=== PATIENT | male | born 1955 | race Caucasian/White ===

== ENCOUNTER 2017-01-08 15:12 | Observation (INO) | payer OTHER ==
[2017-01-08] MEDS ORDERED: MIDAZOLAM 2 MG/2 ML VIAL ONE ×2 (15:27→16:47)
[2017-01-08] MEDS ORDERED: PROPOFOL 200 MG/20 ML VIAL ONE (15:27)
[2017-01-08] MEDS ORDERED: PROPOFOL/EMULSION 500 MG/50 ML BOTTLE IV ONE (15:27)
[2017-01-08] MEDS ORDERED: fentaNYL 100 MCG/2 ML INJ ONE (16:46)
[2017-01-08] MEDS ORDERED: SUGAMMADEX SODIUM 200 MG/2 ML VIAL IVP ONE ×2 (17:27→17:29)
[2017-01-08] MEDS ORDERED: NALOXONE HCL 0.4 MG/ML INJ IVP PRN (19:13)
[2017-01-08] MEDS ORDERED: ALBUTEROL 3 ML DEYVIAL IH PRN (19:13)
[2017-01-08] MEDS ORDERED: ACETAMINOPHEN 500 MG TAB PO PRN (19:13)
--- NOTE | 2017-01-08 19:14 | POSTANESTH ---
Post Anesthetic Evaluation Cardiovascular Status: Similar to Pre-Op Cond Respiratory Status: Similar to Pre-op Cond. Level of Consciousness/Mental Status: Alert and Oriented Pain Control: Adequate, Prn Tx Ordered Nausea/Vomiting Control: Adequate, Prn Tx Ordered Complications Possibly Related to Anesthesia: None Noted
[2017-01-08] MEDS ORDERED: SODIUM CL 0.9% 20 ML VIAL ONE (19:31)
[2017-01-08] MEDS ORDERED: DEXAMETHASONE 10 MG/ML VIAL ONE (19:31)
[2017-01-08] MEDS ORDERED: LIDOCAINE 2% JELLY 5 ML TUBE ONE (19:31)
[2017-01-08] MEDS ORDERED: LIDOCAINE 2% 2 ML INJ ONE (19:31)
[2017-01-08] MEDS ORDERED: NALOXONE HCL 0.4 MG/ML INJ ONE (19:31)
[2017-01-08] MEDS ORDERED: LORazepam 0.5 MG TAB PO PRN (20:32)
[2017-01-08] MEDS ORDERED: oxyCODONE IR 5 MG TAB PO PRN (20:32)
[2017-01-08] MEDS ORDERED: ZOLPIDEM TARTRATE 5 MG TAB PO PRN (20:32)
[2017-01-08] MEDS ORDERED: ACETAMINOPHEN 325 MG TAB PO PRN (20:32)
[2017-01-08] MEDS ORDERED: HYDROmorphone HCL/NS/PF 0.4 MG/2 ML SYR IVP PRN (20:32)
[2017-01-08] MEDS ORDERED: ONDANSETRON 4 MG/2 ML VIAL IVP PRN (20:32)
[2017-01-08] MEDS ORDERED: ONDANSETRON DISINTEGRATING 4 MG TAB PO PRN (20:32)
[2017-01-08] MEDS ORDERED: D50W 25 GM/50 ML SYR IVP PRN (20:36)
[2017-01-08 21:56] LABS: PLATELET COUNT 127 10^3/uL (150-400)
[2017-01-08] MEDS ORDERED: NAPROXEN SODIUM 220 MG TAB PO PRN (22:43)
[2017-01-08] MEDS ORDERED: ALLOPURINOL 300 MG TAB PO SCH (22:45)
--- NOTE | 2017-01-08 23:33 | CPEKG ---
Heart Rate: 74 RR Interval: 811 P-R Interval: 152 QRSD Interval: 104 QT Interval: 432 QTC Interval: 480 P [place]: 42 QRS [place]: 41 T Wave [place]: 158 EKG Severity - ABNORMAL ECG - EKG Impression: SINUS RHYTHM EKG Impression: PROBABLE ANTEROSEPTAL INFARCT, AGE INDETERM EKG Impression: BORDERLINE PROLONGED QT INTERVAL EKG Impression: Diffuse ST-T wave abnormalities--More pronounced since December 24, 2015 EKG Impression: Possible left atrial abnormality Electronically Signed By: Alin Motta 09-Jan-2017 07:58:13
--- NOTE | 2017-01-08 23:33 | CPEKG ---
Heart Rate: 74 RR Interval: 811 P-R Interval: 152 QRSD Interval: 104 QT Interval: 432 QTC Interval: 480 P [place]: 42 QRS [place]: 41 T Wave [place]: 158 EKG Severity - ABNORMAL ECG - EKG Impression: SINUS RHYTHM EKG Impression: PROBABLE ANTEROSEPTAL INFARCT, AGE INDETERM EKG Impression: BORDERLINE PROLONGED QT INTERVAL EKG Impression: Diffuse ST-T wave abnormalities--More pronounced since December 24, 2015 EKG Impression: Possible left atrial abnormality Electronically Signed By: Alin Motta 09-Jan-2017 07:58:13
--- NOTE | 2017-01-08 23:45 | GHP ---
[f rep st] HISTORY AND PHYSICAL DATE OF ADMISSION: 01/08/2017 CHIEF COMPLAINT: Shortness of breath. HISTORY: This is a 61-year-old man who was here in the hospital for a lower extremity MRI with anest hesia due to significant claustrophobia who was called to me by Anesthesia for concerns of pre and po st anesthetic hypoxia. It was noted that patient had O2 sats in the high 70s when he checked in for MRI and in the post procedure setting, was noted to be only saturating 91% on 4 L of oxygen. On disc ussion with the patient, he notes that he has been significantly more short of breath for the last se veral months. He does have significant dyspnea on exertion. He notes that he can only walk several feet without becoming so short of breath that he needs to sit down. He notes that this is new over t he last couple of months. He also states that he has been sleeping sitting completely upright in an office chair because if he lies back or lies down, he feels as if he cannot breathe. He has also not iced increased swelling in his bilateral lower extremities for the last several months. He notes he has chronic pain everywhere, so it is difficult for him to really say if he has had chest pain in par ticular. He denies any current chest pain that he is aware of. He denies any pain in one leg over t he other. In terms of his shortness of breath, he has been attributing this to his DARRYL, which was re cently diagnosed at the [facility] for which he is currently using CPAP. PAST MEDICAL HISTORY: Includes: 1. Coronary artery disease. 2. DARRYL on CPAP. 3. Diabetes with complications of neuropathy. 4. Hyperlipidemia. 5. MRSA cellulitis. 6. Severe claustrophobia. PAST SURGICAL HISTORY: Includes: 1. Rotator cuff surgery. 2. Knee surgery. FAMILY HISTORY: Multiple family members with diabetes. 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 He currently is much more sedentary. He lives alone. He is a nonsmoker, nondrinker, nondrug use r. REVIEW OF SYSTEMS: Ten-point review of systems obtained and negative except as per HPI. HOME MEDICATIONS: Include: 1. Tamsulosin. 2. Ambien. 3. Potassium. 4. Allopurinol. 5. Amlodipine. 6. Plavix. 7. Aspirin. 8. Levothyroxine. 9. Lasix. 10. Colchicine. 11. Metformin. 12. Naproxen. 13. Metoprolol. 14. Lisinopril. ALLERGIES: No known drug allergies. PHYSICAL EXAMINATION: VITAL SIGNS: BP 139/84, heart rate 79, respiratory rate 20, O2 sats 91% on 4 L, temperature is 36.5. GENERAL APPEARANCE: This is a well-developed well-nourished man. He is hieu ke and alert. He is mildly breathless with even mild exertion. EYES: Anicteric. HENT: Oropharynx clear. NECK: JVD is elevated. CARDIOVASCULAR: RRR, distant, no MRG. PULMONARY: Decreased breat h sounds throughout, normal work of breathing but significant dyspnea with even mild exertion. Speak ing in full sentences. ABDOMEN: Obese, soft, nontender. EXTREMITIES: Two plus tense pitting edema of the bilateral lower extremities with hyperpigmentation consistent with venostasis changes. SKIN: As above, warm, dry, and well perfused. NEURO/PSYCH: Oriented and appropriate. He is mildly anxi ous. CLINICAL DATA: Labs reviewed. Significant for white blood cell count 8.38, hematocrit of 45.3, plat elets of 127. Chemistry is notable for creatinine 1.3, which is near baseline. Glucose is 182. Tro ponin is 0.058. Chest x-ray, personally reviewed and interpreted, shows evidence of CHF with bilateral pulmonary veno us hypertension. ASSESSMENT AND PLAN: This is a 61-year-old man with a past medical history of coronary artery diseas e, diabetes, presenting after a scheduled MRI for hip pain with acute hypoxic respiratory failure in the setting of likely acute decompensated heart failure. 1. Acute hypoxic respiratory failure. Again, patient requiring 4 L to maintain O2 sats in the low 9 0s. He has a history of orthopnea, dyspnea on exertion, and increased lower extremity edema, all con cerning for decompensated heart failure. Will start IV Lasix 40 b.i.d. Continue supplemental O2 for now. Nothing to suggest pneumonia. Other consideration would be for pulmonary embolus, though this seems less likely in the absence of any chest pain, asymmetrical lower extremity edema, tachycardia, and with better explanation. 2. Acute decompensated heart failure. Again, this sounds to be progressive over the last several mo nths, now with patient sleeping sitting straight up and noting increased lower extremity edema and si gnificant dyspnea on exertion. Will monitor on telemetry overnight. Will obtain serial EKGs and tro ponins. Echocardiogram in the morning. Will ask Cardiology to get involved as well. He is followed usually by Dr. Raman. 3. Diabetes. He has a hemoglobin A1c of 6.2, on metformin at home. Certainly possible the patient may end up requiring angiogram while inhouse, so will hold his metformin and treat with sliding scale insulin for the time being. 4. Hip pain. Patient underwent MRI today with sedation for further evaluation of his hip pain. Thi s report is currently pending. 5. Coronary artery disease as per above, echocardiogram and serial troponins. 6. Hyperlipidemia. Last LDL was noted to be 108. Patient does not appear to be currently on a stat in, though this was noted on prior notes. Will need to get further information. 7. Hypertension. Blood pressure currently is within reasonable goal range. Will continue amlodipin e, metoprolol, and lisinopril. DISPOSITION: Observation status for now. Patient is very adamant he does not want to be in the hosp ital more than 24 hours, though seems likely he may require longer than this for full evaluation and management of above. Patient is new to my care. Old records reviewed, summarized as per HPI and past medical history. Ca re plan reviewed with PACU staff, and further history obtained from patient's friend [facility]. /[id number]/MODL
[2017-01-09 00:18] VITALS: BP 138/76; PULSE 76; RESP 18; TEMP 98.7; O2SAT 94
--- NOTE | 2017-01-09 02:58 | PDHOSCONS ---
Hospitalist Consult Hospitalist Consult: Ricky cover: Called by RN about patient wanting to leave [facility]. I talked to him at length about his concerns. He has taken Ambien for a long time and he states his dose used to be 25 mg qHS. However, he is in a study through [facility] to lower usage. He explains the study has three arms: Continue same dose, lower dose, and taper to discontinuation. He does not know which arm he is in because study is blinded. As a result of this, I told him I could not prescribe him 25 mg as this would be unsafe in the setting of unknown home dose, acute heart failure exacerbation, AHRF, and known sleep apnea. I offered him 10 mg instead but he refused to stay despite this. He was counseled on the high risk of cardiac complications and noting his ongoing heart failure exacerbation and hypoxia. He acknowledged these risks and signed the [facility] paperwork stating such.
--- NOTE | 2017-01-09 02:58 | PDHOSCONS ---
Hospitalist Consult Hospitalist Consult: Ricky cover: Called by RN about patient wanting to leave [facility]. I talked to him at length about his concerns. He has taken Ambien for a long time and he states his dose used to be 25 mg qHS. However, he is in a study through [facility] to lower usage. He explains the study has three arms: Continue same dose, lower dose, and taper to discontinuation. He does not know which arm he is in because study is blinded. As a result of this, I told him I could not prescribe him 25 mg as this would be unsafe in the setting of unknown home dose, acute heart failure exacerbation, AHRF, and known sleep apnea. I offered him 10 mg instead but he refused to stay despite this. He was counseled on the high risk of cardiac complications and noting his ongoing heart failure exacerbation and hypoxia. He acknowledged these risks and signed the [facility] paperwork stating such.
--- NOTE | 2017-01-09 02:58 | PDHOSCONS ---
Hospitalist Consult Hospitalist Consult: Ricky cover: Called by RN about patient wanting to leave [facility]. I talked to him at length about his concerns. He has taken Ambien for a long time and he states his dose used to be 25 mg qHS. However, he is in a study through [facility] to lower usage. He explains the study has three arms: Continue same dose, lower dose, and taper to discontinuation. He does not know which arm he is in because study is blinded. As a result of this, I told him I could not prescribe him 25 mg as this would be unsafe in the setting of unknown home dose, acute heart failure exacerbation, AHRF, and known sleep apnea. I offered him 10 mg instead but he refused to stay despite this. He was counseled on the high risk of cardiac complications and noting his ongoing heart failure exacerbation and hypoxia. He acknowledged these risks and signed the [facility] paperwork stating such.
[2017-01-09] MEDS ORDERED: LEVOTHYROXINE 150 MCG TAB PO SCH (06:00)
[2017-01-09] MEDS ORDERED: metFORMIN HCL 500 MG TAB PO SCH (08:00)
[2017-01-09] MEDS ORDERED: INSULIN LISPRO 100 UNIT/ML SC SCH (08:00)
[2017-01-09] MEDS ORDERED: POTASSIUM CL 20 MEQ TAB PO SCH (09:00)
[2017-01-09] MEDS ORDERED: ENOXAPARIN 40 MG/0.4 ML SYR SC SCH (09:00)
[2017-01-09] MEDS ORDERED: FUROSEMIDE 40 MG TAB PO SCH (09:00)
[2017-01-09] MEDS ORDERED: METOPROLOL TARTRATE 25 MG TAB PO SCH (09:00)
[2017-01-09] MEDS ORDERED: CLOPIDOGREL BISULFATE 75 MG TAB PO SCH (09:00)
[2017-01-09] MEDS ORDERED: LISINOPRIL 40 MG TAB PO SCH (09:00)
[2017-01-09] MEDS ORDERED: FUROSEMIDE 40 MG/4 ML VIAL IVP SCH (09:00)
[2017-01-09] MEDS ORDERED: TAMSULOSIN HCL 0.4 MG CAP PO SCH (21:00)
[2017-01-09] MEDS ORDERED: ASPIRIN 81 MG CHEWABLE TAB PO SCH (21:00)
[2017-01-09] MEDS ORDERED: COLCHICINE 0.6 MG CAP/TAB PO SCH (21:00)
[2017-01-09] MEDS ORDERED: ZOLPIDEM TARTRATE 25 MG PO SCH (21:00)
--- NOTE | 2017-01-10 14:12 | PDDCSUM ---
Discharge Summary Discharge Summary: Dates of service 01/08-01/09/17 Please note this was an AMA discharge that occurred when I was no longer in the hospital. He was not seen the day of discharge. Please see H&P from 01.08 for further details as well as cross cover note. Patient left AMA after not receiving 25mg ambien as he requested, he had no further w/u or testing except as noted in H&P.
--- NOTE | 2017-01-10 16:18 | ASDISCHSUM ---
Discharge Information Plan Status: Medically Cleared to Leave: Discharge Date:01/09/2017 01:00 AM CM D/C Disposition: ADT D/C Disposition:Against Medical Advice Projected Discharge Date:01/09/2017 01:00 AM Transportation at D/C: Discharge Delay Reason: Follow-Up Date:01/09/2017 01:00 AM Discharge Slot: Final Diagnosis: Placement Information Patient Contact Information Contact Name:ESVIN Relationship: Address: City:[place] Alternate Phone: State/Zip Code:[place] [address] Email: Financial Information Financial Class:[employer] Primary Plan Desc:[employer] OPEN [employer] LOCAL Primary Plan Number:[id number] Secondary Plan Desc: Secondary Plan Number: Assessment Information Intervention Information
--- NOTE | 2017-01-10 16:18 | ASDISCHSUM ---
Discharge Information Plan Status: Medically Cleared to Leave: Discharge Date:01/09/2017 01:00 AM CM D/C Disposition: ADT D/C Disposition:Against Medical Advice Projected Discharge Date:01/09/2017 01:00 AM Transportation at D/C: Discharge Delay Reason: Follow-Up Date:01/09/2017 01:00 AM Discharge Slot: Final Diagnosis: Placement Information Patient Contact Information Contact Name:ESVIN Relationship: Address: City:[place] Alternate Phone: State/Zip Code:[place] [address] Email: Financial Information Financial Class:[employer] Primary Plan Desc:[employer] OPEN [employer] LOCAL Primary Plan Number:[id number] Secondary Plan Desc: Secondary Plan Number: Assessment Information Intervention Information
--- NOTE | 2017-01-10 16:18 | ASDISCHSUM ---
Discharge Information Plan Status: Medically Cleared to Leave: Discharge Date:01/09/2017 01:00 AM CM D/C Disposition: ADT D/C Disposition:Against Medical Advice Projected Discharge Date:01/09/2017 01:00 AM Transportation at D/C: Discharge Delay Reason: Follow-Up Date:01/09/2017 01:00 AM Discharge Slot: Final Diagnosis: Placement Information Patient Contact Information Contact Name:ESVIN Relationship: Address: City:[place] Alternate Phone: State/Zip Code:[place] [address] Email: Financial Information Financial Class:[employer] Primary Plan Desc:[employer] OPEN [employer] LOCAL Primary Plan Number:[id number] Secondary Plan Desc: Secondary Plan Number: Assessment Information Intervention Information
== END 2017-01-09 01:00 | disposition left against medical advice (07) ==
LOC: FIMAGING 15:12 → F3N 19:13
PROVIDERS: ADMIT Internal Medicine; ATTEND Internal Medicine
DX: J96.01 Acute respiratory failure with hypoxia (principal); I50.9 Heart failure, unspecified; F40.240 Claustrophobia; M24.851 Other specific joint derangements of right hip, not elsewhere classified; M24.852 Other specific joint derangements of left hip, not elsewhere classified; E11.40 Type 2 diabetes mellitus with diabetic neuropathy, unspecified; E66.01 Morbid (severe) obesity due to excess calories; G47.33 Obstructive sleep apnea (adult) (pediatric); I25.10 Atherosclerotic heart disease of native coronary artery without angina pectoris; E78.5 Hyperlipidemia, unspecified; Z79.84 Long term (current) use of oral hypoglycemic drugs; Z95.5 Presence of coronary angioplasty implant and graft; Z68.41 Body mass index [BMI] 40.0-44.9, adult
CPT/HCPCS: 71020; 73721; 93005; G0378; J1100; J2250; J2310; J2704; J3010

== ENCOUNTER 2017-01-10 13:41 | Inpatient (IN) | payer OTHER ==
--- NOTE | 2017-01-10 14:42 | EDPHY ---
H & P Stated Complaint: Here for follow up for right hip MRI last Wednesday. HPI/ROS: HPI CHIEF COMPLAINT: Hip pain, shortness of breath HISTORY OF PRESENT ILLNESS: This patient is a 61-year-old male, significant past medical history for multiple chronic medical problems including coronary artery disease, obstructive sleep apnea, diabetes, obesity, hyperlipidemia, who struggles with chronic right hip pain acutely worse over the past few weeks. He recently had an MRI on January 08. Posterior MRI they could not get his oxygen saturation up. Was admitted to the hospital. He subsequently left against medical advice. He does have an oxygen requirement 4 L nasal cannula to keep his oxygen sat 90%. He was thought to possibly be in decompensated heart failure. Patient presents back to the emergency room today with ongoing right hip pain. Additionally upon arrival he is hypoxic noted to be hypoxic in the low 80s. Diaphoretic. He denies chest pain. He does endorse shortness of breath. Main complaint right hip pain. Past Medical History: Obstructive sleep apnea, coronary artery disease, diabetes, hyperlipidemia, morbid obesity, chronic right hip pain. Past Surgical History: No recent surgery. Social History: Denies daily use drugs alcohol tobacco products. Family History: Noncontributory. ROS REVIEW OF SYSTEMS: A comprehensive 10 point review of systems is otherwise negative aside from elements mentioned in the history of present illness. Exam Constitutional appears nontoxic however noted to be diaphoretic, obese, triage nursing summary reviewed, vital signs reviewed, awake/alert. Eyes normal conjunctivae and sclera, EOMI, PERRLA. HENT normal inspection, atraumatic, moist mucus membranes, no epistaxis, neck supple/ no meningismus, no raccoon eyes. Respiratory clear to auscultation bilaterally, normal breath sounds, no respiratory distress, no wheezing. Cardiovascular rate normal, regular rhythm, no murmur, no edema, distal pulses normal. Gastrointestinal soft, non-tender, no rebound, no guarding, normal bowel sounds, no distension, no pulsatile mass. Genitourinary no CVA tenderness. Musculoskeletal no midline vertebral tenderness, full range of motion, no calf swelling, no tenderness of extremities, no meningismus, good pulses, neurovascularly intact. Skin diaphoretic pink, warm, no rash, skin atraumatic. Neurologic awake, alert and oriented x 3, AAOx3, moves all 4 extremities equally, motor intact, sensory intact, CN II-XII intact, normal cerebellar, normal vision, normal speech. Psychiatric normal mood/affect. Heme/Lymph/Immune no lymphadenopathy. Differential Diagnosis: Includes but is not limited to in a particular order hypoxic respiratory failure, acute hypoxia from pulmonary edema, decompensated heart failure, ACS, acute on chronic right hip pain, electrolyte disturbance, infection, sepsis, pneumonia, Medical Decision Making: Plan for this patient chest x-ray, EKG, troponin, check BNP, I did go over his MRI results with him. He has significant osteoarthritis of the right hip. I will medicated with IV fentanyl 50 mcg. He is on 4 L nasal cannula to obtain a pulse ox of 90%. Patient be readmitted to the hospital for hypoxia. Pain control his hip. Further workup of most likely decompensated heart failure. Re-evaluation: 154: This patient has an oxygen requirement 4-5 L nasal cannula. O2 sat 90%. Chest x-ray reviewed shows pulmonary edema. I have ordered this gentleman 40 mg IV Lasix. As well as an echocardiogram stat. I have admitted him back to the hospitalist service for hypoxic decompensated heart failure. Intractable right hip pain. He is agreeable for this. EKG interpretation by me on record in [facility] system. Impression time of EKG 1635, this is sinus rhythm rate of 66. Nonspecific intraventricular conduction delay. Noted there are T-wave abnormalities V1 V2 similar to previous EKG dated 01/08/2017. Additionally I do appreciate delta waves V1 V2 V3. Source: Patient - Personal History Current Tetanus Diphtheria and Acellular Pertussis (TDAP): Yes - Medical/Surgical History Hx Asthma: No Hx Chronic Respiratory Disease: Yes Hx Diabetes: Yes Hx Cardiac Disease: No Hx Renal Disease: No Hx Cirrhosis: No Hx Alcoholism: No Hx HIV/AIDS: No Hx Splenectomy or Spleen Trauma: No Other PMH: DMII,HTN,Knee,MRSA,Gout, home o2 - Social History Smoking Status: Never smoked Constitutional: Initial Vital Signs Temperature (C) 36.6 C 01/10/17 14:10 Heart Rate 73 01/10/17 14:10 Respiratory Rate 18 01/10/17 14:10 Blood Pressure 111/74 01/10/17 14:10 O2 Sat (%) 84 L 01/10/17 14:10 O2 Delivery Mode Room Air O2 (L/minute) 4 Allergies/Adverse Reactions: No Known Allergies Allergy (Unverified 11/25/11 08:47) Home Medications: Medication Instructions Recorded Allopurinol [Allopurinol 300 MG 600 mg PO HS 12/23/15 (RX)] Aspirin [Aspirin 81mg (*)] 81 mg PO HS 12/23/15 Colchicine [Colchicine (*)] 1.2 mg PO HS 12/23/15 Furosemide [Lasix 40 MG (*)] 40 mg PO BID@,15 12/23/15 Levothyroxine [Synthroid 150 mcg 150 mcg PO DAILY06 12/23/15 (*)] Lisinopril [Zestril 40 mg (*)] 40 mg PO DAILY 12/23/15 Naproxen Sodium [Aleve 220 MG (*)] 660 mg PO BID PRN 12/23/15 amLODIPine BESYLATE [Norvasc 10 mg 10 mg PO DAILY 12/23/15 (*)] metFORMIN HCL [Glucophage 500 mg 1,000 mg PO BID 12/23/15 (*)] Clopidogrel Bisulfate [Plavix (*)] 75 mg PO DAILY #30 tab 12/24/15 Potassium Cl [Klor-Con 20 meq (*)] 20 meq PO DAILY #0 tab 12/24/15 Tamsulosin HCl [Flomax 0.4 MG (*)] 0.4 mg PO HS 01/08/17 Metoprolol Tartrate [Lopressor 25 50 mg PO DAILY 01/10/17 mg (*)] Sleep Study Medication 1 tab PO HS 01/10/17 Medical Decision Making - Data Points Laboratory Results: Laboratory Results 01/10/17 15:15 01/10/17 15:15 Medications Given: Allopurinol (Allopurinol) 600 mg PO HS PENDING SALE TO [facility] Stop: 07/09/17 20:59 Last Admin: 01/11/17 00:01 Dose: 600 mg Aspirin (Aspirin) 81 mg PO HS [facility] Stop: 07/09/17 20:59 Last Admin: 01/11/17 00:00 Dose: 81 mg Clopidogrel Bisulfate (Plavix) 75 mg PO DAILY [facility] Stop: 07/10/17 08:59 Last Admin: 01/11/17 08:43 Dose: 75 mg Colchicine (Colchicine) 1.2 mg PO HS [facility] Stop: 07/09/17 20:59 Last Admin: 01/10/17 23:59 Dose: 1.2 mg Enoxaparin Sodium (Lovenox) 40 mg SC BID [facility] Stop: 07/09/17 20:59 Last Admin: 01/11/17 08:44 Dose: 40 mg Furosemide (Lasix Injection) 40 mg IVP BID@0900,1500 [facility] TO [facility] Stop: 07/10/17 08:59 Last Admin: 01/11/17 15:57 Dose: 40 mg Levothyroxine Sodium (Synthroid) 150 mcg PO DAILY06 [facility] Stop: 07/10/17 05:59 Last Admin: 01/11/17 06:41 Dose: 150 mcg Magnesium Hydroxide (Milk Of Magnesia) 30 ml PO DAILY PRN; Protocol PRN Reason: Constipation Stop: 07/09/17 18:31 Last Admin: 01/10/17 23:59 Dose: 30 ml Metformin HCl (Glucophage) 1,000 mg PO BID [facility] Stop: 07/09/17 20:59 Last Admin: 01/11/17 08:44 Dose: 1,000 mg Miscellaneous Medication (Sleep Study Medication) 1 tab PO [facility] Stop: 07/09/17 20:59 Last Admin: 01/11/17 00:04 Dose: 1 tab Oxycodone HCl (Oxycodone Ir) 5 - 10 mg PO Q3HRS PRN PRN Reason: Pain, Severe Able to Take PO Stop: 01/20/17 16:19 Last Admin: 01/11/17 17:55 Dose: 10 mg Polyethylene Glycol (Miralax) 17 gm PO DAILY PRN; Protocol PRN Reason: Constipation, patient prefers Stop: 07/09/17 18:31 Last Admin: 01/11/17 08:45 Dose: 17 gm Potassium Chloride (Klor-Con) 20 meq PO DAILY [facility] Stop: 07/10/17 08:59 Last Admin: 01/11/17 08:43 Dose: 20 meq Senna/Docusate Sodium (Senokot-S) 1 - 2 tab PO BID [facility] PRN Reason: Protocol Stop: 07/09/17 20:59 Last Admin: 01/11/17 08:42 Dose: 2 tab Tamsulosin HCl (Flomax) 0.4 mg PO HS [facility] Stop: 07/09/17 20:59 Last Admin: 01/11/17 00:00 Dose: 0.4 mg Discontinued Medications Amlodipine Besylate (Norvasc) 10 mg PO DAILY [facility] Stop: 07/10/17 08:59 Last Admin: 01/11/17 08:43 Dose: 10 mg Fentanyl (Sublimaze) 50 mcg IVP EDNOW ONE Stop: 01/10/17 14:56 Last Admin: 01/10/17 15:53 Dose: Not Given Furosemide (Lasix Injection) 40 mg IVP EDNOW ONE Stop: 01/10/17 15:31 Last Admin: 01/10/17 15:38 Dose: 40 mg Lisinopril (Zestril) 40 mg PO DAILY [facility] Stop: 07/10/17 08:59 Last Admin: 01/11/17 08:43 Dose: 40 mg Metoprolol Tartrate (Lopressor) 50 mg PO DAILY [facility] Stop: 07/10/17 08:59 Last Admin: 01/11/17 08:43 Dose: 50 mg Perflutren Lipid Microsphere (Definity) 1.1 mg IV ONCE ONE Stop: 01/11/17 09:16 Last Admin: 01/11/17 10:32 Dose: 1.1 mg Departure - Departure Disposition: [facility] Acute Clinical Impression: Hypoxia Heart failure Qualifiers: Heart failure type: unspecified heart failure type Heart failure chronicity: acute Qualified Code(s): I50.9 - Heart failure, unspecified Condition: Fair
[2017-01-10] MEDS ORDERED: fentaNYL 100 MCG/2 ML INJ IVP ONE (14:55)
[2017-01-10 15:21] LABS: % IMMATURE GRANULYOCYTES 0.5 % (0.0-1.1); ABSOLUTE IMMATURE GRANULOCYTES 0.07 10^3/uL (0.00-0.10); ADD DIFF? NO; ADD MORPH? NO; ADD SCAN? NO; ATYPICAL LYMPHOCYTE FLAG 0 (0-99); FRAGMENT RBC FLAG 0 (0-99); HEMATOCRIT 46.1 % (40.0-51.0); HEMOGLOBIN 15.5 g/dL (13.7-17.5); LEFT SHIFT FLG 10 (0-99); LIPEMIA HEMOLYSIS FLAG 80 (0-99); MEAN CELL HEMOGLOBIN 29.9 pg (27.9-34.1); MEAN CELL HEMOGLOBIN CONCENTR. 33.6 g/dL (32.4-36.7); MEAN PLATELET VOLUME 11.1 fL (8.7-11.7); PLATELET CLUMPS FLAG 10 (0-99); PLATELET COUNT 182 10^3/uL (150-400); RED BLOOD CELL COUNT 5.18 10^6/uL (4.40-6.38); RED CELL DISTRIBUTION WIDTH 16.5 % (11.5-15.2)
[2017-01-10 15:30] LABS: INR 1.36 (0.83-1.16); PROTIME(PATIENT) 16.8 SEC (12.0-15.0)
[2017-01-10] MEDS ORDERED: FUROSEMIDE 40 MG/4 ML VIAL IVP ONE (15:30)
[2017-01-10 15:31] LABS: APTT 28.6 SEC (23.0-38.0)
[2017-01-10 15:58] LABS: ALANINE AMINOTRANSFERASE 73 IU/L (21-72); ALBUMIN 3.7 g/dL (3.5-5.0); ALKALINE PHOSPHATASE 96 IU/L (38-126); ANION GAP 17 mEq/L (8-16); ASPARTATE AMINOTRANSFERASE 46 IU/L (17-59); BILIRUBIN,TOTAL 2.9 mg/dL (0.1-1.4); BILIRUBIN-UNCONJUGATED 0.9 mg/dL (0.0-1.1); CALCIUM 9.1 mg/dL (8.5-10.4); CARBON DIOXIDE 25 mEq/l (22-31); CHLORIDE 98 mEq/L (97-110); CREATININE 1.4 mg/dL (0.7-1.3); GLOMERULAR FILTRATION RATE 51; GLUCOSE 130 mg/dL (70-100); MAGNESIUM 2.3 mg/dL (1.6-2.3); POTASSIUM 5.1 mEq/L (3.5-5.2); SODIUM 140 mEq/L (134-144); TOTAL PROTEIN 6.7 g/dL (6.3-8.2)
--- NOTE | 2017-01-10 16:05 | ASMTCMCOM ---
CM Note CM Note Notes: Patient admitted for hypoxia and SOB; pt currently requiring 4L O2 NC to maintain 90% SpO2. Pt to have ECHO. Patient has DM, CHF, OA of hip, chronic pain, obstructive sleep apnea (uses CPAP). Patient was admitted to the hospital on 01/08/17 for hypoxia during an outpatient MRI of his hip. Per MD DC Summary on 01/09, patient had asked for Ambien and was told he would not be receiving it and then left AMA and was picked up by his brother. Today, patient told ED RN he is in an Ambien reduction program at [facility]; see ED RN note 01/10. Exact DC needs unknown at this time, CM to follow. Date Signed: 01/10/2017 04:05 PM Electronically Signed By:Karen Pitt RN
[2017-01-10 16:10] LABS: TROPONIN I 0.044 ng/mL (0.000-0.034)
[2017-01-10] MEDS ORDERED: ALBUTEROL 3 ML DEYVIAL IH PRN (16:20)
[2017-01-10] MEDS ORDERED: PROMETHAZINE HCL 25 MG/ML INJ IVP PRN (16:20)
[2017-01-10] MEDS ORDERED: ONDANSETRON 4 MG/2 ML VIAL IVP PRN (16:20)
[2017-01-10] MEDS ORDERED: ONDANSETRON DISINTEGRATING 4 MG TAB PO PRN (16:20)
[2017-01-10 16:21] LABS: CK-MB INTERPRETATION NEGATIVE (NEGATIVE); CREATINE KINASE-MB FRACTION 4.91 ng/mL (0.00-3.19)
--- NOTE | 2017-01-10 16:41 | CPEKG ---
Heart Rate: 66 RR Interval: 909 P-R Interval: 152 QRSD Interval: 110 QT Interval: 448 QTC Interval: 470 P [place]: 51 QRS [place]: 43 T Wave [place]: 15 EKG Severity - ABNORMAL ECG - EKG Impression: SINUS RHYTHM EKG Impression: NONSPECIFIC INTRAVENTRICULAR CONDUCTION DELAY Electronically Signed By: Kojo Painter 10-Jan-2017 18:34:25
--- NOTE | 2017-01-10 17:18 | PDGENHP ---
History and Physical - Chief Complaint shortness of breath - History of Present Illness 61 yo M with PMH of DARRYL, CAD, obesity presenting with SOB and hip pain. Patient was recently evaluated in this hospital with an MRI with anesthesia and post MRI was noted to be significantly hypoxic, requiring 4-5L to maintain o2 sats in low 90s. He was admitted to the hospitalist service for evaluation of presumed decompensated CHF but left AMA when he was told he would not be given the 25 mg of ambien he was requesting. In terms of the ambien, patient has been part of a trial at [facility], where he is receiving either ambien--high versus low dose , or placebo, and he is not aware of which arm of the trial he is in. He also suffers from significant anxiety and this is exacerbated by being in the hospital and not always having his expectations met in terms of when things will happen. At the time of my evaluation, he remains significantly anxious, particularly about his sleep med, but also admits that his breathing has not improved and in fact gotten worse since he left the hospital. He is very somnolent during the day and during my evaluation is intermittently nearly nodding off. Swelling in his legs continues, no change. He denies chest pain, denies cough, denies fever or chills, denies pains in his leg. Patient believes that his sxs are the result of his sedentary lifestyle, he notes that he is so sedentary that he has been known to fall asleep at work and stay at his desk for up to 2 days. He is unable to lay down to sleep, and sleeps in an office chair even at home. He has been struggling significantly with sleep and never sleeps for more than 4 hours at a stretch, often less than that. History Information - Allergies/Home Medication List Allergies/Adverse Reactions: No Known Allergies Allergy (Unverified 11/25/11 08:47) Home Medications: Allopurinol [Allopurinol 300 MG (RX)] 600 mg PO HS 12/23/15 [Last Taken 01/09/17 ] Aspirin [Aspirin 81mg (*)] 81 mg PO HS 12/23/15 [Last Taken 01/09/17] Colchicine [Colchicine (*)] 1.2 mg PO HS 12/23/15 [Last Taken 01/09/17] Furosemide [Lasix 40 MG (*)] 40 mg PO BID@,15 12/23/15 [Last Taken 01/10/17 09 :00] Levothyroxine [Synthroid 150 mcg (*)] 150 mcg PO DAILY06 12/23/15 [Last Taken ] Lisinopril [Zestril 40 mg (*)] 40 mg PO DAILY 12/23/15 [Last Taken 01/10/17] Naproxen Sodium [Aleve 220 MG (*)] 660 mg PO BID PRN 12/23/15 [Last Taken ] amLODIPine BESYLATE [Norvasc 10 mg (*)] 10 mg PO DAILY 12/23/15 [Last Taken ] metFORMIN HCL [Glucophage 500 mg (*)] 1,000 mg PO BID 12/23/15 [Last Taken 01/10 09:00] Tamsulosin HCl [Flomax 0.4 MG (*)] 0.4 mg PO HS 01/08/17 [Last Taken 01/09/17] Metoprolol Tartrate [Lopressor 25 mg (*)] 50 mg PO DAILY 01/10/17 [Last Taken 09:00] Sleep Study Medication 1 tab PO HS 01/10/17 [Last Taken 01/09/17] I have personally reviewed and updated: family history, medical history, social history, surgical history - Past Medical History coronary artery disease (sp 2 stents to cx/pda in 2016), diabetes type 2, hypertension, psychiatric history (anxiety) Additional medical history: DARRYL--on cpap, previously not compliant but states more compliant recently. insomnia. claustrophobia. MRSA cellulitis. BPH - Surgical History Reports: coronary stent Additional surgical history: rotator cuff surgery. knee surgery - Family History Positive for: diabetes type II - Social History Smoking Status: Never smoked Alcohol Use: Occasionally Drug Use: None Additional social history: lives alone, single, very sedentary Review of Systems Review of Systems: ROS: 10pt was reviewed & negative except for what was stated in HPI & below Physical Exam Physical Exam: Temp Pulse Resp BP Pulse Ox 36.9 C 67 16 117/67 93 01/10/17 16:30 01/10/17 16:30 01/10/17 16:30 01/10/17 16:30 01/10/17 16:30 O2 (L/minute) 4 Constitutional: no apparent distress, obese Eyes: PERRL, anicteric sclera Ears, Nose, Mouth, Throat: moist mucous membranes, hearing normal Cardiovascular: regular rate and rhythym, no murmur, rub, or gallop, JVD, edema Respiratory: no respiratory distress, reduced air movement Gastrointestinal: normoactive bowel sounds, soft, non-tender abdomen Genitourinary: no bladder tenderness Skin: warm, No normal color Musculoskeletal: full muscle strength, no muscle tenderness Neurologic: AAOx3 Psychiatric: interacting appropriately, not encephalopathic, anxious Lab Data & Imaging Review 01/10/17 15:15 01/10/17 15:15 WBC 14.80 10^3/uL (3.80-9.50) H 01/10/17 15:15 RBC 5.18 10^6/uL (4.40-6.38) 01/10/17 15:15 Hgb 15.5 g/dL (13.7-17.5) 01/10/17 15:15 Hct 46.1 % (40.0-51.0) 01/10/17 15:15 MCV 89.0 fL (81.5-99.8) 01/10/17 15:15 MCH 29.9 pg (27.9-34.1) 01/10/17 15:15 MCHC 33.6 g/dL (32.4-36.7) 01/10/17 15:15 RDW 16.5 % (11.5-15.2) H 01/10/17 15:15 Plt Count 182 10^3/uL (150-400) D 01/10/17 15:15 MPV 11.1 fL (8.7-11.7) 01/10/17 15:15 Neut % (Auto) 83.3 % (39.3-74.2) H 01/10/17 15:15 Lymph % (Auto) 4.5 % (15.0-45.0) L 01/10/17 15:15 [place] % (Auto) 11.3 % (4.5-13.0) 01/10/17 15:15 Eos % (Auto) 0.1 % (0.6-7.6) L 01/10/17 15:15 Baso % (Auto) 0.3 % (0.3-1.7) 01/10/17 15:15 Nucleat RBC Rel Count 0.0 % (0.0-0.2) 01/10/17 15:15 Absolute Neuts (auto) 12.35 10^3/uL (1.70-6.50) H 01/10/17 15:15 Absolute Lymphs (auto) 0.66 10^3/uL (1.00-3.00) L 01/10/17 15:15 Absolute Monos (auto) 1.67 10^3/uL (0.30-0.80) H 01/10/17 15:15 Absolute Eos (auto) 0.01 10^3/uL (0.03-0.40) L 01/10/17 15:15 Absolute Basos (auto) 0.04 10^3/uL (0.02-0.10) 01/10/17 15:15 Absolute Nucleated RBC 0.00 10^3/uL (0-0.01) 01/10/17 15:15 Immature Gran % 0.5 % (0.0-1.1) 01/10/17 15:15 Immature Gran # 0.07 10^3/uL (0.00-0.10) 01/10/17 15:15 PT 16.8 SEC (12.0-15.0) H 01/10/17 15:15 INR 1.36 (0.83-1.16) H 01/10/17 15:15 APTT 28.6 SEC (23.0-38.0) 01/10/17 15:15 Sodium 140 mEq/L (134-144) 01/10/17 15:15 Potassium 5.1 mEq/L (3.5-5.2) 01/10/17 15:15 Chloride 98 mEq/L (97-110) 01/10/17 15:15 Carbon Dioxide 25 mEq/l (22-31) 01/10/17 15:15 Anion Gap 17 mEq/L (8-16) H 01/10/17 15:15 BUN 38 mg/dL (7-23) H 01/10/17 15:15 Creatinine 1.4 mg/dL (0.7-1.3) H 01/10/17 15:15 Estimated GFR 51 01/10/17 15:15 Glucose 130 mg/dL (70-100) H 01/10/17 15:15 Calcium 9.1 mg/dL (8.5-10.4) 01/10/17 15:15 Magnesium 2.3 mg/dL (1.6-2.3) 01/10/17 15:15 Total Bilirubin 2.9 mg/dL (0.1-1.4) H D 01/10/17 15:15 Conjugated Bilirubin 2.0 mg/dL (0.0-0.5) H 01/10/17 15:15 Unconjugated Bilirubin 0.9 mg/dL (0.0-1.1) 01/10/17 15:15 AST 46 IU/L (17-59) 01/10/17 15:15 ALT 73 IU/L (21-72) H 01/10/17 15:15 Alkaline Phosphatase 96 IU/L (38-126) 01/10/17 15:15 Creatine Kinase 175 IU/L (0-224) 01/10/17 15:15 CK-MB (CK-2) Fraction 4.91 ng/mL (0.00-3.19) H 01/10/17 15:15 CK-MB (CK-2) % 2.8 % (0.0-4.0) 01/10/17 15:15 Creatine Kinase Interp NEGATIVE (NEGATIVE) 01/10/17 15:15 Troponin I 0.044 ng/mL (0.000-0.034) H 01/10/17 15:15 NT-Pro-B Natriuret Pep 5050 pg/mL (0-125) H 01/10/17 15:15 Total Protein 6.7 g/dL (6.3-8.2) 01/10/17 15:15 Albumin 3.7 g/dL (3.5-5.0) 01/10/17 15:15 Visualized and Interpreted Chest x-ray results: Yes Chest X-Ray results: other (pulmonary edema) Visualized and Interpreted EKG results: Yes EKG Interpretation: Positive for: normal sinsus rhythm Assessment & Plan Assessment: Hypoxia (Acute) Heart failure (Acute) 61 yo M with PMH of darryl, DM and CAD presenting with acute decompensated heart failure and acute hypoxic respiratory failure in the setting of recent admission for same # acute decompensated heart failure: with previously normal EF but now with both pulmonary edema and lower extremity edema. Suspect component of right heart failure related to darryl/ohs but also suspect left sided failure either new or worsening. Last admission patient left without further testing, will attempt to get echo done today. BNP continues to increase. Monitoring on tele, serial trops, echo, cardiology consult. Will start lasix 40 IV bid for now. # acute hypoxic respiratory failure: at baseline only uses o2 at night with cpap , currently requiring 4-5L to maintain o2 sats in low 90s, has been as low as the 70s on RA. Suspect this is more subacute given only mild sxs despite significant hypoxia. With somnolence, query some co2 retention as well and will get abg for further evaluation. As above with significant pulmonary edema noted on current xray, similar to several days ago. # darryl: as above, intermittently compliant with cpap it sounds like, patient hypoxic and quite somnolent on exam, abg pending, cpap qhs # DM: will continue home regimen # insomnia: will have patient continue his study drug (ambien versus placebo) while in house, he is very anxious about this and particularly about either losing his medications or doing anything that will invalidate the study # CAD: with 2 stents placed in 2016, continue home meds including DAPT, echo pending, trop indeterminate and similar to prior, continue to trend # hip pain: recent MRI performed showing some areas of bone on bone in hip, will need OP ortho evaluation, oxycodone prn and pt/ot while in house # anxiety: limiting his ability to remain in the hospital in the past, he remains very anxious and easily upset by delays in care etc. Seems to respond well to redirection and explanation and will attempt to expedite his work up as best we can in order to decrease the risk of him leaving AMA again # obesity: liking contributing to his presentation, likely some component of ohs , recommending lifestyle modification # observation status Dvt ppx: lmwh patient new to my care. Old records reviewed and summarized as above. Care plan reviewed with ER and pharmacy including plans for sleep medication. Further hx obtained from patients friend present at bedside.
[2017-01-10] MEDS: oxyCODONE IR 5 MG TAB PO PRN (17:37)
[2017-01-10] MEDS ORDERED: MAGNESIUM HYDROXIDE 30 ML UDCUP PO PRN (18:32)
[2017-01-10] MEDS ORDERED: BISACODYL 10 MG SUPP PR PRN (18:32)
[2017-01-10] MEDS ORDERED: LACTULOSE 20 GM/30 ML UDCUP PO PRN (18:32)
[2017-01-10] MEDS ORDERED: [UNRECOGNIZED DRUG - OTHER] PO SCH (21:00)
[2017-01-10 21:46] LABS: BASE EXCESS -1.7 mEq/L (-2.5-2.5); BICARBONATE 22 mEq/L (22-26); MEASURED OXYGEN SATURATION 96 % (92-95); PCO2 37 mmHg (34-38); PO2 87 mmHg (65-75); TCO2 23 mEq/L (23-27)
[2017-01-10] MEDS: COLCHICINE 0.6 MG CAP/TAB PO SCH (23:59)
[2017-01-11] MEDS: ENOXAPARIN 40 MG/0.4 ML SYR SC SCH ×3 (00:01→23:43)
[2017-01-11] MEDS: ALLOPURINOL 300 MG TAB PO SCH ×2 (00:01→23:35)
[2017-01-11] MEDS: [UNRECOGNIZED DRUG - REMARK] PO SCH ×2 (00:04→23:56)
[2017-01-11] MEDS: SENNOSIDES/DOCUSATE SODIUM TAB PO SCH ×3 (00:08→23:34)
[2017-01-11 04:25] LABS: % IMMATURE GRANULYOCYTES 0.6 % (0.0-1.1); ABSOLUTE IMMATURE GRANULOCYTES 0.08 10^3/uL (0.00-0.10); ADD DIFF? NO; ADD MORPH? NO; ADD SCAN? NO; ATYPICAL LYMPHOCYTE FLAG 0 (0-99); FRAGMENT RBC FLAG 0 (0-99); HEMATOCRIT 43.3 % (40.0-51.0); HEMOGLOBIN 14.7 g/dL (13.7-17.5); LEFT SHIFT FLG 10 (0-99); LIPEMIA HEMOLYSIS FLAG 90 (0-99); MEAN CELL HEMOGLOBIN 30.1 pg (27.9-34.1); MEAN CELL HEMOGLOBIN CONCENTR. 33.9 g/dL (32.4-36.7); MEAN CELL VOLUME 88.5 fL (81.5-99.8); MEAN PLATELET VOLUME 11.5 fL (8.7-11.7); PLATELET CLUMPS FLAG 10 (0-99); PLATELET COUNT 188 10^3/uL (150-400); RED BLOOD CELL COUNT 4.89 10^6/uL (4.40-6.38); RED CELL DISTRIBUTION WIDTH 16.5 % (11.5-15.2)
[2017-01-11 04:40] LABS: ALANINE AMINOTRANSFERASE 67 IU/L (21-72); ALKALINE PHOSPHATASE 97 IU/L (38-126); ANION GAP 17 mEq/L (8-16); ASPARTATE AMINOTRANSFERASE 49 IU/L (17-59); BILIRUBIN,TOTAL 2.3 mg/dL (0.1-1.4); CALCIUM 8.8 mg/dL (8.5-10.4); CARBON DIOXIDE 24 mEq/l (22-31); CHLORIDE 98 mEq/L (97-110); CREATININE 1.5 mg/dL (0.7-1.3); GLOMERULAR FILTRATION RATE 47; GLUCOSE 121 mg/dL (70-100); POTASSIUM 4.8 mEq/L (3.5-5.2); SODIUM 139 mEq/L (134-144); TOTAL PROTEIN 6.3 g/dL (6.3-8.2)
[2017-01-11 04:49] LABS: TROPONIN I 0.036 ng/mL (0.000-0.034)
[2017-01-11 05:23] LABS: BILIRUBIN-CONJUGATED 1.5 mg/dL (0.0-0.5); BILIRUBIN-UNCONJUGATED 0.8 mg/dL (0.0-1.1)
[2017-01-11] MEDS: LEVOTHYROXINE 150 MCG TAB PO SCH (06:41)
[2017-01-11] MEDS: oxyCODONE IR 5 MG TAB PO PRN ×3 (06:51→17:55)
[2017-01-11] MEDS: CLOPIDOGREL BISULFATE 75 MG TAB PO SCH (08:43)
[2017-01-11] MEDS: FUROSEMIDE 40 MG/4 ML VIAL IVP SCH ×2 (08:44→15:57)
[2017-01-11] MEDS: metFORMIN HCL 500 MG TAB PO SCH ×3 (08:44→23:34)
[2017-01-11] MEDS: POLYETHYLENE GLYCOL 3350 17 GM PKT PO PRN (08:45)
[2017-01-11] MEDS ORDERED: METOPROLOL TARTRATE 25 MG TAB PO SCH (09:00)
[2017-01-11] MEDS ORDERED: LISINOPRIL 40 MG TAB PO SCH (09:00)
[2017-01-11] MEDS ORDERED: POTASSIUM CL 20 MEQ TAB PO SCH (09:00)
[2017-01-11] MEDS ORDERED: PERFLUTREN LIPID MICROSPHERES 1.1 MG/ML VIAL IV ONE (09:15)
--- NOTE | 2017-01-11 10:49 | HOSPPROG ---
Hospitalist Progress Note Assessment/Plan: DIAGNOSES: -acute as the congestive heart failure, left and right-sided, uncertain cause to his episode at this time * notably today the patient tells me that he had stopped taking his diuretic at home a few days ago because he had dry mouth and dark urine and was feeling dehydrated, despite that he has ongoing severe bilateral ankle edema and orthopnea -ongoing severe right hip pain is fairly debilitating and caused by severe osteoarthritis -acute renal failure, hemodynamic etiology -history of type 2 diabetes -history of obstructive sleep apnea -anxiety disorder and severe insomnia Overall he feels somewhat better today but still with shortness of breath and still with hip pain making walking with a walker very difficult. Echocardiogram was attempted yesterday with very poor visualization and will be repeated today with contrast The patient is wanting very much to do something about his hip it would appear that this point the only thing likely to be very helpful as a surgery and most likely hip replacement. At this point as he is uncompensated right and left heart failure we would be unable to recommend proceeding with surgery until that is well compensated. I reviewed these issues with the patient In terms of treatment I suspect we are probably at the limits of what diuretics can do as he has had symptoms of intravascular volume depletion at home and has rising creatinine with attempted diuresis here. This likely has to do with his pulmonary hypertension and right heart issues, but would be quite helpful to know his valve functions and left heart function as well. PLANS: -await echocardiogram repeat study -diuretic held for the moment until we have his echocardiogram as his creatinine is rising -I reviewed the case in detail today with John Lopez of [facility]; further plans after I review the echo cardiogram and review with good Mr. lopez after he has seen the patient -eventual refer to Orthopedics once a his cardiac status is stabilized SUBJECTIVE: Still with some shortness of breath, weak and tired. 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 There is severe loss of hip cartilage on the right with extensive subchondral cyst formation both in the acetabulum and the femoral head and neck. I also reviewed his chest x-ray from yesterday. This does show a very large heart with only mild pulmonary edema on my reading of the images Objective: Vital Signs Temp Pulse Resp BP Pulse Ox 36.6 C 74 18 116/57 L 90 L 01/11/17 07:24 01/11/17 07:24 01/11/17 07:24 01/11/17 07:24 01/11/17 07:24 Laboratory Results 01/11/17 03:28 01/11/17 03:28 01/10/17 01/11/17 01/12/17 06:59 06:59 06:59 Intake Total 1000 Balance 1000 PT 16.8 SEC (12.0-15.0) H 01/10/17 15:15 INR 1.36 (0.83-1.16) H 01/10/17 15:15 - Time Spent With Patient Time Spent with Patient: greater than 35 minutes Time Spent with Patient: Greater than 35 minutes spent on this patients care, greater than 50% of time spent counseling, educating, and coordinating care regarding the above mentioned plan. ICD10 Worksheet Patient Problems: Problems Problem Status Onset Heart failure Acute Hypoxia Acute Diabetes Acute Methicillin resistant Staphylococcus aureus infection Acute 08/19/15
--- NOTE | 2017-01-11 12:09 | ECHO ---
[email or web address] [place] [id number] Main: [phone] Fax: Transthoracic Echocardiogram Name: TONYA LEAVITT MR#: [id number] Study Date: 01/11/2017 Study Time: 10:25 AM Date of : 1955 Age: 61 year(s) Height: ( ) Weight: ( ) BSA: Gender: Male Examination: Limited Echo Indication: Eval LV function Image Quality: Contrast: Requested by: Sylvie Oropeza BP: / Heart Rate: Rhythm: Indication: Eval LV function Procedure Staff Milling Machine Operator: Reading Physician: Ramiro Rios Requesting Provider: Conclusions: Normal size left ventricle. Normal global systolic LV function. The ejection fraction is estimated to be 50-55 %. Mildly dilated right ventricle. Mildly reduced RV function. RVSP is 47mmHG.. Measurements: Chambers Valvular Assessment AV/MV Valvular Assessment TV/PV Normal Normal Normal Name Value Range Name Value Range Name Value Range EF Range: 50-55 % TR Vmax: 3.42 mm/s ( - ) TR PGmax: 47 mmHg ( - ) Continued Measurements: Findings: Left Ventricle: Normal size left ventricle. Normal global systolic LV function. The ejection fraction is estimated to be 50-55 %. Right Ventricle: Mildly dilated right ventricle. Mildly reduced RV function. Right Atrium: The right atrium is mildly dilated. Tricuspid Valve: Moderate tricuspid regurgitation is present. RVSP is 47mmHG.. Exam Comments: Limited echo performed using Definity contrast to enhance wall motion. 0.495 mg of Definity was Patient: TONYA LEAVITT Study Date: 01/11/2017 Page 1 of 2 10:25 AM used. Technically difficult study even with enhancement due to pt's body habitus.. (No Signature Object) Patient: TONYA LEAVITT Study Date: 01/11/2017 Page 2 of 2 10:25 AM [id number]
--- NOTE | 2017-01-11 12:15 | ECHO ---
[email or web address] [address] [address] Main: [phone] Fax: Transthoracic Echocardiogram Name: TONYA LEAVITT MR#: [id number] Study Date: 01/10/2017 Study Time: 05:35 PM Date of : 1955 Age: 61 year(s) Height: 190.5 cm (75 in.) Weight: 147.42 kg (325 lb.) BSA: 2.7 m2 Gender: Male Examination: Limited Echo Indication: Shortness of breath Image Quality: Contrast: Requested by: Kojo Handy BP: / Heart Rate: Rhythm: Indication: Shortness of breath Procedure Staff Grave Digger: Prudence Collins Reading Physician: Ramiro Rios Requesting Provider: Conclusions: Normal size left ventricle. Normal global systolic LV function. Mild aortic sclerosis and mitral annular calcification without significant stenosis or insufficiency. Mild tricuspid regurgitation. Severely technically limited study with poor acoustic windows. Measurements: Chambers Valvular Assessment AV/MV Valvular Assessment TV/PV Normal Normal Normal Name Value Range Name Value Range Name Value Range LVDd (2D): 6.2 cm (4.2 cm-5.9 AV Vmax: 1.60 m/s (1 m/s-1.7 TR Vmax: 2.76 mm/s ( - ) cm) m/s) TR PGmax: 30 mmHg ( - ) AV maxP mmHg ( - ) syst. PAP: 40 mmHg ( - ) Continued Measurements: Valvular Assessment TV/PV Name Value CVP (est.): 10 mmHg Findings: Left Ventricle: Normal size left ventricle. Normal global systolic LV function. Left Atrium: The left atrium is mildly dilated. Right Atrium: The right atrium is mildly dilated. Mitral Valve: The mitral valve is normal in appearance and function. Mild mitral valve leaflet calcification is Patient: TONYA LEAVITT Study Date: 01/10/2017 Page 1 of 2 05:35 PM present. There is no significant mitral valve regurgitation. Aortic Valve: Aortic valve is not well visualized. Aortic sclerosis is present. Tricuspid Valve: Tricuspid valve not visualized. Mild tricuspid regurgitation is present. The pulmonary artery pressure is normal. Exam Comments: Technically difficult study - pt upright in chair. Recommend using definity contrast to further eval LV/RV function.. (No Signature Object) Patient: TONYA LEAVITT Study Date: 01/10/2017 Page 2 of 2 05:35 PM [id number]
--- NOTE | 2017-01-11 17:56 | GCON ---
[f rep st] CONSULTATION CARDIOLOGY CONSULTATION INDICATION FOR CARDIOLOGY CONSULTATION: Hypoxia, increased shortness of breath , peripheral edema, elevated BNP indicating of heart failure. HISTORY OF PRESENT ILLNESS: The patient is a 61-year-old male who is known to our practice. He has significant past history that includes coronary artery disease, status post PCI of the circumflex artery and right PDA with APRIL implantation December 23, 2015, hyperlipidemia, hypertension, obesity, DARRYL (CPAP) , and diabetes. Patient reports a multi-month history of right hip pain, reporting worsening over the last few weeks, at the beginning of last week its had become significant worst. He came in for a lower extremity MRI, but due to significant history claustrophobia, this was done under general anesthesia, was noted that an initial oxygen of SpO2 resting was in the 70s. At that point, he underwent the procedure and was admitted to the hospital services. Unfortunately, during that time he has a long-term history of being on Ambien, he has been on a study with [employer], to help him get off it and he was unable to get the Ambien medication that he was supposed to be taking, due to it being a blind study, and decided to leave AMA. No real significant workup was done at that time. Yesterday afternoon, reported he had hip pain worsening again, returned back to the hospital, again appeared to be hypoxic. Chest x- ray was done showing some mild CHF. He was noted to have an elevated BNP of 5000, and was admitted to the hospital for further evaluation. He was noted to have a mild elevated troponin of 0.044. Patient reports to me that he has had no episodes of chest pain or pressure. He does report that with this hip pain, he has been extremely immobile and sedentary. He has continuous peripheral edema, but reports that it has worsened over the last 2 weeks. He has informed me that around 10 days ago he had noted that his urine had been very dark and not having a significant amount of urine output while on his Lasix therapy. He held his Lasix and has not been on it for at least 7-10 days. He reports no palpitations, orthopnea (as long as he is using his CPAP), or PND. Does admit that he has had probably, in the last 6 months, a 20-pound weight gain. Denies any chest pressure, lightheadedness, near syncope, or syncopal events. Despite his hypoxia, does not notice any significant shortness of breath. Reports no recent fevers, chills, or night sweats. Besides being off his Lasix, he does admit that he has been taking at least 2 doses of Aleve 3 times a day for the last 6 months because of pain. PAST MEDICAL HISTORY: CAD with previous PCI of the circumflex and PDA, diabetes , hyperlipidemia, hypertension, obesity, DARRYL, past history of MRSA skin infection, hypothyroidism, and gout. PAST SURGICAL HISTORY: Rotator cuff surgery, knee surgery, stents in percutaneous coronary intervention December 23, 2015, in which he underwent PCI with 2 APRIL implantations (2.5 x 32, and 2.5 x 16 Synergy stents) into the circumflex artery and APRIL implantation in the PDA (2.5 x 16 Synergy APRIL stent). FAMILY HISTORY: The patient reports family history positive for diabetes. SOCIAL HISTORY: He is single. He is very sedentary. He lives alone. Denies of any smoking use. Does report occasional alcohol use. Denies of any illicit drug use, but does report long-term history of Ambien use for greater than 20 years. ALLERGIES: Patient has no known drug allergies. MEDICATIONS: Medications at home include: 1. Metformin 1000 mg p.o. b.i.d. 2. Norvasc 10 mg p.o. daily. 3. Flomax 0.4 mg p.o. h.s. 4. Potassium chloride 20 meq p.o. daily. 5. Ambien via sleep study 1 tablet p.o. h.s. 6. Naproxen 220 mg, reporting taking 660 mg 2-3 times a day routinely for the last 6 months. 7. Metoprolol tartrate 50 mg p.o. daily. 8. Lisinopril 40 mg daily. 9. Synthroid 150 mcg p.o. daily. 10. Lasix 40 mg p.o. b.i.d. 11. Colchicine 1.2 mg p.o. h.s. 12. Clopidogrel 75 mg p.o. daily. 13. Aspirin 81 mg p.o. h.s. 14. Allopurinol 600 mg p.o. h.s. REVIEW OF SYSTEMS: 10-point review of systems done on this patient all negative except as mentioned above. PHYSICAL EXAMINATION: GENERAL APPEARANCE: Medium-built, morbidly obese male. He is alert, oriented to person, place, time and situation, is somewhat somnolent with falling asleep when talking to him during my interview today. Appears to be under no acute distress. CURRENT VITAL SIGNS: Blood pressure 116/57, heart rate of 74, sinus rhythm on the monitor, saturations are 90% on 3.5 L nasal cannula, temperature of 36.6 degrees Celsius, respirations are 18 breaths per minute. HEENT: Head is normocephalic, lips and tongue are pink and moist with no signs of cyanosis, conjunctivae pink. NECK: Trachea is midline, +2 carotid pulses bilateral, no auscultated bruits, 3-4 cm of jugular vein elevation at a 90-degree angle above the sternal notch. RESPIRATORY: Lungs are diminished in bases bilateral. No rhonchi, rales, or wheezing noted. No accessory muscle use. No intercostal muscle retraction noted. CARDIAC: Regular rate, regular rhythm. S1, S2. No S3, S4, gallops, rubs, or murmur noted. ABDOMEN: Firm, round, bowel sounds x4 quadrants, no organomegaly palpable. SKIN: [place], warm, dry, no cyanosis noted at this time, +2 to 3 peripheral edema bilateral lower extremities to knees and thighs. VASCULAR: + 2 carotids bilateral, +2 radials bilateral, +1 post tibial pulses bilateral. LABORATORY STUDIES: Drawn today show WBC of 14.34, hemoglobin of 14.7, hematocrit of 43.3, platelet count of 188. Sodium of 139, potassium 4.8, chloride 98, CO2 24, BUN 43, creatinine 1.5, glucose 122, calcium 8.8, total bilirubin 2.3, AST 49, ALT 67, alkaline phosphatase 97. Total protein 6.3 and albumin 3.0. Troponin on initial admission was 0.044, repeated later on the was 0.032, and this morning was 0.036. ProBNP on admission was 5050. INR on admission was 1.36. STUDIES: Chest x-ray showing mild cardiomegaly with borderline congestive heart failure. Electrocardiogram showing sinus rhythm, normal axis, nonspecific intraventricular conduction delay, poor R-wave progression anterior leads. Patient underwent limited echocardiogram on January 10 on admission, which was a poor study due to the patient's obesity, but did show a normal globus LV systolic function, mild aortic sclerosis, and mitral annular calcification without any significant stenosis or insufficiency, mild TR. Patient did have a repeated echocardiogram limited study with Definity contrast , again estimating the ejection fraction at 50% to 55% of the LV with no wall motion abnormalities, was noted that RV was mildly dilated with mildly reduced RV function, RVSP was estimated at 47 mmHg. Patient's most recent prior echocardiogram found on study was done on August 22, 2015, showing EF of 75% with concentric LVH, diastolic dysfunction, normal RV size and function, RVSP at that time was estimated at 15-20 mmHg with mitral annular calcification, no other significant valvular abnormalities. ASSESSMENT AND PLAN: 1. Acute on chronic Diastolic heart failure: Patient noted with +3 peripheral edema, hypoxia, elevated BNP and mild congestive heart failure noted on chest x- ray. Patient does admit he has not been taking his diuretics for at least 7 days. Echocardiogram did note this appears to be more right-sided heart failure based off his echocardiogram, with right ventricular function mildly reduced and enlarged, right ventricular systolic pressure is also more elevated than previous echo. Patient has been given intravenous diuresis, but has noted a mild bump in creatinine at this time. Besides not taking his Lasix, potentially his weight, DARRYL, and renal function probably contributes to his heart failure, but with the raise right-sided heart pressure about possible pulmonary embolism. With his raised creatinine, I would like him to undergo V/ Q scan done today, and with significant peripheral edema of the bilateral lower extremities, will have him undergo bilateral ultrasound studies to evaluate for possible deep venous thromboses, especially in the setting of extremely sedentary due to ongoing hip pain. Also, would recommend, due to potential side effects of Norvasc, we try to attempt to decrease his amlodipine due to peripheral edema. Will have him discontinue his metoprolol and place him on Bystolic, which has better blood pressure control. As for diuresis, currently he has bumped his creatinine up to 1.5, normal creatinine is 1.0. Patient does admit that he has been using a significant amount of Aleve over the last 6 months, which could be contributing to this. I have requested Nephrology to come and see this patient before we continue on diuresing. If we do not see much progress with diuresis, then consideration of having the patient undergo right heart catheterization for further evaluation to see if this is a chronic pulmonary hypertension or if this is reversible. Patient is using his continuous positive airway pressure at night. Will continue monitoring daily weights, and strict I&Os. 2. Coronary artery disease: Patient with noted history of coronary artery disease with previous stenting around 1 year ago of the circumflex and posterior descending artery. Denies of any chest pain, noted normal left ventricular wall motion on echocardiogram. Patient was noted with mild elevated troponin on admission that normalized and mild bump this morning. Will repeat troponin in the morning again. Electrocardiogram shows no acute ST or T-wave abnormalities. I do think, depending on if his troponins level, and if he does require a right heart catheterization, then we may potentially do a left heart catheterization also. If we do not perform a right heart catheterization, then I would consider having him do a myocardial perfusion imaging study before discharge. Patient currently is not on statin therapy at home, he is uncertain, I will have him repeat a fasting lipid panel in the morning. If elevated, with his recent disease, it would be recommended that his LDL be less than 70 and consideration of starting on statin therapy. I will do more research into office notes to see if he had been on statin in the past and had any adverse reactions. Patient has been continued on current antiplatelet therapy of aspirin and clopidogrel. Beta blockage therapy as mentioned above. 3. Hypoxia: Noted desaturation to high 70s low 80s initial admission. Has been maintaining SpO2 greater than 90% oxygen therapy at least 3 liters/minute. Continue diuretic therapy as mentioned above. 4. Hypertension: Patient with noted history of extreme hypertension. As of right now he is normotensive. His lisinopril was held this morning due to his elevated creatinine, making adjustments to amlodipine as mentioned above and changing beta thelma over to Bystolic. Will continue to monitor and adjust as needed. Diuresis as above. 4. Obstructive sleep apnea: Patient is using his continuous positive airway pressure at night. 5. Renal insufficiency: Patient noted, reviewing his records, normal creatinines between 0.9 and 1.0, noted on admission was 1.4, and elevated at 1.5 today. Questioning if patient does admit that he has been off his diuretic therapy for at least a week prior to the hospitalization, possible increased creatinine due to diastolic heart failure, also patient with noted significant amount of naproxen intake. Will hold off. Have called Nephrology for an evaluation to ensure it would be safe to continue with diuresis. 6. Hypothyroidism. Patient has been continued on his medication therapy. 7. Insomnia. Patient has been continued on his sleep study medicine. Thank you for this consultation. We will be glad to follow along with you. /[id number]/MODL MTDD
--- NOTE | 2017-01-11 18:04 | WOCRNPDOC ---
WOCRN Advanced Assessment Note - Skin Integrity Problem, Advanced Assess Bilateral Lower Leg Dressing Type: Open to Air Exudate Amount: None [place] Wound Tissue: Erythema, Hemosiderin Staining, Venous Dermatitis, Taught, Xerotic, Hair Loss Wound Bed Constitution: Smooth Tissue, Scab Site Measurement - Head-to-Toe Length X Width X Depth (cm): 0.5x0.6x0.1 Skin Integrity Problem Comment: Patient with LEVD being [facility] Currently patient has two small scabs on anterior lower legs without sign of infection. There are also newer wounds, small scattered openings on left lateral lower distal leg, from a large amount of edema as well as venous stasis. Patient refuses all but minimal compression at this point. Tubigrip G sent down to floor and Atractain will be initiated. Patient measures 51.5 cm on right calf and 50 cm on left calf. Wound care will round again in about a week. Orly APONTE in room for care.
--- NOTE | 2017-01-11 19:48 | SOAPPROG ---
SOAP Progress Note Assessment/Plan: Assessment:Plan: ARF-in face of diuresis for diastolic heart failure -he had been using NSAIDS for his DJD -he has preserved LVEF and does not have LVH per the most recent echo -stop RHONA-i -this could be interfering with renal blood flow and effectiveness of diuretic therapy -continue diuretics -check renal US -check urine electrolytes -urinalysis -quantify urine protein -check SPEP and serum free light chains -continue current metformin and allopurinol CHF-diurese -stop RHONA -continue diuretic -continue sodium restriction -encourage use of CPAP -continue CCB and BB HTN-suspect BP will not be an issue once we have volume status normalized Edema-patient has > 20# of extra fluid with edema into his thighs -Hgb is lower than baseline -llow albumin likely reflection of his volume overload and not a protein losing state -he cannot lay back due to SOB -diurese -compression stockings/tubing -daily weights R Hip pain-will try a lidoderm patch to see if we can get him some additional relief DM and gout-if we make his renal function unstable we will not be able to use allopurinol or metformin safely 01/11/17 19:48 Subjective: Hip pain SOB Edema Objective: Vital Signs Temp Pulse Resp BP Pulse Ox 36.5 C 70 12 128/77 H 95 01/11/17 11:24 01/11/17 16:00 01/11/17 16:00 01/11/17 16:00 01/11/17 16:00 Laboratory Results 01/11/17 03:28 01/11/17 03:28 01/10/17 01/11/17 01/12/17 05:59 05:59 05:59 Intake Total 1000 1220 Output Total 1325 Balance 1000 -105 PT 16.8 SEC (12.0-15.0) H 01/10/17 15:15 INR 1.36 (0.83-1.16) H 01/10/17 15:15 Physical Exam - Physical Exam General Appearance: WD/WN, alert, mild distress, obese EENT: normal ENT inspection, other (Class IV airway) Neck: non-tender, full range of motion, normal inspection Respiratory: decreased breath sounds (worse on R than L), other (coarse breath sounds) Cardiac/Chest: normal peripheral pulses, regular rate, rhythm, No diastolic murmur, No systolic murmur, No friction rub Abdomen: normal bowel sounds, non-tender, soft, distended Back: Normal inspection Skin: normal color, warm/dry, other (chronic venous stasis changes LE's) Extremities: swelling (into thighs bilaterally) Neuro/Psych: no motor/sensory deficits, alert, normal mood/affect, oriented x 3 ICD10 Worksheet Patient Problems: Problems Problem Status Onset Heart failure Acute Hypoxia Acute Diabetes Acute Methicillin resistant Staphylococcus aureus infection Acute 08/19/15
[2017-01-11 20:53] LABS: COLOR YELLOW; LEUKOCYTE ESTERASE,URINE NEGATIVE (NEGATIVE); NITRITE,URINE NEGATIVE (NEGATIVE)
--- NOTE | 2017-01-11 20:57 | GCON ---
[f rep st] CONSULTATION NEPHROLOGY CONSULTATION DATE OF CONSULTATION: 01/11/2017 REASON FOR CONSULTATION: Increased creatinine. REASON FOR ADMISSION: Shortness of breath with diastolic dysfunction. ASSESSMENT: 1. Acute renal failure, likely pre renal. 2. Volume overload with edema into his thighs. 3. History of coronary artery disease, status post stenting to his posterior descending artery and h is obtuse marginal, December 2015. 4. Obesity. 5. Obstructive sleep apnea. Intermittently compliant with therapy. 6. Diabetes. 7. Gout on high-dose allopurinol. 8. History of nonsteroidals. 9. Degenerative joint disease with hip pain. 10. Hypertension, well controlled. RECOMMENDATION: 1. Stop lisinopril. 2. Continue current diuretics. 3. Continue current metformin and allopurinol. 4. Check renal ultrasound. 5. Check urine electrolytes. 6. Check urinalysis. 7. Quantify urine protein if present. 8. Rule out a paraproteinemia with an SPEP and a serum free light chains. 9. Continue sodium restriction. 10. Encourage use of CPAP. 11. Continue current calcium channel thelma and beta thelma. 12. Daily weights. 13. Use compression tubing to his lower extremities. 14. Try Lidoderm patch to see if this can help with his hip pain. 15. Be watchful of his kidney functions as if this becomes more unstable it may prevent us from usin g his allopurinol and metformin safely. 16. Goal is to achieve at least a 20 pound diuresis given his current volume status. HISTORY: The patient is a very pleasant, 61-year-old gentleman I have been asked to consult on by [facility] for his increased creatinine and volume overload. He has a complicated situation, as his creatinine has gone up in the face of diuresis. He has a baseline creatinine that is around 1-1. 3. He was admitted on the initially due to claustrophobia and shortness of breath while he was trying to lie in the MRI machine. He left AMA and then was readmitted on the with ongoing short ness of breath. His creatinine has gone up to 1.5. The patient is still grossly volume overloaded w ith edema into his thighs. Chest x-ray has shown CHF with cardiomegaly. Echocardiogram has shown a preserved left ventricular e jection fraction of 50%-55% with no LVH. He has a mildly elevated right ventricular systolic pressur e of 47. He had only been using nonsteroidals for his degenerative joint disease twice daily. It is not clear whether that led to his decompensation or not. At the present time, he has been taken off his nonst eroidal and he has been getting Lasix in an attempt to achieve improvement in his volume status. Wit h this, he has not yet been able to have an effective diuresis. The patient has underlying obesity w ith obstructive sleep apnea on CPAP therapy. He was not able to get much relief with the mask. Cons idering the nature of his airway, this is not surprising. He now is on nasal pillows. He uses it 4- 5 times a week for about 4 hours before he ends up taking it off. He has coronary artery disease, as described with a heart catheterization back a year ago. At that t [place], he had 100% circumflex occlusion after the 1st obtuse marginal. He had 95% lesion of his proxim al diagonal and of the obtuse marginal. Both those lesions were treated successfully by Dr. Velasquez w [facility] placement of drug-eluting stents. The patient is on Plavix. He has no prior history of kidney disease. He has no prior history of hematuria or proteinuria. He has albumin and hemoglobin that are currently lower than his baseline studies. I suspect this reflec ts his volume overload. PAST MEDICAL HISTORY: As described above. Obstructive sleep apnea on oxygen, coronary artery diseas e, diabetes, hyperlipidemia, gout, obesity, DJD, edema and cellulitis. PAST SURGICAL HISTORY: He has had multiple knee surgeries on both right and left knees. He had rota tor cuff surgery on his right arm. He is unable to lift his arm. He states this is related to side effect from the anesthetic block used on that side. Other surgical history is for his coronary intervention. OUTPATIENT MEDICATIONS: Have been lisinopril, Lasix, metformin and allopurinol. He has been using a mlodipine 10 mg daily, aspirin 81 mg daily, allopurinol 600 mg at bedtime, lisinopril 40 mg daily, le vothyroxine 150 mcg daily, metformin 1000 mg twice, daily, Lasix 40 mg p.o. twice daily, colchicine 1 .2 mg at bedtime, naproxen 660 mg twice daily, Plavix 75 mg daily, potassium 20 mEq daily, tamsulosin 0.4 mg at bedtime, sleep medication study in the form of Ambien which he is tapering off through an NIH study and metoprolol tartrate 50 mg daily. ALLERGIES: Are none. SOCIAL HISTORY: He was born in [place]. He went to high school in [place]. He went to an all boys school and played football. 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 He currently lives here in [place]. Remainder of family and social history are noncontributory. REVIEW OF SYSTEMS: Negative except for that included in history of present illness. The patient sta taj he cannot lie back at all in bed and sits upright hunched over in a chair. PHYSICAL EXAMINATION: VITAL SIGNS: He is afebrile with a temp of 36.5, pulse of 70, respirations 12 , blood pressure 128/77. GENERAL APPEARANCE: Mild anxiety. HEENT: Atraumatic, normocephalic. He has a class 4 airway with his tongue and soft palate. The only thing that is visible on the back of his mouth. NECK: Unremarkable without lymphadenopathy, thyromegaly or masses. Carotid upstrokes ar e normal. No bruits. HEART: Regular with no extra heart sounds. LUNGS: Coarse but otherwise aby r in the upper tay. He has decreased breath sounds in his lower lungs worse on the right than the left. ABDOMEN: Obese but benign. Positive bowel sounds. Soft, nontender. Distended. EXTREMITIE S: He cannot raise his right arm due to his rotator cuff injury. He has edema into his thighs bilat erally with chronic venous stasis changes around his lower legs. PERTINENT LABS: Show a creatinine 1.5 and albumin level of 3. Hematocrit of 43. Both his albumin a nd hematocrit are lower than baseline. ASSESSMENT: Is acute renal failure in the face of diuresis. I do not think the patient is toleratin g the affects on his RHONA inhibitor on his renal blood flow. Given the appearance of his echocardiogr am, I do not think it is an absolute necessity for him to be on RHONA inhibitor right now. I would aff ect an adequate diuresis 1st and then consider whether we need to reintroduce the RHONA inhibitor once his volume status is normalized. At the present time, you need therapy for diastolic dysfunction. Farnaz finn is getting that with his beta-thelma and his calcium channel thelma. I would continue the same. We should follow daily weights and continue sodium and fluid restriction. He should get some compre ssion tubing to help manage his lower extremity edema especially since he cannot lie back in bed and/ or get his legs above the level of his heart. I think once we get his volume status improved he will be able to lie back and help mobilize some of the lower extremity edema. Once we get his volume sta tus improved, I suspect his CPAP therapy will be much more effective and his shortness of breath and anxiety will not be such of an issue. He has at least 20 pounds of extra fluid, if not more. Daily weights should help guide therapy and help us maintain a normal volume status once he is out of the h ospital. He needs to be more compliant with his CPAP therapy. It is difficult therapy especially in someone with his musculoskeletal pains and difficulty sleeping. He has had a sleep disorder for ove r 30 years and has been on high dose Ambien. He is currently on a study that is tapering off the Amb ien. He has been using super pharmacologic doses of that drug. Care should be taken to prevent side affects with regard to getting him off that drug too quickly. He is on a study in order to obtain t his goal. I would use a Lidoderm patch on his hip to see if that can give him some additional relief so he can rest comfortably in bed. /[id number]/MODL
[2017-01-11 21:27] LABS: MUCUS TRACE /lpf (NONE-1+)
[2017-01-11] MEDS: LIDOCAINE 5% 1 EA PATCH TD SCH (21:36)
[2017-01-11 21:41] LABS: RANDOM URINE PROTEIN 97 mg/dL (0-11)
[2017-01-11] MEDS: NEBIVOLOL HCL 5 MG TAB PO SCH (23:33)
[2017-01-11] MEDS: TAMSULOSIN HCL 0.4 MG CAP PO SCH ×2 (23:34)
[2017-01-11] MEDS: ASPIRIN 81 MG CHEWABLE TAB PO SCH ×2 (23:35)
[2017-01-11] MEDS: COLCHICINE 0.6 MG CAP/TAB PO SCH (23:35)
[2017-01-11] MEDS: PATCH REMOVAL 1 EA PATCH TD SCH (23:36)
[2017-01-12] MEDS: LEVOTHYROXINE 150 MCG TAB PO SCH (04:36)
[2017-01-12] MEDS: oxyCODONE IR 5 MG TAB PO PRN ×4 (04:36→23:16)
[2017-01-12 04:40] LABS: % IMMATURE GRANULYOCYTES 1.9 % (0.0-1.1); ABSOLUTE IMMATURE GRANULOCYTES 0.16 10^3/uL (0.00-0.10); ADD DIFF? NO; ADD MORPH? NO; ADD SCAN? NO; ATYPICAL LYMPHOCYTE FLAG 0 (0-99); FRAGMENT RBC FLAG 0 (0-99); HEMATOCRIT 42.7 % (40.0-51.0); HEMOGLOBIN 14.4 g/dL (13.7-17.5); LEFT SHIFT FLG 10 (0-99); LIPEMIA HEMOLYSIS FLAG 80 (0-99); MEAN CELL HEMOGLOBIN 30.1 pg (27.9-34.1); MEAN CELL HEMOGLOBIN CONCENTR. 33.7 g/dL (32.4-36.7); MEAN CELL VOLUME 89.3 fL (81.5-99.8); MEAN PLATELET VOLUME 11.5 fL (8.7-11.7); PLATELET CLUMPS FLAG 0 (0-99); PLATELET COUNT 196 10^3/uL (150-400); RED BLOOD CELL COUNT 4.78 10^6/uL (4.40-6.38); RED CELL DISTRIBUTION WIDTH 16.2 % (11.5-15.2)
[2017-01-12 05:02] LABS: ALANINE AMINOTRANSFERASE 79 IU/L (21-72); ALBUMIN 2.8 g/dL (3.5-5.0); ALKALINE PHOSPHATASE 141 IU/L (38-126); ANION GAP 13 mEq/L (8-16); ASPARTATE AMINOTRANSFERASE 55 IU/L (17-59); BILIRUBIN,TOTAL 2.2 mg/dL (0.1-1.4); CALCIUM 8.7 mg/dL (8.5-10.4); CARBON DIOXIDE 27 mEq/l (22-31); CHLORIDE 97 mEq/L (97-110); CHOLESTEROL 85 mg/dL (140-220); CHOLESTEROL/HDL RATIO 6.54 RATIO (1.00-4.97); CREATININE 1.6 mg/dL (0.7-1.3); GLOMERULAR FILTRATION RATE 44; GLUCOSE 120 mg/dL (70-100); HIGH DENSITY LIPOPROTEIN 13 mg/dL (40-65); LDL/HDL RATIO 3.62 RATIO (1.00-3.64); LOW DENSITY LIPOPROTEIN 47 mg/dL (80-100); NON-HIGH DENSITY LIPOPROTEIN 72 mg/dL (90-129); POTASSIUM 4.9 mEq/L (3.5-5.2); SODIUM 137 mEq/L (134-144); TOTAL PROTEIN 6.1 g/dL (6.3-8.2); TRIGLYCERIDE 125 mg/dL (40-150); VERY LOW DENSITY LIPOPROTEINS 25 mg/dL (8-25)
[2017-01-12 05:10] LABS: TROPONIN I 0.036 ng/mL (0.000-0.034)
[2017-01-12 05:29] LABS: BILIRUBIN-CONJUGATED 1.6 mg/dL (0.0-0.5); BILIRUBIN-UNCONJUGATED 0.6 mg/dL (0.0-1.1)
--- NOTE | 2017-01-12 08:16 | PDMN ---
Medical Necessity Medical necessity: M190 heart failure: ongoing eval of cardiology and monitoring of renal function,( increasing BUN and Cr) and pain in hip- with fever, high wbc, hypoxia ( 94% on 4L) , sob, peripheral edema, in pt with hx of CAD, DARRYL, DM, Gout, HTN, obesity-
[2017-01-12] MEDS: LIDOCAINE 5% 1 EA PATCH TD SCH (08:51)
[2017-01-12] MEDS: SENNOSIDES/DOCUSATE SODIUM TAB PO SCH ×2 (08:54→20:24)
[2017-01-12] MEDS: CLOPIDOGREL BISULFATE 75 MG TAB PO SCH (08:54)
[2017-01-12] MEDS: NEBIVOLOL HCL 5 MG TAB PO SCH (08:54)
[2017-01-12] MEDS: amLODIPine BESYLATE 5 MG TAB PO SCH (08:55)
--- NOTE | 2017-01-12 08:56 | SOAPPROG ---
TONG Progress Note Assessment/Plan: Assessment: ROBERT, creat up a bit today 1.6 CKD 3 baseline creat 1-1.3 high RVSP at 47 CAD, stent about a year ago elevated d-dimer EF 50-55 % Edema proteinuria, ? diabetes, HTN or NSAIDS Plan: high fall risk, if thinking possible PE, would consider conventional angio, would not empirically start warfarin discussed with med and cardiology, considering right heart cath and conventional pulmonary angio so we can potentially use less contrast would prophylax with mucomyst 1200 mg prior to and 2 doses after the angio follow lytes vol and renal function 01/12/17 08:46 Subjective: up to chair slept better last night denies nausea, vomiting or anorexia still with R hip pain nice discussion about his situation today, all questions answered to his satisfaction Objective: Vital Signs Temp Pulse Resp BP Pulse Ox 36.8 C 59 L 10 L 100/60 99 01/12/17 07:44 01/12/17 07:44 01/12/17 07:44 01/12/17 07:44 01/12/17 07:44 Laboratory Results 01/12/17 03:58 01/12/17 03:58 01/11/17 01/12/17 01/13/17 05:59 05:59 05:59 Intake Total 250 Output Total 350 Balance -100 PT 16.8 SEC (12.0-15.0) H 01/10/17 15:15 INR 1.36 (0.83-1.16) H 01/10/17 15:15 Physical Exam - Physical Exam General Appearance: alert, obese Respiratory: No rhonchi, No stridor, No wheezing Cardiac/Chest: regular rate, rhythm, edema, No friction rub Abdomen: normal bowel sounds, non-tender Skin: other (changes of arterial and venous disease in lower extremities) Extremities: swelling (into thighs) Neuro/Psych: alert, normal mood/affect, oriented x 3 ICD10 Worksheet Patient Problems: Problems Problem Status Onset Heart failure Acute Hypoxia Acute Diabetes Acute Methicillin resistant Staphylococcus aureus infection Acute 08/19/15
[2017-01-12] MEDS ORDERED: metFORMIN HCL 500 MG TAB PO SCH (09:00)
[2017-01-12 09:01] LABS: SEDIMENTATION RATE 39 MM/HR (0-20)
[2017-01-12] MEDS ORDERED: diphenhydrAMINE 25 MG CAP PO ONE (09:29)
[2017-01-12] MEDS ORDERED: DIAZEPAM 5 MG TAB PO ONE (09:29)
[2017-01-12] MEDS ORDERED: FAMOTIDINE 20 MG TAB PO ONE (09:29)
[2017-01-12] MEDS ORDERED: NS 1,000 ML IV SCH ×2 (09:30→12:45)
[2017-01-12] MEDS: ACETYLCYSTEINE 20% IH/PO 4 ML VIAL PO SCH (09:57)
[2017-01-12] MEDS: LORazepam 0.5 MG TAB PO PRN ×3 (12:18→23:50)
--- NOTE | 2017-01-12 12:24 | PDCARPN ---
Cardiology Progress Note Chief Complaint: Patient reports no significant chest pain or shortness of breath. Does report anxiety issues appears when discussed CT scan or V/Q scan. Assessment/Plan: Assessment: 61-year-old male with history CAD with PCI circumflex and PDA 2015, hyperlipidemia, hypertension, obesity, DARRYL (CPAP), and diabetes. Admitted for right hip pain and hypoxia with SpO2 on room high 70s to low 80s. on 01/10. Initial chest x-ray showing mild CHF, with greater than 5000. Echocardiogram done on 01/10 showing normal global LV systolic function, mild aortic sclerosis and mitral annular calcification without significant stenosis or insufficiency comma mild TR comma severely limited study due to poor acoustic window. Limited echo done on 01/11 with definity contrast estimated EF of 50-55% with normal LV systolic function, mildly dilated RV, mildly reduced RV function with RVSP of 47 mm Hg. Patient had reported that he had stopped diuretic therapy at home over week ago. Does admit that he has been very sedentary due to right hip pain. Also on admission noted elevated creatinine level of 1.4 with elevation to 1.5 yesterday. Patient reporting significant use of nonsteroidal anti-inflammatories prior to admission for pain. Patient noted to have mildly elevated troponin on admission of 0.044. Reports no history of chest pain or pressure. Concerning about potential PE as cause for his hypoxia and mildly dilated RV with reduced function, ultrasound lower extremities done on 01/11 showed no signs of DVT. Unfortunately, V/Q scan was ordered, in which patient refused to do because of anxiety issues. Today, patient has had no significant weight loss, continue elevation of BUN creatinine (50 and 1.6 today). Patient reports no chest pressure or pain. Troponin remains and indeterminately elevated at 0.036. D-dimer was positive at 3.98. Patient reports no significant shortness of breath or chest pressure. Plan: 1. Acute on chronic DHF: No significant weight loss, mild improvement in peripheral edema. O>I.. Elevated renal in renal function today, will Lasix therapy are this time. May consider right heart catheterization (see below). 2. Hypoxic: Continue to need oxygen therapy despite diuresis. Concerning for possible PE, elevated D-dimer. Patient refused V/Q scan due to anxiety. Have discussed with Dr Rios, Dr Berkowitz, Dr Johnson, and Dr Henley. Dr Henley has spoken with the patient, and he is in agreement to her undergo a CT angio a for evaluation. If he feels that he cannot do this, then patient would be open to undergoing pulmonary angiogram, if that is negative, then we will perform right heart catheterization and possible LHC at that time. 3. CAD: Patient reports no chest pain or pressure. Troponins her indeterminate. Potentially elevated due to diastolic heart failure or questionable possible PE. Patient he continues on anti-platelet therapy of aspirin and clopidogrel. Beta blockage therapy as above 4. Renal insufficiency: Continue raise in BUN and creatinine with diuresis. Have held the diuretic therapy at this time. Lisinopril and Aleve have been discontinued. Nephrology is following, appreciate therapy consultation. Metformin has been decreased. Patient has been started on Mucomyst in preparation for contrast 5. Hypertension: Appears to be appropriately controlled with a at the last transition of metoprolol tartrate to Bystolic, and decrease of Norvasc. Lisinopril has been discontinued as above. 6. DARRYL: Continue using CPAP at night. 7. Insomnia: Patient dated followed by hospital medicine 01/12/17 12:21 Subjective: Denies of any chest pressure or pain. Reports no palpitations, lightheadedness , near-syncope, or syncope lb. Reviewed/Discussed With: hospitalist (Dr Berkowitz), other (Dr Rios, Dr Johnson, Dr Henley) Objective: Vital Signs (8 Hrs) Temp Pulse Resp BP Pulse Ox 01/12/17 11:52 36.7 C 61 13 104/65 93 01/12/17 07:44 36.8 C 59 L 10 L 100/60 99 Intake/Output (24 Hrs) 01/11/17 01/12/17 01/13/17 05:59 05:59 05:59 Intake Total 250 520 Output Total 350 100 Balance -100 420 Intake: Oral (ml) 250 520 Output: Urine (ml) 350 100 Bedside Commode 100 Urinal 350 Other: Weight 150.9 kg 154.3 kg Number of Voids Bedside Commode 1 Number of Stools Bedside Commode 1 Result Diagrams: 01/12/17 03:58 01/12/17 03:58 Cardiac Labs: Cardiac Lab Results (72 Hrs) 01/12/17 03:58 Troponin I 0.036 H - Physical Exam Constitutional: no apparent distress, obese Ears, Nose, Mouth, Throat: moist mucous membranes Cardiovascular: regular rate and rhythm, systolic murmur, jugular vein distention (3-4 cm above sternal notch at a 45 degree angle), pulses symmetric bilat Peripheral Pulses: 1+: dorsalis-pedis (R), dorsalis-pedis (L), 2+: carotid (R), carotid (L) Respiratory: other (Lungs are clear but diminished in bases bilateral, no rhonchi, rales, or wheezing noted.) Gastrointestinal: normoactive bowel sounds Skin: warm, No no edema (+2 to 3 peripheral edema bilateral lower extremities to thighs.) Neurologic: AAOx3 Psychiatric: cooperative, interactive, following commands ICD10 Worksheet Patient Problems: Problems Problem Status Onset Diabetes Acute Methicillin resistant Staphylococcus aureus infection Acute 08/19/15 Hypoxia Acute Heart failure Acute
[2017-01-12] MEDS ORDERED: NS 500 ML IV ONE (12:30)
[2017-01-12] MEDS ORDERED: IOPAMIDOL (ISOVUE 370) 100 ML BTL IV ONE (13:27)
--- NOTE | 2017-01-12 16:11 | ASMTCMCOM ---
CM Note CM Note Notes: 01/12/2017 Case Management Note Met w/pt to discuss SNF rehab options. Pt was distressed indicating there are pending financial difficulties with missing more time from work. 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 Pt was drowsy but arousable during conversation, able to answer questions appropriately. Pt agreed to [facility] to [facility], [facility] rehab and [facility]. Faxed referrals to facilities, awaiting placement. Agreed to [facility] home care if SNF rehab is unneccessary at d/c. Notified [facility]. Case Management preferred d/c poc: to SNF rehab as recommended by PT. 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 Case management to follow. Date Signed: 01/12/2017 04:10 PM Electronically Signed By:Elodia Callaway RN
--- NOTE | 2017-01-12 16:38 | HOSPPROG ---
Hospitalist Progress Note Assessment/Plan: DIAGNOSES: -acute as the congestive heart failure, left and right-sided, uncertain cause to his episode at this time * notably today the patient tells me that he had stopped taking his diuretic at home a few days ago because he had dry mouth and dark urine and was feeling dehydrated, despite that he has ongoing severe bilateral ankle edema and orthopnea -ongoing severe right hip pain is fairly debilitating and caused by severe osteoarthritis -acute renal failure, hemodynamic etiology -history of type 2 diabetes -history of obstructive sleep apnea -anxiety disorder and severe insomnia Overall he feels somewhat better today but still with shortness of breath and still with hip pain making walking with a walker very difficult. Echocardiogram was attempted yesterday with very poor visualization and will be repeated today with contrast The patient is wanting very much to do something about his hip it would appear that this point the only thing likely to be very helpful as a surgery and most likely hip replacement. At this point as he is uncompensated right and left heart failure we would be unable to recommend proceeding with surgery until that is well compensated. I reviewed these issues with the patient In terms of treatment I suspect we are probably at the limits of what diuretics can do as he has had symptoms of intravascular volume depletion at home and has rising creatinine with attempted diuresis here. This likely has to do with his pulmonary hypertension and right heart issues, but would be quite helpful to know his valve functions and left heart function as well. I reviewed the case today with Dr. Josue Johnson in Nephrology and [facility] PLANS: -right heart catheterization today -attempt V/Q scan to rule out PE but will need to do that with at least conscious sedation and possibly general anesthesia tomorrow -continue gentle diuresis -the patient remains quite debilitated by right and left-sided heart failure and again his right heart failure and renal issues may limit what we can do with diuresis as well as Arthur inhibition -in terms of his hip eventually hip replacement will be the ideal way to approach that however his heart is not nearly compensated to make that a reasonable choice at this time SUBJECTIVE: Still with some shortness of breath, weak and tired but overall the symptoms are somewhat improved from yesterday Still with the same ongoing right hip pain No fevers, chest pain, cough OBJECTIVE Vitals reviewed: 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, 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: Sinus Exam: alert oriented skin warm dry color ok Unable to accurately assess jugular venous distention due to neck obesity lungs with some bibasilar rales heart regular abd soft nondistended nontender, bowel sounds present limbs warm, with 3+ bilateral edema iv site ok Laboratory data: Creatinine up to 1.6 Objective: Vital Signs Temp Pulse Resp BP Pulse Ox 36.7 C 64 14 119/79 93 01/12/17 16:00 01/12/17 16:00 01/12/17 16:00 01/12/17 16:00 01/12/17 16:00 Laboratory Results 01/12/17 03:58 01/12/17 03:58 01/11/17 01/12/17 01/13/17 06:59 06:59 06:59 Intake Total 250 520 Output Total 350 300 Balance -100 220 PT 16.8 SEC (12.0-15.0) H 01/10/17 15:15 INR 1.36 (0.83-1.16) H 01/10/17 15:15 ICD10 Worksheet Patient Problems: Problems Problem Status Onset Heart failure Acute Hypoxia Acute Diabetes Acute Methicillin resistant Staphylococcus aureus infection Acute 08/19/15
[2017-01-12] MEDS: COLCHICINE 0.6 MG CAP/TAB PO SCH (20:22)
[2017-01-12] MEDS: ALLOPURINOL 300 MG TAB PO SCH (20:22)
[2017-01-12] MEDS: ASPIRIN 81 MG CHEWABLE TAB PO SCH (20:22)
[2017-01-12] MEDS: PATCH REMOVAL 1 EA PATCH TD SCH (20:24)
[2017-01-12] MEDS: TAMSULOSIN HCL 0.4 MG CAP PO SCH (20:24)
[2017-01-12] MEDS: ACETAMINOPHEN 325 MG TAB PO PRN (23:16)
[2017-01-13] MEDS: [UNRECOGNIZED DRUG - REMARK] PO SCH ×2 (00:13→22:00)
[2017-01-13] MEDS: oxyCODONE IR 5 MG TAB PO PRN ×2 (03:58→19:39)
[2017-01-13] MEDS: LEVOTHYROXINE 150 MCG TAB PO SCH (04:14)
[2017-01-13 04:27] LABS: % IMMATURE GRANULYOCYTES 1.4 % (0.0-1.1); ABSOLUTE IMMATURE GRANULOCYTES 0.11 10^3/uL (0.00-0.10); ADD DIFF? NO; ADD MORPH? NO; ADD SCAN? NO; ATYPICAL LYMPHOCYTE FLAG 30 (0-99); FRAGMENT RBC FLAG 0 (0-99); HEMATOCRIT 40.7 % (40.0-51.0); HEMOGLOBIN 13.5 g/dL (13.7-17.5); LEFT SHIFT FLG 10 (0-99); LIPEMIA HEMOLYSIS FLAG 80 (0-99); MEAN CELL HEMOGLOBIN 29.5 pg (27.9-34.1); MEAN CELL HEMOGLOBIN CONCENTR. 33.2 g/dL (32.4-36.7); MEAN CELL VOLUME 89.1 fL (81.5-99.8); MEAN PLATELET VOLUME 11.4 fL (8.7-11.7); PLATELET CLUMPS FLAG 0 (0-99); PLATELET COUNT 233 10^3/uL (150-400); RED BLOOD CELL COUNT 4.57 10^6/uL (4.40-6.38); RED CELL DISTRIBUTION WIDTH 16.2 % (11.5-15.2)
[2017-01-13 04:37] LABS: ALANINE AMINOTRANSFERASE 98 IU/L (21-72); ALBUMIN 2.9 g/dL (3.5-5.0); ALKALINE PHOSPHATASE 172 IU/L (38-126); ANION GAP 13 mEq/L (8-16); ASPARTATE AMINOTRANSFERASE 77 IU/L (17-59); CARBON DIOXIDE 26 mEq/l (22-31); CHLORIDE 97 mEq/L (97-110); GLOMERULAR FILTRATION RATE 34; GLUCOSE 131 mg/dL (70-100); MAGNESIUM 2.9 mg/dL (1.6-2.3); POTASSIUM 5.2 mEq/L (3.5-5.2); SODIUM 136 mEq/L (134-144); TOTAL PROTEIN 6.2 g/dL (6.3-8.2)
[2017-01-13] MEDS: ACETYLCYSTEINE 20% IH/PO 4 ML VIAL PO SCH ×3 (07:39→21:48)
[2017-01-13] MEDS: LORazepam 0.5 MG TAB PO PRN (08:21)
[2017-01-13] MEDS: LIDOCAINE 5% 1 EA PATCH TD SCH (08:21)
--- NOTE | 2017-01-13 09:47 | HOSPPROG ---
Hospitalist Progress Note Assessment/Plan: DIAGNOSES: -acute congestive heart failure, right-sided and left sided with preserved LV syst function, severe pulmonary hypertension * notably today the patient tells me that he had stopped taking his diuretic at home a few days before admission because he had dry mouth and dark urine and was feeling dehydrated, despite that he had ongoing severe bilateral ankle edema and orthopnea -ongoing severe right hip pain is fairly debilitating and caused by severe osteoarthritis (MRI w severe arthritis and subchondral cysts) -acute on chronic renal failure, hemodynamic etiology -mildly elevated hepatic transaminases today with bilirubin of 2 -history of type 2 diabetes -history of obstructive sleep apnea -anxiety disorder and severe insomnia Overall he feels somewhat better today but still with shortness of breath and still with hip pain making walking with a walker very difficult. He has a rise in serum creatinine today along with rise in BUN. I suspect this is due largely to contrast he got for his CT angiogram yesterday, though he also did receive some IV fluids overnight and it is possible that this has worsened right heart dilation and cardiac output. It is possible that he will need further diuresis at this time for his renal function. In talking with [facility] and Dr. Rios there has been discussion of possible right heart catheterization to trying to examine for any potential responsiveness to medications for his pulmonary hypertension. I will review that with cardiology team again today to see if that is still part of the plan. Otherwise this patient is really is in a tight spot given his degree of pulmonary hypertension and right heart failure along with renal failure. PLANS: -possible right heart catheterization today -will check radiology reading of Lung Perfusion scan as available -continue gentle diuresis -the patient remains quite debilitated by right and left-sided heart failure and again his right heart failure and renal issues may limit what we can do with diuresis as well as Arthur inhibition -in terms of his hip eventually hip replacement will be the ideal way to approach that however his heart is not nearly compensated to make that a reasonable choice at this time SUBJECTIVE: States he is a little bit less short of breath today but still fairly dyspneic to debilitated agree with exertion Right hip pain, chronic, unchanged OBJECTIVE Vitals reviewed: T-max 37.6degrees, 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, 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: Sinus Exam: alert oriented skin warm dry color ok Unable to accurately assess jugular venous distention due to neck obesity lungs with some bibasilar rales heart regular abd soft nondistended nontender, bowel sounds present limbs warm, with 3+ bilateral edema iv site ok Laboratory data: Creatinine up to 2.0 I have reviewed images of lung perfusion scan but radiol report not available yet: my reading no evidence of perfusion abnormality Objective: Vital Signs Temp Pulse Resp BP Pulse Ox 36.3 C 61 17 115/68 100 01/13/17 04:03 01/13/17 04:03 01/13/17 04:03 01/13/17 04:03 01/13/17 04:03 Laboratory Results 01/13/17 03:56 01/13/17 03:56 01/12/17 01/13/17 01/14/17 06:59 06:59 06:59 Intake Total 250 3465 Output Total 350 1225 Balance -100 2240 PT 16.8 SEC (12.0-15.0) H 01/10/17 15:15 INR 1.36 (0.83-1.16) H 01/10/17 15:15 - Time Spent With Patient Time Spent with Patient: greater than 35 minutes Time Spent with Patient: Greater than 35 minutes spent on this patients care, greater than 50% of time spent counseling, educating, and coordinating care regarding the above mentioned plan. ICD10 Worksheet Patient Problems: Problems Problem Status Onset Heart failure Acute Hypoxia Acute Diabetes Acute Methicillin resistant Staphylococcus aureus infection Acute 08/19/15
[2017-01-13] MEDS: NEBIVOLOL HCL 5 MG TAB PO SCH (10:27)
[2017-01-13] MEDS: CLOPIDOGREL BISULFATE 75 MG TAB PO SCH (10:27)
[2017-01-13] MEDS: amLODIPine BESYLATE 5 MG TAB PO SCH (10:27)
[2017-01-13] MEDS: SENNOSIDES/DOCUSATE SODIUM TAB PO SCH ×2 (10:27→21:49)
[2017-01-13] MEDS ORDERED: NS 1,000 ML IV ONE (10:35)
--- NOTE | 2017-01-13 11:20 | SOAPPROG ---
SOAP Progress Note Assessment/Plan: Assessment: ROBERT, creat up a bit today 2 CKD 3 baseline creat 1-1.3 high RVSP at 47 CAD, stent about a year ago elevated d-dimer EF 50-55 % Edema proteinuria, ? diabetes, HTN or NSAIDS Pulm angio not diagnostic VQ today low probability of PE Plan: discussed with med and cardiology, right heart cath today with possible FREEDOM would prophylax with mucomyst 1200 mg prior to and 2 doses after the angio follow lytes vol and renal function no urgent HD needs encouraged up and around as able, needs assist restart loop diuretic discussed with cardiology 01/12/17 08:46 01/13/17 11:17 Subjective: up to chair tired today, therapy helping him get up sob about the same no cp nausea vomiting or anorexia Objective: Vital Signs Temp Pulse Resp BP Pulse Ox 36.3 C 61 17 115/68 100 01/13/17 04:03 01/13/17 04:03 01/13/17 04:03 01/13/17 04:03 01/13/17 04:03 Laboratory Results 01/13/17 03:56 01/13/17 03:56 01/12/17 01/13/17 01/14/17 05:59 05:59 05:59 Intake Total 250 3465 Output Total 350 1225 Balance -100 2240 PT 16.8 SEC (12.0-15.0) H 01/10/17 15:15 INR 1.36 (0.83-1.16) H 01/10/17 15:15 Physical Exam - Physical Exam General Appearance: alert, obese Respiratory: No rhonchi, No wheezing Cardiac/Chest: regular rate, rhythm, edema, No friction rub Abdomen: normal bowel sounds, non-tender, other (obese), No distended Extremities: swelling (edema into his thighs) Neuro/Psych: alert, normal mood/affect, oriented x 3 ICD10 Worksheet Patient Problems: Problems Problem Status Onset Heart failure Acute Hypoxia Acute Diabetes Acute Methicillin resistant Staphylococcus aureus infection Acute 08/19/15
--- NOTE | 2017-01-13 13:28 | PDCARPN ---
Cardiology Progress Note Chief Complaint: Patient reports ongoing shortness of breath. Add Assessment/Plan: Assessment: 61-year-old male with history CAD with PCI circumflex and PDA 2015, hyperlipidemia, hypertension, obesity, DARRYL (CPAP), and diabetes. Admitted for right hip pain and hypoxia with SpO2 on room high 70s to low 80s. on 01/10. Initial chest x-ray showing mild CHF, with greater than 5000. Echocardiogram done on 01/10 showing normal global LV systolic function, mild aortic sclerosis and mitral annular calcification without significant stenosis or insufficiency comma mild TR comma severely limited study due to poor acoustic window. Limited echo done on 01/11 with definity contrast estimated EF of 50-55% with normal LV systolic function, mildly dilated RV, mildly reduced RV function with RVSP of 47 mm Hg. Patient had reported that he had stopped diuretic therapy at home over week ago. Does admit that he has been very sedentary due to right hip pain. Also on admission noted elevated creatinine level of 1.4 with elevation to 1.5 yesterday. Patient reporting significant use of nonsteroidal anti-inflammatories prior to admission for pain. Patient noted to have mildly elevated troponin on admission of 0.044. Reports no history of chest pain or pressure. Concerning about potential PE as cause for his hypoxia and mildly dilated RV with reduced function, ultrasound lower extremities done on 01/11 showed no signs of DVT. 01/12 CT angio suboptimal examination, only able to evaluate large pulmonary arteries without pulmonary embolism. Did show RV enlarged with flatten intraventricular septum, congestion with enlargement of pulmonary arteries. Today, Laboratory studies showing increased creatinine at 2.0. Patient denies of any chest pain or pressure. Continues to experience shortness of breath with exertion. Increased AST and ALT, questioning further congestion from heart failure. Continues cardiac monitoring showing sinus rhythm, occasional PVC, no malignant arrhythmias or pauses noted. Plan: 1. Acute on chronic DHF: No significant weight loss, CT angio showing pulmonary artery enlargement, congestion. RV dilation, flattened septum wall. Patient has had increased AST and ALT, probable due to worsening congestion. We will plan for patient to undergo FREEDOM and right heart catheterization this afternoon by Dr Rios. Have spoken with Nephrology, and Dr Botello agreement continue loop diuretics postprocedure. Recommend bolus dosage. 2. Hypoxic: Continue to need oxygen, CT angion and VQ scan negative for PE. Probable due to increased worsening diastolic heart failure, pulmonary artery hypertension. Pulmonary has been asked for consultation. As mentioned above, T and right heart catheterization this afternoon. 3. CAD: Patient reports no chest pain or pressure. Troponins are indeterminate. Echo showing normal LV wall motion, with EF of 50-55%. Initial EKG showing no acute ST or T-wave abnormalities. Probable elevation due to flow mismatch due to diastolic heart failure. 4. Renal insufficiency: Continue raise in BUN and creatinine with diuresis. Nephrology is following, appreciate their consultation. Patient was given 75 mL of IV contrast yesterday with CT scan, has been on pre and post dosing of Mucomyst. 5. Hypertension: Appears to be appropriately controlled with a at the last transition of metoprolol tartrate to Bystolic, and decrease of Norvasc. Lisinopril has been discontinued as above. 6. DARRYL: Continue using CPAP at night. 7. Insomnia: Patient dated followed by [facility] 01/13/17 13:11 Subjective: Patient denies of any chest pressure or pain. Continues report significant fatigue. Reports no palpitations. Lightheadedness. Reviewed/Discussed With: hospitalist (Dr Berkowitz), other (Dr Rios and Dr Johnson) Objective: Vital Signs (8 Hrs) Temp Pulse Resp BP Pulse Ox 01/13/17 11:54 36.6 C 63 15 131/79 H 98 Intake/Output (24 Hrs) 01/12/17 01/13/17 01/14/17 05:59 05:59 05:59 Intake Total 250 3465 Output Total 350 1225 Balance -100 2240 Intake: Oral (ml) 250 1960 IV Infused (ml) 1505 Ns 1,000 ml @ 50 mls/hr 1005 IV CONT MALDONADO Rx#: [id number] Ns 500 ml @ Wide Open IV 500 ONCE ONE Rx#:[id number] Output: Urine (ml) 350 1225 Bedside Commode 300 Toilet 125 Urinal 350 800 Other: Weight 150.9 kg 155.9 kg Number of Voids Bedside Commode 1 Urinal 1 Number of Stools Bedside Commode 1 Result Diagrams: 01/13/17 03:56 01/13/17 03:56 Cardiac Labs: Cardiac Lab Results (72 Hrs) 01/12/17 03:58 Troponin I 0.036 H - Physical Exam Constitutional: no apparent distress, obese Ears, Nose, Mouth, Throat: moist mucous membranes Cardiovascular: regular rate and rhythm, jugular vein distention (4-5 cm above sternal notch at a 90 degree angle.), pulses symmetric bilat, No carotid bruit Peripheral Pulses: 1+: dorsalis-pedis (R), dorsalis-pedis (L), 2+: carotid (R), carotid (L) Respiratory: other (Lungs are clear but diminished in bases bilateral, no rhonchi, rales, or wheezing noted.) Gastrointestinal: normoactive bowel sounds, other (Abdomen is firm, distended.) Skin: warm, No no edema (+3 peripheral edema bilateral lower extremities to thighs.) Neurologic: AAOx3 Psychiatric: cooperative ICD10 Worksheet Patient Problems: Problems Problem Status Onset Diabetes Acute Methicillin resistant Staphylococcus aureus infection Acute 08/19/15 Hypoxia Acute Heart failure Acute
--- NOTE | 2017-01-13 13:52 | PDANEPAE ---
ANE History of Present Illness incomplete note; patient not assessed - please disregard ANE Past Medical History - Cardiovascular History Hx Hypertension: Yes Hx Arrhythmias: No Hx Chest Pain: No Hx Coronary Artery / Peripheral Vascular Disease: No Hx CHF / Valvular Disease: No Hx Palpitations: No - Pulmonary History Hx COPD: No Hx Asthma/Reactive Airway Disease: No Hx Recent Upper Respiratory Infection: No Hx Oxygen in Use at Home: Yes O2 in Use at Home (L/minute): 2 Hx Sleep Apnea: Yes - Neurologic History Hx Cerebrovascular Accident: No Hx Seizures: No Hx Dementia: No - Endocrine History Hx Diabetes: Yes - Renal History Hx Renal Disorders: No - Liver History Hx Hepatic Disorders: No - Neurological & Psychiatric Hx Hx Neurological and Psychiatric Disorders: No - Cancer History Hx Cancer: No - Congenital Disorder History Hx Congenital Disorders: No - GI History Hx Gastrointestinal Disorders: No - Other Health History Other Health History: Couple teeth loss - Chronic Pain History Chronic Pain: Yes - Surgical History Prior Surgeries: Right shoulder. Bilat knee surgery. Tonsilectomy ANE Review of Systems Review of Systems: ANE Patient History - Allergies Allergies/Adverse Reactions: No Known Allergies Allergy (Unverified 11/25/11 08:47) - Home Medications Home Medications: Allopurinol [Allopurinol 300 MG (RX)] 600 mg PO HS 12/23/15 [Last Taken 01/09/17 ] Aspirin [Aspirin 81mg (*)] 81 mg PO HS 12/23/15 [Last Taken 01/09/17] Colchicine [Colchicine (*)] 1.2 mg PO HS 12/23/15 [Last Taken 01/09/17] Furosemide [Lasix 40 MG (*)] 40 mg PO BID@12/23/15 [Last Taken 01/10/17 09 :00] Levothyroxine [Synthroid 150 mcg (*)] 150 mcg PO DAILY06 12/23/15 [Last Taken ] Lisinopril [Zestril 40 mg (*)] 40 mg PO DAILY 12/23/15 [Last Taken 01/10/17] Naproxen Sodium [Aleve 220 MG (*)] 660 mg PO BID PRN 12/23/15 [Last Taken ] amLODIPine BESYLATE [Norvasc 10 mg (*)] 10 mg PO DAILY 12/23/15 [Last Taken ] metFORMIN HCL [Glucophage 500 mg (*)] 1,000 mg PO BID 12/23/15 [Last Taken 01/10 09:00] Tamsulosin HCl [Flomax 0.4 MG (*)] 0.4 mg PO HS 01/08/17 [Last Taken 01/09/17] Metoprolol Tartrate [Lopressor 25 mg (*)] 50 mg PO DAILY 01/10/17 [Last Taken 09:00] Sleep Study Medication 1 tab PO HS 01/10/17 [Last Taken 01/09/17] - Smoking Hx Smoking Status: Never smoked - Alcohol Use Alcohol Use: Occasionally - Family Anes Hx Family Hx Anesthesia Complications: None ANE Labs/Vital Signs - Labs Result Diagrams: 01/13/17 03:56 01/13/17 03:56 - Vital Signs Blood Pressure: 131/79 Heart Rate: 63 Respiratory Rate: 15 O2 Sat (%): 98 Height: 190.5 cm Weight: 155.9 kg
[2017-01-13] MEDS ORDERED: LIDOCAINE 1% 300 MG/30 ML SDV ONE (14:58)
--- NOTE | 2017-01-13 15:04 | WOCRNPDOC ---
WOCRN Advanced Assessment Note - Skin Integrity Problem, Advanced Assess Bilateral Groin Dressing Type: Open to Air Exudate Amount: None [place] Wound Tissue: Erythema Site Odor: Moderate, Musky, Sweet Skin Integrity Problem Comment: Bilateral Moisture associated dermatitis with fungal involvement. Treat with interdry Ag+ sheets for now. Please have MD visualize area. If Nystatin ordered please D/C interdry. Interdry must be placed without powder or cream. Wound care will sign off on this area. Please reconsult prn if treatment has not been helpful after 7-10 days. Left First Toe Abrasion Dressing Type: Open to Air Exudate Amount: None Wound Bed Constitution: Dried Exudate Site Measurement - Head-to-Toe Length X Width X Depth (cm): 0.3x0.3x0.1 Skin Integrity Problem Comment: Clean, apply silvasorb and band aid. Wound care will sign off. Mikaela APONTE in room. Left Third Toe Blister Dressing Type: Open to Air Exudate Amount: None Wound Bed Constitution: Dried Exudate, De-roofed Serous Blister Site Measurement - Head-to-Toe Length X Width X Depth (cm): 0.3x0.4x0.1 Skin Integrity Problem Comment: Clean, apply silvasorb and band aid. Wound care will sign off. Mikaela APONTE in room.
[2017-01-13] MEDS ORDERED: KETAMINE 100 MG/10 ML SYR ONE (15:10)
[2017-01-13] MEDS ORDERED: FUROSEMIDE 40 MG/4 ML VIAL IVP ONE (16:34)
[2017-01-13 16:42] LABS: BASE EXCESS -3.5 mEq/L (-2.5-2.5); BICARBONATE 23 mEq/L (22-26); MEASURED OXYGEN SATURATION 97 % (92-95); PCO2 48 mmHg (34-38); PO2 106 mmHg (65-75); TCO2 24 mEq/L (23-27)
--- NOTE | 2017-01-13 16:42 | PDDXCAT ---
Diagnostic Cath Note - . Date: 01/13/17 Shroudman: Gabriel Indication: other ([place] heart Association functional class 4 right greater than left-sided congestive heart failure, progressive pre renal azotemia in the setting of diuretic therapy.) - Procedure Procedure: right heart catheterization - Materials Right Heart Cath size: 5F - Findings-Right Heart Catheterization RA: 33/30/25mmHg. RV: 78/13/32 mmHg. PA: 83/35/51 mmHg. PAOP: 29 mmHg. AO: 89% saturation. CO: 3.51 liters/minute. CI: Cardiac index 1.27 liters/minute per meter squared. Complications: None. Estimated blood loss: <50ml Closure method: manual pressure Assessment: 1. Cardiogenic shock with a mixed venous saturation of 39.8%, cardiac index of 1.27 liters/minute per meter squared and cardiac output of 3.51 liters/minute. 2. Refractory right greater than left-sided congestive heart failure. This is associated with severe pulmonary arterial hypertension with a pulmonary artery pressure of 83/35/51 mmHg. This is noted in the setting of a pulmonary capillary wedge pressure of 29 mmHg. 3. History of morbid obesity associated with obstructive sleep apnea. Plan: The patient will be placed on a dobutamine infusion and administered intravenous Lasix. The case will be discussed with our congestive heart failure team. Intervention: None. Patient Problems: Problems Problem Status Onset Heart failure Acute Hypoxia Acute Diabetes Acute Methicillin resistant Staphylococcus aureus infection Acute 08/19/15
[2017-01-13] MEDS ORDERED: DOBUTamine 500 MG in D5W 250 ML IV SCH (16:45)
[2017-01-13] MEDS ORDERED: FUROSEMIDE 40 MG/4 ML VIAL ONE (16:59)
[2017-01-13] MEDS ORDERED: NALOXONE HCL 0.4 MG/ML INJ IVP PRN (17:00)
[2017-01-13] MEDS ORDERED: ALBUTEROL 3 ML DEYVIAL IH PRN (17:00)
[2017-01-13] MEDS ORDERED: ONDANSETRON 4 MG/2 ML VIAL IVP PRN (17:00)
--- NOTE | 2017-01-13 17:00 | PDANEPAE ---
ANE History of Present Illness Patient presents for RHC and FREEDOM ANE Past Medical History - Cardiovascular History Hx Hypertension: Yes Hx Arrhythmias: No Hx Chest Pain: No Hx Coronary Artery / Peripheral Vascular Disease: Yes Hx CHF / Valvular Disease: Yes Hx Palpitations: No - Pulmonary History Hx COPD: No Hx Asthma/Reactive Airway Disease: No Hx Recent Upper Respiratory Infection: No Hx Oxygen in Use at Home: Yes O2 in Use at Home (L/minute): 2 Hx Sleep Apnea: Yes Sleep Apnea Screening Result - Last Documented: Positive - Neurologic History Hx Cerebrovascular Accident: No Hx Seizures: No Hx Dementia: No - Endocrine History Hx Diabetes: Yes - Renal History Hx Renal Disorders: No - Liver History Hx Hepatic Disorders: No - Neurological & Psychiatric Hx Hx Neurological and Psychiatric Disorders: No - Cancer History Hx Cancer: No - Congenital Disorder History Hx Congenital Disorders: No - GI History Hx Gastrointestinal Disorders: No - Other Health History Other Health History: Couple teeth loss - Chronic Pain History Chronic Pain: Yes - Surgical History Prior Surgeries: Right shoulder. Bilat knee surgery. Tonsilectomy ANE Review of Systems Review of Systems: - Exercise capacity Exercise capacity: limited by disability ANE Patient History - Allergies Allergies/Adverse Reactions: No Known Allergies Allergy (Unverified 11/25/11 08:47) - Home Medications Home medications: home medication list seen and reviewed Home Medications: Allopurinol [Allopurinol 300 MG (RX)] 600 mg PO HS 12/23/15 [Last Taken 01/09/17 ] Aspirin [Aspirin 81mg (*)] 81 mg PO HS 12/23/15 [Last Taken 01/09/17] Colchicine [Colchicine (*)] 1.2 mg PO HS 12/23/15 [Last Taken 01/09/17] Furosemide [Lasix 40 MG (*)] 40 mg PO BID@12/23/15 [Last Taken 01/10/17 09 :00] Levothyroxine [Synthroid 150 mcg (*)] 150 mcg PO DAILY06 12/23/15 [Last Taken ] Lisinopril [Zestril 40 mg (*)] 40 mg PO DAILY 12/23/15 [Last Taken 01/10/17] Naproxen Sodium [Aleve 220 MG (*)] 660 mg PO BID PRN 12/23/15 [Last Taken ] amLODIPine BESYLATE [Norvasc 10 mg (*)] 10 mg PO DAILY 12/23/15 [Last Taken ] metFORMIN HCL [Glucophage 500 mg (*)] 1,000 mg PO BID 12/23/15 [Last Taken 01/10 09:00] Tamsulosin HCl [Flomax 0.4 MG (*)] 0.4 mg PO HS 01/08/17 [Last Taken 01/09/17] Metoprolol Tartrate [Lopressor 25 mg (*)] 50 mg PO DAILY 01/10/17 [Last Taken 09:00] Sleep Study Medication 1 tab PO HS 01/10/17 [Last Taken 01/09/17] - NPO status NPO Status: no food or drink >8 hours NPO Since - Liquids (Date): 01/13/17 NPO Since - Liquids (Time): 00:00 NPO Since - Solids (Date): 01/13/17 NPO Since - Solids (Time): 00:00 - Anes Hx Anes Hx: no prior problems - Smoking Hx Smoking Status: Never smoked - Alcohol Use Alcohol Use: Occasionally - Family Anes Hx Family Hx Anesthesia Complications: None ANE Labs/Vital Signs - Labs Result Diagrams: 01/13/17 03:56 01/13/17 03:56 - Vital Signs Blood Pressure: 131/79 Heart Rate: 63 Respiratory Rate: 16 O2 Sat (%): 98 Height: 190.5 cm Weight: 155.9 kg ANE Physical Exam - Airway Neck exam: FROM Mallampati Score: Unable to assesss - Pulmonary Pulmonary: expiratory wheeze - Cardiovascular Cardiovascular: regular rate and rhythym - ASA Status ASA Status: IV ANE Anesthesia Plan Anesthesia Plan: GA with mask (RBA discussed)
--- NOTE | 2017-01-13 17:01 | POSTANESTH ---
Post Anesthetic Evaluation Cardiovascular Status: Normal, Stable Respiratory Status: Similar to Pre-op Cond. Level of Consciousness/Mental Status: Alert and Oriented Pain Control: Adequate, Prn Tx Ordered Nausea/Vomiting Control: Adequate, Prn Tx Ordered Complications Possibly Related to Anesthesia: None Noted
[2017-01-13] MEDS: DOBUTamine/DEXTROSE 250 ML IV SCH (17:16)
[2017-01-13 17:50] LABS: IG KAPPA FREE LIGHT CHAIN 3.47 mg/dL; IG LAMBDA FREE LIGHT CHAIN 3.16 mg/dL; KAPPA/LAMBDA RATIO 1.1
[2017-01-13] MEDS: ACETAMINOPHEN 325 MG TAB PO PRN (19:39)
[2017-01-13] MEDS: ALLOPURINOL 300 MG TAB PO SCH (21:49)
[2017-01-13] MEDS: COLCHICINE 0.6 MG CAP/TAB PO SCH (21:49)
[2017-01-13] MEDS: ASPIRIN 81 MG CHEWABLE TAB PO SCH (21:49)
[2017-01-13] MEDS: TAMSULOSIN HCL 0.4 MG CAP PO SCH (21:49)
[2017-01-13] MEDS: PATCH REMOVAL 1 EA PATCH TD SCH (21:52)
[2017-01-14] MEDS: oxyCODONE IR 5 MG TAB PO PRN ×4 (00:45→22:27)
[2017-01-14] MEDS: ACETAMINOPHEN 325 MG TAB PO PRN (00:45)
[2017-01-14] MEDS: DOBUTamine/DEXTROSE 250 ML IV SCH ×2 (02:32→14:00)
--- NOTE | 2017-01-14 05:17 | GCON ---
[f rep st] CONSULTATION PULMONARY CONSULT HISTORY OF PRESENT ILLNESS: The patient is a 61-year-old male with a long-standing history of obstru ctive sleep apnea and poor compliance. He also has quite a bit of difficulty with anxiety, and what appears to be dependence on sleep aids such as Ambien. He was admitted on 01/10/2017 with shortness of breath after he was found to have hypoxemia. He has had chronic pain and went for an MRI with, I believe, general anesthesia and was found to be hypoxic as a result of that. He left the hospital ag ainst medical advice, but returned with complaints of shortness of breath. Of significance during or s admission H and P, he was noted to be falling asleep multiple times during the interview. Subseque ntly, he has undergone an evaluation for hypoxemia which did respond to oxygen, and he had a CT angio gram, which was a suboptimal study and did not rule out pulmonary embolism, and had an echocardiogram which was also a very suboptimal study, but did suggest a PA pressure of 62 with mild right ventricu lar enlargement, mild right atrial enlargement, and decreased RV function, but an ejection fraction o f 50% to 55%. His sleep apnea has been longstanding, and he was unable to report what his apnea-hypopnea index was at its baseline. He has been followed at [facility], and I did find a few progress notes from [facility] in [facility], but they were dated May 2016. He apparently had been trying auto titrati ng CPAP at 4-8 cm of water, but a data download card at that time revealed he was averaging only 1.5 hours a night of compliance, and his pressure was increased to 6-8. He was encouraged to discontinue Ambien at that time, was given a trial of trazodone in hopes of improving compliance with that. He also saw a psychiatrist shortly after that, who reported that he said he was not using his CPAP at [facility]. The data download report included only 2 weeks prior to that visit. I have no other [facility] record since that time, but he is reported to be in a clinical trial, which involves Ambien versu s placebo, but I have not seen a formal confirmation of that study. REVIEW OF SYSTEMS: He has had chronic venous stasis problems and cellulitis of his lower extremities in the past, and is known to have pulmonary hypertension, but the severity of which is uncertain fro m the past, although there is current data now which I will review below. PAST MEDICAL HISTORY: Includes: 1. Obstructive sleep apnea as described above. 2. Coronary artery disease status post stenting as recent as December of 2015. 3. Morbid obesity. 4. Gout. 5. Diabetes. 6. Hypertension. 7. Anxiety. 8. Venous stasis changes. 9. MRSA cellulitis in the past. 10. Hypothyroidism. 11. Peripheral neuropathy. 12. Pulmonary hypertension. 13. Chronic lower extremity edema. 14. Benign prostatic hypertrophy. PAST SURGICAL HISTORY: Includes rotator cuff repair, knee surgery, cardiac stents in the past. FAMILY HISTORY: Includes diabetes. SOCIAL HISTORY: He is a lifelong nonsmoker and reportedly no alcohol or IV drug use. MEDICATIONS: At least at this time include Proventil, allopurinol, Norvasc, aspirin, Dulcolax, Plavi x, colchicine, Lovenox, Synthroid, Ativan, lidocaine patch, oxycodone, Bystolic, Zofran, MiraLAX, Phe nergan, Senokot, and Flomax. PHYSICAL EXAMINATION: VITAL SIGNS: He has been afebrile during this admission. His blood pressure is 131/79, heart rate of 63, respirations 15, oxygen saturation 98% on 4 L nasal cannula. GENERAL: He was morbidly obese in bed, falling asleep frequently during my interview with him, though he was a lert and oriented x3. HEENT: Pupils were equally round and reactive to light. Nonicteric and nonin jected. Mucous membranes were moist without erythema or exudate. NECK: Supple, but I was unable to appreciate jugular venous distention due to his size. LUNGS: Breath sounds were markedly diminishe d, but appeared to be clear to auscultation bilaterally without wheezes, rubs, or rales. HEART: Reg ular rate and rhythm with a 2/6 systolic ejection murmur. ABDOMEN: Soft, nontender, nondistended wi thout hepatosplenomegaly. EXTREMITIES: Show 1 to 2+ edema bilaterally. There were venous stasis ch anges in his lower extremities, and he had ulcers under dressings that were not evaluated. NEUROLOGI NIK: Exam was notable for his substantial somnolence, but otherwise nonfocal. SKIN: No rashes othe r than the venous stasis changes. OBJECTIVE DATA: Includes a CT scan that did not show evidence of interstitial lung disease, which is a poor quality study due to motion artifact, but showed no evidence of pulmonary embolism. A V/Q sc an performed later today was normal. His white count was 7.9. Hematocrit was 46 on admission, and has been as high as 58 in the past. Th e platelets were normal at 233. A blood gas from showed a pH 7.4, pCO2 37, PO2 87, bicarb 23, sat of 96; however, a blood gas taken earlier today showed a pH 7.30, pCO2 48, PO2 106, bicarb 23, s at 97% that was probably done on oxygen at 1630 this afternoon. His basic metabolic panel showed sod ium 136, potassium 5.2, chloride 97, bicarb 26, BUN 26, creatinine 2.0 and climbing, glucose 131, nik cium was 9.0, total bilirubin 2.0, AST 77 and rising, ALT 98 and rising, alkaline phosphatase 172 and rising. Troponin has been negative twice. C-reactive protein markedly elevated at 255. Total prot ein was 6.2. Albumin of 2.9 has been relatively stable. Urinalysis was relatively bland, though did show 2+ protein and a urine sodium of 12. He underwent a right heart catheterization today showing a right atrial pressure of 25, PA pressure o f 83/35 with a mean of 51, a wedge pressure of 29, cardiac output of 3.5 with a cardiac index 1.27, w hich gives me a calculated PVR of 6.2 Wood units, and is consistent with severe pulmonary hypertensio n. ASSESSMENT AND PLAN: 1. Hypoxemia. This is probably multifactorial, but I think the major driving force here is what I b elieve to be untreated or far suboptimally treated sleep apnea. This is certainly a major contributo r to his pulmonary hypertension which also could be a factor as well. In any case, he does not appea r to have chronic hypoventilation based on his normal bicarb and blood gases as described above. We will continue to supplement him with oxygen to maintain an oxygen saturation of 90%. 2. Severe pulmonary hypertension. Not discussed above is a pulmonary hypertension system review, bu t he has no personal or family history of pulmonary hypertension outside of his known mild pulmonary hypertension. There is no history of collagen vascular disease, has no congenital heart disease, tho ugh he should be undergoing a transesophageal echo to evaluate for valvular heart disease, which has not been seen on his poor quality surface echo. There is no evidence for known portopulmonary hypert ension. He denies human immunodeficiency virus risk factors, but this has not yet been tested. Kayleigh finn has been no history of intravenous drug use that I am aware of or diet drugs. He has no hereditary hemorrhagic telangiectasia, Gaucher disease, no sickle cell, and there is no splenectomy, myeloproli ferative disease or pulmonary veno-occlusive disease, and no exposure to schistosomiasis. He does beck ve mild left heart disease; we know his cardiac output is low, but that may be on the basis of his ri ght heart function. Left heart function is also diminished in people with sleep apnea. He does have clear sleep apnea but no chronic alveolar hypoventilation, no chronic obstructive pulmonary disease or interstitial lung disease, though no pulmonary function tests are available at this time. He is n ot known to live at high altitude. Chronic thromboembolic disease has been ruled out. There is no e vidence of sarcoidosis, histiocytosis X, lymphangiomyomatosis, fibrosing mediastinitis, or end-stage renal disease, all of which can cause pulmonary hypertension. This leaves an etiology of untreated s leep apnea, chronic hypoxemia. He is clearly volume overloaded by his catheterization data. An [place] ent of diastolic dysfunction and left-sided heart failure as well are all contributors here. I do no t believe he has pulmonary arterial hypertension, though it is relatively uncommon for sleep apnea al one to cause this degree of pulmonary hypertension. He is starting dobutamine and Lasix drips this a fternoon, which I think are appropriate at this time, particularly given his worsening hepatic functi on and renal function. His pulmonary hypertension by catheterization criteria would likely get hilary r since his wedge pressure is excessively high at 29. I think that treating him with continuous posi tive airway pressure is clearly critical at this time, though the data for hemodynamic improvement is soft. I think that we should also check an VIOLA panel, rheumatoid factor, and human immunodeficiency virus to be certain these are not factors in this as well. I think a BNP is useful at this time mos tly for prognostic factor. 3. Excessive insomnia. I believe this is due to untreated sleep apnea. I would like to contact [facility] about his Ambien study and consider discontinuing that drug at this time. The oxycodone that he is getting may also be contributing since he did develop hypercapnic respiratory failure thi s afternoon with that. I will continue to follow closely. /[id number]/MODL
[2017-01-14 05:55] LABS: % IMMATURE GRANULYOCYTES 1.3 % (0.0-1.1); ABSOLUTE IMMATURE GRANULOCYTES 0.11 10^3/uL (0.00-0.10); ADD DIFF? NO; ADD MORPH? NO; ADD SCAN? NO; ATYPICAL LYMPHOCYTE FLAG 0 (0-99); FRAGMENT RBC FLAG 0 (0-99); HEMATOCRIT 40.7 % (40.0-51.0); HEMOGLOBIN 13.2 g/dL (13.7-17.5); LEFT SHIFT FLG 20 (0-99); LIPEMIA HEMOLYSIS FLAG 80 (0-99); MEAN CELL HEMOGLOBIN 29.7 pg (27.9-34.1); MEAN CELL HEMOGLOBIN CONCENTR. 32.4 g/dL (32.4-36.7); MEAN CELL VOLUME 91.5 fL (81.5-99.8); PLATELET CLUMPS FLAG 0 (0-99); PLATELET COUNT 215 10^3/uL (150-400); RED BLOOD CELL COUNT 4.45 10^6/uL (4.40-6.38)
[2017-01-14 05:57] LABS: ANION GAP 10 mEq/L (8-16); CALCIUM 8.5 mg/dL (8.5-10.4); CARBON DIOXIDE 27 mEq/l (22-31); CHLORIDE 98 mEq/L (97-110); CREATININE 1.6 mg/dL (0.7-1.3); GLOMERULAR FILTRATION RATE 44; GLUCOSE 120 mg/dL (70-100); SODIUM 135 mEq/L (134-144)
[2017-01-14] MEDS: LEVOTHYROXINE 150 MCG TAB PO SCH (05:57)
--- NOTE | 2017-01-14 09:20 | SOAPPROG ---
SOAP Progress Note Assessment/Plan: Assessment: 61-year-old male with severe right greater than left-sided congestive heart failure. He has severe lower extremity edema and a tense abdomen. His evaluation thus far indicates severe right ventricular dysfunction in the setting of severe pulmonary hypertension. This is noted in conjunction with a moderately elevated pulmonary capillary wedge pressure. His cardiac output is markedly low likely the cause of his previously noted renal insufficiency. After being started on dobutamine and being given intravenous Lasix we of now finally been able to achieve diuresis. This is noted in the setting of an improvement in his creatinine. His right heart failure is likely on the basis of his obesity and severe obstructive sleep apnea. This is being followed by pulmonology. He currently has CPAP in the room and apparently has been using it regularly. He has known CAD which, at this point, appears stable. Plan: 1. We will continue with intravenous dobutamine. 2. He has been written for intravenous Lasix 60 mg IV twice daily. 3. Will carefully follow his electrolytes and renal function. 4. I had a short conversation with him regarding his weight and the effective his weight on his overall health. We specifically talked about future plans for aggressive weight loss. 5. His overall prognosis in the absence of a significant change in his lifestyle is extremely poor. 6. Will follow along with you. 01/14/17 09:33 Subjective: He remains stable. Fortunately, we were able to achieve a vigorous diuresis overnight. His creatinine has improved. On telemetry he has not had any significant arrhythmias. Objective: Vital Signs Temp Pulse Resp BP Pulse Ox 36.6 C 68 19 133/75 H 90 L 01/14/17 07:16 01/14/17 07:16 01/14/17 07:16 01/14/17 07:16 01/14/17 07:16 Laboratory Results 01/14/17 05:00 01/14/17 05:00 01/13/17 01/14/17 01/15/17 05:59 05:59 05:59 Intake Total 3465 731 Output Total 1225 2300 200 Balance 2240 -1569 -200 PT 16.8 SEC (12.0-15.0) H 01/10/17 15:15 INR 1.36 (0.83-1.16) H 01/10/17 15:15 Physical Exam - Physical Exam General Appearance: obese Neck: non-tender, full range of motion Respiratory: lungs clear Cardiac/Chest: regular rate, rhythm, edema ([place], bilateral pitting edema extending proximally to the knee.), JVD (Difficult to appreciate neck veins due to the patient's body habitus), No gallop Peripheral Pulses: 1+: carotid (R), carotid (L) Abdomen: non-tender Male Genitalia: deferred Rectal: deferred Neuro/Psych: oriented x 3, other (Somnolent) ICD10 Worksheet Patient Problems: Problems Problem Status Onset Heart failure Acute Hypoxia Acute Diabetes Acute Methicillin resistant Staphylococcus aureus infection Acute 08/19/15
[2017-01-14] MEDS: FUROSEMIDE 40 MG/4 ML VIAL IVP SCH ×2 (09:49→15:19)
[2017-01-14] MEDS: LIDOCAINE 5% 1 EA PATCH TD SCH (10:03)
[2017-01-14] MEDS: NEBIVOLOL HCL 5 MG TAB PO SCH (10:10)
[2017-01-14] MEDS: amLODIPine BESYLATE 5 MG TAB PO SCH (10:10)
[2017-01-14] MEDS: SENNOSIDES/DOCUSATE SODIUM TAB PO SCH ×2 (10:10→20:43)
[2017-01-14] MEDS: CLOPIDOGREL BISULFATE 75 MG TAB PO SCH (10:11)
[2017-01-14] MEDS: ACETYLCYSTEINE 20% IH/PO 4 ML VIAL PO SCH (11:33)
--- NOTE | 2017-01-14 12:05 | SOAPPROG ---
SOAP Progress Note Assessment/Plan: Assessment:Plan: ARF-in face of diuresis for diastolic heart failure -creatinine stable at 1.6 CHF-Dr. Rios's note reviewed -diurese with lasix and dobutamine -keep off RHONA -continue sodium restriction -encourage use of CPAP -continue CCB and BB HTN-diurese -compression stockings/tubing -daily weights R Hip pain-continue lidoderm patch DM and gout-if we make his renal function unstable we will not be able to use allopurinol or metformin safely 01/14/17 12:04 Subjective: sleepy after busy day yesterday Objective: Vital Signs Temp Pulse Resp BP Pulse Ox 36.6 C 61 18 129/72 H 91 L 01/14/17 11:06 01/14/17 11:06 01/14/17 11:06 01/14/17 11:06 01/14/17 11:06 Laboratory Results 01/14/17 05:00 01/14/17 05:00 01/13/17 01/14/17 01/15/17 05:59 05:59 05:59 Intake Total 3465 731 Output Total 1225 2300 800 Balance 2240 -1569 -800 PT 16.8 SEC (12.0-15.0) H 01/10/17 15:15 INR 1.36 (0.83-1.16) H 01/10/17 15:15 Physical Exam - Physical Exam General Appearance: WD/WN, obese EENT: normal ENT inspection Neck: normal inspection Respiratory: decreased breath sounds Cardiac/Chest: regular rate, rhythm, No systolic murmur Abdomen: normal bowel sounds, distended Skin: normal color, warm/dry, other (venous stasis changes) Extremities: swelling ICD10 Worksheet Patient Problems: Problems Problem Status Onset Heart failure Acute Hypoxia Acute Diabetes Acute Methicillin resistant Staphylococcus aureus infection Acute 08/19/15
--- NOTE | 2017-01-14 13:21 | HOSPPROG ---
Hospitalist Progress Note Assessment/Plan: #. Acute Right Sided HF secondary to Pulmonary HTN - severe, suspected from DARRYL +/- OHS. He states he has been on and off of CPAP therapy for about one year. Tough situation as he declines use of hospital CPAP and has not requested for any help in obtaining his home CPAP machine. I appreciate cardiology's assistance and continue with dobutamin and lasix. Daily weights. #. A/CKD3 - Improved creatinine overnight. I appreciate Dr. Oliveira's input. Possibly mild elevation from contrast but it is better now. Continue to follow daily considering diuresis. #. Transaminitis - likely from passive congestion. Repeat LFT's with AM labs. #. Right Hip Pain - secondary to severe OA. #. DARRYL - as above. #. DM2 - No current insulin therapy. Metformin held in light of creatinine. Check A1c in AM. #. HTN - continue current regimen. #. Hypothyroidism - levothyroxine. #. BPH - Flomax #. Bowel/Bladder - bowel regimen if constipation develops. #. DVT Prophylaxis - #. Dispo - I would lean towards placement in SNF as quick return to hospital and one on one needs. Subjective: In talking with patients' nurse, he is apparently needing a lot of one on one assistance and has a sitter at the bedside. He is not tolerating the CPAP machine in the hospital and has not requested for anyone to bring his home CPAP machine to the hospital. He feels like he has used up all the favors he can ask. I encouraged him to try and call someone as this will help his situation. Objective: Vital Signs Temp Pulse Resp BP Pulse Ox 36.6 C 61 18 129/72 H 91 L 01/14/17 11:06 01/14/17 11:06 01/14/17 11:06 01/14/17 11:06 01/14/17 11:06 Laboratory Results 01/14/17 05:00 01/14/17 05:00 01/13/17 01/14/17 01/15/17 05:59 05:59 05:59 Intake Total 3465 731 Output Total 1225 2300 1300 Balance 2240 -1569 -1300 PT 16.8 SEC (12.0-15.0) H 01/10/17 15:15 INR 1.36 (0.83-1.16) H 01/10/17 15:15 - Physical Exam Constitutional: no apparent distress (Falling asleep while talking to me.), appears nourished, not in pain Cardiovascular: regular rate and rhythym (Soft heart sounds.), no murmur, rub, or gallop, edema (bilateral 2+ pitting up to thighs) Respiratory: no respiratory distress, no rales or rhonchi, clear to auscultation Gastrointestinal: normoactive bowel sounds, soft, non-tender abdomen, no palpable masses, distension Genitourinary: No dunn in urethra Psychiatric: interacting appropriately ICD10 Worksheet Patient Problems: Problems Problem Status Onset Heart failure Acute Hypoxia Acute Diabetes Acute Methicillin resistant Staphylococcus aureus infection Acute 08/19/15
[2017-01-14 15:39] LABS: MAGNESIUM 2.6 mg/dL (1.6-2.3); POTASSIUM 5.3 mEq/L (3.5-5.2)
--- NOTE | 2017-01-14 17:06 | ASMTCMCOM ---
CM Note CM Note Notes: 01/14/2017 Case Management Note met w/pt and sister in law with brother on the phone. Informed pt of placement at SNF rehab at d/c. Pt in agreement. Case management to follow. Date Signed: 01/14/2017 05:06 PM Electronically Signed By:Elodia Callaway RN
--- NOTE | 2017-01-14 17:07 | PDINTPN ---
Sample Taker Operator Progress Note Assessment/Plan: Assessment/plan: 61 M with known DARRYL and poor compliance found to be severely hypoxic while undergoing MRI for hip pain. He was admitted but left AMA, then returned with SOB and ROBERT. His workup for hypoxemia included a poor quality echo suggesting significant PH, which was followed by a right heart cath revealing severe PH with a mean PA pressure of 51. In addition, his PCW was 29 and CO only 3, and was subsequently started on Dobutamine and lasix with improved UOP. * PH- I suspect the majority of his PH is related to non-compliance with CPAP, possibly exacerbated by Ambien abuse. The severity of PH may be partially augmented by his volume overload, but a reduced CO is a poor prognostic sign in this setting. The majority of patients with DARRYL do not have such severe PH, but it is possible. An extensive ROS centered around PH did not reveal another cause , nor did his FREEDOM, or currently available serologies. CTEPH has been ruled out by VQ, and ILD ruled out by CTA. At this point I agree with DBT and lasix and monitor creatinine (improved today) with re-assessment after a few days. He may need an additional RHC to assess. If his PH is not substantialy improved (eg remains severe) he may be a candidate for concomitant therapy using PAH drugs such as combination Ambrisentan/Tadalafil; at least until he can get control of his DARRYL. At the moment he has a very guarded prognosis with high risk for deterioration. * DARRYL- he continues to display EDS, though reports a variety of alternate explanations. His family brought his nasal pillows to use, and I stressed that he practice 100% compliance moving forward. He will get me the contact info for his docs at [facility] whom I will contact to get information about his sleep aid study (not sure he is a good candidate for this anyway) as well as the severity of his DARRYL, which I suspect is also severe. * ROBERT- likely as a result of PH/CHF. His UOP improved with DBT and diuretics which I would continue as outlined above. Subjective: still sleepy, but stable today Objective: Vital Signs Temp Pulse Resp BP Pulse Ox 36.8 C 65 19 143/75 H 92 01/14/17 15:40 01/14/17 15:40 01/14/17 15:40 01/14/17 15:40 01/14/17 15:40 Laboratory Results 01/14/17 05:00 01/14/17 15:08 01/13/17 01/14/17 01/15/17 05:59 05:59 05:59 Intake Total 3465 731 620 Output Total 1225 2300 1800 Balance 2240 -1569 -1180 PT 16.8 SEC (12.0-15.0) H 01/10/17 15:15 INR 1.36 (0.83-1.16) H 01/10/17 15:15 Physical Exam - Physical Exam General Appearance: no apparent distress, obese, other (very somnolent and barely keeps his eyes open; though maintained a coherent conversation) EENT: PERRL/EOMI Neck: supple Respiratory: lungs clear, normal breath sounds, No respiratory distress Cardiac/Chest: regular rate, rhythm, edema Abdomen: normal bowel sounds, non-tender, soft, No distended Skin: normal color, warm/dry Extremities: pedal edema Neuro/Psych: normal mood/affect, oriented x 3, No abnormal ship scraper II-XII, No cognition abnormalities ICD10 Worksheet Patient Problems: Problems Problem Status Onset Heart failure Acute Hypoxia Acute Diabetes Acute Methicillin resistant Staphylococcus aureus infection Acute 08/19/15
[2017-01-14] MEDS: COLCHICINE 0.6 MG CAP/TAB PO SCH (20:43)
[2017-01-14] MEDS: ASPIRIN 81 MG CHEWABLE TAB PO SCH (20:43)
[2017-01-14] MEDS: ALLOPURINOL 300 MG TAB PO SCH (20:43)
[2017-01-14] MEDS: TAMSULOSIN HCL 0.4 MG CAP PO SCH (20:43)
[2017-01-14] MEDS: ENOXAPARIN 40 MG/0.4 ML SYR SC SCH (20:43)
[2017-01-14] MEDS: LORazepam 0.5 MG TAB PO PRN (22:27)
[2017-01-14] MEDS: [UNRECOGNIZED DRUG - REMARK] PO SCH (23:22)
[2017-01-15] MEDS: PATCH REMOVAL 1 EA PATCH TD SCH ×2 (00:18→22:32)
[2017-01-15 04:22] LABS: % IMMATURE GRANULYOCYTES 0.9 % (0.0-1.1); ABSOLUTE IMMATURE GRANULOCYTES 0.09 10^3/uL (0.00-0.10); ADD DIFF? NO; ADD MORPH? NO; ADD SCAN? NO; ATYPICAL LYMPHOCYTE FLAG 0 (0-99); FRAGMENT RBC FLAG 0 (0-99); HEMATOCRIT 41.2 % (40.0-51.0); HEMOGLOBIN 13.4 g/dL (13.7-17.5); LEFT SHIFT FLG 10 (0-99); LIPEMIA HEMOLYSIS FLAG 80 (0-99); MEAN CELL HEMOGLOBIN 29.6 pg (27.9-34.1); MEAN CELL HEMOGLOBIN CONCENTR. 32.5 g/dL (32.4-36.7); MEAN CELL VOLUME 91.2 fL (81.5-99.8); MEAN PLATELET VOLUME 10.7 fL (8.7-11.7); PLATELET CLUMPS FLAG 30 (0-99); PLATELET COUNT 235 10^3/uL (150-400); RED BLOOD CELL COUNT 4.52 10^6/uL (4.40-6.38); RED CELL DISTRIBUTION WIDTH 15.9 % (11.5-15.2)
[2017-01-15 04:42] LABS: ALANINE AMINOTRANSFERASE 103 IU/L (21-72); ALBUMIN 2.6 g/dL (3.5-5.0); ALKALINE PHOSPHATASE 164 IU/L (38-126); ANION GAP 9 mEq/L (8-16); ASPARTATE AMINOTRANSFERASE 63 IU/L (17-59); BILIRUBIN,TOTAL 1.4 mg/dL (0.1-1.4); BILIRUBIN-UNCONJUGATED 0.4 mg/dL (0.0-1.1); CARBON DIOXIDE 31 mEq/l (22-31); CHLORIDE 98 mEq/L (97-110); CREATININE 1.2 mg/dL (0.7-1.3); GLOMERULAR FILTRATION RATE > 60; GLUCOSE 123 mg/dL (70-100); POTASSIUM 5.3 mEq/L (3.5-5.2); SODIUM 138 mEq/L (134-144); TOTAL PROTEIN 6.1 g/dL (6.3-8.2)
[2017-01-15] MEDS: oxyCODONE IR 5 MG TAB PO PRN ×2 (05:58→22:40)
[2017-01-15] MEDS: LEVOTHYROXINE 150 MCG TAB PO SCH (06:08)
[2017-01-15] MEDS ORDERED: METOLAZONE 5 MG TAB PO ONE (08:12)
--- NOTE | 2017-01-15 08:43 | SOAPPROG ---
SOAP Progress Note Assessment/Plan: Assessment:Plan: ARF-in face of diuresis for diastolic heart failure, volume overload -creatinine down to 1.2 -diuresing well on current therapies -I/O = 2481/4050 -weight down from 159 to 154 CHF-he is declining use of CPAP -diurese with lasix and dobutamine -keep off RHONA -continue sodium restriction -encourage use of CPAP -continue CCB and BB HTN-diurese -compression stockings/tubing -daily weights R Hip pain-better lidoderm patch -continue 01/15/17 08:40 Subjective: up in chair overnite declines use of CPAP RN reports that he is non-compliant with this at home Objective: Vital Signs Temp Pulse Resp BP Pulse Ox 37.0 C 70 21 H 149/80 H 90 L 01/15/17 08:00 01/15/17 08:00 01/15/17 08:00 01/15/17 08:00 01/15/17 08:00 Laboratory Results 01/15/17 04:00 01/15/17 04:00 01/14/17 01/15/17 01/16/17 05:59 05:59 05:59 Intake Total 731 2481 Output Total 2300 4050 50 Balance -1569 -1569 -50 PT 16.8 SEC (12.0-15.0) H 01/10/17 15:15 INR 1.36 (0.83-1.16) H 01/10/17 15:15 Physical Exam - Physical Exam General Appearance: no apparent distress, obese EENT: normal ENT inspection Neck: normal inspection Respiratory: decreased breath sounds Cardiac/Chest: regular rate, rhythm, No diastolic murmur, No systolic murmur, No extra beats, No friction rub Abdomen: normal bowel sounds, distended Back: Normal inspection Skin: normal color, warm/dry, other (venous stasis changes) Extremities: swelling (into thighs) ICD10 Worksheet Patient Problems: Problems Problem Status Onset Heart failure Acute Hypoxia Acute Diabetes Acute Methicillin resistant Staphylococcus aureus infection Acute 08/19/15
[2017-01-15] MEDS: FUROSEMIDE 40 MG/4 ML VIAL IVP SCH ×2 (09:01→15:26)
[2017-01-15] MEDS: ENOXAPARIN 40 MG/0.4 ML SYR SC SCH ×2 (09:11→22:32)
[2017-01-15] MEDS: LIDOCAINE 5% 1 EA PATCH TD SCH (09:13)
[2017-01-15 09:21] LABS: HEMOGLOBIN A1C 6.6 % (4.0-6.0)
[2017-01-15] MEDS: SENNOSIDES/DOCUSATE SODIUM TAB PO SCH ×2 (09:36→22:32)
[2017-01-15] MEDS: CLOPIDOGREL BISULFATE 75 MG TAB PO SCH (09:37)
[2017-01-15] MEDS: amLODIPine BESYLATE 5 MG TAB PO SCH (09:37)
[2017-01-15] MEDS: NEBIVOLOL HCL 5 MG TAB PO SCH (09:37)
--- NOTE | 2017-01-15 10:17 | ASMTCMCOM ---
CM Note CM Note Notes: Chart reviewed. Met with pt to review plan of care. This am he has a sitter in his room. He is confused and does not remember coversations regarding discharge plans. CM to follow. Date Signed: 01/15/2017 10:16 AM Electronically Signed By:Haylie Oakley RN
[2017-01-15] MEDS: DOBUTamine 500 MG in D5W 250 ML IV SCH ×2 (12:30→22:29)
--- NOTE | 2017-01-15 15:37 | HOSPPROG ---
Hospitalist Progress Note Assessment/Plan: #. Acute Right Sided HF secondary to Pulmonary HTN - severe, suspected from DARRYL +/- OHS. This may be compounded by zolpidem use as he is apparently is a study by [facility]. This was discussed with Dr. Abrams with pulmonary medicine today and he is making contact with the business operations director for further clarification. He states he has been on and off of CPAP therapy for about one year. Tough situation as he declines use of hospital CPAP and we have yet to obtain home CPAP machine. I appreciate pulmonary and cardiology's assistance and continue with dobutamin and lasix. Weight is down today from 159 to 154. #. A/CKD3 - Improved creatinine overnight. I appreciate Dr. Oliveira's input. Possibly mild elevation from contrast but it is better now. Continue to follow daily considering diuresis. #. Transaminitis - likely from passive congestion. Repeat LFT's with AM labs. #. Right Hip Pain - secondary to severe OA. #. DARRYL - as above. #. DM2 - Controlled with A1c of 6.6%. Metformin held in light of creatinine but may be able to be restarted. #. HTN - Variable readings today with SBP's from 120-150's. With current lasix use will continue current regimen and continue to follow. #. Hypothyroidism - levothyroxine. #. BPH - Flomax #. Bowel/Bladder - bowel regimen if constipation develops. #. DVT Prophylaxis - lovenox BID. #. Dispo - I would lean towards placement in SNF as quick return to hospital and one on one needs. Subjective: Patient noted increased swelling and discomfort or RUE today. His case was reviewed with Dr. Harris. Dr. Harris is looking into the current study he is in at [facility] as it apparently has something to do with high dose zolpidem. Objective: Vital Signs Temp Pulse Resp BP Pulse Ox 37.0 C 70 19 125/80 H 92 01/15/17 08:00 01/15/17 11:37 01/15/17 11:37 01/15/17 11:37 01/15/17 11:37 Laboratory Results 01/15/17 04:00 01/15/17 04:00 01/14/17 01/15/17 01/16/17 05:59 05:59 05:59 Intake Total 731 2481 1337 Output Total 2300 4050 2975 Balance -1569 -1569 -1638 PT 16.8 SEC (12.0-15.0) H 01/10/17 15:15 INR 1.36 (0.83-1.16) H 01/10/17 15:15 - Physical Exam Constitutional: other (seems a little more alert today as compared to yesterday. ) Cardiovascular: regular rate and rhythym, no murmur, rub, or gallop, other ( soft heart sounds) Respiratory: no respiratory distress, no rales or rhonchi, clear to auscultation Gastrointestinal: normoactive bowel sounds, soft, non-tender abdomen, no palpable masses, distension, other Genitourinary: No dunn in urethra Neurologic: other ICD10 Worksheet Patient Problems: Problems Problem Status Onset Heart failure Acute Hypoxia Acute Diabetes Acute Methicillin resistant Staphylococcus aureus infection Acute 08/19/15
--- NOTE | 2017-01-15 16:33 | PDCARPN ---
Cardiology Progress Note Chief Complaint: Patient reports hip pain is improved, feels that breathing is easier. Assessment/Plan: Assessment: 61-year-old male with history CAD with PCI circumflex and PDA 12/2015, hyperlipidemia, hypertension, obesity, DARRYL (CPAP), and diabetes. Admitted for right hip pain and hypoxia with SpO2 on room high 70s to low 80s. Patient had reported on admission that had not been taking diuretic therapy for greater than a week prior to admission, feeling dehydrated. Initial chest x-ray showing mild CHF, with BNP greater than 5000. Echocardiogram done on 01/10 showing normal global LV systolic function, mild aortic sclerosis and mitral annular calcification without significant stenosis or insufficiency, mild TR, severely limited study due to poor acoustic window. Limited echo done on 01/11 with definity contrast estimated EF of 50-55% with normal LV systolic function, mildly dilated RV, mildly reduced RV function with RVSP of 47 mm Hg. Patient had reported that he had stopped diuretic therapy at home over week ago. Ultrasound lower extremities done on 01/11 showed no signs of DVT. 01/12 CT angio suboptimal examination, only able to evaluate large pulmonary arteries without pulmonary embolism. 01/13 VQ scan negative for PE. 01/13 RHC done on showing PA pressure of 83/35 with mean 51, PCWP 29 mm Hg. CO 3.5, CI 1.27. Post cath started of IV dobutamine and IV lasix. patient reports that he has been compliant CPAP usage, but refuses to use CPAP in hospital, and has been reported not to be using home CPAP for less than an hour. Today, weight is down 3 kilos to 154.3. O>I. Creatinine improved to 1.2, LFTs elevated likely due to right-sided congestion. mild improvement in lower extremity edema. remaining in sinus rhythm, without arrhythmia or pauses. Patient remained sedated, falling asleep when questioning. Plan: 1. Severe right greater than left side CHF : improve diuresis with dobutamine and IV diuresis. Have added a dose of metolazone to regime today. Will plan on continuing dobutamine and IV Lasix for 1-2 more days. 2. Hypoxic/ severe pulmonary hypertension: Continue to need oxygen, CT angion and VQ scan negative for PE. significant elevated pulmonary pressures by right heart catheterization. Potential causes obesity and severe obstructive sleep apnea. Patient has been encouraged to use CPAP any time sleeping. As patient becomes more euvolemic, consideration of repeat right heart catheterization for re-evaluation. appreciate pulmonology consultation and recommendations. 3. CAD: Patient reports no chest pain or pressure. Troponins are indeterminate. Echo showing normal LV wall motion, with EF of 50-55%. Initial EKG showing no acute ST or T-wave abnormalities. Probable elevation due to flow mismatch due to diastolic heart failure. Patient remain on beta-thelma of Bystolic, continue on aspirin and clopidogrel. 4. Renal insufficiency: Creatinine improvement today to 1.2, more likely due to better cardiac output with diuresis and dobutamine drip. Patient is being followed by Nephrology, continue to monitor. Watch electrolyte and renal function daily. 5. Hypertension: Appears to be appropriately controlled with a at the last transition of metoprolol tartrate to Bystolic, and decrease of Norvasc. Home lisinopril dosage has been discontinued due to renal insufficiency. 6. DARRYL: Discussion with patient today the importance CPAP use, especially with his current health status. explained to him that if no significant lifestyle changes, overall prognosis is poor. 01/15/17 16:27 Subjective: Patient denies of any chest pressure or pain. Denies of any palpitations, lightheadedness, near-syncope or syncopal Reviewed/Discussed With: hospitalist (Dr Hager), other (Dr Rios) Objective: Vital Signs (8 Hrs) Temp Pulse Resp BP Pulse Ox 01/15/17 16:00 37.0 C 68 27 H 146/80 H 90 L 01/15/17 11:37 70 19 125/80 H 92 Intake/Output (24 Hrs) 01/14/17 01/15/17 01/16/17 05:59 05:59 05:59 Intake Total 731 2481 1337 Output Total 2300 4050 4425 Balance -1357 -7780 -7281 Intake: Oral (ml) 450 1920 1337 IV Infused (ml) 281 561 DOBUTamine/DEXTROSE 250 281 561 ml @ Titrate IV CONT MALDONADO Rx#:[id number] Output: Urine (ml) 2300 4050 4425 Bedside Commode 700 900 Urinal 1600 4050 3525 Other: Weight 159.684 kg 154.3 kg Intake Quantity Yes Sufficient Number of Voids Bedside Commode 4 Urinal 2 3 2 Result Diagrams: 01/15/17 04:00 01/15/17 04:00 - Physical Exam Constitutional: no apparent distress, obese Ears, Nose, Mouth, Throat: moist mucous membranes Cardiovascular: regular rate and rhythm, systolic murmur ( 1 to 2/6 left sternal border), jugular vein distention ( 4-5 cm above sternal notch), pulses symmetric bilat, No carotid bruit Peripheral Pulses: 1+: carotid (R), carotid (L) Respiratory: other ( diminished in bases bilateral, no rhonchi, rales, wheezing noted. No accessary muscle use, no intercostal muscle retraction noted) Gastrointestinal: normoactive bowel sounds Skin: no rashes, warm, No no edema ( +3 peripheral edema bilateral lower extremities to thighs.) Neurologic: AAOx3, other ( Lethargic, falling asleep when asked questions.) Psychiatric: cooperative, following commands, not anxious ICD10 Worksheet Patient Problems: Problems Problem Status Onset Heart failure Acute Hypoxia Acute Diabetes Acute Methicillin resistant Staphylococcus aureus infection Acute 08/19/15
[2017-01-15 17:58] LABS: POTASSIUM 4.4 mEq/L (3.5-5.2)
--- NOTE | 2017-01-15 19:23 | PDINTPN ---
Home Weatherizing Worker Progress Note Assessment/Plan: Assessment/plan: 61 M with known DARRYL and poor compliance found to be severely hypoxic while undergoing MRI for hip pain. He was admitted but left AMA, then returned with SOB and DRE. His workup for hypoxemia included a poor quality echo suggesting significant PH, which was followed by a right heart cath revealing severe PH with a mean PA pressure of 51. In addition, his PCW was 29 and CO only 3, and was subsequently started on Dobutamine and lasix with improved UOP. * PH- He has achieved a net diuresis for the last two days, and I agree with continuing this for now. I suspect the majority of his PH is related to non- compliance with CPAP, possibly exacerbated by Ambien abuse. The severity of PH may be partially augmented by his volume overload, but a reduced CO is a poor prognostic sign in this setting. The majority of patients with DARRYL do not have such severe PH, but it is possible. An extensive ROS centered around PH did not reveal another cause, nor did his FREEDOM, or currently available serologies. CTEPH has been ruled out by VQ, and ILD ruled out by CTA. At this point I agree with DBT and lasix and monitor creatinine (improved today) with re-assessment after a few days. He may need an additional RHC to assess. If his PH is not substantialy improved (eg remains severe) he may be a candidate for concomitant therapy using PAH drugs such as combination Ambrisentan/Tadalafil; at least until he can get control of his DARRYL. At the moment he has a very guarded prognosis with high risk for deterioration. * DARRYL- he continues to display EDS, though reports a variety of alternate explanations. His family brought his nasal pillows to use, and I stressed that he practice 100% compliance moving forward. He will get me the contact info for his docs at [facility] whom I will contact to get information about his sleep aid study (not sure he is a good candidate for this anyway) as well as the severity of his DARRYL, which I suspect is also severe. I left a message with Dr. Dre Martin at [facility] today at [phone], but will try again to reach him tomorrow * DRE- likely as a result of PH/CHF. His UOP improved with DBT and diuretics which I would continue as outlined above. 01/15/17 19:21 Subjective: Did not use CPAP last pm Objective: Vital Signs Temp Pulse Resp BP Pulse Ox 37.0 C 68 27 H 146/80 H 90 L 01/15/17 16:00 01/15/17 16:00 01/15/17 16:00 01/15/17 16:00 01/15/17 16:00 Laboratory Results 01/15/17 04:00 01/15/17 17:15 01/14/17 01/15/17 01/16/17 05:59 05:59 05:59 Intake Total 731 2481 2119 Output Total 2300 4050 5615 Balance -0846 -7453 -9611 PT 16.8 SEC (12.0-15.0) H 01/10/17 15:15 INR 1.36 (0.83-1.16) H 01/10/17 15:15 Physical Exam - Physical Exam General Appearance: WD/WN, alert, no apparent distress, obese EENT: PERRL/EOMI Neck: supple Respiratory: lungs clear, normal breath sounds, No respiratory distress Cardiac/Chest: regular rate, rhythm, edema Abdomen: normal bowel sounds, non-tender, soft, No distended Skin: normal color, warm/dry Lymphatic: no adenopathy Extremities: pedal edema Neuro/Psych: alert, normal mood/affect, oriented x 3 ICD10 Worksheet Patient Problems: Problems Problem Status Onset Heart failure Acute Hypoxia Acute Diabetes Acute Methicillin resistant Staphylococcus aureus infection Acute 08/19/15
[2017-01-15] MEDS: COLCHICINE 0.6 MG CAP/TAB PO SCH (22:31)
[2017-01-15] MEDS: ASPIRIN 81 MG CHEWABLE TAB PO SCH (22:31)
[2017-01-15] MEDS: ALLOPURINOL 300 MG TAB PO SCH (22:31)
[2017-01-15] MEDS: [UNRECOGNIZED DRUG - REMARK] PO SCH (22:32)
[2017-01-15] MEDS: TAMSULOSIN HCL 0.4 MG CAP PO SCH (22:33)
[2017-01-16] MEDS: LEVOTHYROXINE 150 MCG TAB PO SCH (05:04)
[2017-01-16] MEDS: HYDROCODONE/APAP 5/325 TAB PO PRN ×3 (05:12→23:22)
[2017-01-16 05:35] LABS: ALANINE AMINOTRANSFERASE 106 IU/L (21-72); ALBUMIN 3.1 g/dL (3.5-5.0); ALKALINE PHOSPHATASE 189 IU/L (38-126); ANION GAP 12 mEq/L (8-16); ASPARTATE AMINOTRANSFERASE 60 IU/L (17-59); BILIRUBIN,TOTAL 1.8 mg/dL (0.1-1.4); CALCIUM 9.7 mg/dL (8.5-10.4); CARBON DIOXIDE 34 mEq/l (22-31); CHLORIDE 91 mEq/L (97-110); CREATININE 1.1 mg/dL (0.7-1.3); GLOMERULAR FILTRATION RATE > 60; GLUCOSE 135 mg/dL (70-100); MAGNESIUM 1.8 mg/dL (1.6-2.3); POTASSIUM 4.1 mEq/L (3.5-5.2); SODIUM 137 mEq/L (134-144); TOTAL PROTEIN 6.4 g/dL (6.3-8.2)
--- NOTE | 2017-01-16 08:23 | SOAPPROG ---
SOAP Progress Note Assessment/Plan: Assessment: ARF-in face of diuresis for diastolic heart failure, volume overload -creatinine down to 1.1 -diuresing >7L yester -recommend decreasing dobutamine to 2.5mcg today -monitor UO, goal net negative 1-2kg daily CHF-he is declining use of CPAP -diurese with lasix and dobutamine, decrease as above, may need to increase lasix pending clinical course -keep off RHONA -continue sodium restriction -encourage use of CPAP -continue BB, will increase CCB to 10mg HTN-diurese -compression stockings/tubing -daily weights -hydralazine prn R Hip pain-better lidoderm patch -continue 01/16/17 08:20 Subjective: Patient up to chair. Feeling the same for breathing. Still refusing CPAP on 5L NC. Objective: Vital Signs Temp Pulse Resp BP Pulse Ox 36.9 C 72 15 162/90 H 90 L 01/16/17 07:07 01/16/17 07:07 01/16/17 07:07 01/16/17 07:07 01/16/17 07:07 Laboratory Results 01/15/17 04:00 01/16/17 05:15 01/15/17 01/16/17 01/17/17 05:59 05:59 04:59 Intake Total 2481 3007 200 Output Total 4050 7775 Balance -1569 -4799 200 PT 16.8 SEC (12.0-15.0) H 01/10/17 15:15 INR 1.36 (0.83-1.16) H 01/10/17 15:15 Physical Exam - Physical Exam General Appearance: alert, mild distress EENT: PERRL/EOMI, TMs normal Neck: non-tender, full range of motion Respiratory: decreased breath sounds, crackles Cardiac/Chest: regular rate, rhythm, edema, JVD Abdomen: normal bowel sounds, non-tender, soft Back: Normal inspection Skin: normal color, warm/dry Extremities: pedal edema, other (Erythema b/l with seeping edema, LLE wrapped) Neuro/Psych: no motor/sensory deficits, alert, normal mood/affect, oriented x 3 ICD10 Worksheet Patient Problems: Problems Problem Status Onset Heart failure Acute Hypoxia Acute Diabetes Acute Methicillin resistant Staphylococcus aureus infection Acute 08/19/15
[2017-01-16] MEDS ORDERED: hydrALAZINE 25 MG TAB PO PRN (08:25)
--- NOTE | 2017-01-16 08:46 | PDCARPN ---
Cardiology Progress Note Chief Complaint: Shortness of breath and ongoing right hip pains (the latter being the chief complaint of the patient) Assessment/Plan: Assessment: Patient is a 61 y/o male with history of CAD s/p PCI to the LCX and PDA (Dec 2015), HTN, HLP, DM, DARRYL, and obesity, [facility]. Over the past several days, manipulation of pressors (dobutamine) and diuretics (IV lasix and metolazone) with generous diuresis noted overnight (4.7 liters). Nephrology continues to follow this patient, and made adjustments to Dobutamine (reduction in dose by 50%). Patient without complaints of chest pains or pressure. PND and orthopnea continue to be noted (patient sleeps in a chair). Right hip pains are a complaint. EF by echocardiogram is low normal (50-55%), and work up to ensure no PE has been negative with several testing modalities. Review of labs with normal renal function currently noted. PT has been working with the patient, and should continue to do so. A large impediment being the right hip need for what sounds like surgical intervention. Further diuresis is needed based on the physical examination findings noted today. Plan: (1) Would continue IV lasix as at present (2) Dobutamine should continue (3) Would redose Metolazone today (2.5 mg) (4) Consider respiratory input for increased compliance with CPAP use (5) Patient likely in need of a few more days of diuresis given the physical exam findings noted today (6) Norvasc, Lopressor, and Zestril should all continue for assistance with management of HTN (7) Aggressive DM control should also continue (8) Subjective: Patient doing well. Shortness of breath continues to be noted. Right hip pains continue to be noted Reviewed/Discussed With: multidisciplinary team Objective: Vital Signs (8 Hrs) Temp Pulse Resp BP Pulse Ox 01/16/17 07:07 36.9 C 72 15 162/90 H 90 L 01/16/17 04:00 36.7 C 88 22 H 170/94 H 94 Intake/Output (24 Hrs) 01/15/17 01/16/17 01/17/17 05:59 05:59 04:59 Intake Total 2481 3007 200 Output Total [address] [place], [place] [id number] 200 Intake: Oral (ml) 1920 2417 200 IV Infused (ml) 561 590 DOBUTamine/DEXTROSE 250 561 590 ml @ Titrate IV CONT MALDONADO Rx#:[id number] Output: Urine (ml) 4050 5620 Bedside Commode 1950 Toilet 275 Urinal 4050 5550 Other: Weight 148 kg Intake Quantity Yes Yes Sufficient Number of Voids Bedside Commode 1 Urinal 3 2 Result Diagrams: 01/15/17 04:00 01/16/17 05:15 Telemetry: sinus rhythm with rates of 65-70 bpm Echocardiogram: low normal LVEF (50-55%) - Physical Exam Constitutional: WDWN, no apparent distress, obese, other (somnilent) Eyes: PERRL, EOMI Ears, Nose, Mouth, Throat: moist mucous membranes Cardiovascular: regular rate and rhythm, no murmurs, no rubs, no gallops, jugular vein distention, pulses symmetric bilat, No carotid bruit Peripheral Pulses: 1+: dorsalis-pedis (R), dorsalis-pedis (L) Respiratory: reduced air movement, dullness to percussion, No expiratory wheeze , No inspiratory crackles Gastrointestinal: normoactive bowel sounds, no tenderness, other (edema noted) Skin: warm, erythema, induration, rash Musculoskeletal: no muscular tenderness Neurologic: AAOx3, CN II-XII grossly intact Psychiatric: cooperative, interactive, following commands ICD10 Worksheet Patient Problems: Problems Problem Status Onset Heart failure Acute Hypoxia Acute Diabetes Acute Methicillin resistant Staphylococcus aureus infection Acute 08/19/15
[2017-01-16] MEDS: SENNOSIDES/DOCUSATE SODIUM TAB PO SCH ×2 (10:13→22:27)
[2017-01-16] MEDS: FUROSEMIDE 40 MG/4 ML VIAL IVP SCH ×2 (10:14→14:41)
[2017-01-16] MEDS: NEBIVOLOL HCL 5 MG TAB PO SCH (10:14)
[2017-01-16] MEDS: CLOPIDOGREL BISULFATE 75 MG TAB PO SCH (10:14)
[2017-01-16] MEDS: LIDOCAINE 5% 1 EA PATCH TD SCH (10:14)
[2017-01-16] MEDS: ENOXAPARIN 40 MG/0.4 ML SYR SC SCH ×2 (10:15→22:28)
--- NOTE | 2017-01-16 11:01 | HOSPPROG ---
Hospitalist Progress Note Assessment/Plan: 61-year-old with a history of severe sleep apnea and noncompliance is admitted with hypoxia noted during an MRI scan of his hip. He initially left against medical advice but returned with worsening shortness of breath. He was found to be in acute right-sided heart failure secondary to severe pulmonary hypertension. Currently he is treated with dobutamine and Lasix for diuresis. #. Acute Right Sided HF secondary to Pulmonary HTN - severe, suspected from DARRYL +/- OHS. This may be compounded by zolpidem use as he is apparently is a study by [facility]. He states he has been on and off of CPAP therapy for about one year. Patient discussed with Cardiology today. He has continued good diuresis with dobutamine and Lasix. * Continue diuresis as patient continues to be fluid overloaded * Add metolazone 2.5 mg today * Follow weight * Appreciate Cardiology and Pulmonary input #. Acute on chronic kidney Disease- Improved creatinine overnight. . Continue to follow daily considering diuresis. * Monitor renal function while on diuresis #. Transaminitis - likely from passive congestion. #. Right Hip Pain - secondary to severe OA. * Currently patient high surgical risk. * Will follow up with Dr. Anne and Orthopedic surgery after stabilized #. DARRYL - as above. #. DM2 - Controlled with A1c of 6.6%. Metformin held in light of creatinine * Will restart on discharge once he is off IV dobutamine and Lasix #. HTN - Variable readings today with SBP's from 120-150's. With current lasix use will continue current regimen and continue to follow. #. Hypothyroidism - levothyroxine. #. BPH - Flomax #. Bowel/Bladder - bowel regimen if constipation develops. #. DVT Prophylaxis - lovenox BID. #. Dispo - I would lean towards placement in SNF as quick return to hospital and one on one needs. Subjective: pt new to me and chart reviewed. Feels weak no significant chest pain. Having some abdominal pain. Objective: Vital Signs Temp Pulse Resp BP Pulse Ox 36.9 C 72 15 162/90 H 90 L 01/16/17 07:07 01/16/17 07:07 01/16/17 07:07 01/16/17 07:07 01/16/17 07:07 Laboratory Results 01/15/17 04:00 01/16/17 05:15 01/15/17 01/16/17 01/17/17 05:59 05:59 04:59 Intake Total 2488 3003 200 Output Total 0314 4035 Balance -9767 -8299 200 PT 16.8 SEC (12.0-15.0) H 01/10/17 15:15 INR 1.36 (0.83-1.16) H 01/10/17 15:15 - Physical Exam Constitutional: obese, uncomfortable Eyes: PERRL, EOMI Ears, Nose, Mouth, Throat: moist mucous membranes, hearing normal Cardiovascular: regular rate and rhythym, JVD, edema Respiratory: reduced air movement, respiratory distress Gastrointestinal: normoactive bowel sounds, soft, non-tender abdomen, no palpable masses, distension Genitourinary: no renal bruits Skin: warm Musculoskeletal: generalized weakness Neurologic: AAOx3 Psychiatric: interacting appropriately, not encephalopathic ICD10 Worksheet Patient Problems: Problems Problem Status Onset Heart failure Acute Hypoxia Acute Diabetes Acute Methicillin resistant Staphylococcus aureus infection Acute 08/19/15
[2017-01-16] MEDS: DOBUTamine 500 MG in D5W 250 ML IV SCH (12:52)
--- NOTE | 2017-01-16 17:14 | PDINTPN ---
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 He was admitted but left AMA, then returned with SOB and ROBERT. His workup for hypoxemia included a poor quality echo suggesting significant PH, which was followed by a right heart cath revealing severe PH with a mean PA pressure of 51. In addition, his PCW was 29 and CO only 3, and was subsequently started on Dobutamine and lasix with improved UOP. * PH- He continues to diurese, and I agree with continuing this for now. I suspect the majority of his PH is related to non-compliance with CPAP, possibly exacerbated by Ambien abuse. The severity of PH may be partially augmented by his volume overload, but a reduced CO is a poor prognostic sign in this setting. The majority of patients with DARRYL do not have such severe PH, but it is possible. An extensive ROS centered around PH did not reveal another cause, nor did his FREEDOM, or currently available serologies. CTEPH has been ruled out by VQ, and ILD ruled out by CTA. At this point I agree with DBT and lasix and monitor creatinine (improved today) with re-assessment after a few days. He may need an additional RHC to assess. If his PH is not substantially improved (eg remains severe) he may be a candidate for concomitant therapy using PAH drugs such as combination Ambrisentan/Tadalafil; at least until he can get control of his DARRYL. At the moment he has a very guarded prognosis with high risk for deterioration. * DARRYL- Continues with non-compliance and refuses CPAP. We should be certain his CPAP follows any sleep aid that he uses to maximize our chances of compliance. I spoke to his [place] physician today, Dr. Harris, who has not seen him for a long time. He was unaware of any sleep aid study that this patient was enrolled in , but would investigate in the sleep dept at [facility] on Wednesday. One possible and radical solution would be a permanent trach, as long as his sleep apnea is not central. We are unlikely to solve this chronic issue on this admission, but hopefully can clarify some details moving forward. * ROBERT- likely as a result of PH/CHF. His UOP improved with DBT and diuretics which I would continue as outlined above. Subjective: Continues to decline CPAP Objective: Vital Signs Temp Pulse Resp BP Pulse Ox 36.5 C 66 16 138/70 H 91 L 01/16/17 15:57 01/16/17 15:57 01/16/17 15:57 01/16/17 15:57 01/16/17 15:57 Laboratory Results 01/15/17 04:00 01/16/17 05:15 01/15/17 01/16/17 01/17/17 05:59 05:59 04:59 Intake Total 2481 3007 200 Output Total 4056 2336 Balance -1568 -4619 200 PT 16.8 SEC (12.0-15.0) H 01/10/17 15:15 INR 1.36 (0.83-1.16) H 01/10/17 15:15 Physical Exam - Physical Exam General Appearance: obese, other (falling asleep during discussion, but answering questions appropriately) EENT: PERRL/EOMI Neck: supple Respiratory: lungs clear, normal breath sounds, No respiratory distress Cardiac/Chest: regular rate, rhythm, edema Abdomen: non-tender, soft, No distended Skin: normal color, warm/dry Lymphatic: no adenopathy Extremities: No pedal edema Neuro/Psych: normal mood/affect, oriented x 3 ICD10 Worksheet Patient Problems: Problems Problem Status Onset Heart failure Acute Hypoxia Acute Diabetes Acute Methicillin resistant Staphylococcus aureus infection Acute 08/19/15
[2017-01-16] MEDS: COLCHICINE 0.6 MG CAP/TAB PO SCH (22:27)
[2017-01-16] MEDS: TAMSULOSIN HCL 0.4 MG CAP PO SCH (22:28)
[2017-01-16] MEDS: ASPIRIN 81 MG CHEWABLE TAB PO SCH (22:28)
[2017-01-16] MEDS: ALLOPURINOL 300 MG TAB PO SCH (22:28)
[2017-01-16] MEDS: PATCH REMOVAL 1 EA PATCH TD SCH (22:29)
[2017-01-17] MEDS: [UNRECOGNIZED DRUG - REMARK] PO SCH ×2 (00:24→23:09)
[2017-01-17] MEDS: HYDROCODONE/APAP 5/325 TAB PO PRN ×3 (03:54→21:37)
[2017-01-17] MEDS: LEVOTHYROXINE 150 MCG TAB PO SCH (03:55)
[2017-01-17 07:15] LABS: ALANINE AMINOTRANSFERASE 84 IU/L (21-72); ALBUMIN 2.6 g/dL (3.5-5.0); ALKALINE PHOSPHATASE 148 IU/L (38-126); ANION GAP 11 mEq/L (8-16); ASPARTATE AMINOTRANSFERASE 37 IU/L (17-59); BILIRUBIN,TOTAL 1.1 mg/dL (0.1-1.4); CALCIUM 9.4 mg/dL (8.5-10.4); CARBON DIOXIDE 39 mEq/l (22-31); CHLORIDE 87 mEq/L (97-110); CREATININE 0.9 mg/dL (0.7-1.3); GLOMERULAR FILTRATION RATE > 60; GLUCOSE 125 mg/dL (70-100); POTASSIUM 3.8 mEq/L (3.5-5.2); SODIUM 137 mEq/L (134-144); TOTAL PROTEIN 6.2 g/dL (6.3-8.2)
--- NOTE | 2017-01-17 07:15 | SOAPPROG ---
SOAP Progress Note Assessment/Plan: Assessment: ROBERT-2/2 to CRS with diastolic HF -creatinine down to 0.9mg/dL -diuresing >4L yest -on dobutamine 2.5mcg -monitor UO, goal net negative 1-2kg daily CHF-he is declining use of CPAP -would recommend considering changing to po dose of lasix today such as 80mg- 120mg BID based on IV dose -may check a [place] 3h post for goal 60-80meq -keep off RHONA -continue sodium restriction -encourage use of CPAP -continue BB and amlodipine 10mg, BP's better DARRYL with RF -pulm consulted -CPAP non-compliance -monitor opiate use Please contact if ?s, will continue to follow and arrange patient follow-up. 01/17/17 07:12 01/17/17 08:15 Subjective: Patient still struggling with CPAP. Lost another 4kg. Feeling ok this AM. Objective: Vital Signs Temp Pulse Resp BP Pulse Ox 36.6 C 64 16 141/81 H 89 L 01/17/17 04:00 01/17/17 04:00 01/17/17 04:00 01/17/17 04:00 01/17/17 04:00 Microbiology 01/11/17 19:25 Blood Culture - Final Blood 01/11/17 19:05 Blood Culture - Final Blood Laboratory Results 01/15/17 04:00 01/16/17 01/17/17 01/18/17 06:59 05:59 05:59 Intake Total Output Total Balance PT 16.8 SEC (12.0-15.0) H 01/10/17 15:15 INR 1.36 (0.83-1.16) H 01/10/17 15:15 Physical Exam - Physical Exam General Appearance: alert, mild distress EENT: PERRL/EOMI, pharynx normal Neck: non-tender, supple Respiratory: respiratory distress, decreased breath sounds, crackles Cardiac/Chest: regular rate, rhythm, edema, JVD Abdomen: normal bowel sounds, non-tender, soft Skin: normal color, warm/dry Extremities: normal range of motion, pedal edema, other (B/l seeping edema with LLE wrapped) Neuro/Psych: alert, normal mood/affect, oriented x 3 ICD10 Worksheet Patient Problems: Problems Problem Status Onset Heart failure Acute Hypoxia Acute Diabetes Acute Methicillin resistant Staphylococcus aureus infection Acute 08/19/15
--- NOTE | 2017-01-17 09:24 | PDCARPN ---
Cardiology Progress Note Chief Complaint: No cardiovascular complaints. Assessment/Plan: Assessment: 01-17-17 No events overnight. Down titration of diuretics with reduction in the output noted, but still negative (2.5 liters out). Weights are also down another 3 kg. No cardiovascular complaints - no chest pains or pressure. PND and orthopnea continue to be noted. Patient did not use CPAP last night. Discussion about longer term plans, after diuresis of noted lower extremity edema (and abdominal). Patient is not to the point that PO therapy would be likely to be successful, shelter. Ejection fraction is not severely depressed , and one would question if as the diuresis is continued, and medications are optimized, if there is further normalization of the noted systolic function. Patient very much needs to be using the CPAP on a regular basis, and follow up with [facility] for fitting and discussion. 01-16-17 Patient is a 61 y/o male with history of CAD s/p PCI to the LCX and PDA (Dec 2015), HTN, HLP, DM, DARRYL, and obesity, with admission to [facility] in acute CHF. Over the past several days, manipulation of pressors (dobutamine) and diuretics (IV lasix and metolazone) with generous diuresis noted overnight (4.7 liters). Nephrology continues to follow this patient, and made adjustments to Dobutamine (reduction in dose by 50%). Patient without complaints of chest pains or pressure. PND and orthopnea continue to be noted (patient sleeps in a chair). Right hip pains are a complaint. EF by echocardiogram is low normal (50-55%), and work up to ensure no PE has been negative with several testing modalities. Review of labs with normal renal function currently noted. PT has been working with the patient, and should continue to do so. A large impediment being the right hip need for what sounds like surgical intervention. Further diuresis is needed based on the physical examination findings noted today. Plan: (1) IV lasix to continue (2) Would continue therapy on lopressor, zestril, and norvasc for HTN (3) Aggressive DM control should continue (4) Would have patient seen by outpatient cardiology one week post discharge Subjective: No cardiovascular complaints Objective: Vital Signs (8 Hrs) Temp Pulse Resp BP Pulse Ox 01/17/17 08:00 36.6 C 62 15 143/87 H 90 L 01/17/17 04:00 36.6 C 64 16 141/81 H 89 L Intake/Output (24 Hrs) 01/16/17 01/17/17 01/18/17 06:59 05:59 05:59 Intake Total Output Total 350 Balance -350 Intake: Oral (ml) IV Infused (ml) DOBUTamine/DEXTROSE 250 ml @ Titrate IV CONT MALDONADO Rx#:[id number] Output: Urine (ml) 350 Bedside Commode 350 Toilet Urinal Other: Weight Intake Quantity Sufficient Output Comment Bedside Commode Number of Voids Bedside Commode 1 Urinal Number of Stools Bedside Commode Result Diagrams: 01/15/17 04:00 01/17/17 06:30 Telemetry: sinus rhythm - Physical Exam Constitutional: no apparent distress, obese Eyes: PERRL, EOMI Ears, Nose, Mouth, Throat: moist mucous membranes Cardiovascular: regular rate and rhythm, no murmurs, no rubs, jugular vein distention Peripheral Pulses: 2+: dorsalis-pedis (R), dorsalis-pedis (L) Respiratory: reduced air movement Gastrointestinal: normoactive bowel sounds Skin: induration, rash Musculoskeletal: no muscular tenderness Neurologic: AAOx3, CN II-XII grossly intact Psychiatric: cooperative, interactive, following commands ICD10 Worksheet Patient Problems: Problems Problem Status Onset Heart failure Acute Hypoxia Acute Diabetes Acute Methicillin resistant Staphylococcus aureus infection Acute 08/19/15
--- NOTE | 2017-01-17 10:39 | HOSPPROG ---
Hospitalist Progress Note Assessment/Plan: 61-year-old with a history of severe sleep apnea and noncompliance is admitted with hypoxia noted during an MRI scan of his hip. He initially left against medical advice but returned with worsening shortness of breath. He was found to be in acute right-sided heart failure secondary to severe pulmonary hypertension. Currently he is treated with dobutamine and Lasix for diuresis. #. Acute Right Sided HF secondary to Pulmonary HTN - severe, suspected from DARRYL +/- OHS. This may be compounded by zolpidem use as he is apparently is a study by [facility]. He states he has been on and off of CPAP therapy for about one year. Patient discussed with Cardiology today. He has continued good diuresis with dobutamine and Lasix. * Continue diuresis as patient continues to be fluid overloaded, consider transitioning to PO lasix soon and monitor Uoutput. * Appreciate Cardiology, Nephrology and Pulmonary input #. Acute on chronic kidney Disease- Improved creatinine overnight. . Continue to follow daily considering diuresis. * Monitor renal function while on diuresis #. Transaminitis - likely from passive congestion. #. Right Hip Pain - secondary to severe OA. * Currently patient high surgical risk. * Consider contact Dr. Anne on Wednesday to assess if anything to help with pain now other than NSAIDS, ? cortisone injection #. DARRYL - as above. #. DM2 - Controlled with A1c of 6.6%. Metformin held in light of creatinine * Will restart on discharge once he is off IV dobutamine and Lasix #. HTN - Variable readings today with SBP's from 120-150's. With current lasix use will continue current regimen and continue to follow. * Amlodipine, Bisoprolol * prn Hydralazine. * Hold ACEI for now. #. Hypothyroidism - levothyroxine. #. BPH - Flomax #. Bowel/Bladder - bowel regimen if constipation develops. #. DVT Prophylaxis - lovenox BID. #. Dispo - I would lean towards placement in SNF as quick return to hospital and one on one needs. Subjective: complains of hip pain, has difficulty ambulating. No new complaints Objective: Vital Signs Temp Pulse Resp BP Pulse Ox 36.6 C 62 15 143/87 H 90 L 01/17/17 08:00 01/17/17 08:00 01/17/17 08:00 01/17/17 08:00 01/17/17 08:00 Microbiology 01/11/17 19:25 Blood Culture - Final Blood 01/11/17 19:05 Blood Culture - Final Blood Laboratory Results 01/15/17 04:00 01/17/17 06:30 01/16/17 01/17/17 01/18/17 06:59 05:59 05:59 Intake Total Output Total 350 Balance -350 PT 16.8 SEC (12.0-15.0) H 01/10/17 15:15 INR 1.36 (0.83-1.16) H 01/10/17 15:15 - Physical Exam Constitutional: no apparent distress, appears nourished, obese Eyes: PERRL, EOMI Ears, Nose, Mouth, Throat: moist mucous membranes Cardiovascular: regular rate and rhythym, systolic murmur, JVD, edema Respiratory: no respiratory distress, reduced air movement, inspiratory crackles , No expiratory wheeze Gastrointestinal: normoactive bowel sounds, soft, non-tender abdomen Genitourinary: no bladder fullness Skin: warm Musculoskeletal: full muscle strength Neurologic: AAOx3 Psychiatric: interacting appropriately, not anxious, not encephalopathic ICD10 Worksheet Patient Problems: Problems Problem Status Onset Heart failure Acute Hypoxia Acute Diabetes Acute Methicillin resistant Staphylococcus aureus infection Acute 08/19/15
[2017-01-17] MEDS: FUROSEMIDE 40 MG TAB PO SCH ×2 (10:47→16:46)
[2017-01-17] MEDS: ENOXAPARIN 40 MG/0.4 ML SYR SC SCH ×2 (10:47→21:40)
[2017-01-17] MEDS: SENNOSIDES/DOCUSATE SODIUM TAB PO SCH ×2 (10:48→21:39)
[2017-01-17] MEDS: CLOPIDOGREL BISULFATE 75 MG TAB PO SCH (10:48)
[2017-01-17] MEDS: NEBIVOLOL HCL 5 MG TAB PO SCH (10:48)
[2017-01-17] MEDS: LIDOCAINE 5% 1 EA PATCH TD SCH (10:49)
[2017-01-17] MEDS: DOBUTamine 500 MG in D5W 250 ML IV SCH (11:01)
--- NOTE | 2017-01-17 13:28 | PDINTPN ---
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 He was admitted but left AMA, then returned with SOB and ROBERT. His workup for hypoxemia included a poor quality echo suggesting significant PH, which was followed by a right heart cath revealing severe PH with a mean PA pressure of 51. In addition, his PCW was 29 and CO only 3, and was subsequently started on Dobutamine and lasix with improved UOP. * PH- He continues to diurese. I suspect the majority of his PH is related to non-compliance with CPAP, possibly exacerbated by Ambien abuse. The severity of PH may be partially augmented by his volume overload, but a reduced CO is a poor prognostic sign in this setting. The majority of patients with DARRYL do not have such severe PH, but it is possible. An extensive ROS centered around PH did not reveal another cause, nor did his FREEDOM, or currently available serologies. CTEPH has been ruled out by VQ, and ILD ruled out by CTA. At this point I agree with DBT and lasix and monitor creatinine (improved today) with re -assessment after a few days. He may need an additional RHC to assess. If his PH is not substantially improved (eg remains severe) he may be a candidate for concomitant therapy using PAH drugs such as combination Ambrisentan/Tadalafil; at least until he can get control of his DARRYL. At the moment he has a very guarded prognosis with high risk for deterioration. * DARRYL- Continues with non-compliance and refuses CPAP. We should be certain his CPAP follows any sleep aid that he uses to maximize our chances of compliance. I spoke to his [facility] physician on 01/16, Dr. Harris, who has not seen him for a long time. He was unaware of any sleep aid study that this patient was enrolled in , but would investigate in the sleep dept at [facility] on Wednesday. One possible and radical solution would be a permanent trach, as long as his sleep apnea is not central. We are unlikely to solve this chronic issue on this admission, but hopefully can clarify some details moving forward. * ROBERT- likely as a result of PH/CHF. His UOP improved with DBT and diuretics which I would continue as outlined above. * * followup will be with [facility] 01/17/17 13:27 Subjective: Still failing to use CPAP Objective: Vital Signs Temp Pulse Resp BP Pulse Ox 36.9 C 71 12 165/84 H 91 L 01/17/17 12:00 01/17/17 12:00 01/17/17 12:00 01/17/17 12:00 01/17/17 12:00 Microbiology 01/11/17 19:25 Blood Culture - Final Blood 01/11/17 19:05 Blood Culture - Final Blood Laboratory Results 01/15/17 04:00 01/17/17 06:30 01/16/17 01/17/17 01/18/17 06:59 05:59 05:59 Intake Total Output Total 350 Balance -350 PT 16.8 SEC (12.0-15.0) H 01/10/17 15:15 INR 1.36 (0.83-1.16) H 01/10/17 15:15 Physical Exam - Physical Exam General Appearance: WD/WN, alert, no apparent distress, obese EENT: PERRL/EOMI Neck: supple Respiratory: lungs clear, normal breath sounds, No respiratory distress Cardiac/Chest: regular rate, rhythm, edema Abdomen: non-tender, soft, No distended Skin: normal color, warm/dry Lymphatic: no adenopathy Extremities: pedal edema Neuro/Psych: alert, normal mood/affect, oriented x 3 ICD10 Worksheet Patient Problems: Problems Problem Status Onset Heart failure Acute Hypoxia Acute Diabetes Acute Methicillin resistant Staphylococcus aureus infection Acute 08/19/15
--- NOTE | 2017-01-17 14:06 | ASMTCMCOM ---
CM Note CM Note Notes: Spoke to patient, who is cognitively clear, regarding SNF Rehabs. He would like to be close to his brother in [place] and asked for a referral to be sent to [facility]. Referral was sent. Date Signed: 01/17/2017 02:06 PM Electronically Signed By:Tasneem Newberry LCSW
[2017-01-17] MEDS: TAMSULOSIN HCL 0.4 MG CAP PO SCH (21:38)
[2017-01-17] MEDS: ALLOPURINOL 300 MG TAB PO SCH (21:39)
[2017-01-17] MEDS: COLCHICINE 0.6 MG CAP/TAB PO SCH (21:39)
[2017-01-17] MEDS: ASPIRIN 81 MG CHEWABLE TAB PO SCH (21:39)
[2017-01-17] MEDS: PATCH REMOVAL 1 EA PATCH TD SCH (21:40)
[2017-01-18] MEDS: HYDROCODONE/APAP 5/325 TAB PO PRN ×4 (03:07→22:36)
[2017-01-18] MEDS: LEVOTHYROXINE 150 MCG TAB PO SCH (04:51)
[2017-01-18 06:05] LABS: ANION GAP 11 mEq/L (8-16); CALCIUM 9.3 mg/dL (8.5-10.4); CARBON DIOXIDE 39 mEq/l (22-31); CHLORIDE 85 mEq/L (97-110); CREATININE 0.9 mg/dL (0.7-1.3); GLOMERULAR FILTRATION RATE > 60; GLUCOSE 138 mg/dL (70-100); MAGNESIUM 1.7 mg/dL (1.6-2.3); POTASSIUM 3.9 mEq/L (3.5-5.2); SODIUM 135 mEq/L (134-144)
[2017-01-18] MEDS: ENOXAPARIN 40 MG/0.4 ML SYR SC SCH (08:03)
[2017-01-18] MEDS: FUROSEMIDE 40 MG TAB PO SCH ×2 (08:03→16:49)
[2017-01-18] MEDS: NEBIVOLOL HCL 5 MG TAB PO SCH (08:04)
[2017-01-18] MEDS: SENNOSIDES/DOCUSATE SODIUM TAB PO SCH ×2 (08:04→22:35)
[2017-01-18] MEDS: CLOPIDOGREL BISULFATE 75 MG TAB PO SCH (08:04)
[2017-01-18] MEDS: LIDOCAINE 5% 1 EA PATCH TD SCH (08:04)
[2017-01-18] MEDS: DOBUTamine 500 MG in D5W 250 ML IV SCH ×2 (08:05→22:39)
--- NOTE | 2017-01-18 13:23 | HOSPPROG ---
Hospitalist Progress Note Assessment/Plan: 61-year-old with a history of severe sleep apnea and noncompliance is admitted with hypoxia noted during an MRI scan of his hip. He initially left against medical advice but returned with worsening shortness of breath. He was found to be in acute right-sided heart failure secondary to severe pulmonary hypertension. Currently he is treated with dobutamine and Lasix for diuresis. #. Acute Right Sided HF secondary to Pulmonary HTN - severe, suspected from DARRYL +/- OHS. This may be compounded by zolpidem use as he is apparently is a study by [facility]. He states he has been on and off of CPAP therapy for about one year. Patient discussed with Cardiology today. After changing to PO Lasix, diuresis has decreased. * Continue diuresis, consider changing back to IV, nephrology hopes to have him diuresis another 20 Kg * Appreciate Cardiology, Nephrology and Pulmonary input #. Acute on chronic kidney Disease- Improved creatinine overnight. . Continue to follow daily considering diuresis. * Monitor renal function while on diuresis #. Transaminitis - likely from passive congestion. #. Right Hip Pain - secondary to severe OA. * Currently patient high surgical risk. * Discuss options with Dr. Anne. She is concerned re sudden increase in pain and possible MRSA infection (hx of MRSA)\ * Will have IR send fluid for GS and culture and consider steroid injection if no infection. #. DARRYL - as above. Has only tolerated up to 4 hours of #. DM2 - Controlled with A1c of 6.6%. Metformin held in light of creatinine * Will restart on discharge once he is off IV dobutamine and Lasix #. HTN - Variable readings today with SBP's from 120-150's. With current lasix use will continue current regimen and continue to follow. * Amlodipine, Bisoprolol * prn Hydralazine. * Hold ACEI for now. #. Hypothyroidism - levothyroxine. #. BPH - Flomax #. Bowel/Bladder - bowel regimen if constipation develops. #. DVT Prophylaxis - lovenox BID. #. Dispo - I would lean towards placement in SNF as quick return to hospital and one on one needs. Subjective: Still having a lot of hip pain. Objective: Vital Signs Temp Pulse Resp BP Pulse Ox 36.8 C 60 14 126/72 H 91 L 01/18/17 12:00 01/18/17 12:00 01/18/17 12:00 01/18/17 12:00 01/18/17 12:00 Laboratory Results 01/15/17 04:00 01/18/17 05:00 01/17/17 01/18/17 01/19/17 05:59 05:59 05:59 Intake Total 2100 Output Total 4345 Balance -2245 PT 16.8 SEC (12.0-15.0) H 01/10/17 15:15 INR 1.36 (0.83-1.16) H 01/10/17 15:15 - Physical Exam Constitutional: no apparent distress, obese Eyes: PERRL Ears, Nose, Mouth, Throat: moist mucous membranes Cardiovascular: regular rate and rhythym, systolic murmur Respiratory: no respiratory distress, reduced air movement Gastrointestinal: normoactive bowel sounds, soft, non-tender abdomen Genitourinary: no bladder fullness Skin: warm Musculoskeletal: joint tenderness (right hip), No full muscle strength Neurologic: AAOx3 Psychiatric: interacting appropriately, anxious ICD10 Worksheet Patient Problems: Problems Problem Status Onset Diabetes Acute Methicillin resistant Staphylococcus aureus infection Acute 08/19/15 Hypoxia Acute Heart failure Acute
[2017-01-18] MEDS ORDERED: IOPAMIDOL (ISOVUE 370) 100 ML BTL IV ONE (13:44)
[2017-01-18] MEDS ORDERED: LIDOCAINE 1% 300 MG/30 ML SDV ONE (13:44)
--- NOTE | 2017-01-18 14:55 | SOAPPROG ---
SOAP Progress Note Assessment/Plan: Assessment/Plan: ROBERT: Cr down to 0.9, getting diuresed, will continue to monitor. Hypervolemia: pt having large UOP, >4L daily. - Will cut down Lasix to 60mg po BID. - Will add acetazolamide. Metabolic alkalosis: likely due to diuresis, will cut down Lasix and start acetazolamide, continue to monitor. Subjective: No acute events overnight. Pt states that he is feeling fine, still has swelling but has abundant UOP. No dyspnea or chest pain. Objective: Vital Signs Temp Pulse Resp BP Pulse Ox 36.8 C 60 14 126/72 H 91 L 01/18/17 12:00 01/18/17 12:00 01/18/17 12:00 01/18/17 12:00 01/18/17 12:00 Laboratory Results 01/15/17 04:00 01/18/17 05:00 01/17/17 01/18/17 01/19/17 05:59 05:59 05:59 Intake Total 2100 Output Total 4345 Balance -2245 PT 16.8 SEC (12.0-15.0) H 01/10/17 15:15 INR 1.36 (0.83-1.16) H 01/10/17 15:15 General: alert and oriented, no acute distress Eyes: EOMI, PERRL OP: Clear CV: RRR Resp; nonlabored respirations on NC AbD: Soft, NT Ext: +2 edema BLE Neuro: CN II-XII grossly intact, no asterixis psych: cooperative, appropriate mood and affect ICD10 Worksheet Patient Problems: Problems Problem Status Onset Heart failure Acute Hypoxia Acute Diabetes Acute Methicillin resistant Staphylococcus aureus infection Acute 08/19/15
[2017-01-18 15:35] LABS: WBC, SYNOVIAL FLUID 1757 /mm3 (0-150)
--- NOTE | 2017-01-18 17:26 | SOAPPROG ---
SOAP Progress Note Assessment/Plan: Assessment: CHF : acute on chronic R heart failure Sleep apnea CAD Lipids Stress Obesity spent over 25 min discussing his case w him and all the life stress that his illness has created Discussed w MR rec continue diuressis w renal to choose how they want to proceed. I will be very happy to follow him closly . All his many ?'s answered. Plan: 01/18/17 17:22 Subjective: Discussed his recent hx carefullyn no new complaints. no cp Objective: Vital Signs Temp Pulse Resp BP Pulse Ox 36.6 C 70 12 146/71 H 97 01/18/17 16:00 01/18/17 16:00 01/18/17 16:00 01/18/17 16:00 01/18/17 16:00 Laboratory Results 01/15/17 04:00 01/18/17 05:00 01/17/17 01/18/17 01/19/17 05:59 05:59 05:59 Intake Total 2100 Output Total 4345 Balance -2245 PT 16.8 SEC (12.0-15.0) H 01/10/17 15:15 INR 1.36 (0.83-1.16) H 01/10/17 15:15 Physical Exam - Physical Exam General Appearance: alert Respiratory: rhonchi Cardiac/Chest: regular rate, rhythm, systolic murmur Abdomen: non-tender, soft Skin: warm/dry ICD10 Worksheet Patient Problems: Problems Problem Status Onset Heart failure Acute Hypoxia Acute Diabetes Acute Methicillin resistant Staphylococcus aureus infection Acute 08/19/15
[2017-01-18] MEDS: ASPIRIN 81 MG CHEWABLE TAB PO SCH (22:35)
[2017-01-18] MEDS: acetaZOLAMIDE 250 MG TAB PO SCH (22:35)
[2017-01-18] MEDS: TAMSULOSIN HCL 0.4 MG CAP PO SCH (22:35)
[2017-01-18] MEDS: ALLOPURINOL 300 MG TAB PO SCH (22:35)
[2017-01-18] MEDS: COLCHICINE 0.6 MG CAP/TAB PO SCH (22:36)
[2017-01-18] MEDS: PATCH REMOVAL 1 EA PATCH TD SCH (22:38)
[2017-01-18] MEDS: [UNRECOGNIZED DRUG - REMARK] PO SCH (23:46)
[2017-01-19] MEDS: HYDROCODONE/APAP 5/325 TAB PO PRN ×3 (02:49→23:33)
[2017-01-19] MEDS: LEVOTHYROXINE 150 MCG TAB PO SCH (06:17)
[2017-01-19] MEDS: NEBIVOLOL HCL 5 MG TAB PO SCH (08:36)
[2017-01-19] MEDS: FUROSEMIDE 40 MG TAB PO SCH ×2 (08:36→16:05)
[2017-01-19] MEDS: CLOPIDOGREL BISULFATE 75 MG TAB PO SCH (08:36)
[2017-01-19] MEDS: acetaZOLAMIDE 250 MG TAB PO SCH (08:36)
[2017-01-19] MEDS: SENNOSIDES/DOCUSATE SODIUM TAB PO SCH ×2 (08:37→21:31)
[2017-01-19 09:00] LABS: ABSOLUTE IMMATURE GRANULOCYTES 0.14 10^3/uL (0.00-0.10); ADD DIFF? NO; ADD MORPH? NO; ADD SCAN? NO; ATYPICAL LYMPHOCYTE FLAG 10 (0-99); FRAGMENT RBC FLAG 0 (0-99); LEFT SHIFT FLG 10 (0-99); LIPEMIA HEMOLYSIS FLAG 80 (0-99); MEAN CELL HEMOGLOBIN 29.5 pg (27.9-34.1); MEAN CELL HEMOGLOBIN CONCENTR. 33.3 g/dL (32.4-36.7); MEAN CELL VOLUME 88.6 fL (81.5-99.8); MEAN PLATELET VOLUME 10.6 fL (8.7-11.7); PLATELET CLUMPS FLAG 0 (0-99); PLATELET COUNT 315 10^3/uL (150-400); RED BLOOD CELL COUNT 5.08 10^6/uL (4.40-6.38); RED CELL DISTRIBUTION WIDTH 15.3 % (11.5-15.2)
[2017-01-19 09:19] LABS: ANION GAP 12 mEq/L (8-16); CALCIUM 9.4 mg/dL (8.5-10.4); CARBON DIOXIDE 35 mEq/l (22-31); CHLORIDE 88 mEq/L (97-110); GLOMERULAR FILTRATION RATE > 60; GLUCOSE 192 mg/dL (70-100); POTASSIUM 3.8 mEq/L (3.5-5.2); SODIUM 135 mEq/L (134-144)
--- NOTE | 2017-01-19 09:23 | SOAPPROG ---
SOAP Progress Note Assessment/Plan: Assessment/Plan: This is a 61 yr old male with right sided failure secondary to DARRYL now on CPAP who is getting diuresed. CHF: Currently appears to be tending to euvolemia. BUN decreased but bicarb is the same. Continue at current lower dose of Lasix and Acetazolamide. Continues to have output more than intake of fluids. JVD is 8-10 cm this AM. BP: Stable on current dose. No changes 01/19/17 09:20 Subjective: Pt is doing well but is worried about going to rehab/home too soon. Is concerned about his Hip and possible surgery for the same. Objective: Vital Signs Temp Pulse Resp BP Pulse Ox 36.5 C 59 L 8 L 135/73 H 94 01/19/17 07:27 01/19/17 07:27 01/19/17 07:27 01/19/17 07:27 01/19/17 07:27 Microbiology 01/18/17 14:15 Gram Stain - Final Hip - Aspirate Laboratory Results 01/19/17 08:40 01/18/17 01/19/17 01/20/17 05:59 05:59 05:59 Intake Total 2100 1716 Output Total 4345 3825 350 Balance -2245 -2109 -350 PT 16.8 SEC (12.0-15.0) H 01/10/17 15:15 INR 1.36 (0.83-1.16) H 01/10/17 15:15 Physical Exam - Physical Exam General Appearance: alert, no apparent distress EENT: PERRL/EOMI, No scleral icterus (R), No scleral icterus (L) Neck: supple, normal inspection, No carotid bruit Respiratory: chest non-tender, lungs clear, No respiratory distress, No crackles , No rales Cardiac/Chest: regular rate, rhythm, JVD (10 cm), No gallop Abdomen: non-tender, soft, No organomegaly ICD10 Worksheet Patient Problems: Problems Problem Status Onset Heart failure Acute Hypoxia Acute Diabetes Acute Methicillin resistant Staphylococcus aureus infection Acute 08/19/15
--- NOTE | 2017-01-19 11:05 | WOCRNPDOC ---
WOCRN Advanced Assessment Note - Skin Integrity Problem, Advanced Assess Bilateral Groin Dressing Type: Interdry Dressing Description: Intact Exudate Amount: Scant Exudate Color: Reddish/Yellow Exudate Characteristic(s): Serosanguinous Integumentary Issue Intervention: Visualized Under Dressing Smitha Wound Tissue: Blanching, Erythema, Denuded Site Odor: Strong Skin Integrity Problem Comment: Patient continues to have raw, denuded skin in both groin folds w/ strong, malodorous smell. Will initiate BID application of [place]ome[place] (calcium acetate/aluminum sulfate) x 15 minutes to help soothe skin and dry out site, followed by Interdry sheets to absorb moisture and protect from friction. Report given to staffing branch manager Shana.
--- NOTE | 2017-01-19 13:21 | SOAPPROG ---
SOAP Progress Note Assessment/Plan: Assessment: 1. ROBERT Cr back to baseline. 2. Biventricular Heart Failure Continue dobutamine and diuretics. I will stop scheduled acetazolamide, and use prn. Has significant volume yet to diurese. Continue to replace K and monitor for alkalosis. 3. Dietary education I reviewed importance of sodium restriction 4. Sleep Apnea He is tolerating better. I confirmed need to continue this. Plan: 01/19/17 13:15 01/19/17 13:16 Subjective: Doing fair. Still with high O2 Req's. Objective: Vital Signs Temp Pulse Resp BP Pulse Ox 36.7 C 61 15 143/80 H 94 01/19/17 11:52 01/19/17 11:52 01/19/17 11:52 01/19/17 11:52 01/19/17 11:52 Microbiology 01/18/17 14:15 Gram Stain - Final Hip - Aspirate Laboratory Results 01/19/17 08:40 01/19/17 08:40 01/18/17 01/19/17 01/20/17 05:59 05:59 05:59 Intake Total 2100 1716 200 Output Total 4345 3825 925 Balance -2245 -2109 -725 PT 16.8 SEC (12.0-15.0) H 01/10/17 15:15 INR 1.36 (0.83-1.16) H 01/10/17 15:15 Physical Exam - Physical Exam General Appearance: no apparent distress Respiratory: decreased breath sounds Cardiac/Chest: regular rate, rhythm Extremities: pedal edema Neuro/Psych: oriented x 3 ICD10 Worksheet Patient Problems: Problems Problem Status Onset Heart failure Acute Hypoxia Acute Diabetes Acute Methicillin resistant Staphylococcus aureus infection Acute 08/19/15
[2017-01-19] MEDS ORDERED: POTASSIUM CL 10 MEQ TAB PO ONE ×2 (13:22→16:00)
--- NOTE | 2017-01-19 14:25 | HOSPPROG ---
Hospitalist Progress Note Assessment/Plan: 61-year-old with a history of severe sleep apnea and noncompliance is admitted with hypoxia noted during an MRI scan of his hip. He initially left against medical advice but returned with worsening shortness of breath. He was found to be in acute right-sided heart failure secondary to severe pulmonary hypertension. Currently he is treated with dobutamine and Lasix for diuresis. #. Acute Right Sided HF secondary to Pulmonary HTN - severe, suspected from DARRYL +/- OHS. This may be compounded by zolpidem use as he is apparently is a study by [facility]. He states he has been on and off of CPAP therapy for about one year. Patient discussed with nephrology today. After changing to PO Lasix, diuresis has decreased. * Continue diuresis, consider changing back to IV, nephrology hopes to have him diuresis another 20 Kg * Appreciate Cardiology, Nephrology and Pulmonary input. #. Acute on chronic kidney Disease- Improved creatinine overnight. . Continue to follow daily considering diuresis. * Monitor renal function while on diuresis #. Transaminitis - likely from passive congestion. #. Right Hip Pain - secondary to severe OA. * Currently patient high surgical risk. * Discuss options with Dr. Anne. She is concerned re sudden increase in pain and possible MRSA infection (hx of MRSA) * Aspirated hip yesterday and waiting for cultures. * If cultures are negative can order a steroid injection thru radiology, aspirate appears more inflammatory than infected. #. DARRYL - as above. He is tolerating it better, made it 6 hours last night. #. DM2 - Controlled with A1c of 6.6%. Metformin held in light of creatinine * Will restart on discharge once he is off IV dobutamine and Lasix #. HTN - Variable readings today with SBP's from 120-150's. With current lasix use will continue current regimen and continue to follow. * Amlodipine, Bisoprolol * prn Hydralazine. * Hold ACEI for now. #. Hypothyroidism - levothyroxine. #. BPH - Flomax #. Bowel/Bladder - bowel regimen if constipation develops. #. DVT Prophylaxis - lovenox BID. #. Dispo - Pt in hospital for diuresis, needs several more KG of weight off and decreased oxygen requirements prior to discharge. Then may need snf rehab depending on hip pain and ability to ambulate. Has 20 steps to climb at his house. Subjective: slept better with cpap. no pain Objective: Vital Signs Temp Pulse Resp BP Pulse Ox 36.7 C 61 15 143/80 H 94 01/19/17 11:52 01/19/17 11:52 01/19/17 11:52 01/19/17 11:52 01/19/17 11:52 Microbiology 01/18/17 14:15 Gram Stain - Final Hip - Aspirate Laboratory Results 01/19/17 08:40 01/19/17 08:40 01/18/17 01/19/17 01/20/17 05:59 05:59 05:59 Intake Total 2100 1716 200 Output Total 4345 3825 925 Balance -2245 -2109 -725 PT 16.8 SEC (12.0-15.0) H 01/10/17 15:15 INR 1.36 (0.83-1.16) H 01/10/17 15:15 - Physical Exam Constitutional: chronically ill appearing, obese Eyes: PERRL, EOMI Ears, Nose, Mouth, Throat: moist mucous membranes Cardiovascular: regular rate and rhythym, JVD, edema Respiratory: reduced air movement, respiratory distress Gastrointestinal: normoactive bowel sounds, soft, non-tender abdomen Genitourinary: No dunn in urethra Skin: normal color Musculoskeletal: joint tenderness (right hip), generalized weakness Neurologic: AAOx3 Psychiatric: interacting appropriately ICD10 Worksheet Patient Problems: Problems Problem Status Onset Diabetes Acute Methicillin resistant Staphylococcus aureus infection Acute 08/19/15 Hypoxia Acute Heart failure Acute
[2017-01-19] MEDS: LIDOCAINE 5% 1 EA PATCH TD SCH (15:18)
--- NOTE | 2017-01-19 16:34 | PDINTPN ---
Mortgage Branch Manager Progress Note Assessment/Plan: Assessment: 61 M with known DARRYL and poor compliance found to be severely hypoxic while undergoing MRI for hip pain. He was admitted but left AMA, then returned with SOB and ROBERT. His workup for hypoxemia included a poor quality echo suggesting significant PH, which was followed by a right heart cath revealing severe PH with a mean PA pressure of 51. In addition, his PCW was 29 and CO only 3, and was subsequently started on Dobutamine and lasix with improved UOP. * PH- He continues to diurese. I suspect the majority of his PH is related to hypoxemia from non-compliance with CPAP, possibly exacerbated by Ambien abuse. The severity of PH may be partially augmented by his volume overload, but a reduced CO is a poor prognostic sign in this setting. The majority of patients with DARRYL do not have such severe PH, but it is possible. An extensive ROS centered around PH did not reveal another cause, nor did his FREEDOM, or currently available serologies. CTEPH has been ruled out by VQ, and ILD ruled out by CTA. At this point I agree with DBT and lasix and monitor creatinine (improved today ) with re-assessment after a few days. He may need an additional RHC to assess. If his PH is not substantially improved (eg remains severe) he may be a candidate for concomitant therapy using PAH drugs such as combination Ambrisentan/Tadalafil; at least until he can get control of his DARRYL. At the moment he has a very guarded prognosis with high risk for deterioration. * DARRYL- Understands the importance of compliance with CPAP therapy, which is improving. We should be certain his CPAP follows any sleep aid that he uses to maximize our chances of compliance. I spoke to his [facility] physician on 01/16, Dr. Jones, who has not seen him for a long time. He was unaware of any sleep aid study that this patient was enrolled in , but would investigate in the sleep dept at [facility] on Wednesday. One possible and radical solution would be a permanent trach, as long as his sleep apnea is not central. We are unlikely to solve this chronic issue on this admission, but hopefully can clarify some details moving forward. * ROBERT- likely as a result of PH/CHF. His UOP improved with DBT and diuretics which I would continue as outlined above. * Insomnia: Chronic, treated with supratherapeutic doses of Ambien. Plan: Continue Diuresis, Dobutamine, nightly CPAP use, afterload reduction. 01/20/17 17:05 Subjective: Feels better, able to use CPAP 6 hours. Objective: Vital Signs Temp Pulse Resp BP Pulse Ox 36.7 C 61 15 143/80 H 94 01/19/17 11:52 01/19/17 11:52 01/19/17 11:52 01/19/17 11:52 01/19/17 11:52 Microbiology 01/18/17 14:15 Gram Stain - Final Hip - Aspirate Laboratory Results 01/19/17 08:40 01/19/17 08:40 01/18/17 01/19/17 01/20/17 05:59 05:59 05:59 Intake Total 2100 1716 200 Output Total 4345 3825 1275 Balance -6523 -2105 -4515 PT 16.8 SEC (12.0-15.0) H 01/10/17 15:15 INR 1.36 (0.83-1.16) H 01/10/17 15:15 Physical Exam - Physical Exam General Appearance: alert, no apparent distress EENT: normal ENT inspection Neck: normal inspection Respiratory: lungs clear, normal breath sounds Cardiac/Chest: regular rate, rhythm, edema (1+) Abdomen: normal bowel sounds, non-tender, soft Skin: normal color, warm/dry Extremities: normal inspection Neuro/Psych: no motor/sensory deficits, alert, normal mood/affect, oriented x 3 ICD10 Worksheet Patient Problems: Problems Problem Status Onset Heart failure Acute Hypoxia Acute Diabetes Acute Methicillin resistant Staphylococcus aureus infection Acute 08/19/15
[2017-01-19] MEDS: ALUMINUM SULFATE TP SCH ×3 (17:14→21:40)
[2017-01-19] MEDS: CALCIUM ACETATE TP SCH ×3 (17:14→21:40)
[2017-01-19] MEDS: DOBUTamine 500 MG in D5W 250 ML IV SCH (20:30)
[2017-01-19] MEDS: ALLOPURINOL 300 MG TAB PO SCH (21:30)
[2017-01-19] MEDS: TAMSULOSIN HCL 0.4 MG CAP PO SCH (21:30)
[2017-01-19] MEDS: ASPIRIN 81 MG CHEWABLE TAB PO SCH (21:31)
[2017-01-19] MEDS: PATCH REMOVAL 1 EA PATCH TD SCH (21:40)
[2017-01-19] MEDS: [UNRECOGNIZED DRUG - REMARK] PO SCH (23:33)
[2017-01-20] MEDS: LEVOTHYROXINE 150 MCG TAB PO SCH (05:51)
[2017-01-20 06:27] LABS: ANION GAP 12 mEq/L (8-16); CALCIUM 9.6 mg/dL (8.5-10.4); CARBON DIOXIDE 34 mEq/l (22-31); CHLORIDE 91 mEq/L (97-110); CREATININE 1.1 mg/dL (0.7-1.3); GLOMERULAR FILTRATION RATE > 60; GLUCOSE 107 mg/dL (70-100); POTASSIUM 4.3 mEq/L (3.5-5.2); SODIUM 137 mEq/L (134-144)
[2017-01-20] MEDS: NEBIVOLOL HCL 5 MG TAB PO SCH (08:28)
[2017-01-20] MEDS: CLOPIDOGREL BISULFATE 75 MG TAB PO SCH (08:28)
[2017-01-20] MEDS: FUROSEMIDE 40 MG TAB PO SCH ×2 (08:28→15:13)
[2017-01-20] MEDS: LIDOCAINE 5% 1 EA PATCH TD SCH (08:29)
[2017-01-20] MEDS: SENNOSIDES/DOCUSATE SODIUM TAB PO SCH ×2 (08:30→23:16)
[2017-01-20] MEDS: HYDROCODONE/APAP 5/325 TAB PO PRN ×3 (08:48→20:43)
--- NOTE | 2017-01-20 11:34 | SOAPPROG ---
SOAP Progress Note Assessment/Plan: Assessment: 1. CHF.Diastolic/RHF/severe pHTN. Diuresing at reasonable rate on bolus IV lasix + dobutamine. Creat stable, HCO3 acceptable. Can give diamox 250mg IV prn HCO3 > 38. Follow K/Mg and replace prn. Wean dobut and change to po lasix once closer to dry weight. 2. DARRYL. Encouraged strict cpap compliance at home. 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 Will continue to follow along peripherally. Plan: 01/20/17 11:31 Subjective: Somewhat anxious. Has hard time walking far due to hip pain. Feels he is losing weight. Objective: Vital Signs Temp Pulse Resp BP Pulse Ox 36.6 C 65 20 137/80 H 94 01/20/17 07:16 01/20/17 07:16 01/20/17 07:16 01/20/17 07:16 01/20/17 07:16 Microbiology 01/18/17 14:15 Gram Stain - Final Hip - Aspirate Laboratory Results 01/19/17 08:40 01/20/17 05:45 01/19/17 01/20/17 01/21/17 05:59 05:59 05:59 Intake Total 1716 1074 Output Total 3825 2475 200 Balance -2109 -1401 -200 PT 16.8 SEC (12.0-15.0) H 01/10/17 15:15 INR 1.36 (0.83-1.16) H 01/10/17 15:15 In chair, comfortable wm RRR, no m/g/r CTAB Abdom obese, nt 2-3+ pitting LE edema w/ venous stasis skin changes ICD10 Worksheet Patient Problems: Problems Problem Status Onset Diabetes Acute Methicillin resistant Staphylococcus aureus infection Acute 08/19/15 Hypoxia Acute Heart failure Acute
--- NOTE | 2017-01-20 11:36 | HOSPPROG ---
Hospitalist Progress Note Assessment/Plan: First encounter with this patient 61-year-old with a history of severe sleep apnea and noncompliance is admitted with hypoxia noted during an MRI scan of his hip. He initially left against medical advice but returned with worsening shortness of breath. He was found to be in acute right-sided heart failure secondary to severe pulmonary hypertension. Currently he is treated with dobutamine and Lasix for diuresis. #. Acute Right Sided HF secondary to Pulmonary HTN - severe, suspected from DARRYL +/- OHS. This may be compounded by zolpidem use as he is apparently is a study by [facility]. He states he has been on and off of CPAP therapy for about one year. * Cont with Lasix 60mg PO BID * Cont Dobutamine for now * Cards, Nephrology, Pulm following #. Acute on chronic kidney Disease- Improved creatinine overnight. . Continue to follow daily considering diuresis. * Monitor renal function while on diuresis #. Transaminitis - likely from passive congestion. #. Right Hip Pain - secondary to severe OA vs other etiology possibly infection given + alpha hemolytic streptococcus from aspiration on 01/28 * Consult ID * Hold off on steroid injection #. DARRYL - as above. Needs CPAP nightly. He did not use overnight 01/19 #. DM2 - Controlled with A1c of 6.6%. Metformin held in light of creatinine * Will restart on discharge once he is off IV dobutamine and Lasix #. HTN - Variable readings today with SBP's from 120-150's. With current lasix use will continue current regimen and continue to follow. * Amlodipine, Bisoprolol * prn Hydralazine. * Hold ACEI for now. #. Hypothyroidism - levothyroxine. #. BPH - Flomax #. Bowel/Bladder - bowel regimen if constipation develops. #. DVT Prophylaxis - Currently on hold lovenox BID. While on hold will start SCDs. # DNR: this is a change per our discussion today 01/20 #. Dispo - Pt in hospital for diuresis, needs several more KG of weight off and decreased oxygen requirements prior to discharge. Then may need snf rehab depending on hip pain and ability to ambulate. Has 20 steps to climb at his house. Subjective: Feels good. Did not use CPAP last night. No resp distress. No CP. + right hip aspirate. Right hip still with pain. Objective: Vital Signs Temp Pulse Resp BP Pulse Ox 36.6 C 65 20 137/80 H 94 01/20/17 07:16 01/20/17 07:16 01/20/17 07:16 01/20/17 07:16 01/20/17 07:16 Microbiology 01/18/17 14:15 Gram Stain - Final Hip - Aspirate Laboratory Results 01/19/17 08:40 01/20/17 05:45 01/19/17 01/20/17 01/21/17 05:59 05:59 05:59 Intake Total 1716 1074 Output Total 3825 6395 200 Balance -2109 -1401 -200 PT 16.8 SEC (12.0-15.0) H 01/10/17 15:15 INR 1.36 (0.83-1.16) H 01/10/17 15:15 - Time Spent With Patient Time Spent with Patient: greater than 35 minutes Time Spent with Patient: Greater than 35 minutes spent on this patients care, greater than 50% of time spent counseling, educating, and coordinating care regarding the above mentioned plan. - Physical Exam Constitutional: no apparent distress Eyes: PERRL, EOMI Ears, Nose, Mouth, Throat: moist mucous membranes, hearing normal Cardiovascular: regular rate and rhythym, edema Respiratory: no respiratory distress, reduced air movement Gastrointestinal: normoactive bowel sounds, soft, non-tender abdomen Skin: warm Neurologic: AAOx3 Psychiatric: interacting appropriately, not anxious, not encephalopathic ICD10 Worksheet Patient Problems: Problems Problem Status Onset Heart failure Acute Hypoxia Acute Diabetes Acute Methicillin resistant Staphylococcus aureus infection Acute 08/19/15
--- NOTE | 2017-01-20 12:44 | ASMTCMCOM ---
CM Note CM Note Notes: 01/20/2017 Case Management Note Met w/pt and sister in law. Informed pt that [facility] is not in network for [facility]. Pt requesting referral be resent to [facility]. Faxed referral and requested [facility] run insurance auth. Requested pt contact [facility] and provide list of in network SNFs for case management before further referrals are sent to facilities. Per pt friend Sarah to help with request later this afternoon. Case Management d/c poc: to SNF rehab pending authorization when medically stable. Case Management to follow. Date Signed: 01/20/2017 12:43 PM Electronically Signed By:Elodia Callaway RN
--- NOTE | 2017-01-20 15:16 | PDCARPN ---
Cardiology Progress Note Chief Complaint: sob Assessment/Plan: Assessment: 1. Acute right sided congestive heart failure 2. Severe pulmonary hypertension to to non compliane with CPAP and obesity 3. Essential hypertension 4. CAD 5. Hyperlipidemia 6. Obesity Plan: -continue lasix 60 mg bid -dobutamine gtt -continue bystolic 5 mg daily -continue amlodipine 10 mg daily -check BnP -director long term care will need regular out pt visits, hip replaement to allow for exercise and weight loss and strict compliance with CPAP 30 min spent discussing with patient. 01/20/17 15:16 Subjective: 61 year old male admitted with acute respiratory distress and acute right sided congestive heart failure complicated by acute renal failure. He also has a history of CAD sp pci in Dec 2015. He has known hx of DARRYL and has been non compliant with CPAP. He is in need of hip replacement surgery and hip pain limits his abilty to ambulate, contributing to weight gain. Over the last week he continue to make gradual steady progress. I spent 30 minutes with him disussing the importance of medication compliance, nightly use of CPAP, exercise, weight loss in order to reduce burden on right ventricle. Time Spent With Patient: 30 min Objective: Vital Signs (8 Hrs) Temp Pulse Resp BP Pulse Ox 01/20/17 12:00 36.5 C 61 14 140/85 H 91 L 01/20/17 07:16 36.6 C 65 20 137/80 H 94 Intake/Output (24 Hrs) 01/19/17 01/20/17 01/21/17 05:59 05:59 05:59 Intake Total 1716 1074 Output Total 3825 2475 950 Balance -2105 -1401 -950 Intake: Oral (ml) 1320 950 IV Infused (ml) 396 124 DOBUTamine 500 mg In D5w 396 124 250 ml @ As Directed IV CONT MALDONADO Rx#:[id number] Output: Urine (ml) 3825 2475 950 Bedside Commode 500 425 600 Urinal 3325 2050 350 Other: Weight 141.7 kg 139.8 kg Intake Quantity Yes Sufficient Number of Voids Bedside Commode 2 1 Toilet 1 Urinal 1 1 1 Number of Stools Bedside Commode 1 Toilet 1 Result Diagrams: 01/19/17 08:40 01/20/17 05:45 - Physical Exam Constitutional: WDWN, obese Cardiovascular: regular rate and rhythm, no murmurs, no rubs, no gallops Respiratory: clear to auscultate bilat Musculoskeletal: no muscular tenderness Neurologic: AAOx3, CN II-XII grossly intact Psychiatric: cooperative, interactive ICD10 Worksheet Patient Problems: Problems Problem Status Onset Heart failure Acute Hypoxia Acute Diabetes Acute Methicillin resistant Staphylococcus aureus infection Acute 08/19/15
[2017-01-20] MEDS: ALUMINUM SULFATE TP SCH (15:30)
[2017-01-20] MEDS: CALCIUM ACETATE TP SCH (15:30)
[2017-01-20] MEDS: DOBUTamine 500 MG in D5W 250 ML IV SCH (15:48)
--- NOTE | 2017-01-20 18:16 | GCON ---
[f rep st] CONSULTATION INPATIENT INFECTIOUS DISEASES CONSULTATION REFERRING PHYSICIAN: Nagi Morse MD REASON FOR REFERRAL: Right hip septic arthritis. HISTORY OF PRESENT ILLNESS: Patient is a 61-year-old male who was seen by [facility] o n 01/10/2017 for shortness of breath and right hip pain. Patient had an aspiration of his hip on 08/2016. The results of the cell count showed 1757 white cells with 16,500 red cells. The white blood cell count was left shifted towards neutrophils 98%. Cultures from this fluid grew Streptococcus servando is. We are consulted to help manage these findings. The patient is resting in his hospital room. He n otes that his right hip pain is stable over his hospital stay. It is significantly increased from his baseline. He has known right hip osteoarthritis, for which he is hoping to eventually get a right hi p arthroplasty. However, cardiac concerns must also be addressed before this is possible. Patient tyler s not have any ongoing fevers or chills. No antibiotics at present. PAST MEDICAL HISTORY: 1. Coronary artery disease, status post stenting. 2. Type 2 diabetes mellitus. 3. Hypertension. 4. Anxiety disorder. 5. Obstructive sleep apnea. 6. Insomnia. 7. Claustrophobia. 8. MRSA history. 9. Benign prostatic hypertrophy. PAST SURGICAL HISTORY: 1. Status post rotator cuff surgery. 2. Status post knee surgery. ANTIBIOTICS: None currently. ALLERGIES: Patient has no known drug allergies. SOCIAL HISTORY: Patient denies any prior tobacco use. Only occasional alcohol use. No drug use. FAMILY HISTORY: Positive for type 2 diabetes. REVIEW OF SYSTEMS: Other than that detailed above in the History of Present Illness, a comprehensive 10-system review is negative. PHYSICAL EXAMINATION: VITAL SIGNS: Temperature maximum is 36.7, temperature current is 36.5, heart r ate 61, respiratory rate is 14, blood pressure is 140/85. GENERAL: Patient is a well-formed, obese ma le, in no acute distress. He is not toxic in appearance. He is alert and oriented x3. He has a pleasa nt demeanor. HEENT: Normocephalic for age. Atraumatic. No scleral icterus. No oral lesion. No drainag e from the nares. Eyes: Lids and conjunctivae are within normal limits. Pupils are equal and round bi laterally. NECK: Supple. No meningismus. HEART: Regular rate and rhythm. No significant peripheral ed kaelyn. LUNGS: Clear to auscultation bilaterally with good effort. SKIN: Warm and dry to the touch. No r michelle or lesion noted. NEURO: Cranial nerves 2-12 seem to be intact. Peripheral sensation seems intact in extremities. LABORATORY DATA: Patient has a CBC dated 01/19/2017 which shows white blood cell count of 13.6, hemo globin of 15.0, hematocrit of 45.0, platelet count of 315. Differential is left-shifted with 87% segm ented neutrophils. Serum chemistries on 01/20/2017 show sodium of 137, potassium 4.3, chloride of 91, bicarbonate of 34, BUN of 26, creatinine of 1.1. Right hip fluid cell count from 01/18/2017 shows 17 57 white blood cells, 16,557 red blood cells, 98% neutrophils. MICROBIOLOGIC DATA: Patient has a hip aspirate dated 01/18/2017, which is growing Streptococcus miti s. ASSESSMENT: Right-sided sleetmute hip septic arthritis secondary to Streptococcus mitis. Agree that ant ibiotic therapy should be initiated. Would start with ceftriaxone 2 g IV q.24 hours. Suspect patient will need 3-4 weeks of treatment. Open question is whether a washout of the hip joint is appropriate. The cell count is not very impressive, but a washout may increase the chances of treatment success a nd reduce the amount of cartilage loss the patient will suffer due to the chronic inflammation. Will discuss with hospitalist. PLAN: 1. Start ceftriaxone 2 g IV q.24 hours. Planned duration of 3-4 weeks. 2. Follow clinical course. 3. Discussed with hospitalist about obtaining an orthopedic surgery consultation. /[id number]/MODL
[2017-01-20] MEDS: ALLOPURINOL 300 MG TAB PO SCH (23:16)
[2017-01-20] MEDS: TAMSULOSIN HCL 0.4 MG CAP PO SCH (23:19)
[2017-01-20] MEDS: ASPIRIN 81 MG CHEWABLE TAB PO SCH (23:19)
[2017-01-20] MEDS: PATCH REMOVAL 1 EA PATCH TD SCH (23:20)
[2017-01-20] MEDS: [UNRECOGNIZED DRUG - REMARK] PO SCH (23:45)
[2017-01-21] MEDS: HYDROCODONE/APAP 5/325 TAB PO PRN ×4 (00:54→22:44)
[2017-01-21] MEDS: CALCIUM ACETATE TP SCH ×3 (03:53→22:57)
[2017-01-21] MEDS: ALUMINUM SULFATE TP SCH ×3 (03:53→22:57)
[2017-01-21] MEDS: LEVOTHYROXINE 150 MCG TAB PO SCH (05:53)
[2017-01-21 06:22] LABS: % IMMATURE GRANULYOCYTES 0.6 % (0.0-1.1); ABSOLUTE IMMATURE GRANULOCYTES 0.08 10^3/uL (0.00-0.10); ADD DIFF? NO; ADD MORPH? NO; ADD SCAN? NO; ATYPICAL LYMPHOCYTE FLAG 0 (0-99); FRAGMENT RBC FLAG 0 (0-99); HEMATOCRIT 42.9 % (40.0-51.0); HEMOGLOBIN 14.1 g/dL (13.7-17.5); LEFT SHIFT FLG 10 (0-99); LIPEMIA HEMOLYSIS FLAG 80 (0-99); MEAN CELL HEMOGLOBIN 29.1 pg (27.9-34.1); MEAN CELL HEMOGLOBIN CONCENTR. 32.9 g/dL (32.4-36.7); MEAN CELL VOLUME 88.5 fL (81.5-99.8); MEAN PLATELET VOLUME 10.4 fL (8.7-11.7); PLATELET CLUMPS FLAG 0 (0-99); PLATELET COUNT 314 10^3/uL (150-400); RED BLOOD CELL COUNT 4.85 10^6/uL (4.40-6.38); RED CELL DISTRIBUTION WIDTH 15.2 % (11.5-15.2)
[2017-01-21 06:36] LABS: ANION GAP 11 mEq/L (8-16); CALCIUM 9.5 mg/dL (8.5-10.4); CARBON DIOXIDE 34 mEq/l (22-31); CHLORIDE 93 mEq/L (97-110); GLOMERULAR FILTRATION RATE > 60; GLUCOSE 109 mg/dL (70-100); POTASSIUM 4.2 mEq/L (3.5-5.2); SODIUM 138 mEq/L (134-144)
--- NOTE | 2017-01-21 09:35 | SOAPPROG ---
SOAP Progress Note Assessment/Plan: Assessment:Plan: ARF-in face of diuresis for diastolic heart failure, volume overload -creatinine down to 1. -diuresing on current therapies -I/O = 1328/1999 -weight down from 139.9 -was as high as 159 CHF-he is now using CPAP -he was able to use it for 5 hours last night -diurese with lasix and dobutamine -keep off RHONA -continue sodium restriction -encourage use of CPAP -continue CCB and BB HTN-diurese -compression stockings/tubing -daily weights R Hip pain-better lidoderm patch -aspirate + for Strep mitis -abx ordered Edema-discussed pool therapy to help with edema management -he needs a handicap parking permit -we discussed locations of rec centers where he could perform this therapy -I would encourage him to do this daily, as he may be able to engage in activity with less hip pain when he is supported by the water -he was able to tolerate being in bed for 8 hours last night 01/21/17 09:36 Subjective: stable overnite Objective: Vital Signs Temp Pulse Resp BP Pulse Ox 36.5 C 67 17 132/82 H 93 01/21/17 08:50 01/21/17 08:50 01/21/17 08:50 01/21/17 08:50 01/21/17 08:50 Microbiology 01/18/17 14:15 Gram Stain - Final Hip - Aspirate Laboratory Results 01/21/17 06:00 01/21/17 06:00 01/20/17 01/21/17 01/22/17 05:59 05:59 05:59 Intake Total 1074 1328 16 Output Total 8811 1999 175 Balance -1401 -672 -159 PT 16.8 SEC (12.0-15.0) H 01/10/17 15:15 INR 1.36 (0.83-1.16) H 01/10/17 15:15 Physical Exam - Physical Exam General Appearance: alert, no apparent distress, obese EENT: normal ENT inspection Neck: normal inspection Respiratory: decreased breath sounds (at bases) Cardiac/Chest: regular rate, rhythm, No systolic murmur Abdomen: normal bowel sounds, non-tender, distended Back: Normal inspection Skin: normal color, warm/dry Extremities: swelling (into thighs) Neuro/Psych: no motor/sensory deficits, alert, normal mood/affect, oriented x 3 ICD10 Worksheet Patient Problems: Problems Problem Status Onset Heart failure Acute Hypoxia Acute Diabetes Acute Methicillin resistant Staphylococcus aureus infection Acute 08/19/15
[2017-01-21] MEDS: LIDOCAINE 5% 1 EA PATCH TD SCH (10:13)
[2017-01-21] MEDS: NEBIVOLOL HCL 5 MG TAB PO SCH (10:19)
[2017-01-21] MEDS: SENNOSIDES/DOCUSATE SODIUM TAB PO SCH ×2 (10:19→22:53)
[2017-01-21] MEDS: FUROSEMIDE 40 MG TAB PO SCH ×2 (10:20→15:13)
[2017-01-21] MEDS: CLOPIDOGREL BISULFATE 75 MG TAB PO SCH (10:22)
--- NOTE | 2017-01-21 10:41 | HOSPPROG ---
Hospitalist Progress Note Assessment/Plan: 61-year-old with a history of severe sleep apnea and noncompliance is admitted with hypoxia noted during an MRI scan of his hip. He initially left against medical advice but returned with worsening shortness of breath. He was found to be in acute right-sided heart failure secondary to severe pulmonary hypertension. Currently he is treated with dobutamine and Lasix for diuresis. ID consulted 01/20 I have consulted ortho today 01/21 #. Acute Right Sided HF secondary to Pulmonary HTN - severe, suspected from DARRYL +/- OHS. This may be compounded by zolpidem use as he is apparently is a study by [facility] ([place], [place]). He states he has been on and off of CPAP therapy for about one year. * Cont with Lasix 60mg PO BID * Cont Dobutamine for now * Cards, Nephrology, Pulm following #. Acute on chronic kidney Disease- Cr. down to 1 . Continue to follow daily considering diuresis. * Monitor renal function while on diuresis #. Transaminitis - likely from passive congestion. #. Right Hip Pain, Infection (Streptococcus Mitis on aspirate) * Rocephin Day 1 today (did not get yesterday) * Hold off on steroid injection * Ortho consult. Dr. Sahu reccs pending. ?washout #. DARRYL - as above. Needs CPAP nightly. #. DM2 - Controlled with A1c of 6.6%. Metformin held in light of creatinine * Will restart on discharge once he is off IV dobutamine and Lasix #. HTN - Variable readings today with SBP's from 120-150's. With current lasix use will continue current regimen and continue to follow. * Amlodipine, Bisoprolol * prn Hydralazine. * Hold ACEI #. Hypothyroidism - levothyroxine. #. BPH - Flomax #. Bowel/Bladder - bowel regimen if constipation develops. #. DVT Prophylaxis - SCD's. Holding Lovenox BID for possible procedure # DNR: this is a change per our discussion today 01/20 #. Dispo - Pt in hospital for diuresis, needs several more KG of weight off and decreased oxygen requirements prior to discharge. Then may need snf rehab depending on hip pain and ability to ambulate. Has 20 steps to climb at his house. Subjective: Used CPAP last night. Diuresing well. Ortho to consult toda. No CP or SOB. Objective: Vital Signs Temp Pulse Resp BP Pulse Ox 36.5 C 67 17 132/82 H 93 01/21/17 08:50 01/21/17 08:50 01/21/17 08:50 01/21/17 08:50 01/21/17 08:50 Microbiology 01/18/17 14:15 Gram Stain - Final Hip - Aspirate Laboratory Results 01/21/17 06:00 01/21/17 06:00 01/20/17 01/21/17 01/22/17 05:59 05:59 05:59 Intake Total 1074 1328 16 Output Total 2475 1999 175 Balance -1401 -672 -159 PT 16.8 SEC (12.0-15.0) H 01/10/17 15:15 INR 1.36 (0.83-1.16) H 01/10/17 15:15 - Physical Exam Constitutional: no apparent distress Eyes: PERRL Ears, Nose, Mouth, Throat: moist mucous membranes, hearing normal Cardiovascular: regular rate and rhythym, edema Respiratory: reduced air movement Gastrointestinal: normoactive bowel sounds, soft, non-tender abdomen Skin: warm Neurologic: AAOx3 Psychiatric: interacting appropriately, not anxious, not encephalopathic ICD10 Worksheet Patient Problems: Problems Problem Status Onset Heart failure Acute Hypoxia Acute Diabetes Acute Methicillin resistant Staphylococcus aureus infection Acute 08/19/15
[2017-01-21] MEDS: cefTRIAXone 2 GM in D5W 50 ML IV SCH (10:48)
--- NOTE | 2017-01-21 11:08 | PCMIDPN ---
Assessment/Plan: Assessment/Plan: * Right hip septic arthritis due to Streptococcus mitis: Suspect he had transient bacteremia with subsequent seeding of degenerative hip. Current blood cultures are negative. Favor operative incision and drainage for definitive therapy despite low synovial fluid white blood cell count. Continue ceftriaxone with anticipated 4 week course of therapy. Orthopedic consultation occurring today and I spoke with PA. Clinical findings and plan of care discussed with patient. 01/21/17 11:03 Subjective: Patient with persistent right hip pain -worse with ambulation and has to use walker to bear weight. Patient does not describe recent dental problems or dental work other than extraction approximately 6 months ago. Objective: Vital Signs Temp Pulse Resp BP Pulse Ox 36.5 C 67 17 132/82 H 93 01/21/17 08:50 01/21/17 08:50 01/21/17 08:50 01/21/17 08:50 01/21/17 08:50 Microbiology 01/18/17 14:15 Gram Stain - Final Hip - Aspirate Laboratory Results 01/21/17 06:00 01/21/17 06:00 01/20/17 01/21/17 01/22/17 05:59 05:59 05:59 Intake Total 1074 1328 16 Output Total 2475 2000 175 Balance -1401 -672 -159 ESR 39 MM/HR (0-20) H 01/12/17 03:58 C-Reactive Protein 255.0 mg/L (<10.0) H 01/12/17 03:58 Ceftriaxone # 2 Blood cultures x2 no growth Right hip culture with growth of Streptococcus mitis Prior transthoracic echocardiogram limited study due to body habitus - Physical Exam General Appearance: alert, no apparent distress EENT: pharynx normal, No conjunctival petechiae Respiratory: lungs clear, No respiratory distress Cardiac/Chest: regular rate, rhythm, systolic murmur (2/6 left upper sternal border) Extremities: other (Right hip nontender to palpation over joint but tender with range of motion throughout) Abdomen: non-tender, No distended Skin: No embolic lesions ICD10 Worksheet Patient Problems: Problems Problem Status Onset Heart failure Acute Hypoxia Acute Diabetes Acute Methicillin resistant Staphylococcus aureus infection Acute 08/19/15
[2017-01-21] MEDS: DOBUTamine 500 MG in D5W 250 ML IV SCH (12:08)
--- NOTE | 2017-01-21 14:36 | ASMTCMCOM ---
CM Note CM Note Notes: CM spoke w/ Dr. Oliveira regarding d/c POC. Miriam from [facility] and Ramonita from [facility] in today to do an on site. CM sent updates to all facilities. Pt is scheduled to have a surgical intervention today. PT and OT continue to recommending SNF. CM to follow. Date Signed: 01/21/2017 02:35 PM Electronically Signed By:SACHIN Holt
[2017-01-21] MEDS ORDERED: POLYMYXIN B SULFATE 500,000 UNIT/10 ML SYR IRR ONE ×2 (15:07→20:25)
[2017-01-21] MEDS ORDERED: BACITRACIN 50,000 UNITS/10 ML SYR IRR ONE ×2 (15:08→20:25)
--- NOTE | 2017-01-21 15:45 | PDINTPN ---
Office [employer]erical Progress Note Assessment/Plan: Assessment: 61 M with known DARRYL and poor compliance found to be severely hypoxic while undergoing MRI for hip pain. He was admitted but left AMA, then returned with SOB and ROBERT. His workup for hypoxemia included a poor quality echo suggesting significant PH, which was followed by a right heart cath revealing severe PH with a mean PA pressure of 51. In addition, his PCW was 29 and CO only 3, and was subsequently started on Dobutamine and lasix with improved UOP. * PH- He continues to diurese. I suspect the majority of his PH is related to hypoxemia from non-compliance with CPAP, possibly exacerbated by Ambien abuse. The severity of PH may be partially augmented by his volume overload, but a reduced CO is a poor prognostic sign in this setting. The majority of patients with DARRYL do not have such severe PH, but it is possible. An extensive ROS centered around PH did not reveal another cause, nor did his FREEDOM, or currently available serologies. CTEPH has been ruled out by VQ, and ILD ruled out by CTA. At this point I agree with DBT and lasix and monitor creatinine (improved today ) with re-assessment after a few days. He may need an additional RHC to assess. If his PH is not substantially improved (eg remains severe) he may be a candidate for concomitant therapy using PAH drugs such as combination Ambrisentan/Tadalafil; at least until he can get control of his DARRYL. At the moment he has a very guarded prognosis with high risk for deterioration. * DARRYL- Understands the importance of compliance with CPAP therapy, which is improving. We should be certain his CPAP follows any sleep aid that he uses to maximize our chances of compliance. He should continue to wean down/off Ambien. * ROBERT- likely as a result of PH/CHF. His UOP improved with DBT and diuretics which I would continue as outlined above. * Insomnia: Chronic, treated with supratherapeutic doses of Ambien. Plan: Continue Diuresis, Dobutamine, nightly CPAP use, afterload reduction. Will check overnight oximetry to help determine the efficacy of his current CPAP /oxygen therapy. 01/20/17 17:05 01/21/17 15:45 Subjective: Feels OK, sleeping fairly well with CPAP. Feels better with diuresis. Objective: Vital Signs Temp Pulse Resp BP Pulse Ox 37.0 C 63 14 153/84 H 94 01/21/17 12:00 01/21/17 12:00 01/21/17 12:00 01/21/17 12:00 01/21/17 12:00 Microbiology 01/18/17 14:15 Gram Stain - Final Hip - Aspirate Laboratory Results 01/21/17 06:00 01/21/17 06:00 01/20/17 01/21/17 01/22/17 05:59 05:59 05:59 Intake Total 5476 1328 16 Output Total 6072 3798 5817 [facility] -1401 -672 -1109 PT 16.8 SEC (12.0-15.0) H 01/10/17 15:15 INR 1.36 (0.83-1.16) H 01/10/17 15:15 Physical Exam - Physical Exam General Appearance: alert, no apparent distress EENT: normal ENT inspection Neck: normal inspection Respiratory: lungs clear, normal breath sounds Cardiac/Chest: regular rate, rhythm, edema (1+) Abdomen: normal bowel sounds, non-tender Skin: normal color, warm/dry Extremities: normal inspection Neuro/Psych: alert, normal mood/affect, oriented x 3 ICD10 Worksheet Patient Problems: Problems Problem Status Onset Heart failure Acute Hypoxia Acute Diabetes Acute Methicillin resistant Staphylococcus aureus infection Acute 08/19/15
--- NOTE | 2017-01-21 16:47 | GCON ---
[f rep st] CONSULTATION DATE OF CONSULTATION: 01/21/2017 HISTORY OF PRESENT ILLNESS: The patient is a 61-year-old male, who presented to the emergency depart [facility] on January 10, 2017, complaining of shortness of breath and right hip pain. Patient underwent a workup for his shortness of breath, and on January 18, his hip pain continued to bother him. At t his point, he underwent a right hip joint aspiration. Initial Gram stain was negative, and today Jan, culture has shown Streptococcus mitis. Orthopedics was consulted to further evaluate the complaint. Patient states he has had persistent right hip pain for years and underwent an MRI ap proximately 2 weeks ago. Patient states the right hip pain has really been worsening over the past 1 0 days where he has had difficulty walking and actually acquired a pair of crutches to help with ambu lation. Patient states since his hospital stay he has been using a walker. Patient states any movem ent of the right lower extremity causes pain into his right hip. He has no known injury or trauma to the area. Patient denies any recent fever or chills. Patient was to follow up to review his MRI wi Dr. Vazquez to further discuss a right hip arthroplasty. PAST MEDICAL HISTORY: Coronary artery disease with previous PCI of the circumflex and PDA, diabetes, hyperlipidemia, hypertension, obesity, obstructive sleep apnea. He has a history of MRSA in the sof t tissue of the left lower extremity, hypothyroidism, and gout. PAST SURGICAL HISTORY: Rotator cuff repair, knee surgery, stent placement. CURRENT MEDICATIONS: Please see patient's chart for a full list of his home medications. SOCIAL HISTORY: Patient states he is single and lives alone. He admits he is very sedentary. He de nies any tobacco use. He denies any drug use. He occasionally drinks alcohol. FAMILY HISTORY: Patient reports a family history of diabetes. REVIEW OF SYSTEMS: Patient reports increased pedal edema and shortness of breath when lying flat. O therwise, no other complaints after a 10-point review. PHYSICAL EXAMINATION: GENERAL: The patient is a healthy well-appearing male. He is alert, active, and in no acute distress. HEENT: Head is normocephalic, atraumatic. Ears, nose, and mouth appear n ormal. Eye motion is intact. Neck: Full range of motion and supple. Trachea appears midline. UZIEL GS: Respirations are nonlabored. Chest motion appears normal. MUSCULOSKELETAL: Skin is intact ove r the right lower extremity without any erythema, ecchymosis, calor, or edema. Patient has tendernes s to palpation throughout the right groin area and greater trochanter. Patient has a positive log ro ll and positive straight leg raise. He has increased pain with any slight motion of the hip. Sensat ion is intact throughout, and strength is a 5/5. Dorsalis pedis pulse 2+ with brisk capillary refill . Peripheral edema to the bilateral lower extremities. Calves are soft, nontender. Negative Homans . SKIN: Please see dictation above. Otherwise, no other abrasions, ecchymosis, or pallor. NEUROLO GIC: He is alert and oriented to person, place, and time. Speech is fluid and fluent. PSYCH: Affec t is normal. RADIOGRAPHIC DATA: MRI is reviewed, which shows impingement anatomy and osteoarthritis in the right hip. Joint aspiration is positive culture for Streptococcus mitis. ASSESSMENT AND PLAN: Right hip infection. Discussed with the patient, Dr. Guerrero, and Dr. Garrison plan of treatment and discussed with patient we would recommend at this point a washout of the right hip j oint. Risks, benefits, and alternatives were discussed with the patient. Patient agrees to proceed with the procedure. Informed consent was obtained by the patient today. Patient will be kept n.p.o. Surgery will be approximately 4:30 p.m. on January 21, 2017. Discussing with Dr. Guerrero, patient anastasia l likely need 4 weeks of IV antibiotics following surgery. Patient understands and agrees to the olamide atment plan today, and all his questions have been answered. Case and treatment plan were discussed with Dr. Garrison. /[id number]/MODL
--- NOTE | 2017-01-21 17:33 | PDANEPAE ---
ANE History of Present Illness here for hip I and D. Admitted for acute R heart failure. Has been diuresing. On dobutamine gtt ANE Past Medical History - Cardiovascular History Hx Hypertension: Yes Hx Arrhythmias: No Hx Chest Pain: No Hx Coronary Artery / Peripheral Vascular Disease: No Hx CHF / Valvular Disease: No Hx Palpitations: No - Pulmonary History Hx COPD: No Hx Asthma/Reactive Airway Disease: No Hx Recent Upper Respiratory Infection: No Hx Oxygen in Use at Home: Yes O2 in Use at Home (L/minute): 2 Hx Sleep Apnea: Yes Sleep Apnea Screening Result - Last Documented: Positive - Neurologic History Hx Cerebrovascular Accident: No Hx Seizures: No Hx Dementia: No - Endocrine History Hx Diabetes: Yes Obesity: moderate, severe - Renal History Hx Renal Disorders: No - Liver History Hx Hepatic Disorders: No - Neurological & Psychiatric Hx Hx Neurological and Psychiatric Disorders: No - Cancer History Hx Cancer: No - Congenital Disorder History Hx Congenital Disorders: No - GI History Hx Gastrointestinal Disorders: No - Other Health History Other Health History: Couple teeth loss - Chronic Pain History Chronic Pain: Yes - Surgical History Prior Surgeries: Right shoulder. Bilat knee surgery. Tonsilectomy ANE Review of Systems Review of systems is: negative Review of Systems: - Exercise capacity Exercise capacity: <4 METS ANE Patient History - Allergies Allergies/Adverse Reactions: No Known Allergies Allergy (Unverified 11/25/11 08:47) - Home Medications Home medications: home medication list seen and reviewed Home Medications: Allopurinol [Allopurinol 300 MG (RX)] 600 mg PO HS 12/23/15 [Last Taken 01/09/17 ] Aspirin [Aspirin 81mg (*)] 81 mg PO HS 12/23/15 [Last Taken 01/09/17] Colchicine [Colchicine (*)] 1.2 mg PO HS 12/23/15 [Last Taken 01/09/17] Furosemide [Lasix 40 MG (*)] 40 mg PO BID@12/23/15 [Last Taken 01/10/17 09 :00] Levothyroxine [Synthroid 150 mcg (*)] 150 mcg PO DAILY06 12/23/15 [Last Taken ] Lisinopril [Zestril 40 mg (*)] 40 mg PO DAILY 12/23/15 [Last Taken 01/10/17] Naproxen Sodium [Aleve 220 MG (*)] 660 mg PO BID PRN 12/23/15 [Last Taken ] amLODIPine BESYLATE [Norvasc 10 mg (*)] 10 mg PO DAILY 12/23/15 [Last Taken ] metFORMIN HCL [Glucophage 500 mg (*)] 1,000 mg PO BID 12/23/15 [Last Taken 01/10 09:00] Tamsulosin HCl [Flomax 0.4 MG (*)] 0.4 mg PO HS 01/08/17 [Last Taken 01/09/17] Metoprolol Tartrate [Lopressor 25 mg (*)] 50 mg PO DAILY 01/10/17 [Last Taken 09:00] Sleep Study Medication 1 tab PO HS 01/10/17 [Last Taken 01/09/17] - NPO status NPO Status: no food or drink >8 hours NPO Since - Liquids (Date): 01/21/17 NPO Since - Liquids (Time): 09:00 NPO Since - Solids (Date): 01/21/17 NPO Since - Solids (Time): 09:00 - Smoking Hx Smoking Status: Never smoked - Alcohol Use Alcohol Use: Occasionally - Family Anes Hx Family Hx Anesthesia Complications: None ANE Labs/Vital Signs - Labs Result Diagrams: 01/21/17 06:00 01/21/17 06:00 - Vital Signs Blood Pressure: 151/79 Heart Rate: 63 Respiratory Rate: 18 O2 Sat (%): 93 Height: 190.5 cm Weight: 139.9 kg ANE Physical Exam - Airway Neck exam: FROM Mallampati Score: Class 1 Mouth exam: normal dental/mouth exam - Pulmonary Pulmonary: no respiratory distress - Cardiovascular Cardiovascular: regular rate and rhythym - ASA Status ASA Status: IV ANE Anesthesia Plan Anesthesia Plan: general endotracheal anesthesia Lines/Monitors: arterial line
[2017-01-21] MEDS ORDERED: fentaNYL 100 MCG/2 ML INJ ONE ×4 (18:06→21:19)
--- NOTE | 2017-01-21 18:09 | PDCARPN ---
Cardiology Progress Note Assessment/Plan: Assessment: 1. Acute right sided congestive heart failure 2. Severe pulmonary hypertension to to non compliane with CPAP and obesity 3. Essential hypertension 4. CAD 5. Hyperlipidemia 6. Obesity 7. Right Hip Septic arthritis Plan: -Based on the Revised Cardiac Risk Index he is Moderate Risk for surgery. With 20 kg weight loss over the last week, I think he can tolerate hip surgery. -Recommend he remain on Dobutamine through the pericoperative period. -continue lasix 60 mg bid -continue bystolic 5 mg daily -continue amlodipine 10 mg daily -check BnP -Discussed risks and benefits of surgery Mr. Ellis. He is agreeable to pursue. 30 min spent discussing with patient. 01/20/17 15:16 01/21/17 18:09 Subjective: Mr. Ellis continues to improve from a right sided heart failure perspective. He has lost 20Kg in the last week. Lungs are clear today. He remains on low dose dobutamine and Lasix IV. He is in need of hip surgery secondary to septic arthritis. I think that he has improved significantly over the last week with loss of 20Kg of fluid. His LvEF is 50-55%. RHC last week at peak weight of 159 kg with low cardiac index and output. He is currently 139 Kg. He had PCI to LCX and PDA of RCA in Dec 2015. I think that hemodynamically he has improved with aggressive diuresis and is stable for orthopedic surgery tonight. Reviewed/Discussed With: multidisciplinary team Objective: Vital Signs (8 Hrs) Temp Pulse Resp BP Pulse Ox 01/21/17 17:33 63 18 151/79 H 93 01/21/17 16:17 36.6 C 63 18 151/79 H 93 01/21/17 12:00 37.0 C 63 14 153/84 H 94 01/21/17 11:25 63 14 153/84 H 94 Intake/Output (24 Hrs) 01/20/17 01/21/17 01/22/17 05:59 05:59 05:59 Intake Total 1074 1328 421 Output Total 2471999 Balance -1393 -807 -9041 Intake: Oral (ml) 950 1050 166 IV Infused (ml) 124 278 255 DOBUTamine 500 mg In D5w 124 278 255 250 ml @ As Directed IV CONT MALDONADO Rx#:[id number] Output: Urine (ml) 2475 2000 1825 Bedside Commode 425 671 614 Urinal 2050 1325 1200 Other: Weight 139.8 kg 139.9 kg Number of Voids Bedside Commode 1 1 Toilet 1 Urinal 1 1 Number of Stools Bedside Commode 1 Toilet 1 Result Diagrams: 01/21/17 06:00 01/21/17 06:00 - Physical Exam Constitutional: WDWN, obese Cardiovascular: regular rate and rhythm Respiratory: clear to auscultate bilat Gastrointestinal: normoactive bowel sounds Neurologic: AAOx3, CN II-XII grossly intact Psychiatric: cooperative, interactive ICD10 Worksheet Patient Problems: Problems Problem Status Onset Heart failure Acute Hypoxia Acute Diabetes Acute Methicillin resistant Staphylococcus aureus infection Acute 08/19/15
[2017-01-21] MEDS ORDERED: MIDAZOLAM 2 MG/2 ML VIAL IVP ONE (18:22)
--- NOTE | 2017-01-21 18:30 | SOAPPROG ---
SOAP Progress Note Assessment/Plan: Assessment: Right hip sepsis Plan: 01/21/17 18:26 Right hip infection to undergo Incision and drainage via arthrotomy. Given findings on MRI (reviewed with ) and todays plain films that show severe arthrosis with cystic changes in the femoral head and acetabulum, we will be ready to implant an antibiotic eluting femoral spacer if the bone looks necrotic. Subjective: Complains of severe right hip pain greatly worsened over last couple of weeks. Objective: Vital Signs Temp Pulse Resp BP Pulse Ox 36.6 C 63 18 151/79 H 93 01/21/17 16:17 01/21/17 17:33 01/21/17 17:33 01/21/17 17:33 01/21/17 17:33 Microbiology 01/18/17 14:15 Gram Stain - Final Hip - Aspirate Laboratory Results 01/21/17 06:00 01/21/17 06:00 01/20/17 01/21/17 01/22/17 05:59 05:59 05:59 Intake Total 1074 1328 421 Output Total 2193 3467 1820 Balance -1401 -672 -1404 PT 16.8 SEC (12.0-15.0) H 01/10/17 15:15 INR 1.36 (0.83-1.16) H 01/10/17 15:15 Tenderness in left inguinal area. painful range of motion. ICD10 Worksheet Patient Problems: Problems Problem Status Onset Heart failure Acute Hypoxia Acute Diabetes Acute Methicillin resistant Staphylococcus aureus infection Acute 08/19/15
[2017-01-21] MEDS ORDERED: PROPOFOL 200 MG/20 ML VIAL ONE ×3 (18:32→19:43)
[2017-01-21] MEDS ORDERED: KETAMINE 100 MG/10 ML SYR ONE (18:32)
[2017-01-21] MEDS ORDERED: ALBUMIN 5% 250 ML BOTTLE IV ONE (19:08)
[2017-01-21] MEDS ORDERED: SUGAMMADEX SODIUM 200 MG/2 ML VIAL IVP ONE (21:13)
--- NOTE | 2017-01-21 21:36 | POSTOPPROG ---
Post Op Note Date of Operation: 01/21/17 Surgeon: Rajiv Garrison Machine Hamper Maker: Rae Anesthesia: GET(General Endotracheal) Pre-op Diagnosis: Right septic hip, necrosis of femoral head Post-op Diagnosis: Right septic hip, necrosis of femoral head Procedure: Right hip irrigation and debridement, insertion of antibiotic eluding impla Findings: As above, please see full dictation for details Inf/Abcess present in the surg proc area at time of surgery?: Yes Depth: Deep Incisional (Fascial) EBL: 100-500 Drains: Breezy Gomez
[2017-01-21] MEDS ORDERED: diphenhydrAMINE 25 MG CAP PO PRN (21:39)
[2017-01-21] MEDS ORDERED: DIPHENOXYLATE/ATROPINE LOMOTIL 1 TAB PO PRN (21:39)
[2017-01-21] MEDS ORDERED: traMADol 50 MG TAB PO PRN (21:39)
[2017-01-21] MEDS ORDERED: oxyCODONE IR 5 MG TAB PO PRN (21:39)
[2017-01-21] MEDS ORDERED: CYCLOBENZAPRINE 10 MG TAB PO PRN (21:39)
[2017-01-21] MEDS ORDERED: PHARMACY PAIN CONSULT 1 EA MISC PRN (21:39)
--- NOTE | 2017-01-21 21:39 | SOAPPROG ---
SOAP Progress Note Assessment/Plan: Assessment/Plan: Right septic hip, femoral head necrosis s/p I&D, insertion of antibiotic eluding implant -Cont PT/OT, pt will be TDWB of his RLE, posterior hip precautions -Cont SCDs and tubigrip dressings for VTE mechanical prophylaxis -Pt will begin Warfarin for VTE chemoprophylaxis, pharmacy to dose -Pt will continue Ceftriaxone per ID, intraoperative cultures taken, pending -Cont current pain regimen, encourage PO as tolerated 01/21/17 21:36 Subjective: Pt transported to ICU in good condition Objective: Vital Signs Temp Pulse Resp BP Pulse Ox 36.6 C 63 18 151/79 H 93 01/21/17 16:17 01/21/17 20:03 01/21/17 20:03 01/21/17 20:03 01/21/17 20:03 Microbiology 01/18/17 14:15 Gram Stain - Final Hip - Aspirate Laboratory Results 01/21/17 06:00 01/21/17 06:00 01/20/17 01/21/17 01/22/17 05:59 05:59 05:59 Intake Total 1074 1328 676 Output Total 1223 5233 8041 [facility] -1401 -672 -1149 PT 16.8 SEC (12.0-15.0) H 01/10/17 15:15 INR 1.36 (0.83-1.16) H 01/10/17 15:15 ICD10 Worksheet Patient Problems: Problems Problem Status Onset Heart failure Acute Hypoxia Acute Diabetes Acute Methicillin resistant Staphylococcus aureus infection Acute 08/19/15
[2017-01-21] MEDS ORDERED: HYDROmorphone HCL/NS/PF 0.4 MG/2 ML SYR IVP PRN (21:45)
--- NOTE | 2017-01-21 21:56 | POSTANESTH ---
Post Anesthetic Evaluation Cardiovascular Status: Normal, Stable Respiratory Status: Normal, Stable Level of Consciousness/Mental Status: Can Participate in Eval Pain Control: Adequate, Prn Tx Ordered Nausea/Vomiting Control: Adequate, Prn Tx Ordered Complications Possibly Related to Anesthesia: None Noted
[2017-01-21] MEDS: ASPIRIN 81 MG CHEWABLE TAB PO SCH (22:29)
[2017-01-21] MEDS: ALLOPURINOL 300 MG TAB PO SCH (22:29)
[2017-01-21] MEDS: PATCH REMOVAL 1 EA PATCH TD SCH (22:52)
[2017-01-21] MEDS: TAMSULOSIN HCL 0.4 MG CAP PO SCH (22:53)
[2017-01-21] MEDS: [UNRECOGNIZED DRUG - REMARK] PO SCH (23:33)
[2017-01-22 04:27] LABS: % IMMATURE GRANULYOCYTES 0.5 % (0.0-1.1); ABSOLUTE IMMATURE GRANULOCYTES 0.14 10^3/uL (0.00-0.10); ADD DIFF? NO; ADD MORPH? NO; ADD SCAN? NO; ATYPICAL LYMPHOCYTE FLAG 0 (0-99); FRAGMENT RBC FLAG 0 (0-99); HEMATOCRIT 37.1 % (40.0-51.0); HEMOGLOBIN 12.3 g/dL (13.7-17.5); LEFT SHIFT FLG 10 (0-99); LIPEMIA HEMOLYSIS FLAG 80 (0-99); MEAN CELL HEMOGLOBIN 29.1 pg (27.9-34.1); MEAN CELL HEMOGLOBIN CONCENTR. 33.2 g/dL (32.4-36.7); MEAN CELL VOLUME 87.7 fL (81.5-99.8); MEAN PLATELET VOLUME 10.5 fL (8.7-11.7); PLATELET CLUMPS FLAG 0 (0-99); PLATELET COUNT 368 10^3/uL (150-400); RED BLOOD CELL COUNT 4.23 10^6/uL (4.40-6.38); RED CELL DISTRIBUTION WIDTH 14.9 % (11.5-15.2)
[2017-01-22 04:37] LABS: INR 1.31 (0.83-1.16); PROTIME(PATIENT) 16.3 SEC (12.0-15.0)
--- NOTE | 2017-01-22 04:44 | GOP ---
[f rep st] OPERATIVE REPORT DATE OF OPERATION: 01/11/2017 SURGEON: Rajiv Garrison MD DIRECTOR OF PLANNING: Efren Mcbride PA-C. ANESTHESIA: General. 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 PROCEDURE PERFORMED: 1. Excision femoral head with implantation of cement-eluting hemiarthroplasty (manufacture Remedy). 2. Irrigation debridement right hip infection. FINDINGS: Patient had severe erosive osteoarthritis. There were portions of the femoral head that l ooked necrotic. There was no gross purulence within the articulation. The hip fluid was cultured an d sent for aerobic and anaerobic organisms. The acetabulum had significant erosive damage with some areas of cystic degeneration. DESCRIPTION OF PROCEDURE: The patient was taken to the operating room, administered general anesthes ia, placed in the left lateral decubitus position. Had his right hip and lower extremity prepped and draped in normal sterile fashion. A posterior lateral incision was made through dermal subcutaneous tissues. The IT band was split longitudinally, extended over the greater trochanter. Charnley retr actors were put in place. The hip was internally rotated as best we could but it was pretty much ank ylosed. The external rotators were brought under a little bit of tension and then subsequently taken down with along with the posterior hip capsule. Cultures were taken. The femoral neck cut had to b e done in 2 areas to create a napkin ring. This was then removed. The head segment was then removed with the corkscrew. Examination of the head revealed areas of necrosis and cystic change. Examinat ion of the acetabulum revealed areas of cystic change. Thorough lavage [place] [address]51 cc of saline. Two 3000 cc bags also had a bacitracin solution instilled within it. The fem oral neck cut was cleaned up with the oscillating saw. Bone fragments were removed. There was a lar ge osteophyte anteriorly that was also excised from around the femur. The femoral canal was exposed with a box osteotome. We then used a starting reamer under power. Reaming commenced with a size 5 a nd extended up to a Size 10. The canal was thoroughly lavaged. We did broach laterally to be able t o fit our size medium cement eluting spacer (Remedy). The spacer was attached to the appropriate replaced by [facility] ed head. This is a 46 head. The spacer was then put in position loosely. Cement mixing commenced. We then cemented around the neck and opening on the femur. Thorough lavage performed with normal sa line and bacitracin solution. We then instilled Betadine solution into the depths of the wound. Thi s was then reaspirated and cleansed with saline again. A 3/16 drain was placed deeply. The posterio r hip capsule was closed with a #2 PDS suture followed by closure of the iliotibial band with a #1 PD S suture followed by closure of the subcutaneous tissue with a 2-0 PDS suture followed by closure of the dermis with beatriz. A sterile compression dressing applied followed by pneumatic compression de vice followed by an abduction pillow. The patient tolerated the procedure well, was transferred back to recovery in stable condition. No operative complications. COMPLICATIONS: None. /[id number]/MODL
[2017-01-22 05:11] LABS: ANION GAP 11 mEq/L (8-16); CALCIUM 9.4 mg/dL (8.5-10.4); CARBON DIOXIDE 31 mEq/l (22-31); CHLORIDE 93 mEq/L (97-110); GLOMERULAR FILTRATION RATE > 60; GLUCOSE 145 mg/dL (70-100); SODIUM 135 mEq/L (134-144)
[2017-01-22] MEDS: HYDROCODONE/APAP 5/325 TAB PO PRN ×5 (05:59→23:34)
[2017-01-22] MEDS: LEVOTHYROXINE 150 MCG TAB PO SCH (06:00)
--- NOTE | 2017-01-22 07:44 | SOAPPROG ---
SOAP Progress Note Assessment/Plan: Assessment/Plan: Right septic hip, femoral head necrosis s/p I&D, insertion of antibiotic eluding spacer, POD#1 -Cont PT/OT, pt will be TDWB of his RLE, posterior hip precautions -Cont SCDs and tubigrip dressings for VTE mechanical prophylaxis -Pt will begin Lovenox for VTE chemoprophylaxis, likely for 4 weeks post op -Pt will continue Ceftriaxone per ID, intraoperative cultures taken, bone sent to path, both pending -Cont current pain regimen, encourage PO as tolerated -Likely will need SNF/rehab placement on d/c 01/22/17 07:42 Subjective: Pt seen up in chair. No significant pain at this time, though does note some discomfort overnight. He reports no new onset n/t, as well as no new onset beck, sob, cp, or post calf pain bilaterally. He states he has been up to transfer without issues. We have reviewed his TDWB status, as well as criteria for d/c from orthopedic standpoint. We have also discussed the surgical procedure, findings and course of treatment. He has no additional concerns or complaints at this time. Objective: Vital Signs Temp Pulse Resp BP Pulse Ox 36.5 C 70 19 119/58 L 97 01/21/17 21:50 01/22/17 05:49 01/22/17 05:49 01/22/17 05:49 01/22/17 05:49 Microbiology 01/21/17 19:36 Gram Stain - Final Hip - Eswab 01/18/17 14:15 Gram Stain - Final Hip - Aspirate Laboratory Results 01/22/17 04:20 01/22/17 04:20 01/21/17 01/22/17 01/23/17 05:59 05:59 05:59 Intake Total 1328 1542 Output Total 1999 5565 Balance -672 -1003 PT 16.3 SEC (12.0-15.0) H 01/22/17 04:20 INR 1.31 (0.83-1.16) H 01/22/17 04:20 Pt seen up in chair. He is non-toxic in appearance, and in NAD. VSS. No increased WOB noted. Exam of the RLE reveals intact dressing, clean and dry. No surrounding erythema, calor, discharge or induration noted. Drain in place, no significant drainage noted in bulb, however drain appears patent. SCDs in place, as well as tubigrip dressings. Abduction pillow at bedside Pt moves legs well. Post calves are NTTP, no palpable vascular cords, neg Yenny's bilat. DNVI BLE. ICD10 Worksheet Patient Problems: Problems Problem Status Onset Heart failure Acute Hypoxia Acute Diabetes Acute Methicillin resistant Staphylococcus aureus infection Acute 08/19/15
[2017-01-22] MEDS: DOBUTamine 500 MG in D5W 250 ML IV SCH (08:11)
[2017-01-22] MEDS: CLOPIDOGREL BISULFATE 75 MG TAB PO SCH (08:11)
[2017-01-22] MEDS: CALCIUM ACETATE TP SCH ×2 (08:14→19:41)
[2017-01-22] MEDS: ALUMINUM SULFATE TP SCH ×2 (08:14→19:41)
[2017-01-22] MEDS: LIDOCAINE 5% 1 EA PATCH TD SCH (08:18)
[2017-01-22] MEDS: FUROSEMIDE 40 MG TAB PO SCH ×2 (08:18→15:31)
[2017-01-22] MEDS: SENNOSIDES/DOCUSATE SODIUM TAB PO SCH ×2 (08:20→19:39)
[2017-01-22] MEDS: NEBIVOLOL HCL 5 MG TAB PO SCH (08:21)
[2017-01-22] MEDS: ENOXAPARIN 40 MG/0.4 ML SYR SC SCH (08:23)
--- NOTE | 2017-01-22 08:29 | SOAPPROG ---
SOAP Progress Note Assessment/Plan: Assessment:Plan: ARF-in face of diuresis for diastolic heart failure, volume overload -creatinine stable at 1. -diuresing on current therapies -I/O = 1328/2000, 1542/2545 -weight down from 139.9 to 133.2 -was as high as 159 CHF-he is now using CPAP -he was able to use it for 5 hours last night -diurese with lasix and dobutamine -keep off RHONA -continue sodium restriction -encourage use of CPAP -continue CCB and BB HTN-diurese -compression stockings/tubing -daily weights R Hip pain-better lidoderm patch -aspirate + for Strep mitis -abx -s/p surgery yesterday with removal of necrotic femoral head and insertion of antibiotic spacer Edema-discussed pool therapy yesterday to help with edema management -this will obviously be delayed until he is weight bearing and mobile -handicap parking permit filled out and given to patient yesterday 01/22/17 08:29 Subjective: s/p ortho surgery yesterday, looks good,up in chair Objective: Vital Signs Temp Pulse Resp BP Pulse Ox 36.5 C 70 19 119/58 L 97 01/21/17 21:50 01/22/17 05:49 01/22/17 05:49 01/22/17 05:49 01/22/17 05:49 Microbiology 01/21/17 19:36 Gram Stain - Final Hip - Eswab 01/18/17 14:15 Gram Stain - Final Hip - Aspirate Laboratory Results 01/22/17 04:20 01/22/17 04:20 01/21/17 01/22/17 01/23/17 05:59 05:59 05:59 Intake Total 1328 1542 Output Total 1999 2544 Balance -672 -1003 PT 16.3 SEC (12.0-15.0) H 01/22/17 04:20 INR 1.31 (0.83-1.16) H 01/22/17 04:20 Physical Exam - Physical Exam General Appearance: WD/WN, alert, no apparent distress, obese EENT: normal ENT inspection Neck: normal inspection Respiratory: lungs clear, normal breath sounds, No respiratory distress Cardiac/Chest: regular rate, rhythm, No systolic murmur Abdomen: normal bowel sounds Skin: normal color, warm/dry Extremities: swelling (improving) Neuro/Psych: no motor/sensory deficits, alert, normal mood/affect, oriented x 3 ICD10 Worksheet Patient Problems: Problems Problem Status Onset Heart failure Acute Hypoxia Acute Diabetes Acute Methicillin resistant Staphylococcus aureus infection Acute 08/19/15
--- NOTE | 2017-01-22 08:35 | PCMIDPN ---
Assessment/Plan: # R Hip septic arthritis with s. mitis s/p revision of femoral head (due to severe arthritis) and placement of spacer. Suspect hematogenous spread although blood cultures at 01/11/2017. --continue IV ceftriaxone for 4 weeks, from start date of washout, 02/18/2017 --follow up on OR cultures Medications Ceftriaxone 2 g IV daily Microbiology Streptococcus Mitis with KASSY to ceftriaxone< 0.06 Subjective: Increase in hip pain postoperatively. Patient is hungry and looking for to breakfast No rash, itching, diarrhea Patient reports significant decrease in lower extremity edema Objective: Vital Signs Temp Pulse Resp BP Pulse Ox 36.5 C 70 19 119/58 L 97 01/21/17 21:50 01/22/17 05:49 01/22/17 05:49 01/22/17 05:49 01/22/17 05:49 Microbiology 01/21/17 19:36 Gram Stain - Final Hip - Eswab 01/18/17 14:15 Gram Stain - Final Hip - Aspirate Laboratory Results 01/22/17 04:20 01/22/17 04:20 01/21/17 01/22/17 01/23/17 05:59 05:59 05:59 Intake Total 1328 1542 Output Total 1999 7175 Balance -672 -1003 ESR 39 MM/HR (0-20) H 01/12/17 03:58 C-Reactive Protein 255.0 mg/L (<10.0) H 01/12/17 03:58 - Physical Exam General Appearance: alert, no apparent distress EENT: pale conjunctiva, No scleral icterus Respiratory: No accessory muscle use, No crackles Cardiac/Chest: regular rate, rhythm Extremities: pedal edema, other (Good capillary refill right foot, some pinkness of the right ankle which is stable by report, no associated warmth) Abdomen: non-tender, soft Skin: No rash Neuro/Psych: alert, normal mood/affect, oriented x 3 - Line/s LUE PICC Lines: other (In antecubital), No drainage, No erythema ICD10 Worksheet Patient Problems: Problems Problem Status Onset Heart failure Acute Hypoxia Acute Diabetes Acute Methicillin resistant Staphylococcus aureus infection Acute 08/19/15
[2017-01-22] MEDS: cefTRIAXone 2 GM in D5W 50 ML IV SCH (09:27)
--- NOTE | 2017-01-22 10:05 | HOSPPROG ---
Hospitalist Progress Note Assessment/Plan: 61-year-old with a history of severe sleep apnea and noncompliance is admitted with hypoxia noted during an MRI scan of his hip. He initially left against medical advice but returned with worsening shortness of breath. He was found to be in acute right-sided heart failure secondary to severe pulmonary hypertension. Currently he is treated with dobutamine and Lasix for diuresis. ID consulted 01/20, Rocephin started Ortho consulted 01/21, Right hip washout 01/22 #. Acute Right Sided HF secondary to Pulmonary HTN - severe, suspected from DARRYL +/- [facility]. This may be compounded by zolpidem use as he is apparently is a study by [facility]. He states he has been on and off of CPAP therapy for about one year. * Cont with Lasix 60mg PO BID * Cont Dobutamine for now * Cards, Nephrology, Pulm following #. Acute on chronic kidney Disease- Cr. down to 1 . Continue to follow daily considering diuresis. * Monitor renal function while on diuresis #. Transaminitis - likely from passive congestion. #. Right Septic Hip, Femoral Head Necrosis, s/p washout 01/22. On Rocephin. Will need 4 weeks of abx. ID and Ortho following - Given his recent renal injury, would avoid NSAIDS. He received one dose of Celebrex this morning. I have stopped it. #. DARRYL - as above. Needs CPAP nightly. #. DM2 - Controlled with A1c of 6.6%. Metformin held in light of creatinine * Will restart on discharge once he is off IV dobutamine and Lasix #. HTN - Variable readings today with SBP's from 120-150's. With current lasix use will continue current regimen and continue to follow. * Amlodipine, Bisoprolol * prn Hydralazine. * Hold ACEI #. Hypothyroidism - levothyroxine. #. BPH - Flomax #. Bowel/Bladder - bowel regimen if constipation develops. #. DVT Prophylaxis - Lovenox per Ortho # DNR: decision made 01/20 #. Dispo - Inpatient. Will need Rehab vs SNF Subjective: Pain well controlled. No CP or SOB. Used CPAP last night Objective: Vital Signs Temp Pulse Resp BP Pulse Ox 36.5 C 70 19 119/58 L 97 01/21/17 21:50 01/22/17 05:49 01/22/17 05:49 01/22/17 05:49 01/22/17 05:49 Microbiology 01/21/17 19:36 Gram Stain - Final Hip - Eswab 01/18/17 14:15 Gram Stain - Final Hip - Aspirate Laboratory Results 01/22/17 04:20 01/22/17 04:20 01/21/17 01/22/17 01/23/17 05:59 05:59 05:59 Intake Total 1323 1542 Output Total 1999 3111 Balance -372 -1000 PT 16.3 SEC (12.0-15.0) H 01/22/17 04:20 INR 1.31 (0.83-1.16) H 01/22/17 04:20 - Physical Exam Constitutional: no apparent distress Eyes: PERRL Ears, Nose, Mouth, Throat: moist mucous membranes, hearing normal Cardiovascular: regular rate and rhythym, edema Respiratory: no respiratory distress Gastrointestinal: normoactive bowel sounds Skin: warm Neurologic: AAOx3 Psychiatric: interacting appropriately, not anxious, not encephalopathic, thought process linear ICD10 Worksheet Patient Problems: Problems Problem Status Onset Heart failure Acute Hypoxia Acute Diabetes Acute Methicillin resistant Staphylococcus aureus infection Acute 08/19/15
--- NOTE | 2017-01-22 12:15 | PDCARPN ---
Cardiology Progress Note Assessment/Plan: Assessment: 1. Acute right sided congestive heart failure 2. Severe pulmonary hypertension to to non compliance with CPAP and obesity 3. Essential hypertension 4. CAD 5. Hyperlipidemia 6. Obesity 7. Right Hip Septic arthritis Plan: -Continue Dobutamine at current dose -continue lasix 60 mg bid -continue bystolic 5 mg daily -continue amlodipine 10 mg daily -continue to monitor weights, would continue current management until he is at dry weight he is down 25 kg to date. -45 min spent discussing with patient. 01/22/17 12:16 Subjective: MR. Ellis is doing well this AM. He underwent hip surgery to put in spacer in the setting o Strep Mitis septic arthritis. He tolerated surgery well. He is hemodyanamically stable. His weight is down to 133.2 Kg (139 yesterday adn 159 kg on Jan 13). He remains on low dose dobtamine infusion and lasix 60 mg IV Bid. He is not at dry weight, would continue current therapy. He has been compliant with CPAP. Of note, he is not on statin therpay, hx of myalgias on statins in the past. Will review notes to see which statins he has been on in the past. May be a candidate once he has fully recovered from septic arthritis for PCSK9 in setting of CAD. No new complaints Reviewed/Discussed With: multidisciplinary team Objective: Vital Signs (8 Hrs) Temp Pulse Resp BP Pulse Ox 01/22/17 11:42 37.1 C 68 15 128/70 H 97 01/22/17 10:00 37.1 C 63 16 123/61 H 96 01/22/17 08:00 36.9 C 64 15 124/64 H 97 01/22/17 05:49 70 19 119/58 L 97 Intake/Output (24 Hrs) 01/21/17 01/22/17 01/23/17 05:59 05:59 05:59 Intake Total 1328 1542 Output Total 1999 193 Balance -622 100 Intake: Oral (ml) 1050 866 IV Infused (ml) 278 676 DOBUTamine 500 mg In D5w 278 676 250 ml @ As Directed IV CONT MALDONADO Rx#:[id number] Output: Urine (ml) 1999 2375 Bedside Commode 675 625 Catheter 550 Urinal 1325 1200 SARAH Drain Output (ml) 170 Right Hip 170 Other: Weight 133.2 kg Number of Voids Bedside Commode 1 Urinal 1 Result Diagrams: 01/22/17 04:20 01/22/17 04:20 - Physical Exam Constitutional: WDWN Ears, Nose, Mouth, Throat: moist mucous membranes Cardiovascular: regular rate and rhythm, no murmurs, no rubs, no gallops Respiratory: clear to auscultate bilat Neurologic: AAOx3 Psychiatric: cooperative, interactive, following commands ICD10 Worksheet Patient Problems: Problems Problem Status Onset Heart failure Acute Hypoxia Acute Diabetes Acute Methicillin resistant Staphylococcus aureus infection Acute 08/19/15
--- NOTE | 2017-01-22 13:02 | PDINTPN ---
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 He was admitted but left AMA, then returned with SOB and ROBERT. His workup for hypoxemia included a poor quality echo suggesting significant PH, which was followed by a right heart cath revealing severe PH with a mean PA pressure of 51. In addition, his PCW was 29 and CO only 3, and was subsequently started on Dobutamine and lasix with improved UOP. * PH- He continues to diurese. I suspect the majority of his PH is related to hypoxemia from non-compliance with CPAP, possibly exacerbated by Ambien abuse. The severity of PH may be partially augmented by his volume overload, but a reduced CO is a poor prognostic sign in this setting. The majority of patients with DARRYL do not have such severe PH, but it is possible. An extensive ROS centered around PH did not reveal another cause, nor did his FREEDOM, or currently available serologies. CTEPH has been ruled out by VQ, and ILD ruled out by CTA. At this point I agree with DBT and lasix and monitor creatinine (improved today ) with re-assessment after a few days. He may need an additional RHC to assess. If his PH is not substantially improved (eg remains severe) he may be a candidate for concomitant therapy using PAH drugs such as combination Ambrisentan/Tadalafil; at least until he can get control of his DARRYL. At the moment he has a very guarded prognosis with high risk for deterioration. * DARRYL- Understands the importance of compliance with CPAP therapy, which is improving. We should be certain his CPAP follows any sleep aid that he uses to maximize our chances of compliance. He should continue to wean down/off Ambien. * ROBERT- likely as a result of PH/CHF. His UOP improved with DBT and diuretics which I would continue as outlined above. * Insomnia: Chronic, treated with supratherapeutic doses of Ambien. * Septic Right Hip: S/P debridement 01/21. On CTX Plan: Continue Diuresis, Dobutamine, nightly CPAP use, afterload reduction. Will check overnight oximetry (not done last night as ordered) to help determine the efficacy of his current CPAP/oxygen therapy. 01/22/17 13:01 Subjective: Feels OK, c/o hip pain but better controlled now. Used PCAP all night, but wasn' t asleep throughout the night. Not dyspneic. Objective: Vital Signs Temp Pulse Resp BP Pulse Ox 37.1 C 68 15 128/70 H 97 01/22/17 11:42 01/22/17 11:42 01/22/17 11:42 01/22/17 11:42 01/22/17 11:42 Microbiology 01/21/17 19:36 Gram Stain - Final Hip - Eswab 01/18/17 14:15 Gram Stain - Final Hip - Aspirate Laboratory Results 01/22/17 04:20 01/22/17 04:20 01/21/17 01/22/17 01/23/17 05:59 05:59 05:59 Intake Total 1328 1542 Output Total 1999 9914 Balance -672 -1003 PT 16.3 SEC (12.0-15.0) H 01/22/17 04:20 INR 1.31 (0.83-1.16) H 01/22/17 04:20 Physical Exam - Physical Exam General Appearance: alert, no apparent distress EENT: normal ENT inspection Neck: normal inspection Respiratory: chest non-tender, lungs clear, normal breath sounds Cardiac/Chest: regular rate, rhythm, edema (trace) Abdomen: normal bowel sounds, non-tender, soft Skin: normal color, warm/dry Extremities: normal inspection Neuro/Psych: alert, normal mood/affect, oriented x 3 ICD10 Worksheet Patient Problems: Problems Problem Status Onset Heart failure Acute Hypoxia Acute Diabetes Acute Methicillin resistant Staphylococcus aureus infection Acute 08/19/15
[2017-01-22] MEDS: TAMSULOSIN HCL 0.4 MG CAP PO SCH (19:32)
[2017-01-22] MEDS: PATCH REMOVAL 1 EA PATCH TD SCH (22:58)
[2017-01-22] MEDS: [UNRECOGNIZED DRUG - REMARK] PO SCH (23:35)
[2017-01-23] MEDS: LEVOTHYROXINE 150 MCG TAB PO SCH (05:51)
[2017-01-23] MEDS: DOBUTamine 500 MG in D5W 250 ML IV SCH (05:51)
[2017-01-23 06:23] LABS: % IMMATURE GRANULYOCYTES 0.7 % (0.0-1.1); ABSOLUTE IMMATURE GRANULOCYTES 0.12 10^3/uL (0.00-0.10); ADD DIFF? NO; ADD MORPH? NO; ADD SCAN? NO; ATYPICAL LYMPHOCYTE FLAG 0 (0-99); FRAGMENT RBC FLAG 10 (0-99); HEMATOCRIT 23.3 % (40.0-51.0); HEMOGLOBIN 7.7 g/dL (13.7-17.5); LEFT SHIFT FLG 30 (0-99); LIPEMIA HEMOLYSIS FLAG 80 (0-99); MEAN CELL HEMOGLOBIN 29.7 pg (27.9-34.1); MEAN PLATELET VOLUME 10.7 fL (8.7-11.7); PLATELET CLUMPS FLAG 0 (0-99); PLATELET COUNT 388 10^3/uL (150-400); RED BLOOD CELL COUNT 2.59 10^6/uL (4.40-6.38)
[2017-01-23 06:31] LABS: ANION GAP 10 mEq/L (8-16); CALCIUM 8.8 mg/dL (8.5-10.4); CARBON DIOXIDE 34 mEq/l (22-31); CHLORIDE 91 mEq/L (97-110); GLOMERULAR FILTRATION RATE > 60; GLUCOSE 139 mg/dL (70-100); SODIUM 135 mEq/L (134-144)
[2017-01-23 06:33] LABS: INR 1.27 (0.83-1.16); PROTIME(PATIENT) 15.9 SEC (12.0-15.0)
--- NOTE | 2017-01-23 08:14 | SOAPPROG ---
SOAP Progress Note Assessment/Plan: Assessment:Plan: ARF-in face of diuresis for diastolic heart failure, volume overload -creatinine stable at 1. -diuresing on current therapies -I/O = 1328/2000, 1542/2545, 1542/2870 -weight has gone from 139.9 to 133.2 to 136? -exam today does not support this weight increase -was as high as 159 CHF-he is now using CPAP -he was able to use it for 5 hours last night -diurese with lasix and dobutamine -keep off RHONA -I would avoid NSAIDs as he has shown to be intolerant of medications that affect renal blood flow -this also can cause problems with fluid retention -continue sodium restriction -continue to encourage use of CPAP -continue CCB and BB HTN-diurese with current dose of lasix -compression stockings/tubing -daily weights R Hip pain-better -lidoderm patch -aspirate + for Strep mitis -abx -s/p surgery yesterday with removal of necrotic femoral head and insertion of antibiotic spacer Edema-better -as above 01/23/17 08:11 Subjective: stable overnite, slept up in chair but used CPAP Objective: Vital Signs Temp Pulse Resp BP Pulse Ox 36.4 C 72 15 122/58 H 99 01/23/17 04:00 01/23/17 06:00 01/23/17 06:00 01/23/17 06:00 01/23/17 06:00 Microbiology 01/21/17 19:36 Gram Stain - Final Hip - Eswab 01/18/17 14:15 Gram Stain - Final Hip - Aspirate Laboratory Results 01/23/17 06:00 01/23/17 06:00 01/22/17 01/23/17 01/24/17 05:59 05:59 05:59 Intake Total 1542 1932 Output Total 2870 1095 325 Balance -1328 837 -325 PT 15.9 SEC (12.0-15.0) H 01/23/17 06:00 INR 1.27 (0.83-1.16) H 01/23/17 06:00 Physical Exam - Physical Exam General Appearance: WD/WN, alert, no apparent distress, obese EENT: normal ENT inspection Neck: normal inspection Respiratory: lungs clear, normal breath sounds, No respiratory distress Cardiac/Chest: regular rate, rhythm Abdomen: normal bowel sounds, non-tender Skin: warm/dry Extremities: swelling (trace in thighs, none in shins) ICD10 Worksheet Patient Problems: Problems Problem Status Onset Heart failure Acute Hypoxia Acute Diabetes Acute Methicillin resistant Staphylococcus aureus infection Acute 08/19/15
--- NOTE | 2017-01-23 08:33 | PCMIDPN ---
Assessment/Plan: # R Hip septic arthritis with s. mitis s/p revision of femoral head (due to severe arthritis) and placement of spacer. Suspect hematogenous spread although blood cultures 01/11/2017 negative. Noted drop in hematocrit with corresponding swelling and firmness right hip suggestive of hematoma. Also discussed with Dr. Garrison, intraop pitting of the femoral head was noted and possible underlying concern for osteomyelitis --continue IV ceftriaxone for 4 to 6 weeks, from start date of washout, will discuss with ID team --continue to monitor OR cultures --hematoma management per surgery # leukocytosis : Right septic arthritis plus some postoperative bleeding likely cause leukemoid reaction, trending down today # acute renal failure during diuresis, creatinine stable, luckily ceftriaxone is liver metabolized Medications Ceftriaxone 2 g IV daily Microbiology Streptococcus Mitis with KASSY to ceftriaxone< 0.06 Subjective: Patient with significantly less pain of the right hip today Denies diarrhea, rash, itching Right SARAH drain associated with hip Objective: Vital Signs Temp Pulse Resp BP Pulse Ox 36.4 C 72 15 122/58 H 99 01/23/17 04:00 01/23/17 06:00 01/23/17 06:00 01/23/17 06:00 01/23/17 06:00 Microbiology 01/21/17 19:36 Gram Stain - Final Hip - Eswab 01/18/17 14:15 Gram Stain - Final Hip - Aspirate Laboratory Results 01/23/17 06:00 01/23/17 06:00 01/22/17 01/23/17 01/24/17 05:59 05:59 05:59 Intake Total 1542 1932 Output Total 2870 1095 325 Balance -1328 837 -325 ESR 39 MM/HR (0-20) H 01/12/17 03:58 C-Reactive Protein 255.0 mg/L (<10.0) H 01/12/17 03:58 - Physical Exam General Appearance: alert, no apparent distress Respiratory: coarse breath sounds, No accessory muscle use Neck: supple Cardiac/Chest: regular rate, rhythm Extremities: pedal edema (1+), other (Right hip incision with beatriz in place, no erythema; area surrounding incision is firm without erythema or significant warmth consistent with hematoma) Abdomen: non-tender, soft Skin: No rash Neuro/Psych: alert, normal mood/affect, oriented x 3 - Line/s LUE PICC Lines: other, No drainage, No erythema ICD10 Worksheet Patient Problems: Problems Problem Status Onset Heart failure Acute Hypoxia Acute Diabetes Acute Methicillin resistant Staphylococcus aureus infection Acute 08/19/15
--- NOTE | 2017-01-23 09:01 | PDINTPN ---
[facility] Progress Note Assessment/Plan: Assessment: 61 M with known DARRYL and poor compliance found to be severely hypoxic while undergoing MRI for hip pain. He was admitted but left AMA, then returned with SOB and ROBERT. His workup for hypoxemia included a poor quality echo suggesting significant PH, which was followed by a right heart cath revealing severe PH with a mean PA pressure of 51. In addition, his PCW was 29 and CO only 3, and was subsequently started on Dobutamine and lasix with improved UOP. * PH- He continues to diurese. I suspect the majority of his PH is related to hypoxemia from non-compliance with CPAP, possibly exacerbated by Ambien abuse. The severity of PH may be partially augmented by his volume overload, but a reduced CO is a poor prognostic sign in this setting. The majority of patients with DARRYL do not have such severe PH, but it is possible. An extensive ROS centered around PH did not reveal another cause, nor did his FREEDOM, or currently available serologies. CTEPH has been ruled out by VQ, and ILD ruled out by CTA. At this point I agree with DBT and lasix and monitor creatinine (improved today ) with re-assessment after a few days. He may need an additional RHC to assess. If his PH is not substantially improved (eg remains severe) he may be a candidate for concomitant therapy using PAH drugs such as combination Ambrisentan/Tadalafil; at least until he can get control of his DARRYL. At the moment he has a very guarded prognosis with high risk for deterioration. * DARRYL- Understands the importance of compliance with CPAP therapy, which is improving. We should be certain his CPAP follows any sleep aid that he uses to maximize our chances of compliance. He should continue to wean down/off Ambien. * Overnight oximetry shows good baseline sats with a short period of desats, ? REM-related DARRYL that is undertreated at the current CPAP pressure. Shouldn't significantly affect his PH, diuresis, but should be addressed, likely as an outpatient once I can get a data download from the CPAP. * ROBERT- likely as a result of PH/CHF. His UOP improved with DBT and diuretics which I would continue as outlined above. Cr stable at 1.0 * Insomnia: Chronic, treated with supratherapeutic doses of Ambien. * Septic Right Hip: S/P debridement 01/21. On CTX * Anemia: Unexplained significant drop in H/H today. No apparent site of large volume blood loss. Plan: Continue Diuresis, Dobutamine, nightly CPAP use, afterload reduction. Recheck H/H. Will arrange for CPAP data download and follow-up as an outpatient , but current CPAP/oxygen use is adequate currently. 01/23/17 09:08 Subjective: Feels OK. Still has significant hip pain with movement. Slept 5 hours with CPAP , feels refreshed. Denies dyspnea. No apparent blood loss. Objective: Vital Signs Temp Pulse Resp BP Pulse Ox 36.4 C 72 15 122/58 H 99 01/23/17 04:00 01/23/17 06:00 01/23/17 06:00 01/23/17 06:00 01/23/17 06:00 Microbiology 01/21/17 19:36 Gram Stain - Final Hip - Eswab 01/18/17 14:15 Gram Stain - Final Hip - Aspirate Laboratory Results 01/23/17 06:00 01/23/17 06:00 01/22/17 01/23/17 01/24/17 05:59 05:59 05:59 Intake Total 1542 1932 Output Total 2870 1095 325 Balance -1328 837 -325 PT 15.9 SEC (12.0-15.0) H 01/23/17 06:00 INR 1.27 (0.83-1.16) H 01/23/17 06:00 Noc Ox on CPAP/O2@4 liters/minute: Mean 96%, 4 minutes with sats 80-85%. Physical Exam - Physical Exam General Appearance: alert, no apparent distress EENT: normal ENT inspection Neck: normal inspection Respiratory: lungs clear, normal breath sounds Cardiac/Chest: normal peripheral pulses, regular rate, rhythm, edema (trace edema) Abdomen: normal bowel sounds, non-tender, soft Skin: normal color, warm/dry Extremities: other (right hip dressing dry, minimal blood in drain.) Neuro/Psych: alert, normal mood/affect, oriented x 3 ICD10 Worksheet Patient Problems: Problems Problem Status Onset Heart failure Acute Hypoxia Acute Diabetes Acute Methicillin resistant Staphylococcus aureus infection Acute 08/19/15
--- NOTE | 2017-01-23 09:14 | PDCARPN ---
Cardiology Progress Note Assessment/Plan: Assessment/plan: 61 yo M with obesity, DARRYL and hypoxia admitted 01/10 with profound right heart failure as well as diastolic left heart failure. Found to have mean PA pressure of 51 on RHC, PCW 29. Has diuresed about 20 kg with IV lasix and dobutamine. Course complicated by septic right hip joint, s/p debridement and cement hemiarthroplasty on 01/21. 1. Cor pulmonale with low cardiac output and diastolic left heart failure: doing well. Continue lasix orally and IV dobutamine unless creatinine bumps. Repeat echo when more euvolemic, may be approaching that now. 2. PHTN: likely due to chronic hypoxia with some contribution from untreated DARRYL; now on O2 and CPAP. May be a candidate for PHTN specific medications; consider repeat heart cath when euvolemic. 3. Septic right hip arthritis: s/p debridement and spacer. On abx. Followed by ID and ortho 4. Anemia: significant Hct drop today. May be spurious. Repeating now 5. Hypo T: check TSH 6. DM: per IM 7. Obesity Greater than 30 minutes spent in chart review, imaging review, discussion with patient and other physicians 01/23/17 09:34 Subjective: Girma's breathing is much improved. No CP Reviewed/Discussed With: multidisciplinary team, other (Drs. Odom, Arron, Bladimir) Time Spent With Patient: 20 minutes Objective: Vital Signs (8 Hrs) Temp Pulse Resp BP Pulse Ox 01/23/17 06:00 72 15 122/58 H 99 01/23/17 05:50 96 01/23/17 04:00 36.4 C 67 14 144/61 H 100 01/23/17 02:00 62 14 128/62 H 97 Intake/Output (24 Hrs) 01/22/17 01/23/17 01/24/17 05:59 05:59 05:59 Intake Total 1542 1932 Output Total 2870 1095 325 Balance -1328 837 -325 Intake: Oral (ml) 866 1650 IV Infused (ml) 676 282 DOBUTamine 500 mg In D5w 676 282 250 ml @ As Directed IV CONT MALDONADO Rx#:[id number] Output: Urine (ml) 2700 1025 325 Bedside Commode 625 200 Catheter 550 Urinal 1525 825 325 SARAH Drain Output (ml) 170 70 Right Hip 170 70 Other: Weight 133.2 kg 136.9 kg Number of Voids Bedside Commode 1 Urinal 2 1 Slightly uncomfortable and diaphoretic JVP 12 RRR occ ectopy .Soft early systolic murmur LLSB Lungs CTAB Trace to mild bilat ant tib edema Abd soft, mildly tender Result Diagrams: 01/23/17 06:00 01/23/17 06:00 EKG: reviewed admission tracing: NSR, anterior TWI Telemetry: NSR with occ PVC Echocardiogram: FREEDOM reviewed: right heart enlargement, normal LV systolic function ICD10 Worksheet Patient Problems: Problems Problem Status Onset Diabetes Acute Methicillin resistant Staphylococcus aureus infection Acute 08/19/15 Hypoxia Acute Heart failure Acute
[2017-01-23] MEDS: FUROSEMIDE 40 MG TAB PO SCH ×2 (09:24→15:44)
[2017-01-23] MEDS: SENNOSIDES/DOCUSATE SODIUM TAB PO SCH ×2 (09:26→23:24)
[2017-01-23] MEDS: cefTRIAXone 2 GM in D5W 50 ML IV SCH (09:27)
[2017-01-23] MEDS: CLOPIDOGREL BISULFATE 75 MG TAB PO SCH (09:27)
[2017-01-23] MEDS: CALCIUM ACETATE TP SCH ×2 (09:27→23:24)
[2017-01-23] MEDS: ENOXAPARIN 40 MG/0.4 ML SYR SC SCH (09:27)
[2017-01-23] MEDS: ALUMINUM SULFATE TP SCH ×2 (09:27→23:24)
[2017-01-23] MEDS: NEBIVOLOL HCL 5 MG TAB PO SCH (09:27)
--- NOTE | 2017-01-23 09:27 | SOAPPROG ---
SOAP Progress Note Assessment/Plan: Assessment: Right hip sepsis Plan:Continue IV antibiotics. blood loss into hip area. Drain was clotted 01/21/17 18:26 Subjective: Moderate pain. Feels grating in hip with ambulation Objective: Vital Signs Temp Pulse Resp BP Pulse Ox 36.4 C 72 15 122/58 H 99 01/23/17 04:00 01/23/17 06:00 01/23/17 06:00 01/23/17 06:00 01/23/17 06:00 Microbiology 01/21/17 19:36 Gram Stain - Final Hip - Eswab 01/18/17 14:15 Gram Stain - Final Hip - Aspirate Laboratory Results 01/23/17 06:00 01/23/17 06:00 01/22/17 01/23/17 01/24/17 05:59 05:59 05:59 Intake Total 1542 1932 Output Total 2870 1095 325 Balance -1328 837 -325 PT 15.9 SEC (12.0-15.0) H 01/23/17 06:00 INR 1.27 (0.83-1.16) H 01/23/17 06:00 Incision draining slightly. Obvious thigh hematoma. Drarin clotted. only 25 cc aver last shift ICD10 Worksheet Patient Problems: Problems Problem Status Onset Heart failure Acute Hypoxia Acute Diabetes Acute Methicillin resistant Staphylococcus aureus infection Acute 08/19/15
[2017-01-23] MEDS: LIDOCAINE 5% 1 EA PATCH TD SCH (09:28)
[2017-01-23] MEDS: HYDROCODONE/APAP 5/325 TAB PO PRN ×4 (09:38→23:28)
[2017-01-23 09:43] LABS: HEMATOCRIT 31.4 % (40.0-51.0); HEMOGLOBIN 10.6 g/dL (13.7-17.5)
--- NOTE | 2017-01-23 10:47 | HOSPPROG ---
Hospitalist Progress Note Assessment/Plan: 61-year-old with a history of severe sleep apnea and noncompliance is admitted with hypoxia noted during an MRI scan of his hip. He initially left against medical advice but returned with worsening shortness of breath. He was found to be in acute right-sided heart failure secondary to severe pulmonary hypertension. Currently he is treated with dobutamine and Lasix for diuresis and diuresis has been successful. ID consulted 01/20, Rocephin started Ortho consulted 01/21, Right hip washout 01/22 # Anemia, ?post operative, ?hematoma: Hgb dropped significantly. Repeat Hgb still with drop but not as significant - repeat labs in a.m. -transfuse PRN, not indicated currently -post op mgmt per surgery #. Acute Right Sided HF secondary to Pulmonary HTN - severe, suspected from DARRYL +/- OHS. This may be compounded by zolpidem use as he is apparently is a study by [facility]. He states he has been on and off of CPAP therapy for about one year. * Cont with Lasix 60mg PO BID * Cont Dobutamine * Cards, Nephrology, Pulm following #. Acute on chronic kidney Disease- Cr. has normalized. Continue to follow daily considering diuresis. * Monitor renal function while on diuresis #. Transaminitis - likely from passive congestion. #. Right Septic Hip, Femoral Head Necrosis, s/p debridement and spacer on . On Rocephin. Will need 4 weeks of abx. ID and Ortho following #. DARRYL - as above. Needs CPAP nightly. #. DM2 - Controlled with A1c of 6.6%. Metformin held in light of creatinine * Will restart on discharge once he is off IV dobutamine and Lasix #. HTN: * Amlodipine, Bisoprolol * prn Hydralazine. * Hold ACEI #. Hypothyroidism - levothyroxine. #. BPH - Flomax #. Bowel/Bladder - bowel regimen if constipation develops. #. DVT Prophylaxis - Lovenox per Ortho # DNR: decision made 01/20 #. Dispo - Inpatient. Will need Rehab vs SNF Subjective: Hgb dropped to mid 7's. On repeat, the drop is present but not as low. He denies CP. SOB, N/V, Fever, or other Objective: Vital Signs Temp Pulse Resp BP Pulse Ox 36.4 C 72 15 122/58 H 99 01/23/17 04:00 01/23/17 06:00 01/23/17 06:00 01/23/17 06:00 01/23/17 06:00 Microbiology 01/21/17 19:36 Gram Stain - Final Hip - Eswab 01/18/17 14:15 Gram Stain - Final Hip - Aspirate Laboratory Results 01/23/17 09:35 01/23/17 06:00 01/22/17 01/23/17 01/24/17 05:59 05:59 05:59 Intake Total 1542 1932 Output Total 2870 1095 325 Balance -1328 837 -325 PT 15.9 SEC (12.0-15.0) H 01/23/17 06:00 INR 1.27 (0.83-1.16) H 01/23/17 06:00 - Physical Exam Constitutional: no apparent distress Eyes: PERRL Ears, Nose, Mouth, Throat: moist mucous membranes, hearing normal Cardiovascular: regular rate and rhythym Respiratory: no respiratory distress Gastrointestinal: normoactive bowel sounds, soft, non-tender abdomen Skin: warm Neurologic: AAOx3 Psychiatric: interacting appropriately, not anxious, not encephalopathic ICD10 Worksheet Patient Problems: Problems Problem Status Onset Heart failure Acute Hypoxia Acute Diabetes Acute Methicillin resistant Staphylococcus aureus infection Acute 08/19/15
[2017-01-23] MEDS: ALTEPLASE 2 MG VIAL IVP PRN ×2 (11:51→12:00)
[2017-01-23] MEDS: TAMSULOSIN HCL 0.4 MG CAP PO SCH (23:24)
[2017-01-23] MEDS: PATCH REMOVAL 1 EA PATCH TD SCH (23:25)
[2017-01-23] MEDS: [UNRECOGNIZED DRUG - REMARK] PO SCH (23:25)
[2017-01-24] MEDS: DOBUTamine 500 MG in D5W 250 ML IV SCH (03:34)
[2017-01-24] MEDS: HYDROCODONE/APAP 5/325 TAB PO PRN ×4 (03:37→19:31)
[2017-01-24 06:10] LABS: % IMMATURE GRANULYOCYTES 0.5 % (0.0-1.1); ABSOLUTE IMMATURE GRANULOCYTES 0.06 10^3/uL (0.00-0.10); ADD DIFF? NO; ADD MORPH? NO; ADD SCAN? NO; ATYPICAL LYMPHOCYTE FLAG 0 (0-99); FRAGMENT RBC FLAG 0 (0-99); HEMATOCRIT 30.2 % (40.0-51.0); HEMOGLOBIN 9.8 g/dL (13.7-17.5); LEFT SHIFT FLG 10 (0-99); LIPEMIA HEMOLYSIS FLAG 80 (0-99); MEAN CELL HEMOGLOBIN 29.2 pg (27.9-34.1); MEAN CELL HEMOGLOBIN CONCENTR. 32.5 g/dL (32.4-36.7); MEAN CELL VOLUME 89.9 fL (81.5-99.8); MEAN PLATELET VOLUME 10.2 fL (8.7-11.7); PLATELET CLUMPS FLAG 0 (0-99); PLATELET COUNT 311 10^3/uL (150-400); RED BLOOD CELL COUNT 3.36 10^6/uL (4.40-6.38); RED CELL DISTRIBUTION WIDTH 14.9 % (11.5-15.2)
[2017-01-24 06:20] LABS: INR 1.23 (0.83-1.16); PROTIME(PATIENT) 15.5 SEC (12.0-15.0)
[2017-01-24 06:33] LABS: ANION GAP 9 mEq/L (8-16); CALCIUM 8.9 mg/dL (8.5-10.4); CARBON DIOXIDE 33 mEq/l (22-31); CHLORIDE 93 mEq/L (97-110); CREATININE 0.9 mg/dL (0.7-1.3); GLOMERULAR FILTRATION RATE > 60; GLUCOSE 114 mg/dL (70-100); POTASSIUM 4.3 mEq/L (3.5-5.2); SODIUM 135 mEq/L (134-144)
[2017-01-24] MEDS: LEVOTHYROXINE 150 MCG TAB PO SCH (07:30)
[2017-01-24] MEDS: FUROSEMIDE 40 MG TAB PO SCH ×2 (08:18→17:11)
[2017-01-24] MEDS: NEBIVOLOL HCL 5 MG TAB PO SCH (08:19)
[2017-01-24] MEDS: SENNOSIDES/DOCUSATE SODIUM TAB PO SCH ×2 (08:19→22:24)
[2017-01-24] MEDS: CLOPIDOGREL BISULFATE 75 MG TAB PO SCH (08:20)
[2017-01-24] MEDS: cefTRIAXone 2 GM in D5W 50 ML IV SCH (08:20)
[2017-01-24] MEDS: ENOXAPARIN 40 MG/0.4 ML SYR SC SCH (08:20)
[2017-01-24] MEDS: ALUMINUM SULFATE TP SCH ×2 (08:23→22:24)
[2017-01-24] MEDS: CALCIUM ACETATE TP SCH ×2 (08:23→22:24)
--- NOTE | 2017-01-24 08:56 | SOAPPROG ---
SOAP Progress Note Assessment/Plan: Assessment:Plan: ARF-in face of diuresis for diastolic heart failure, volume overload -creatinine stable at 1. -diuresing on current therapies -I/O = 1328/2000, 1542/2545, 1542/2870,1099/2225 -weight has gone from 139.9 to 133.2 to 136, today's pending -exam today does not support this weight increase -was as high as 159 CHF-he is now using CPAP -he was able to use it for 5 hours last night -diurese with lasix and dobutamine -keep off RHONA -I would avoid NSAIDs as he has shown to be intolerant of medications that affect renal blood flow -this also can cause problems with fluid retention -continue sodium restriction -continue to encourage use of CPAP -continue CCB and BB -would favor discontinuation of dobutamine -consider repeat echo off dobutamine to see what his baseline function is now that he has had 23kg diuresis, this may also allow some additional information on current volume status that would help direct further use of dobutamine and/or diuretics HTN-continues to diurese with current dose of lasix -compression stockings/tubing -daily weights R Hip pain-better -lidoderm patch -aspirate + for Strep mitis -abx -s/p surgery yesterday with removal of necrotic femoral head and insertion of antibiotic spacer Edema-better -as above Gout-restart colchicine at 0.6 mg daily -on allopurinol -check uric acid in morning -avoid NSAIDs DM-restart metformin 01/24/17 08:52 Subjective: stable overnite Objective: Vital Signs Temp Pulse Resp BP Pulse Ox 36.6 C 72 20 126/71 H 98 01/24/17 07:58 01/24/17 07:58 01/24/17 07:58 01/24/17 04:00 01/24/17 07:58 Microbiology 01/21/17 19:36 Gram Stain - Final Hip - Eswab 01/18/17 14:15 Gram Stain - Final Hip - Aspirate Laboratory Results 01/24/17 06:00 01/24/17 06:00 01/23/17 01/24/17 01/25/17 05:59 05:59 05:59 Intake Total 1932 1099 Output Total 1095 2275 Balance 837 -1176 PT 15.5 SEC (12.0-15.0) H 01/24/17 06:00 INR 1.23 (0.83-1.16) H 01/24/17 06:00 Physical Exam - Physical Exam General Appearance: WD/WN, alert, no apparent distress, obese EENT: normal ENT inspection Neck: normal inspection Respiratory: decreased breath sounds (at bases only) Cardiac/Chest: regular rate, rhythm, systolic murmur (RUSB) Abdomen: normal bowel sounds, non-tender, soft, No hepatomegaly, No splenomegaly Back: Normal inspection Skin: normal color, warm/dry Extremities: swelling (trace in back of thighs) Neuro/Psych: alert, normal mood/affect, oriented x 3 ICD10 Worksheet Patient Problems: Problems Problem Status Onset Heart failure Acute Hypoxia Acute Diabetes Acute Methicillin resistant Staphylococcus aureus infection Acute 08/19/15
[2017-01-24] MEDS ORDERED: COLCHICINE 0.6 MG CAP/TAB PO SCH (09:00)
[2017-01-24] MEDS: LIDOCAINE 5% 1 EA PATCH TD SCH (09:30)
[2017-01-24] MEDS: metFORMIN HCL 500 MG TAB PO SCH ×2 (10:41→18:28)
[2017-01-24] MEDS: POLYETHYLENE GLYCOL 3350 17 GM PKT PO PRN (10:46)
--- NOTE | 2017-01-24 11:20 | PDCARPN ---
Cardiology Progress Note Assessment/Plan: Assessment/plan: 61 yo M with obesity, DARRYL and hypoxia admitted 01/10 with profound right heart failure as well as diastolic left heart failure. Found to have mean PA pressure of 51 on RHC, PCW 29. Has diuresed about 20 kg with IV lasix and dobutamine. Course complicated by septic right hip joint, s/p debridement and cement hemiarthroplasty on 01/21. 1. Cor pulmonale with low cardiac output and diastolic left heart failure: doing well. Continue lasix orally and stop IV dobutamine.. Repeat echo when more euvolemic, may be approaching that now. 2. PHTN: likely due to chronic hypoxia with some contribution from untreated DARRYL; now on O2 and CPAP. May be a candidate for PHTN specific medications; consider repeat heart cath when euvolemic. 3. Septic right hip arthritis: s/p debridement and spacer. On abx. Followed by ID and ortho 4. Anemia: significant Hct drop yesterday was spurious. Currently stable. 5. Hypo T: TSH slightly elevated. 6. DM: per IM 7. Obesity 8. Acute kidney injury: Resolved. Likely due to hypoperfusion. Appreciate Dr. Oliveira's consultation Stable for transfer to PCU. 01/24/17 11:22 Subjective: No angina or dyspnea. Still has right hip pain. Objective: Vital Signs (8 Hrs) Temp Pulse Resp BP Pulse Ox 01/24/17 07:58 36.6 C 72 20 98 01/24/17 04:00 61 12 126/71 H 97 Intake/Output (24 Hrs) 01/23/17 01/24/17 01/25/17 05:59 05:59 05:59 Intake Total 1932 1099 Output Total 1095 2275 Balance 837 -1176 Intake: Oral (ml) 1650 850 IV Intake (ml) 123 IV Infused (ml) 282 126 DOBUTamine 500 mg In D5w 282 126 250 ml @ As Directed IV CONT MALDONADO Rx#:[id number] Output: Urine (ml) 1025 2275 Bedside Commode 200 Urinal 825 2275 SARAH Drain Output (ml) 70 Right Hip 70 Other: Weight 136.9 kg Intake Quantity Yes Sufficient Number of Voids Urinal 2 2 No acute distress. Sitting up in chair JVP 10 cm water. Regular rate and rhythm with soft holosystolic murmur left lower sternal border. No rub or gallop Lungs clear auscultation without wheezes rhonchi or rales Extremities are warm well perfused with trace bilateral anterior tibialis edema Result Diagrams: 01/24/17 06:00 01/24/17 06:00 Telemetry: Sinus rhythm. Occasional PVCs. ICD10 Worksheet Patient Problems: Problems Problem Status Onset Diabetes Acute Methicillin resistant Staphylococcus aureus infection Acute 08/19/15 Hypoxia Acute Heart failure Acute
[2017-01-24] MEDS ORDERED: acetaZOLAMIDE 250 MG in SYRINGE 0 ML IVP ONE (11:37)
--- NOTE | 2017-01-24 11:41 | PDINTPN ---
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 He was admitted but left AMA, then returned with SOB and ROBERT. His workup for hypoxemia included a poor quality echo suggesting significant PH, which was followed by a right heart cath revealing severe PH with a mean PA pressure of 51. In addition, his PCW was 29 and CO only 3, and was subsequently started on Dobutamine and lasix with improved UOP. * PH- He continues to diurese. I suspect the majority of his PH is related to hypoxemia from LHF (elevated LVEDP on RHC), non-compliance with CPAP, possibly exacerbated by Ambien abuse. The severity of PH may be partially augmented by his volume overload, but a reduced CO is a poor prognostic sign in this setting. The majority of patients with DARRYL do not have such severe PH, but it is possible. An extensive ROS centered around PH did not reveal another cause, nor did his FREEDOM, or currently available serologies. CTEPH has been ruled out by VQ, and ILD ruled out by CTA. At this point I agree with stopping DBT, continue lasix and monitor creatinine (improved today), vital signs. WIll try a dose of Diamox due to persistent elevation of HCO3. Once euvolemic, will check weight, BNP, and get an ECHO to reassess PAP. If his PH is not substantially improved ( eg remains severe) he may be a candidate for concomitant therapy using PAH drugs such as combination Ambrisentan/Tadalafil; at least until he can get control of his DARRYL. At the moment he has a very guarded prognosis with high risk for deterioration. * DARRYL- Understands the importance of compliance with CPAP therapy, which is improving. We should be certain his CPAP follows any sleep aid that he uses to maximize our chances of compliance. He should continue to wean down/off Ambien. * Overnight oximetry shows good baseline sats with a short period of desats, ? REM-related DARRYL that is undertreated at the current CPAP pressure. Shouldn't significantly affect his PH, diuresis, but should be addressed, likely as an outpatient once I can get a data download from the CPAP. * ROBERT- likely as a result of PH/CHF. His UOP improved with DBT and diuretics, now DB being stopped this morning. * Insomnia: Chronic, treated with supratherapeutic doses of Ambien, currently on a tapering trial. * Septic Right Hip: S/P debridement 01/21. On CTX for weeks before proceeding with MAVIS. * Anemia: H/H has trended down since hip surgery, likely large hematoma. Plan: Continue Diuresis (including Diamox dose today), D/C Dobutamine. Follow BUN, Cr. Continue nightly CPAP/oxygen use, afterload reduction. Get BNP and ECHO prior to discharge, then follow-up as outpatient, possibly with RHC if there still appears to be pulmonary HTN. Will arrange for CPAP data download and follow-up with /Lilia Abrams as an outpatient, but current CPAP/oxygen use is adequate currently. 01/24/17 11:40 01/24/17 11:47 Subjective: feels he can take a deeper breath. Used CPAP 5 1/2 hours last night. Objective: Vital Signs Temp Pulse Resp BP Pulse Ox 36.8 C 72 23 H 121/65 H 92 01/24/17 11:19 01/24/17 11:19 01/24/17 11:19 01/24/17 11:19 01/24/17 11:19 Microbiology 01/21/17 19:36 Gram Stain - Final Hip - Eswab 01/18/17 14:15 Gram Stain - Final Hip - Aspirate Laboratory Results 01/24/17 06:00 01/24/17 06:00 01/23/17 01/24/17 01/25/17 05:59 05:59 05:59 Intake Total 1932 1099 Output Total 1095 3895 250 Balance 837 -1176 -250 PT 15.5 SEC (12.0-15.0) H 01/24/17 06:00 INR 1.23 (0.83-1.16) H 01/24/17 06:00 Physical Exam - Physical Exam General Appearance: alert EENT: normal ENT inspection Neck: normal inspection Respiratory: lungs clear, normal breath sounds Cardiac/Chest: regular rate, rhythm, edema (trace) Abdomen: normal bowel sounds, non-tender, soft Skin: normal color, warm/dry Extremities: normal inspection Neuro/Psych: alert, normal mood/affect, oriented x 3 ICD10 Worksheet Patient Problems: Problems Problem Status Onset Heart failure Acute Hypoxia Acute Diabetes Acute Methicillin resistant Staphylococcus aureus infection Acute 08/19/15
--- NOTE | 2017-01-24 12:57 | HOSPPROG ---
Hospitalist Progress Note Assessment/Plan: 61-year-old with a history of severe sleep apnea and noncompliance is admitted with hypoxia noted during an MRI scan of his hip. He initially left against medical advice but returned with worsening shortness of breath. He was found to be in acute right-sided heart failure secondary to severe pulmonary hypertension. He was treated with dobutamine and Lasix for diuresis and diuresis has been successful. Today, 01/14, dobutamine has been stopped. He is likely approaching Euvolemia and if clinically stable tomorrow, a TTE can be ordered for further evaluation and comparison He has been tolerating CPAP for up to 5 hrs nightly He has a septic right hip and is s/p debridement and spacer placement. He is on Rocephin for likely 4 weeks total He still has reported swelling around the right hip which may be a hematoma. There has been a drop in Hgb since surgery but is overall stable around 9.8. He is not tachycardic. Ortho is following. No indication for transfusion He is ready for transfer back to the PCU. # Anemia, Post operative -transfuse PRN, not indicated currently -post op mgmt per surgery #. Acute Right Sided HF secondary to Pulmonary HTN - severe, suspected from DARRYL +/- OHS. This may be compounded by zolpidem use as he is apparently is a study by [facility]. He states he has been on and off of CPAP therapy for about one year. * Cont with Lasix 60mg PO BID * Dobutamine stopped * Cards, Nephrology, Pulm following #. Acute on chronic kidney Disease- Cr. has normalized. Continue to follow daily considering diuresis. * Monitor renal function while on diuresis * Hold RHONA-I * Hold nephrotoxic agents #. Transaminitis - likely from passive congestion. #. Right Septic Hip, Femoral Head Necrosis, s/p debridement and spacer on . On Rocephin. Will need 4 weeks of abx. ID and Ortho following #. DARRYL - as above. Needs CPAP nightly. #. DM2 - Controlled with A1c of 6.6%. Metformin restarted 01/24 #. HTN: * Amlodipine, Bisoprolol * prn Hydralazine. * Hold ACEI #. Hypothyroidism - levothyroxine. #. BPH - Flomax #. Bowel/Bladder - bowel regimen if constipation develops. #. Gout: Allopurinol #. DVT Prophylaxis - Lovenox per Ortho # DNR: decision made 01/20 #. Dispo - Inpatient. Will need Rehab vs SNF Subjective: Dobutamine stopped. Hgb stable. No CP or SOB. No N/V. Objective: Vital Signs Temp Pulse Resp BP Pulse Ox 36.8 C 72 23 H 121/65 H 92 01/24/17 11:19 01/24/17 11:19 01/24/17 11:19 01/24/17 11:19 01/24/17 11:19 Microbiology 01/21/17 19:36 Gram Stain - Final Hip - Eswab 01/18/17 14:15 Gram Stain - Final Hip - Aspirate Laboratory Results 01/24/17 06:00 01/24/17 06:00 01/23/17 01/24/17 01/25/17 05:59 05:59 05:59 Intake Total 1932 1099 Output Total 1095 2275 250 Balance 837 -1176 -250 PT 15.5 SEC (12.0-15.0) H 01/24/17 06:00 INR 1.23 (0.83-1.16) H 01/24/17 06:00 - Physical Exam Constitutional: no apparent distress, appears nourished Eyes: PERRL, EOMI Ears, Nose, Mouth, Throat: moist mucous membranes, hearing normal Cardiovascular: regular rate and rhythym, edema Respiratory: reduced air movement Gastrointestinal: normoactive bowel sounds Skin: warm Neurologic: AAOx3 Psychiatric: interacting appropriately, not anxious, not encephalopathic ICD10 Worksheet Patient Problems: Problems Problem Status Onset Heart failure Acute Hypoxia Acute Diabetes Acute Methicillin resistant Staphylococcus aureus infection Acute 08/19/15
--- NOTE | 2017-01-24 13:01 | PCMIDPN ---
Assessment/Plan: # R Hip septic arthritis with s. mitis s/p revision of femoral head (due to severe arthritis) and placement of spacer. Suspect hematogenous spread although blood cultures 01/11/2017 negative. Intraop pitting of the femoral head was noted in OR with possible underlying concern for osteomyelitis --continue IV ceftriaxone for 4 to 6 weeks, from start date of washout, will discuss with ID team but lean towards 4 weeks since femoral head removed (2016). Plan hip aspiration 2 weeks following antibiotic discontinuation to document clearance of infection prior to placement of prosthetic hip. --continue to monitor OR cultures, negative today # leukocytosis : improving # acute renal failure during diuresis, creatinine stable, luckily ceftriaxone is liver metabolized Medications Ceftriaxone 2 g IV daily Microbiology Streptococcus Mitis with KASSY to ceftriaxone< 0.06 Subjective: Patient describes postsurgical pain of the right hip that is different to his pre-surgical pain. He has been more active today therefore right hip is a little more painful. No diarrhea, rash. Patient is expressing significant appreciation of ongoing care Objective: Vital Signs Temp Pulse Resp BP Pulse Ox 36.8 C 72 23 H 121/65 H 92 01/24/17 11:19 01/24/17 11:19 01/24/17 11:19 01/24/17 11:19 01/24/17 11:19 Microbiology 01/21/17 19:36 Gram Stain - Final Hip - Eswab 01/18/17 14:15 Gram Stain - Final Hip - Aspirate Laboratory Results 01/24/17 06:00 01/24/17 06:00 01/23/17 01/24/17 01/25/17 05:59 05:59 05:59 Intake Total 1932 1099 Output Total 1095 2275 250 Balance 837 -1176 -250 ESR 39 MM/HR (0-20) H 01/12/17 03:58 C-Reactive Protein 255.0 mg/L (<10.0) H 01/12/17 03:58 - Physical Exam General Appearance: alert, no apparent distress EENT: pale conjunctiva, No scleral icterus Respiratory: No accessory muscle use Cardiac/Chest: regular rate, rhythm Extremities: pedal edema (1+, compression socks in place), other (Right hip dressing is in place without strike through.) Abdomen: non-tender, soft Skin: No rash Neuro/Psych: alert, normal mood/affect, oriented x 3 - Line/s LUE PICC Lines: No drainage, No erythema ICD10 Worksheet Patient Problems: Problems Problem Status Onset Heart failure Acute Hypoxia Acute Diabetes Acute Methicillin resistant Staphylococcus aureus infection Acute 08/19/15
--- NOTE | 2017-01-24 13:06 | SOAPPROG ---
SOAP Progress Note Assessment/Plan: Assessment/Plan: s/p I&D of R hip with antibiotic spacer POD#3 - Continue antibiotics per ID - TDWB RLE with walker, posterior hip precautions - Continue PT/OT - Lovenox daily for VTE chemoprophylaxis - Ice to the R hip - Dressing change today - Continue to monitor H&H - Ortho stable 01/24/17 13:03 01/24/17 13:06 Subjective: Pt states he is doing well, has been up to the bathroom. Increased pain in the R hip with ambulation. Pt denies fever, chills, chest pain, SOB, abdominal pain , N/V/D, numbness, tingling and calf pain. Objective: Vital Signs Temp Pulse Resp BP Pulse Ox 36.8 C 72 23 H 121/65 H 92 01/24/17 11:19 01/24/17 11:19 01/24/17 11:19 01/24/17 11:19 01/24/17 11:19 Microbiology 01/21/17 19:36 Gram Stain - Final Hip - Eswab 01/18/17 14:15 Gram Stain - Final Hip - Aspirate Laboratory Results 01/24/17 06:00 01/24/17 06:00 01/23/17 01/24/17 01/25/17 05:59 05:59 05:59 Intake Total 1932 1099 Output Total 1095 2275 250 Balance 837 -1176 -250 PT 15.5 SEC (12.0-15.0) H 01/24/17 06:00 INR 1.23 (0.83-1.16) H 01/24/17 06:00 Physical Exam - Physical Exam General Appearance: alert, no apparent distress Cardiac/Chest: normal peripheral pulses Skin: normal color, warm/dry, other (incision site c/d/i) Extremities: normal inspection, normal capillary refill, pedal edema, swelling ( localized R hip), No calf tenderness, No Yenny's sign Neuro/Psych: no motor/sensory deficits, alert, normal mood/affect, oriented x 3 ICD10 Worksheet Patient Problems: Problems Problem Status Onset Heart failure Acute Hypoxia Acute Diabetes Acute Methicillin resistant Staphylococcus aureus infection Acute 08/19/15
--- NOTE | 2017-01-24 17:15 | ASMTCMCOM ---
CM Note CM Note Notes: POD #3 S/P I&D of R hip-abx spacer. On IV ABX. Working with therapies-recommending In-pt rehab. Need an MD Order for in-pt to eval. Date Signed: 01/24/2017 05:14 PM Electronically Signed By:Tasneem Newberry LCSW
[2017-01-24] MEDS: TAMSULOSIN HCL 0.4 MG CAP PO SCH (22:24)
[2017-01-24] MEDS: [UNRECOGNIZED DRUG - REMARK] PO SCH (22:24)
[2017-01-24] MEDS: COLCHICINE 0.6 MG CAP/TAB PO SCH (22:24)
[2017-01-24] MEDS: PATCH REMOVAL 1 EA PATCH TD SCH (22:26)
[2017-01-25] MEDS: HYDROCODONE/APAP 5/325 TAB PO PRN ×5 (03:15→23:02)
[2017-01-25] MEDS: LEVOTHYROXINE 150 MCG TAB PO SCH (05:39)
[2017-01-25] MEDS ORDERED: ALTEPLASE 2 MG VIAL IVP ONE (06:00)
[2017-01-25 07:00] LABS: % IMMATURE GRANULYOCYTES 0.5 % (0.0-1.1); ABSOLUTE IMMATURE GRANULOCYTES 0.06 10^3/uL (0.00-0.10); ADD DIFF? NO; ADD MORPH? NO; ADD SCAN? NO; ATYPICAL LYMPHOCYTE FLAG 0 (0-99); FRAGMENT RBC FLAG 0 (0-99); HEMATOCRIT 29.5 % (40.0-51.0); HEMOGLOBIN 9.8 g/dL (13.7-17.5); LEFT SHIFT FLG 10 (0-99); LIPEMIA HEMOLYSIS FLAG 80 (0-99); MEAN CELL HEMOGLOBIN 29.8 pg (27.9-34.1); MEAN CELL HEMOGLOBIN CONCENTR. 33.2 g/dL (32.4-36.7); MEAN CELL VOLUME 89.7 fL (81.5-99.8); MEAN PLATELET VOLUME 10.2 fL (8.7-11.7); PLATELET CLUMPS FLAG 10 (0-99); PLATELET COUNT 338 10^3/uL (150-400); RED BLOOD CELL COUNT 3.29 10^6/uL (4.40-6.38); RED CELL DISTRIBUTION WIDTH 14.7 % (11.5-15.2)
[2017-01-25 07:22] LABS: ALBUMIN 2.9 g/dL (3.5-5.0); ANION GAP 11 mEq/L (8-16); CALCIUM 8.8 mg/dL (8.5-10.4); CARBON DIOXIDE 32 mEq/l (22-31); CHLORIDE 92 mEq/L (97-110); CREATININE 0.9 mg/dL (0.7-1.3); GLOMERULAR FILTRATION RATE > 60; GLUCOSE 117 mg/dL (70-100); POTASSIUM 4.3 mEq/L (3.5-5.2); SODIUM 135 mEq/L (134-144); URIC ACID 6.1 mg/dL (3.5-8.5)
[2017-01-25] MEDS: LIDOCAINE 5% 1 EA PATCH TD SCH (08:27)
[2017-01-25] MEDS: POLYETHYLENE GLYCOL 3350 17 GM PKT PO PRN (08:28)
[2017-01-25] MEDS: ALUMINUM SULFATE TP SCH ×2 (08:29→21:06)
[2017-01-25] MEDS: CALCIUM ACETATE TP SCH ×2 (08:29→21:06)
[2017-01-25] MEDS: cefTRIAXone 2 GM in D5W 50 ML IV SCH (08:29)
[2017-01-25] MEDS: ENOXAPARIN 40 MG/0.4 ML SYR SC SCH (08:29)
[2017-01-25] MEDS: metFORMIN HCL 500 MG TAB PO SCH ×2 (08:30→17:40)
--- NOTE | 2017-01-25 08:30 | HOSPPROG ---
Hospitalist Progress Note Assessment/Plan: #Right hip septic arthritis: s/p I/D, abx implant. Strep mitis. IV abx through 02/18 #Acutely decompensated right heartd/diastolic failure: off dobutamine. Lasix 60mg BID, CPAP #Severe pulmonary HTN: Lasix, CPAP #HTN: Norvasc #CAD: Plavix, BB #Hypothyroidism: LT4 #Gout: colchicine, allopurinol #ROBERT on CKD: avoid nephrotoxic agents, no NSAIDs #Metabolic alkalosis: no need for acetazolamide now #Diabetes: metformin at home. Add SSI here #Leukocytosis: nearly resolved #DVT ppx: Lovenox #Disp: cont inpatient admission for IV abx, diuresis and PT Subjective: worked with PT this morning, pain in hip Objective: Vital Signs Temp Pulse Resp BP Pulse Ox 36.9 C 67 16 113/60 98 01/24/17 20:00 01/25/17 04:00 01/25/17 04:00 01/25/17 04:00 01/25/17 04:00 Microbiology 01/21/17 19:36 Gram Stain - Final Hip - Eswab Laboratory Results 01/25/17 06:50 01/25/17 06:50 01/24/17 01/25/17 01/26/17 05:59 05:59 05:59 Intake Total 1099 2150 Output Total 2275 4785 Balance -1176 -325 PT 15.5 SEC (12.0-15.0) H 01/24/17 06:00 INR 1.23 (0.83-1.16) H 01/24/17 06:00 - Physical Exam Constitutional: no apparent distress Eyes: PERRL Ears, Nose, Mouth, Throat: moist mucous membranes Cardiovascular: regular rate and rhythym Respiratory: no respiratory distress Gastrointestinal: normoactive bowel sounds Genitourinary: no bladder fullness Skin: warm Musculoskeletal: other (right hip surgical incision dressed with min drainage) Neurologic: AAOx3, CN II-XII Intact Psychiatric: interacting appropriately ICD10 Worksheet Patient Problems: Problems Problem Status Onset Heart failure Acute Hypoxia Acute Diabetes Acute Methicillin resistant Staphylococcus aureus infection Acute 08/19/15
[2017-01-25] MEDS: FUROSEMIDE 40 MG TAB PO SCH ×2 (08:31→15:06)
[2017-01-25] MEDS: NEBIVOLOL HCL 5 MG TAB PO SCH (08:31)
[2017-01-25] MEDS: CLOPIDOGREL BISULFATE 75 MG TAB PO SCH (08:31)
[2017-01-25] MEDS: SENNOSIDES/DOCUSATE SODIUM TAB PO SCH ×2 (08:31→21:02)
--- NOTE | 2017-01-25 08:33 | SOAPPROG ---
SOAP Progress Note Assessment/Plan: Assessment/Plan: Status post I&D of Right hip with antibiotic spacer POD#4 Continue antibiotics per ID TDWB RLE with walker, posterior hip precautions Continue PT/OT Lovenox daily for VTE chemoprophylaxis Ice to the R hip Dressing change daily Continue to monitor H&H Ortho stable Subjective: 61 year old male that is POD#4 from a right hip I&D and implant of an antibiotic spacer. He states his hip is less painful today. Pt denies fever, chills, chest pain, SOB, abdominal pain, N/V/D, numbness, tingling and calf pain. Objective: Vital Signs Temp Pulse Resp BP Pulse Ox 36.6 C 65 13 121/63 H 96 01/25/17 08:00 01/25/17 08:00 01/25/17 08:00 01/25/17 08:00 01/25/17 08:00 Microbiology 01/21/17 19:36 Gram Stain - Final Hip - Eswab Laboratory Results 01/25/17 06:50 01/25/17 06:50 01/24/17 01/25/17 01/26/17 05:59 05:59 05:59 Intake Total 1099 2150 Output Total 2275 2475 Balance -1176 -325 PT 15.5 SEC (12.0-15.0) H 01/24/17 06:00 INR 1.23 (0.83-1.16) H 01/24/17 06:00 Physical exam of the Right hip: dressings clean, dry and intact. Normals sensation to light touch in the RLE. Distal pulse present in the RLE. ICD10 Worksheet Patient Problems: Problems Problem Status Onset Heart failure Acute Hypoxia Acute Diabetes Acute Methicillin resistant Staphylococcus aureus infection Acute 08/19/15
--- NOTE | 2017-01-25 10:08 | PDCARPN ---
Cardiology Progress Note Assessment/Plan: Assessment/plan: 61 yo M with obesity, DARRYL and hypoxia admitted 01/10 with profound right heart failure as well as diastolic left heart failure. Found to have mean PA pressure of 51 on RHC, PCW 29. Has diuresed about 20 kg with IV lasix and dobutamine. Course complicated by septic right hip joint, s/p debridement and cement hemiarthroplasty on 01/21. Dobutamine stopped 01/24. 1. Cor pulmonale with low cardiac output and diastolic left heart failure: doing well. Continue lasix orally. BNP tomorrow. Repeat echo when more euvolemic, may be approaching that now. 2. PHTN: likely due to chronic hypoxia with some contribution from untreated DARRYL; now on O2 and CPAP. Will follow up with Dr. Heller regarding DARRYL. May be a candidate for PHTN specific medications down the road; consider repeat heart cath when euvolemic. 3. Septic right hip arthritis: s/p debridement and spacer. On abx. Followed by ID and ortho 4. Anemia: Currently stable. 5. Hypo T: TSH slightly elevated. On replacement. 6. DM: per IM 7. Obesity 8. Acute kidney injury: Resolved. Likely due to hypoperfusion. Appreciate Dr. Oliveira's consultation Stable for transfer to PCU. 01/25/17 10:09 Subjective: Girma denies angina or SOB. Has significant right hip pain post op Reviewed/Discussed With: other (Dr. Link) Objective: Vital Signs (8 Hrs) Temp Pulse Resp BP Pulse Ox 01/25/17 08:00 36.6 C 65 13 121/63 H 96 01/25/17 04:00 67 16 113/60 98 Intake/Output (24 Hrs) 01/24/17 01/25/17 01/26/17 05:59 05:59 05:59 Intake Total 1099 2150 Output Total 2161 6759 Balance -1176 -325 Intake: Oral (ml) 850 2000 IV Intake (ml) 123 150 IV Infused (ml) 126 DOBUTamine 500 mg In D5w 126 250 ml @ As Directed IV CONT MALDONADO Rx#:[id number] Output: Urine (ml) 9039 2475 Bedside Commode 425 Urinal 2274 2049 Other: Weight 136.9 kg 138.8 kg Intake Quantity Yes Yes Sufficient Number of Voids Urinal 2 3 Number of Stools Bedside Commode 1 NAD RRR soft holosystolic murmur LLSB Lungs CTAB Minimal bilat ankle edema Result Diagrams: 01/25/17 06:50 01/25/17 06:50 Telemetry: NSR ICD10 Worksheet Patient Problems: Problems Problem Status Onset Diabetes Acute Methicillin resistant Staphylococcus aureus infection Acute 08/19/15 Hypoxia Acute Heart failure Acute
--- NOTE | 2017-01-25 11:07 | SOAPPROG ---
SOAP Progress Note Assessment/Plan: Assessment: ROBERT on CKD with diastolic dysfunction -creatinine stable at 0.9 -mild metabolic alkalosis, will monitor and no indication for acetazolamide or holding diuretic currently -UO 2.4L yest -avoid NSAIDs -diuresing well (2.4L yest) however would recommend fluid restriction to 1.5L -CPAP compliance -continue lasix 60mg po BID, dobutamine off -may need to add metolazone if diuresis slows, also may consider repeat echo as suggested by Dr. Oliveira yesterday HTN -continue CCB and BB -cardiology following R Hip pain-better -lidoderm patch -aspirate + for Strep mitis -abx -s/p surgery yesterday with removal of necrotic femoral head and insertion of antibiotic spacer Gout -restarted colchicine at 0.6 mg daily -on allopurinol -check uric acid in morning -avoid NSAIDs DM-restart metformin 01/25/17 11:00 01/25/17 11:03 01/25/17 11:10 Subjective: Patient feeling ok this AM. Fluid intake discussed. Objective: Vital Signs Temp Pulse Resp BP Pulse Ox 36.6 C 65 13 121/63 H 96 01/25/17 08:00 01/25/17 08:00 01/25/17 08:00 01/25/17 08:00 01/25/17 08:00 Microbiology 01/21/17 19:36 Gram Stain - Final Hip - Eswab Laboratory Results 01/25/17 06:50 01/25/17 06:50 01/24/17 01/25/17 01/26/17 05:59 05:59 05:59 Intake Total 1099 2150 500 Output Total 2275 2475 150 Balance -1176 -325 350 PT 15.5 SEC (12.0-15.0) H 01/24/17 06:00 INR 1.23 (0.83-1.16) H 01/24/17 06:00 Physical Exam - Physical Exam General Appearance: WD/WN, alert, no apparent distress EENT: PERRL/EOMI, TMs normal Neck: non-tender, full range of motion, supple Respiratory: chest non-tender, lungs clear, normal breath sounds Cardiac/Chest: regular rate, rhythm, edema, JVD Abdomen: normal bowel sounds, non-tender, soft Male Genitalia: deferred Rectal: deferred Back: Normal inspection Skin: normal color, warm/dry Extremities: pedal edema, swelling Neuro/Psych: no motor/sensory deficits, alert, normal mood/affect, oriented x 3 ICD10 Worksheet Patient Problems: Problems Problem Status Onset Heart failure Acute Hypoxia Acute Diabetes Acute Methicillin resistant Staphylococcus aureus infection Acute 08/19/15
--- NOTE | 2017-01-25 14:00 | ASMTCMCOM ---
CM Note CM Note Notes: IN-pt Rehab concerned that patient needs to climb 20 steps to get to his apartment and he lives alone. In-pt feels it would be best for him to go to a SNF 1st. Spoke to patient and he chooses [facility] over [facility]. Left a message for [facility]. Date Signed: 01/25/2017 01:59 PM Electronically Signed By:Tasneem Newberry LCSW
--- NOTE | 2017-01-25 15:45 | PCMIDPN ---
Assessment/Plan: Assessment/Plan: * Right hip septic arthritis due to Streptococcus mitis status post incision and drainage with resection of femoral head: Suspect he had transient bacteremia with subsequent seeding of degenerative hip. Blood cultures are negative. Operative cultures are no growth to date. Will review operative findings with Dr. Garrison. If all of disease involving femoral head excised, think can proceed with treating like septic arthritis with 4 week course of IV ceftriaxone. Await pathology specimen. 01/25/17 15:42 Subjective: Patient with persistent right hip pain. Overall feels improved however. Operative findings noted with resection of femoral head. Objective: Vital Signs Temp Pulse Resp BP Pulse Ox 37.0 C 65 20 136/66 H 96 01/25/17 11:35 01/25/17 11:35 01/25/17 11:35 01/25/17 11:35 01/25/17 11:35 Microbiology 01/21/17 19:36 Gram Stain - Final Hip - Eswab 01/18/17 14:15 Gram Stain - Final Hip - Aspirate Laboratory Results 01/25/17 06:50 01/25/17 06:50 01/24/17 01/25/17 01/26/17 05:59 05:59 05:59 Intake Total 1099 2150 500 Output Total 2275 2475 150 Balance -1176 -325 350 ESR 39 MM/HR (0-20) H 01/12/17 03:58 C-Reactive Protein 255.0 mg/L (<10.0) H 01/12/17 03:58 Ceftriaxone # 6 Operative cultures no growth to date Blood cultures x2 no growth Synovial fluid cultures with growth of Streptococcus mitis - Physical Exam General Appearance: alert, no apparent distress EENT: No scleral icterus, No conjunctival petechiae Respiratory: lungs clear (Anterolaterally) Cardiac/Chest: regular rate, rhythm Extremities: inflammation (Right hip dressed postoperatively with tenderness when ranged) Abdomen: non-tender, No distended - Line/s LUE PICC Lines: No drainage, No erythema ICD10 Worksheet Patient Problems: Problems Problem Status Onset Heart failure Acute Hypoxia Acute Diabetes Acute Methicillin resistant Staphylococcus aureus infection Acute 08/19/15
--- NOTE | 2017-01-25 15:58 | ASMTCMCOM ---
CM Note CM Note Notes: Received a call from [facility]- they may not have bed availability until . Date Signed: 01/25/2017 03:57 PM Electronically Signed By:Tasneem Newberry LCSW
[2017-01-25] MEDS: COLCHICINE 0.6 MG CAP/TAB PO SCH (21:02)
[2017-01-25] MEDS: TAMSULOSIN HCL 0.4 MG CAP PO SCH (21:02)
[2017-01-25] MEDS: PATCH REMOVAL 1 EA PATCH TD SCH (21:10)
[2017-01-25] MEDS: [UNRECOGNIZED DRUG - REMARK] PO SCH (23:01)
[2017-01-26] MEDS: LEVOTHYROXINE 150 MCG TAB PO SCH (04:34)
[2017-01-26 05:01] LABS: HEMATOCRIT 31.7 % (40.0-51.0); HEMOGLOBIN 10.4 g/dL (13.7-17.5); MEAN CELL HEMOGLOBIN 29.2 pg (27.9-34.1); MEAN CELL HEMOGLOBIN CONCENTR. 32.8 g/dL (32.4-36.7); RED BLOOD CELL COUNT 3.56 10^6/uL (4.40-6.38); RED CELL DISTRIBUTION WIDTH 14.8 % (11.5-15.2)
[2017-01-26 05:24] LABS: ALBUMIN 3.1 g/dL (3.5-5.0); ANION GAP 13 mEq/L (8-16); CALCIUM 9.2 mg/dL (8.5-10.4); CARBON DIOXIDE 32 mEq/l (22-31); CHLORIDE 94 mEq/L (97-110); GLOMERULAR FILTRATION RATE > 60; GLUCOSE 108 mg/dL (70-100); POTASSIUM 4.6 mEq/L (3.5-5.2); SODIUM 139 mEq/L (134-144)
[2017-01-26] MEDS: HYDROCODONE/APAP 5/325 TAB PO PRN ×4 (07:38→23:38)
[2017-01-26] MEDS: metFORMIN HCL 500 MG TAB PO SCH ×2 (07:46→18:01)
--- NOTE | 2017-01-26 07:55 | PDCARPN ---
Cardiology Progress Note Chief Complaint: SOB Assessment/Plan: Assessment: Assessment/plan: 61 yo M with obesity, DARRYL and hypoxia admitted 01/10 with profound right heart failure as well as diastolic left heart failure. Found to have mean PA pressure of 51 on RHC, PCW 29. Has diuresed about 20 kg with IV lasix and dobutamine. Course complicated by septic right hip joint, s/p debridement and cement hemiarthroplasty on 01/21. Dobutamine stopped 01/24. Plan: 01/26/17 07:54 pt is doing well today. BNP level still elevated but pt has less SOB. Continue current tx. Can check repeat echo today. Continue to advance per primary team. Subjective: feels less SOB Reviewed/Discussed With: other Time Spent With Patient: 25 min Objective: Vital Signs (8 Hrs) Temp Pulse Resp BP Pulse Ox 01/26/17 07:19 37.4 C 72 18 133/72 H 97 01/26/17 04:00 36.9 C 81 18 141/83 H 96 01/26/17 00:00 36.8 C 72 17 135/66 H 95 Intake/Output (24 Hrs) 01/25/17 01/26/17 01/27/17 05:59 05:59 05:59 Intake Total 2150 1310 Output Total 2475 1875 125 Balance -325 -565 -125 Intake: Oral (ml) 2000 1250 IV Intake (ml) 150 60 Output: Urine (ml) 2475 1875 125 Bedside Commode 425 150 Urinal 2050 1725 125 Other: Weight 137.2 kg Intake Quantity Yes Yes Sufficient Number of Voids Urinal 3 1 Number of Stools Bedside Commode 1 1 Result Diagrams: 01/26/17 04:40 01/26/17 04:40 - Physical Exam Constitutional: no apparent distress Eyes: PERRL Cardiovascular: regular rate and rhythm, systolic murmur Respiratory: no crackles, no wheezes Gastrointestinal: no tenderness Skin: warm Musculoskeletal: no muscular tenderness Neurologic: AAOx3 Psychiatric: cooperative ICD10 Worksheet Patient Problems: Problems Problem Status Onset Heart failure Acute Hypoxia Acute Diabetes Acute Methicillin resistant Staphylococcus aureus infection Acute 08/19/15
--- NOTE | 2017-01-26 08:48 | SOAPPROG ---
SOAP Progress Note Assessment/Plan: Assessment/Plan: Right septic hip, femoral head necrosis s/p I&D, insertion of antibiotic eluding spacer performed by Dr. Garrison, POD#6 -Cont PT/OT, pt will be TDWB of his RLE, posterior hip precautions -Cont SCDs and tubigrip dressings for VTE mechanical prophylaxis -Cont Lovenox for VTE chemoprophylaxis, pt will continue for 4 weeks post op -ID consulted, path results pending, cont abx as ordered -Cont current pain regimen, encourage PO as tolerated -Likely will need SNF/rehab placement on d/c pending senior sustainability consultant approval, and abx plan -Pt remains stable from ortho standpoint 01/26/17 08:47 Subjective: Pt seen at bedside. He has no complaints of significant pain at this time, but does state that he gets tired very easily from his ambulation with PT. He denies any beck, sob, new onset cp, post calf pain bilaterally, or new onset n/t. He states he is tolerating his diet and medications well. We have again discussed discharge disposition, and the need for the infection to completely subside before definitive arthroplasty. He has some concern as to whether these procedures can be completed before year's end as his insurance situation will change. He has no additional concerns or complaints at this time. Objective: Vital Signs Temp Pulse Resp BP Pulse Ox 37.4 C 72 18 133/72 H 97 01/26/17 07:19 01/26/17 07:19 01/26/17 07:19 01/26/17 07:19 01/26/17 07:19 Microbiology 01/21/17 19:36 Gram Stain - Final Hip - Eswab 01/18/17 14:15 Gram Stain - Final Hip - Aspirate Laboratory Results 01/26/17 04:40 01/26/17 04:40 01/25/17 01/26/17 01/27/17 05:59 05:59 05:59 Intake Total 2150 1310 Output Total 2475 1875 125 Balance -325 -565 -125 PT 15.5 SEC (12.0-15.0) H 01/24/17 06:00 INR 1.23 (0.83-1.16) H 01/24/17 06:00 Pt seen up in chair. He is non-toxic in appearance, and in NAD. VSS, non- toxic in appearance. No increased WOB noted. Exam of the RLE reveals intact dressing, clean and dry. No surrounding erythema, calor, discharge or induration noted. Thigh compartment supple. SCDs in place, as well as tubigrip dressings. Abduction pillow at bedside Pt moves legs well. Post calves are NTTP, no palpable vascular cords, neg Yenny's bilat. DNVI BLE. ICD10 Worksheet Patient Problems: Problems Problem Status Onset Heart failure Acute Hypoxia Acute Diabetes Acute Methicillin resistant Staphylococcus aureus infection Acute 08/19/15
[2017-01-26] MEDS: FUROSEMIDE 40 MG TAB PO SCH ×2 (09:16→15:53)
[2017-01-26] MEDS: SENNOSIDES/DOCUSATE SODIUM TAB PO SCH ×2 (09:16→22:09)
[2017-01-26] MEDS: NEBIVOLOL HCL 5 MG TAB PO SCH (09:16)
[2017-01-26] MEDS: ENOXAPARIN 40 MG/0.4 ML SYR SC SCH (09:17)
[2017-01-26] MEDS: CLOPIDOGREL BISULFATE 75 MG TAB PO SCH (09:17)
[2017-01-26] MEDS: cefTRIAXone 2 GM in D5W 50 ML IV SCH (09:17)
[2017-01-26] MEDS: LIDOCAINE 5% 1 EA PATCH TD SCH (09:40)
--- NOTE | 2017-01-26 11:29 | SOAPPROG ---
SOAP Progress Note Assessment/Plan: Assessment: 1. ROBERT Cr back to baseline. 2. Biventricular Heart Failure Still having net diuresis on po loop diuretic. As an outpatient, his sodium intake may increase and he may need adjustment. 3. Dietary education He has been educated on sodium restriction. 4. Sleep Apnea He needs to use CPAP as an outpatient. We will sign off. Thx Subjective: Doing better Objective: Vital Signs Temp Pulse Resp BP Pulse Ox 37.4 C 72 18 133/72 H 97 01/26/17 07:19 01/26/17 07:19 01/26/17 07:19 01/26/17 07:19 01/26/17 07:19 Microbiology 01/21/17 19:36 Gram Stain - Final Hip - Eswab 01/18/17 14:15 Gram Stain - Final Hip - Aspirate Laboratory Results 01/26/17 04:40 01/26/17 04:40 01/25/17 01/26/17 01/27/17 05:59 05:59 05:59 Intake Total 2150 1310 Output Total 2475 1875 125 Balance -325 -565 -125 PT 15.5 SEC (12.0-15.0) H 01/24/17 06:00 INR 1.23 (0.83-1.16) H 01/24/17 06:00 Physical Exam - Physical Exam General Appearance: no apparent distress Respiratory: decreased breath sounds Cardiac/Chest: regular rate, rhythm Extremities: pedal edema Neuro/Psych: oriented x 3 ICD10 Worksheet Patient Problems: Problems Problem Status Onset Heart failure Acute Hypoxia Acute Diabetes Acute Methicillin resistant Staphylococcus aureus infection Acute 08/19/15
--- NOTE | 2017-01-26 12:52 | PCMIDPN ---
Assessment/Plan: Assessment/Plan: 1. Right hip septic arthritis: - s/p wash out and debridement of femoral head -aspirated fluid positive for Strep mitis -Operative cultures ngtd -path pending -Continue on Ceftriaxone for tentative 4 weeks. -Reviewed plan of care with patient, addressed questions/concerns. Meds ceftriaxone 2 g daily- 01/21/17 Subjective: afebrile. right hip less painful compared to last week per patient. Denies sob. o2 via nc 2L. denies diarrhea. or abd pain. Objective: Vital Signs Temp Pulse Resp BP Pulse Ox 36.8 C 77 18 127/81 H 93 01/26/17 11:31 01/26/17 11:31 01/26/17 11:31 01/26/17 11:31 01/26/17 11:31 Microbiology 01/21/17 19:36 Gram Stain - Final Hip - Eswab 01/18/17 14:15 Gram Stain - Final Hip - Aspirate Laboratory Results 01/26/17 04:40 01/26/17 04:40 01/25/17 01/26/17 01/27/17 05:59 05:59 05:59 Intake Total 2150 1310 Output Total 2475 1875 425 Balance -325 -565 -425 ESR 39 MM/HR (0-20) H 01/12/17 03:58 C-Reactive Protein 255.0 mg/L (<10.0) H 01/12/17 03:58 - Physical Exam General Appearance: alert, no apparent distress Respiratory: lungs clear Cardiac/Chest: regular rate, rhythm Extremities: other (right hip with beatriz in place, some dried blood noted.non tender. no erythema.) Abdomen: normal bowel sounds, non-tender, soft ICD10 Worksheet Patient Problems: Problems Problem Status Onset Heart failure Acute Hypoxia Acute Diabetes Acute Methicillin resistant Staphylococcus aureus infection Acute 08/19/15
--- NOTE | 2017-01-26 14:34 | ECHO ---
[email or web address] [address] Main: [phone] Fax: Transthoracic Echocardiogram Name: TONYA LEAVITT MR#: [id number] Study Date: 01/26/2017 Study Time: 10:36 AM Date of : 1955 Age: 61 year(s) Height: 190.5 cm (75 in.) Weight: 136.99 kg (302 lb.) BSA: 2.61 m2 Gender: Male Examination: Limited Echo Indication: Eval for Pulmonary Htn Image Quality: Contrast: Requested by: Robbie Bowers BP: 110 mmHg/93 mmHg Heart Rate: Rhythm: Indication: Eval for Pulmonary Htn Procedure Staff Cooperer: Shane Dukes Reading Physician: Ramiro Rios Requesting Provider: Conclusions: This is a limited echocardiogram for follow-up regarding the patient's history of severe pulmonary hypertension. The left ventricle is hyperdynamic. The right ventricle appears to be normal in size with normal contractility. The degree of tricuspid regurgitation is difficult to ascertain due to aliasing of the regurgitant jet. The estimated RVSP is 44 mmHg. Previous estimations of the RVSP were in excess of 60 mmHg. Measurements: Chambers Valvular Assessment AV/MV Valvular Assessment TV/PV Normal Normal Normal Name Value Range Name Value Range Name Value Range TR Vmax: 3.15 mm/s ( - ) TR PGmax: 40 mmHg ( - ) syst. PAP: 45 mmHg ( - ) Continued Measurements: Valvular Assessment TV/PV Name Value CVP (est.): 5 mmHg Findings: Tricuspid Valve: The tricuspid valve appears normal. Mild tricuspid regurgitation is present. The pulmonary artery pressure is mildly increased. Exam Comments: This is a limited echo to evaluate Tricuspid regurgitation and pulmonary pressures.. Patient: TONYA LEAVITT Study Date: 01/26/2017 Page 1 of 2 10:36 AM (No Signature Object) Patient: TONYA LEAVITT Study Date: 01/26/2017 Page 2 of 2 10:36 AM [id number]
--- NOTE | 2017-01-26 17:47 | HOSPPROG ---
Hospitalist Progress Note Assessment/Plan: #Right hip septic arthritis: s/p I/D, abx implant. Strep mitis. IV abx through 02/18 #Acutely decompensated right heartd/diastolic failure: limited echo today shows RSVP 44mmHg (60 on prior) Lasix 60mg BID, CPAP -educated on fluid and sodium intake #Severe pulmonary HTN: Lasix, CPAP #HTN: Norvasc #CAD: Plavix, BB #Hypothyroidism: LT4 #Gout: colchicine, allopurinol #ROBERT on CKD: resolvced. avoid nephrotoxic agents, no NSAIDs #Metabolic alkalosis: no need for acetazolamide now #Diabetes: metformin at home. Add SSI here #Leukocytosis: nearly resolved #Deconditioning: walking with PT #DVT ppx: Lovenox #Disp: cont inpatient admission for IV abx, diuresis and PT Subjective: pain in right hip after PT today Objective: Vital Signs Temp Pulse Resp BP Pulse Ox 36.9 C 71 20 119/68 94 01/26/17 15:44 01/26/17 15:44 01/26/17 15:44 01/26/17 15:44 01/26/17 15:44 Microbiology 01/21/17 19:36 Gram Stain - Final Hip - Eswab 01/18/17 14:15 Gram Stain - Final Hip - Aspirate Laboratory Results 01/26/17 04:40 01/26/17 04:40 01/25/17 01/26/17 01/27/17 05:59 05:59 05:59 Intake Total 2150 1310 300 Output Total 2475 1875 700 Balance -325 -565 -400 PT 15.5 SEC (12.0-15.0) H 01/24/17 06:00 INR 1.23 (0.83-1.16) H 01/24/17 06:00 - Physical Exam Constitutional: no apparent distress Eyes: PERRL Cardiovascular: regular rate and rhythym, edema (+1 LE edema) Respiratory: no respiratory distress Gastrointestinal: normoactive bowel sounds, soft, non-tender abdomen Musculoskeletal: other (right hip surgical incision dressed, CDI) Neurologic: CN II-XII Intact Psychiatric: interacting appropriately ICD10 Worksheet Patient Problems: Problems Problem Status Onset Heart failure Acute Hypoxia Acute Diabetes Acute Methicillin resistant Staphylococcus aureus infection Acute 08/19/15
[2017-01-26] MEDS: ALUMINUM SULFATE TP SCH ×2 (19:51→22:13)
[2017-01-26] MEDS: CALCIUM ACETATE TP SCH ×2 (19:51→22:13)
[2017-01-26] MEDS: TAMSULOSIN HCL 0.4 MG CAP PO SCH (22:08)
[2017-01-26] MEDS: PATCH REMOVAL 1 EA PATCH TD SCH (22:09)
[2017-01-26] MEDS: [UNRECOGNIZED DRUG - REMARK] PO SCH (23:38)
[2017-01-27] MEDS: LEVOTHYROXINE 150 MCG TAB PO SCH (05:13)
[2017-01-27 05:21] LABS: HEMATOCRIT 29.8 % (40.0-51.0); MEAN CELL HEMOGLOBIN 30.2 pg (27.9-34.1); MEAN CELL HEMOGLOBIN CONCENTR. 33.6 g/dL (32.4-36.7); RED BLOOD CELL COUNT 3.31 10^6/uL (4.40-6.38); RED CELL DISTRIBUTION WIDTH 14.6 % (11.5-15.2)
[2017-01-27 05:42] LABS: ALBUMIN 2.8 g/dL (3.5-5.0); ANION GAP 11 mEq/L (8-16); CALCIUM 8.7 mg/dL (8.5-10.4); CARBON DIOXIDE 34 mEq/l (22-31); CHLORIDE 94 mEq/L (97-110); CREATININE 0.9 mg/dL (0.7-1.3); GLOMERULAR FILTRATION RATE > 60; GLUCOSE 143 mg/dL (70-100); POTASSIUM 4.1 mEq/L (3.5-5.2); SODIUM 139 mEq/L (134-144)
--- NOTE | 2017-01-27 06:43 | PDCARPN ---
Cardiology Progress Note Chief Complaint: SOB Assessment/Plan: Assessment: Assessment/plan: 61 yo M with obesity, DARRYL and hypoxia admitted 01/10 with profound right heart failure as well as diastolic left heart failure. Found to have mean PA pressure of 51 on RHC, PCW 29. Has diuresed about 20 kg with IV lasix and dobutamine. Course complicated by septic right hip joint, s/p debridement and cement hemiarthroplasty on 01/21. Dobutamine stopped 01/24. Plan: 01/26/17 07:54 pt is doing well today. BNP level still elevated but pt has less SOB. Continue current tx. Can check repeat echo today. Continue to advance per primary team. 01/27/17 06:41 Doing much better less SOB echo shows improved RV function with less pulm HTN Renal function stabilized Continue PO diuretic Will follow as needed, please call with any questions Subjective: denies any SOB Time Spent With Patient: 25 min Objective: Vital Signs (8 Hrs) Temp Pulse Resp BP Pulse Ox 01/27/17 04:00 36.9 C 69 16 147/81 H 94 01/26/17 23:03 36.7 C 67 18 125/67 H 99 Intake/Output (24 Hrs) 01/26/17 01/27/17 01/28/17 05:59 05:59 05:59 Intake Total 1310 1100 Output Total 1875 1250 Balance -565 -150 Intake: Oral (ml) 1250 1100 IV Intake (ml) 60 Output: Urine (ml) 1875 1250 Bedside Commode 150 Urinal 1725 1250 Other: Weight 137.2 kg 136.4 kg Intake Quantity Yes Yes Sufficient Number of Voids Urinal 1 2 Number of Stools Bedside Commode 1 1 Result Diagrams: 01/27/17 05:10 01/27/17 05:10 - Physical Exam Constitutional: healthy appearing Ears, Nose, Mouth, Throat: moist mucous membranes Cardiovascular: regular rate and rhythm Respiratory: no crackles Gastrointestinal: normoactive bowel sounds Skin: warm Neurologic: AAOx3 Psychiatric: cooperative ICD10 Worksheet Patient Problems: Problems Problem Status Onset Heart failure Acute Hypoxia Acute Diabetes Acute Methicillin resistant Staphylococcus aureus infection Acute 08/19/15
--- NOTE | 2017-01-27 08:41 | HOSPPROG ---
Hospitalist Progress Note Assessment/Plan: #Right hip septic arthritis: s/p I/D, abx implant. Strep mitis. IV abx through 02/18. Lovenox. Follow up with Dr. Garrison #Acutely decompensated right heartd/diastolic failure: limited echo showed RSVP 44mmHg (60 on prior). Diuresing well on Lasix 60mg BID -educated on fluid and sodium intake #Severe pulmonary HTN: Lasix, CPAP #HTN: Norvasc #CAD: Plavix, BB #Hypothyroidism: LT4 #Gout: colchicine, allopurinol #ROBERT on CKD: resolvced. avoid nephrotoxic agents, no NSAIDs #Metabolic alkalosis: no need for acetazolamide now #Diabetes: metformin at home. Add SSI here #Leukocytosis: nearly resolved #Deconditioning: walking with PT #DVT ppx: Lovenox #Disp: cont inpatient admission for IV abx, diuresis and PT. Can likely DC tomorrow Time spent on visit: 45min spent reviewing labs and bedside counseling patient on DC plan and medication Subjective: walked to door with PT today Objective: Vital Signs Temp Pulse Resp BP Pulse Ox 36.9 C 67 20 126/70 H 97 01/27/17 07:21 01/27/17 07:21 01/27/17 07:21 01/27/17 07:21 01/27/17 07:21 Microbiology 01/21/17 19:36 Gram Stain - Final Hip - Eswab 01/18/17 14:15 Gram Stain - Final Hip - Aspirate Laboratory Results 01/27/17 05:10 01/27/17 05:10 01/26/17 01/27/17 01/28/17 05:59 05:59 05:59 Intake Total 1310 1100 Output Total 1875 1250 Balance -565 -150 PT 15.5 SEC (12.0-15.0) H 01/24/17 06:00 INR 1.23 (0.83-1.16) H 01/24/17 06:00 - Physical Exam Constitutional: no apparent distress Eyes: PERRL Ears, Nose, Mouth, Throat: moist mucous membranes Cardiovascular: regular rate and rhythym, no murmur, rub, or gallop, edema ( trace pedal edema) Respiratory: no respiratory distress, no rales or rhonchi Gastrointestinal: normoactive bowel sounds Genitourinary: no bladder fullness Skin: warm Musculoskeletal: other (right hip surgical incision dressed, C/D/I) Neurologic: AAOx3 Psychiatric: interacting appropriately, anxious ICD10 Worksheet Patient Problems: Problems Problem Status Onset Heart failure Acute Hypoxia Acute Diabetes Acute Methicillin resistant Staphylococcus aureus infection Acute 08/19/15
[2017-01-27] MEDS: ALUMINUM SULFATE TP SCH ×2 (08:51→21:54)
[2017-01-27] MEDS: CALCIUM ACETATE TP SCH ×2 (08:51→21:54)
[2017-01-27] MEDS: cefTRIAXone 2 GM in D5W 50 ML IV SCH (08:55)
[2017-01-27] MEDS: NEBIVOLOL HCL 5 MG TAB PO SCH (08:56)
[2017-01-27] MEDS: CLOPIDOGREL BISULFATE 75 MG TAB PO SCH (08:56)
[2017-01-27] MEDS: COLCHICINE 0.6 MG CAP/TAB PO SCH (08:56)
[2017-01-27] MEDS: metFORMIN HCL 500 MG TAB PO SCH ×2 (08:56→17:08)
[2017-01-27] MEDS: FUROSEMIDE 40 MG TAB PO SCH ×2 (08:56→14:34)
[2017-01-27] MEDS: ENOXAPARIN 40 MG/0.4 ML SYR SC SCH (08:57)
[2017-01-27] MEDS: LIDOCAINE 5% 1 EA PATCH TD SCH (08:57)
[2017-01-27] MEDS: SENNOSIDES/DOCUSATE SODIUM TAB PO SCH ×2 (09:24→21:51)
[2017-01-27] MEDS: HYDROCODONE/APAP 5/325 TAB PO PRN ×3 (09:29→23:30)
--- NOTE | 2017-01-27 09:53 | SOAPPROG ---
SOAP Progress Note Assessment/Plan: Assessment/Plan: s/p I&D of R hip with antibiotic spacer POD#5 - Continue antibiotics per ID - TDWB RLE with walker, posterior hip precautions - Continue PT/OT - Lovenox daily for VTE chemoprophylaxis - Ice to the R hip - Continue to monitor H&H - Will need follow-up with Dr. Garrison in clinic 10-14 days post-operatively 01/24/17 13:03 01/24/17 13:06 01/27/17 09:51 Subjective: Pt states ambulation is getting easier. Pt denies fever, chills, chest pain, SOB, abdominal pain, N/V/D, numbness, tingling and calf pain. Objective: Vital Signs Temp Pulse Resp BP Pulse Ox 36.9 C 67 20 126/70 H 97 01/27/17 07:21 01/27/17 07:21 01/27/17 07:21 01/27/17 07:21 01/27/17 07:21 Microbiology 01/21/17 19:36 Gram Stain - Final Hip - Eswab 01/18/17 14:15 Gram Stain - Final Hip - Aspirate Laboratory Results 01/27/17 05:10 01/27/17 05:10 01/26/17 01/27/17 01/28/17 05:59 05:59 05:59 Intake Total 1310 1100 Output Total 1875 1250 Balance -565 -150 PT 15.5 SEC (12.0-15.0) H 01/24/17 06:00 INR 1.23 (0.83-1.16) H 01/24/17 06:00 Physical Exam - Physical Exam General Appearance: alert, no apparent distress Cardiac/Chest: normal peripheral pulses Skin: normal color, warm/dry, other (incision site c/d/i) Extremities: normal inspection, normal capillary refill, pedal edema, No calf tenderness, No swelling, No Yenny's sign Neuro/Psych: no motor/sensory deficits, alert, normal mood/affect, oriented x 3 ICD10 Worksheet Patient Problems: Problems Problem Status Onset Heart failure Acute Hypoxia Acute Diabetes Acute Methicillin resistant Staphylococcus aureus infection Acute 08/19/15
--- NOTE | 2017-01-27 13:17 | PCMIDPN ---
Assessment/Plan: Assessment: Right hip [place] joint infection secondary to Streptococcus mitis. Status post washout. Will need 4 weeks of IV ceftriaxone prior to conversion over to a total hip arthroplasty. At this point the patient appears that he is clinically progressing nicely. Okay from our standpoint transition him to a rehab facility to complete his treatment course and undergo physical rehabilitation. Plan: 1. Continue IV ceftriaxone. Suspect 4 week course will be needed. 2. Likely plan for aspiration of the right hip following completion of treatment. 3. Follow up with total hip arthroplasty once this aspiration is negative at 72 hours. Subjective: Patient is doing very well today. He has no particular new complaint. Sometimes his right hip causes him some sharp pain but generally it is just achy. No fevers or chills. Objective: Ceftriaxone # 09/09 Vital Signs Temp Pulse Resp BP Pulse Ox 36.9 C 67 16 128/69 H 97 01/27/17 11:05 01/27/17 11:05 01/27/17 11:05 01/27/17 11:05 01/27/17 11:05 Microbiology 01/21/17 19:36 Gram Stain - Final Hip - Eswab 01/18/17 14:15 Gram Stain - Final Hip - Aspirate Laboratory Results 01/27/17 05:10 01/27/17 05:10 01/26/17 01/27/17 01/28/17 05:59 05:59 05:59 Intake Total 1310 1100 200 Output Total 1875 1250 100 Balance -565 -150 100 ESR 39 MM/HR (0-20) H 01/12/17 03:58 C-Reactive Protein 255.0 mg/L (<10.0) H 01/12/17 03:58 - Physical Exam General Appearance: WD/WN, alert, no apparent distress, non-toxic Respiratory: lungs clear, normal breath sounds, No respiratory distress Cardiac/Chest: regular rate, rhythm, No tachycardia Extremities: non-tender, normal inspection Skin: normal color, warm/dry, No rash Neuro/Psych: alert, normal mood/affect, oriented x 3 ICD10 Worksheet Patient Problems: Problems Problem Status Onset Heart failure Acute Hypoxia Acute Diabetes Acute Methicillin resistant Staphylococcus aureus infection Acute 08/19/15
--- NOTE | 2017-01-27 16:43 | ASMTCMCOM ---
CM Note CM Note Notes: CM spoke w/ Dr. Martinez regarding d/c POC. Pt will most likely discharge tomorrow to SNF. CM sent updates to respective SNFs. Pts first choice is [facility] and second choice is [facility]. CM to follow. Date Signed: 01/27/2017 04:42 PM Electronically Signed By:SACHIN Holt
[2017-01-27] MEDS: TAMSULOSIN HCL 0.4 MG CAP PO SCH (21:51)
[2017-01-27] MEDS: [UNRECOGNIZED DRUG - REMARK] PO SCH (21:51)
[2017-01-27] MEDS: PATCH REMOVAL 1 EA PATCH TD SCH (21:51)
[2017-01-28] MEDS: LEVOTHYROXINE 150 MCG TAB PO SCH (04:48)
[2017-01-28 05:23] LABS: ANION GAP 10 mEq/L (8-16); CALCIUM 8.9 mg/dL (8.5-10.4); CARBON DIOXIDE 35 mEq/l (22-31); CHLORIDE 95 mEq/L (97-110); CREATININE 0.9 mg/dL (0.7-1.3); GLOMERULAR FILTRATION RATE > 60; GLUCOSE 111 mg/dL (70-100); POTASSIUM 4.2 mEq/L (3.5-5.2); SODIUM 140 mEq/L (134-144)
[2017-01-28] MEDS: metFORMIN HCL 500 MG TAB PO SCH ×2 (08:24→18:26)
[2017-01-28] MEDS: HYDROCODONE/APAP 5/325 TAB PO PRN ×4 (08:24→23:55)
--- NOTE | 2017-01-28 08:37 | SOAPPROG ---
SOAP Progress Note Assessment/Plan: Assessment/Plan: Status post I&D of Right hip with antibiotic spacer POD#7 Continue antibiotics per ID TDWB RLE with walker, posterior hip precautions Continue PT/OT Lovenox daily for VTE chemoprophylaxis Ice to the R hip Dressing change daily Continue to monitor H&H Ortho stable Subjective: Pt reports that his right hip is still painful but better then 2 days ago. Objective: Vital Signs Temp Pulse Resp BP Pulse Ox 37.0 C 70 16 145/72 H 99 01/28/17 08:00 01/28/17 08:00 01/28/17 08:00 01/28/17 08:00 01/28/17 08:00 Microbiology 01/21/17 19:36 Gram Stain - Final Hip - Eswab 01/18/17 14:15 Gram Stain - Final Hip - Aspirate Laboratory Results 01/27/17 05:10 01/28/17 04:45 01/27/17 01/28/17 01/29/17 05:59 05:59 05:59 Intake Total 1100 800 Output Total 1250 1300 Balance -150 -500 PT 15.5 SEC (12.0-15.0) H 01/24/17 06:00 INR 1.23 (0.83-1.16) H 01/24/17 06:00 Physical exam of the right hip: dressings clean, dry and intact. Normal sensation to light touch in the RLE. Distal pulse present in the RLE. ICD10 Worksheet Patient Problems: Problems Problem Status Onset Heart failure Acute Hypoxia Acute Diabetes Acute Methicillin resistant Staphylococcus aureus infection Acute 08/19/15
[2017-01-28] MEDS: CALCIUM ACETATE TP SCH ×2 (08:40→23:55)
[2017-01-28] MEDS: ALUMINUM SULFATE TP SCH ×2 (08:40→23:55)
--- NOTE | 2017-01-28 08:59 | PDIAF ---
- Diagnosis Diagnosis: septic hip arthritis Code Status: Do Not Resuscitate - Medication Management Discharge Medications: Medications to Continue on Transfer Allopurinol [Allopurinol 300 MG (RX)] 600 mg PO HS 12/23/15 [Last Taken 01/09/17 ] Aspirin [Aspirin 81mg (*)] 81 mg PO HS 12/23/15 [Last Taken 01/09/17] Levothyroxine [Synthroid 150 mcg (*)] 150 mcg PO DAILY06 12/23/15 [Last Taken ] amLODIPine BESYLATE [Norvasc 10 mg (*)] 10 mg PO DAILY 12/23/15 [Last Taken ] metFORMIN HCL [Glucophage 500 mg (*)] 1,000 mg PO BID 12/23/15 [Last Taken 01/10 09:00] Clopidogrel Bisulfate [Plavix (*)] 75 mg PO DAILY #30 tab 12/24/15 [Last Taken 01/10/17] Tamsulosin HCl [Flomax 0.4 MG (*)] 0.4 mg PO HS 01/08/17 [Last Taken 01/09/17] Sleep Study Medication 1 tab PO HS 01/10/17 [Last Taken 01/09/17] Calcium Acetate/Al Sulfate [[place] Packet] 1 pkt TP BID pkt 01/28/17 [Last Taken Unknown] Colchicine [Colchicine (*)] 0.6 mg PO MWF ea 01/28/17 [Last Taken Unknown] Cyclobenzaprine [Flexeril 10 MG (*)] 10 mg PO Q8HRS PRN tab 01/28/17 [Last Taken Unknown] Enoxaparin [Lovenox 40 MG (*)] 40 mg SC DAILY syr 01/28/17 [Last Taken Unknown] Furosemide [Lasix 40 MG (*)] 60 mg PO BID@0900,1500 tab 01/28/17 [Last Taken Unknown] Hydrocodone/APAP 5/325 [[place] 5/325 (*)] 1 - 2 tab PO Q4HRS PRN tab 01/28/17 [ Last Taken Unknown] Lidocaine 5% [Lidoderm 5% Patch (*)] 1 ea TD DAILY patch 01/28/17 [Last Taken Unknown] Nebivolol HCl [Bystolic 5 mg (*)] 5 mg PO DAILY tab 01/28/17 [Last Taken Unknown] Ondansetron Odt [Zofran Odt 4 mg (*)] 4 mg PO Q4HRS PRN tab 01/28/17 [Last Taken Unknown] Polyethylene Glycol 3350 [Miralax 17 gm (*)] 17 gm PO DAILY PRN pkt 01/28/17 [ Last Taken Unknown] Sennosides/Docusate Sodium [Senokot-S] 1 - 2 tab PO BID tab 01/28/17 [Last Taken Unknown] amLODIPine BESYLATE [Norvasc 10 mg (*)] 10 mg PO DAILY tab 01/28/17 [Last Taken Unknown] cefTRIAXone [Rocephin] 2 gm IV DAILY vial 01/28/17 [Last Taken Unknown] metFORMIN HCL [Glucophage 500 mg (*)] 1,000 mg PO BIDMEAL tab 01/28/17 [Last Taken Unknown] traMADol [Ultram 50 mg (*)] 50 mg PO Q6HRS PRN tab 01/28/17 [Last Taken Unknown ] Retort Furnace Operator Antibiotics: Cetriaxone Retort Furnace Operator Antibiotic Stop Date: 02/18/17 Discharge Medications: Refer to the Discharge Home Medication list for PRN reason. PICC Care - Routine: Yes - Orders Services needed: Registered Nurse, Certified Bottle Line Worker, Master Call Center Recruiter , Physical Therapy, Occupational Therapy Isolation Type: None Diet Recommendation: cardiac -low fat low salt - Follow Up Care Current Providers and Referrals: Kojo Romero MD [Primary Care Provider] - As per Instructions Rajiv Garrison MD [Medical Doctor] - (Pt will follow up w/ Dr. Garrison 10-14 days postoperatively, or sooner with any additional concerns or complaints. He is encouraged to contact the office as soon as possible to schedule this appointment.)
[2017-01-28] MEDS: SENNOSIDES/DOCUSATE SODIUM TAB PO SCH ×2 (09:33→19:47)
[2017-01-28] MEDS: NEBIVOLOL HCL 5 MG TAB PO SCH (09:34)
[2017-01-28] MEDS: FUROSEMIDE 40 MG TAB PO SCH ×2 (09:34→15:21)
[2017-01-28] MEDS: CLOPIDOGREL BISULFATE 75 MG TAB PO SCH (09:35)
[2017-01-28] MEDS: LIDOCAINE 5% 1 EA PATCH TD SCH (09:35)
[2017-01-28] MEDS: ENOXAPARIN 40 MG/0.4 ML SYR SC SCH (09:37)
[2017-01-28] MEDS: cefTRIAXone 2 GM in D5W 50 ML IV SCH (09:39)
--- NOTE | 2017-01-28 10:19 | PDIAF ---
- Diagnosis Diagnosis: septic hip arthritis Code Status: Do Not Resuscitate - Medication Management Discharge Medications: Medications to Continue on Transfer Allopurinol [Allopurinol 300 MG (RX)] 600 mg PO HS 12/23/15 [Last Taken 01/09/17 ] Aspirin [Aspirin 81mg (*)] 81 mg PO HS 12/23/15 [Last Taken 01/09/17] Levothyroxine [Synthroid 150 mcg (*)] 150 mcg PO DAILY06 12/23/15 [Last Taken ] amLODIPine BESYLATE [Norvasc 10 mg (*)] 10 mg PO DAILY 12/23/15 [Last Taken ] metFORMIN HCL [Glucophage 500 mg (*)] 1,000 mg PO BID 12/23/15 [Last Taken 01/10 09:00] Clopidogrel Bisulfate [Plavix (*)] 75 mg PO DAILY #30 tab 12/24/15 [Last Taken 01/10/17] Tamsulosin HCl [Flomax 0.4 MG (*)] 0.4 mg PO HS 01/08/17 [Last Taken 01/09/17] Sleep Study Medication 1 tab PO HS 01/10/17 [Last Taken 01/09/17] Calcium Acetate/Al Sulfate [[place] Packet] 1 pkt TP BID pkt 01/28/17 [Last Taken Unknown] Colchicine [Colchicine (*)] 0.6 mg PO MWF ea 01/28/17 [Last Taken Unknown] Cyclobenzaprine [Flexeril 10 MG (*)] 10 mg PO Q8HRS PRN tab 01/28/17 [Last Taken Unknown] Enoxaparin [Lovenox 40 MG (*)] 40 mg SC DAILY syr 01/28/17 [Last Taken Unknown] Furosemide [Lasix 40 MG (*)] 60 mg PO BID@0900,1500 tab 01/28/17 [Last Taken Unknown] Hydrocodone/APAP 5/325 [[place] 5/325 (*)] 1 - 2 tab PO Q4HRS PRN tab 01/28/17 [ Last Taken Unknown] Lidocaine 5% [Lidoderm 5% Patch (*)] 1 ea TD DAILY patch 01/28/17 [Last Taken Unknown] Nebivolol HCl [Bystolic 5 mg (*)] 5 mg PO DAILY tab 01/28/17 [Last Taken Unknown] Ondansetron Odt [Zofran Odt 4 mg (*)] 4 mg PO Q4HRS PRN tab 01/28/17 [Last Taken Unknown] Polyethylene Glycol 3350 [Miralax 17 gm (*)] 17 gm PO DAILY PRN pkt 01/28/17 [ Last Taken Unknown] Sennosides/Docusate Sodium [Senokot-S] 1 - 2 tab PO BID tab 01/28/17 [Last Taken Unknown] amLODIPine BESYLATE [Norvasc 10 mg (*)] 10 mg PO DAILY tab 01/28/17 [Last Taken Unknown] cefTRIAXone [Rocephin] 2 gm IV DAILY vial 01/28/17 [Last Taken Unknown] metFORMIN HCL [Glucophage 500 mg (*)] 1,000 mg PO BIDMEAL tab 01/28/17 [Last Taken Unknown] traMADol [Ultram 50 mg (*)] 50 mg PO Q6HRS PRN tab 01/28/17 [Last Taken Unknown ] Mortgage Closing Clerk Antibiotics: Cetriaxone 2 g IV q24 hours Residential Antibiotic Stop Date: 02/18/17 Discharge Medications: Refer to the Discharge Home Medication list for PRN reason. PICC Care - Routine: Yes - Orders Services needed: Registered Nurse, Certified Guest Request Runner, Master Credit Control Assistant , Physical Therapy, Occupational Therapy Isolation Type: None Diet Recommendation: cardiac -low fat low salt - Labs/Radiology CBC w/diff Date: 02/01/17 (weekly q wednesday) CMP Date: 02/01/17 (weekly q wednesday) CRP Date: 02/01/17 (weekly q wednesday) Call or Fax Lab and Imaging Results to: Dr Guerrero, - Follow Up Care Current Providers and Referrals: Kojo Romero MD [Primary Care Provider] - As per Instructions Rajiv Garrison MD [Medical Doctor] - (Pt will follow up w/ Dr. Garrison 10-14 days postoperatively, or sooner with any additional concerns or complaints. He is encouraged to contact the office as soon as possible to schedule this appointment.) Alin Guerrero MD [Medical Doctor] - 02/10/17 10:00 am
--- NOTE | 2017-01-28 13:06 | PCMIDPN ---
Assessment/Plan: Assessment/Plan: * Right hip septic arthritis due to Streptococcus mitis status post incision and drainage with resection of femoral head: Clinically improved post debridement and with IV antibiotics. Operative cultures remain no growth. Pathology of femoral head remains pending. Plan 4 weeks of ceftriaxone with weekly laboratory monitoring. Okay for discharge from ID perspective and arranged for follow-up in my office in approximately 10 days. Side effects of ceftriaxone and risks and benefits of PICC line were reviewed with patient today. 01/28/17 13:03 Subjective: Patient continues to have less right hip pain. Able to ambulate with walker to bathroom. Likely will be discharged today to custodial facility for ongoing rehabilitation. Objective: Vital Signs Temp Pulse Resp BP Pulse Ox 36.9 C 65 19 115/68 98 01/28/17 11:29 01/28/17 11:29 01/28/17 11:29 01/28/17 11:29 01/28/17 11:29 Microbiology 01/21/17 19:36 Gram Stain - Final Hip - Eswab 01/18/17 14:15 Gram Stain - Final Hip - Aspirate Laboratory Results 01/27/17 05:10 01/28/17 04:45 01/27/17 01/28/17 01/29/17 05:59 05:59 05:59 Intake Total 1100 800 Output Total 1250 1300 Balance -150 -500 ESR 39 MM/HR (0-20) H 01/12/17 03:58 C-Reactive Protein 255.0 mg/L (<10.0) H 01/12/17 03:58 Ceftriaxone # 7/28 - Physical Exam General Appearance: alert, no apparent distress EENT: No thrush Cardiac/Chest: regular rate, rhythm, No systolic murmur Extremities: inflammation (Right hip incision intact without erythema; minimal drainage posteriorly on dressing which appears serous) Abdomen: non-tender, No distended - Line/s LUE PICC Lines: No drainage, No erythema ICD10 Worksheet Patient Problems: Problems Problem Status Onset Heart failure Acute Hypoxia Acute Diabetes Acute Methicillin resistant Staphylococcus aureus infection Acute 08/19/15
--- NOTE | 2017-01-28 17:21 | HOSPPROG ---
Hospitalist Progress Note Assessment/Plan: #Right hip septic arthritis: s/p I/D, abx implant. Strep mitis. IV abx through 02/18. Lovenox. Follow up with Dr. Garrison #Acutely decompensated right heartd/diastolic failure: limited echo showed RSVP 44mmHg (60 on prior). Diuresing well on Lasix 60mg BID -educated on fluid and sodium intake -CPAP #Severe pulmonary HTN: Lasix, CPAP #HTN: Norvasc #CAD: Plavix, BB #Hypothyroidism: LT4 #Gout: colchicine, allopurinol #ROBERT on CKD: resolvced. avoid nephrotoxic agents, no NSAIDs #Metabolic alkalosis: no need for acetazolamide now #Diabetes: metformin at home. Add SSI here #Leukocytosis: nearly resolved #Deconditioning: walking with PT #DVT ppx: Lovenox #Disp: cont inpatient admission for IV abx, diuresis and PT. Can likely DC tomorrow to [facility] Subjective: No CP or SOB. Right hip sore after PT Objective: Vital Signs Temp Pulse Resp BP Pulse Ox 36.9 C 78 18 139/78 H 92 01/28/17 17:02 01/28/17 17:02 01/28/17 17:02 01/28/17 17:02 01/28/17 17:02 Microbiology 01/21/17 19:36 Gram Stain - Final Hip - Eswab 01/18/17 14:15 Gram Stain - Final Hip - Aspirate Laboratory Results 01/27/17 05:10 01/28/17 04:45 01/27/17 01/28/17 01/29/17 05:59 05:59 05:59 Intake Total 1100 800 Output Total 1250 1300 Balance -150 -500 PT 15.5 SEC (12.0-15.0) H 01/24/17 06:00 INR 1.23 (0.83-1.16) H 01/24/17 06:00 - Physical Exam Constitutional: no apparent distress Eyes: PERRL Ears, Nose, Mouth, Throat: moist mucous membranes Cardiovascular: regular rate and rhythym Respiratory: no respiratory distress, no rales or rhonchi Gastrointestinal: normoactive bowel sounds Genitourinary: no bladder fullness Skin: warm Musculoskeletal: other (right hip incision dressed, CDI) Psychiatric: interacting appropriately, anxious ICD10 Worksheet Patient Problems: Problems Problem Status Onset Heart failure Acute Hypoxia Acute Diabetes Acute Methicillin resistant Staphylococcus aureus infection Acute 08/19/15
[2017-01-28] MEDS: TAMSULOSIN HCL 0.4 MG CAP PO SCH (19:48)
[2017-01-28] MEDS: [UNRECOGNIZED DRUG - REMARK] PO SCH (23:55)
[2017-01-28] MEDS: PATCH REMOVAL 1 EA PATCH TD SCH (23:55)
[2017-01-29] MEDS: HYDROCODONE/APAP 5/325 TAB PO PRN ×3 (04:47→12:46)
[2017-01-29] MEDS: LEVOTHYROXINE 150 MCG TAB PO SCH (04:47)
[2017-01-29 05:40] LABS: ALBUMIN 2.9 g/dL (3.5-5.0); ANION GAP 10 mEq/L (8-16); CALCIUM 8.9 mg/dL (8.5-10.4); CARBON DIOXIDE 35 mEq/l (22-31); CHLORIDE 96 mEq/L (97-110); CREATININE 0.8 mg/dL (0.7-1.3); GLOMERULAR FILTRATION RATE > 60; GLUCOSE 99 mg/dL (70-100); POTASSIUM 4.3 mEq/L (3.5-5.2); SODIUM 141 mEq/L (134-144)
[2017-01-29] MEDS: metFORMIN HCL 500 MG TAB PO SCH (07:43)
[2017-01-29] MEDS: COLCHICINE 0.6 MG CAP/TAB PO SCH (07:43)
[2017-01-29] MEDS: NEBIVOLOL HCL 5 MG TAB PO SCH (08:55)
[2017-01-29] MEDS: CLOPIDOGREL BISULFATE 75 MG TAB PO SCH (08:55)
[2017-01-29] MEDS: SENNOSIDES/DOCUSATE SODIUM TAB PO SCH (08:55)
[2017-01-29] MEDS: FUROSEMIDE 40 MG TAB PO SCH (08:56)
[2017-01-29] MEDS: ALUMINUM SULFATE TP SCH (08:57)
[2017-01-29] MEDS: CALCIUM ACETATE TP SCH (08:57)
[2017-01-29] MEDS: ENOXAPARIN 40 MG/0.4 ML SYR SC SCH (08:57)
[2017-01-29] MEDS: LIDOCAINE 5% 1 EA PATCH TD SCH (08:59)
[2017-01-29] MEDS: cefTRIAXone 2 GM in D5W 50 ML IV SCH (09:03)
[2017-01-29 11:04] VITALS: BP 118/62; PULSE 65; RESP 20; TEMP 97.8; O2SAT 96
--- NOTE | 2017-01-29 11:59 | PDIAF ---
- Diagnosis Diagnosis: septic hip arthritis Code Status: Do Not Resuscitate - Medication Management Discharge Medications: Medications to Continue on Transfer Allopurinol [Allopurinol 300 MG (RX)] 600 mg PO HS 12/23/15 [Last Taken 01/09/17 ] Aspirin [Aspirin 81mg (*)] 81 mg PO HS 12/23/15 [Last Taken 01/09/17] Levothyroxine [Synthroid 150 mcg (*)] 150 mcg PO DAILY06 12/23/15 [Last Taken ] amLODIPine BESYLATE [Norvasc 10 mg (*)] 10 mg PO DAILY 12/23/15 [Last Taken ] metFORMIN HCL [Glucophage 500 mg (*)] 1,000 mg PO BID 12/23/15 [Last Taken 01/10 09:00] Clopidogrel Bisulfate [Plavix (*)] 75 mg PO DAILY #30 tab 12/24/15 [Last Taken 01/10/17] Tamsulosin HCl [Flomax 0.4 MG (*)] 0.4 mg PO HS 01/08/17 [Last Taken 01/09/17] Sleep Study Medication 1 tab PO HS 01/10/17 [Last Taken 01/09/17] Calcium Acetate/Al Sulfate [[place] Packet] 1 pkt TP BID pkt 01/28/17 [Last Taken Unknown] Colchicine [Colchicine (*)] 0.6 mg PO MWF ea 01/28/17 [Last Taken Unknown] Cyclobenzaprine [Flexeril 10 MG (*)] 10 mg PO Q8HRS PRN tab 01/28/17 [Last Taken Unknown] Furosemide [Lasix 40 MG (*)] 60 mg PO BID@0900,1500 tab 01/28/17 [Last Taken Unknown] Hydrocodone/APAP 5/325 [[place] 5/325 (*)] 1 - 2 tab PO Q4HRS PRN tab 01/28/17 [ Last Taken Unknown] Lidocaine 5% [Lidoderm 5% Patch (*)] 1 ea TD DAILY patch 01/28/17 [Last Taken Unknown] Nebivolol HCl [Bystolic 5 mg (*)] 5 mg PO DAILY tab 01/28/17 [Last Taken Unknown] Ondansetron Odt [Zofran Odt 4 mg (*)] 4 mg PO Q4HRS PRN tab 01/28/17 [Last Taken Unknown] Polyethylene Glycol 3350 [Miralax 17 gm (*)] 17 gm PO DAILY PRN pkt 01/28/17 [ Last Taken Unknown] Sennosides/Docusate Sodium [Senokot-S] 1 - 2 tab PO BID tab 01/28/17 [Last Taken Unknown] amLODIPine BESYLATE [Norvasc 10 mg (*)] 10 mg PO DAILY tab 01/28/17 [Last Taken Unknown] cefTRIAXone [Rocephin] 2 gm IV DAILY vial 01/28/17 [Last Taken Unknown] metFORMIN HCL [Glucophage 500 mg (*)] 1,000 mg PO BIDMEAL tab 01/28/17 [Last Taken Unknown] traMADol [Ultram 50 mg (*)] 50 mg PO Q6HRS PRN tab 01/28/17 [Last Taken Unknown ] Enoxaparin [Lovenox 40 MG (*)] 40 mg SQ DAILY #30 syr 01/29/17 [Last Taken Unknown] Shelter Antibiotics: Cetriaxone 2 g IV q24 hours Shelter Antibiotic Stop Date: 02/18/17 Discharge Medications: Refer to the Discharge Home Medication list for PRN reason. PICC Care - Routine: Yes - Orders Services needed: Registered Nurse, Certified Regulatory Compliance Officer, Master Statement Services Representative , Physical Therapy, Occupational Therapy Isolation Type: None Diet Recommendation: cardiac -low fat low salt Diet Texture: Regular Texture Diet Additional: Lovenox daily dose for 4 weeks. stop 02/20/17 - Labs/Radiology CBC w/diff Date: 02/01/17 (weekly q wednesday) CMP Date: 02/01/17 (weekly q wednesday) CRP Date: 02/01/17 (weekly q wednesday) Call or Fax Lab and Imaging Results to: Dr Guerrero, - Follow Up Care Current Providers and Referrals: Kojo Romero MD [Primary Care Provider] - As per Instructions Alin Guerrero MD [Medical Doctor] - 02/10/17 10:00 am Rajiv Garrison MD [Medical Doctor] - (Pt will follow up w/ Dr. Garrison 10-14 days postoperatively (01/31-02/04), or sooner with any additional concerns or complaints. He is encouraged to contact the office as soon as possible to schedule this appointment. Deanne to be dc'd at office visit with Dr Garrison. Keep current dressing on (if possible) until pt sees Dr Garrison)
--- NOTE | 2017-01-29 12:27 | ASMTCMCOM ---
CM Note CM Note Notes: Pt is being discharged to [facility] today. Rajwinder from [facility] set up transport via wheelchair w/ o2. CM provided FAY Grullon w/ phone number to give report to [facility]. CM available for changes. Date Signed: 01/29/2017 12:26 PM Electronically Signed By:SACHIN Holt
--- NOTE | 2017-01-29 16:10 | ASDISCHSUM ---
Discharge Information Plan Status:SNF Medically Cleared to Leave:01/28/2017 Discharge Date:01/29/2017 01:59 PM CM D/C Disposition:Shelter Facility ADT D/C Disposition:Shelter Facility Projected Discharge Date:01/29/2017 11:00 AM Transportation at D/C:Wheelchair Van Discharge Delay Reason: Follow-Up Date:01/29/2017 11:00 AM Discharge Slot: Final Diagnosis:R hip septic arthritis, CHF, Pulm HTN, HTN, CAD, DM Placement Information Referral Type:*Mcfp/SNF Referral ID:[id number] Provider Name:[facility] Address 1:[address] [place] [address] Address 2: City:[place] Selection Factors: State:[place] Referral Type:*Home Health Care Services Referral ID:[id number] Provider Name: Address 1: Phone Number: Address 2: Fax Number: City: Selection Factors: State: Referral Type:*Mcfp/SNF Referral ID:[id number] Provider Name: Address 1: Phone Number: Address 2: Fax Number: City: Selection Factors: State: Patient Contact Information Contact Name:ESVIN Relationship: Address: City:[place] Alternate Phone: [facility]/Zip Code:[place] [address] Email: Financial Information Financial Class:[employer] Primary Plan Desc:[place] [facility] Primary Plan Number:[id number] Secondary Plan Desc: Secondary Plan Number: Assessment Information LACE LACE Acuity / Level of Care Answers: Was the patient admitted to hospital via the emergency department? Yes: Comorbidities - select Answers: Diabetes without all that apply complications Congestive heart failure Emergency dept visits in Answers: 1 last 6 months Score: 7 Date Signed: 01/10/2017 03:50 PM Electronically Signed By:Karen Pitt RN [facility] CM Progress Note CM Note CM Note Notes: Patient admitted for hypoxia and SOB; pt currently requiring 4L O2 NC to maintain 90% SpO2. Pt to have ECHO. Patient has DM, CHF, OA of hip, chronic pain, obstructive sleep apnea (uses CPAP). Patient was admitted to the hospital on 01/08/17 for hypoxia during an outpatient MRI of his hip. Per DC Summary on 01/09, patient had asked for Ambien and was told he would not be receiving it and then left AMA and was picked up by his brother. Today, patient told ED RN he is in an Ambien reduction program at [facility]; see ED RN note 01/10. Exact DC needs unknown at this time, CM to follow. Date Signed: 01/10/2017 04:05 PM Electronically Signed By:Karen Pitt RN [facility] CM Progress Note CM Note CM Note Notes: 01/12/2017 Case Management Note Met w/pt to discuss SNF rehab options. Pt was distressed indicating there are pending financial difficulties with missing more time from work. 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 Pt was drowsy but arousable during conversation, able to answer questions appropriately. Pt [facility]. Faxed referrals to facilities, awaiting placement. Agreed to [facility] home care if SNF rehab is unneccessary at d/c. Notified [facility]. Case Management preferred d/c poc: to SNF rehab as recommended by PT. Alternative d/c poc: [facility] senior policy associate PT. Case management to follow. Date Signed: 01/12/2017 04:10 PM Electronically Signed By:Elodia Callaway RN [facility] CM Progress Note CM Note CM Note Notes: 01/14/2017 Case Management Note met w/pt and sister in law with brother on the phone. Informed pt of placement at SNF rehab at d/c. Pt in agreement. Case management to follow. Date Signed: 01/14/2017 05:06 PM Electronically Signed By:Elodia Callaway RN [facility] CM Progress Note CM Note CM Note Notes: Chart reviewed. Met with pt to review plan of care. This am he has a sitter in his room. He is confused and does not remember coversations regarding discharge plans. CM to follow. Date Signed: 01/15/2017 10:16 AM Electronically Signed By:Haylie Oakley RN [facility] CM Progress Note CM Note CM Note Notes: Spoke to patient, who is cognitively clear, regarding SNF Rehabs. He would like to be close to his brother in [place] and asked for a referral to be sent to [facility]. Referral was sent. Date Signed: 01/17/2017 02:06 PM Electronically Signed By:Tasneem Newberry LCSW [facility] EL Progress Note CM Note CM Note Notes: 01/20/2017 Case Management Note Met w/pt and sister in law. Informed pt that [facility] is not in network for [email or web address]. [facility] F[facility] referral and requested [facility] insurance auth. Requested pt contact [facility] and provide list of in network SNFs for case management before further referrals are sent to facilities. Per pt friend Sarah to help with request later this afternoon. Case Management d/c poc: to SNF rehab pending authorization when medically stable. Case Management to follow. Date Signed: 01/20/2017 12:43 PM Electronically Signed By:Elodia Callaway RN [facility] EL Progress Note CM Note CM Note Notes: CM spoke w/ Dr. Oliveira regarding d/c POC. Miriam from [facility] and Ramonita from [facility] in today to do an on site. CM sent updates to all facilities. Pt is scheduled to have a surgical intervention today. PT and OT continue to recommending SNF. CM to follow. Date Signed: 01/21/2017 02:35 PM Electronically Signed By:SACHIN Holt [facility] CM Progress Note CM Note CM Note Notes: POD #3 S/P I&D of R hip-abx spacer. On IV ABX. Working with therapies-recommending In-pt rehab. Need an MD Order for in-pt to eval. Date Signed: 01/24/2017 05:14 PM Electronically Signed By:Tasneem Newberry LCSW [facility] CM Progress Note CM Note CM Note Notes: IN-pt Rehab concerned that patient needs to climb 20 steps to get to his apartment and he lives alone. In-pt feels it would be best for him to go to a SNF 1st. Spoke to patient and he chooses [facility] over [facility]. [facility]. Date Signed: 01/25/2017 01:59 PM Electronically Signed By:Tasneem Newberry LCSW [facility] CM Progress Note CM Note CM Note Notes: Received a call from [facility]- they may not have bed availability until . Date Signed: 01/25/2017 03:57 PM Electronically Signed By:Tasneem Newberry LCSW [facility] Progress Note CM Note CM Note Notes: CM spoke w/ Dr. Martinez regarding d/c POC. Pt will most likely discharge tomorrow to SNF. CM sent updates to respective SNFs. Pts first choice is [facility] and second choice is [facility]. CM to follow. Date Signed: 01/27/2017 04:42 PM Electronically Signed By:SACHIN Holt [facility] EL Progress Note CM Dee GALLEGOS Note Notes: Pt is being discharged to [facility] today. Rajwinder from [facility] set up transport via wheelchair w/ o2. CM provided FAY Grullon w/ phone number to give report to [facility]. CM available for changes. Date Signed: 01/29/2017 12:26 PM Electronically Signed By:SACHIN Holt Intervention Information
--- NOTE | 2017-01-29 18:39 | GDS ---
[f rep st] DISCHARGE SUMMARY DISCHARGE DIAGNOSES: 1. Right hip septic arthritis due to Streptococcus mitis, status post irrigation and debridement wit h resection of femoral head. 2. Acutely decompensated right heart failure/diastolic heart failure, on CPAP. 3. Severe pulmonary hypertension. 4. Hypertension. 5. Coronary artery disease. 6. Hypothyroidism. 7. Gout. 8. Acute kidney injury on chronic kidney disease. 9. Metabolic alkalosis. 10. Diabetes. 11. Leukocytosis. 12. Deconditioning. 13. Anxiety. 14. Obesity. 15. Obstructive sleep apnea. PROCEDURES: 01/21/2017, excision of femoral head with implantation of cement-eluding hemiarthroplast y, I and D of right hip infection by Dr. Garrison. IMAGING: Echocardiogram 01/26/2017, a limited echo. Left ventricle is hyperdynamic. Right ventricl e appears to be normal in size. The degree of tricuspid regurgitation is difficult to discern. Helene mated RVSP is 44 mmHg, which was previously 60 mmHg. HISTORY OF PRESENT ILLNESS: A 61-year-old male with DARRYL, CAD, obesity, who presented with shortness of breath and hip pain. He was recently evaluated at [facility] with an MRI and post M RI, was noted to be significantly hypoxic requiring 4-5 L. However, he left AMA when he was told he would not be given 25 mg of Ambien which he was requesting. This is part of a trial he is on at [facility]. HOSPITAL COURSE BY PROBLEM: 1. Right septic hip arthritis: Streptococcus myelitis. Status post I and D with resection of femor al head. Infectious Disease was involved and the patient was on ceftriaxone. This will continue for [address] weeks[address] is in place. He will follow up with Dr. Garrison with Orthopedics. The patient to be on Lovenox for 30 days post-op, continue through 02/20/2017. 2. Acute hypoxic respiratory failure due to decompensated heart failure. He is requiring 4 L at lulu e of discharge. Continue CPAP. 3. Severe pulmonary hypertension, again secondary to DARRYL. Repeat limited echo showed RVSP of 44 mmH g from 60. He is now stable on room air. Continue CPAP. 4. Hypertension. Norvasc. Discontinue lisinopril. 5. Coronary artery disease. Continue Plavix, beta thelma. 6. Hypothyroidism, . 7. History of insomnia. He is on a study drug through [facility]. This was given him at disch arge to continue at his rehab. 8. Acute kidney injury on chronic kidney disease: This is secondary to acutely decompensated heart failure. This is resolved. Avoid nephrotoxins agents such as NSAIDs. 9. Metabolic alkalosis, resolved. 10. Diabetes. Resume metformin. 11. Leukocytosis secondary to acute infection, nearly resolved. 12. Deconditioning. He will be discharged to [facility] for rehab. 13. Anxiety: Patient is very anxious with pressured speech. Offered an anxiolytics, but he decline d. 14. Patient is stable for discharge to [facility] for acute rehab. MEDICATIONS: See medication reconciliation. FOLLOWUP: 1. Dr. Guerrero with Infectious Disease. 2. Dr. Garrison of Orthopedics. 3. Cardiology at [facility]. PHYSICAL EXAM: VITAL SIGNS: Today, temperature 36.6, blood pressure 118/62, heart rate 65, respirat ions 20. 4 L nasal cannula. GENERAL: Sitting up in bed, no acute distress. Obese. HEENT: PERRLA , EOMI. Oropharynx clear. CV: Regular rate and rhythm. No murmurs, gallops, rubs. LUNGS: Clear to auscultation bilaterally. ABDOMEN: Large but soft. No tenderness to palpation. : No Lugo. MUSCULOSKELETAL: Right hip surgical incision dressed clean, dry, and intact. NEURO: 2 through 12 intact. PSYCH: Alert and oriented x3. Very anxious. Time spent on discharge: 45 minutes, counseling patient on discharge medications and treatment plan. /[id number]/MODL
== END 2017-01-29 13:59 | DRG 286 ==
LOC: INTOOBSV 15:47 → F2W 17:05 → OBSVTOIN 01-11 17:49 → F2W 01-12 04:31 → F2N 01-21 21:37 → F2W 01-25 19:53
PROVIDERS: ADMIT Internal Medicine; ATTEND Internal Medicine
PROC: B246ZZ4 Ultrasonography of Right and Left Heart, Transesophageal (ICD-10-PCS; principal; 2017-01-13)
PROC: 4A023N6 Measurement of Cardiac Sampling and Pressure, Right Heart, Percutaneous Approach (ICD-10-PCS; principal; 2017-01-13)
PROC: 02HV33Z Insertion of Infusion Device into Superior Vena Cava, Percutaneous Approach (ICD-10-PCS; 2017-01-13)
PROC: 3E043XZ Introduction of Vasopressor into Central Vein, Percutaneous Approach (ICD-10-PCS; 2017-01-13)
PROC: 0S993ZX Drainage of Right Hip Joint, Percutaneous Approach, Diagnostic (ICD-10-PCS; 2017-01-18)
PROC: 3E1U38Z Irrigation of Joints using Irrigating Substance, Percutaneous Approach (ICD-10-PCS; 2017-01-21 16:00)
PROC: 0SH908Z Insertion of Spacer into Right Hip Joint, Open Approach (ICD-10-PCS; 2017-01-21 16:00)
DX: I50.33 Acute on chronic diastolic (congestive) heart failure (principal); R57.0 Cardiogenic shock; I27.29 Other secondary pulmonary hypertension; G47.33 Obstructive sleep apnea (adult) (pediatric); J96.01 Acute respiratory failure with hypoxia; N17.9 Acute kidney failure, unspecified; N18.3 Chronic kidney disease, stage 3 (moderate); M00.251 Other streptococcal arthritis, right hip; M87.851 Other osteonecrosis, right femur; M86.151 Other acute osteomyelitis, right femur; L76.32 Postprocedural hematoma of skin and subcutaneous tissue following other procedure; D62 Acute posthemorrhagic anemia; E87.2 Acidosis; E87.3 Alkalosis; E66.09 Other obesity due to excess calories; Z68.37 Body mass index [BMI] 37.0-37.9, adult; G47.00 Insomnia, unspecified; Z91.19 Patient's noncompliance with other medical treatment and regimen; E11.9 Type 2 diabetes mellitus without complications; F41.9 Anxiety disorder, unspecified; I25.10 Atherosclerotic heart disease of native coronary artery without angina pectoris; Z95.5 Presence of coronary angioplasty implant and graft; I12.9 Hypertensive chronic kidney disease with stage 1 through stage 4 chronic kidney disease, or unspecified chronic kidney disease; M10.9 Gout, unspecified; E03.9 Hypothyroidism, unspecified; N40.0 Benign prostatic hyperplasia without lower urinary tract symptoms
CPT/HCPCS: 82947-QW; 87556-90; 96374; 97110-GP; 97116-GP; 97162-GP; 97164-GP; 97165-GO; 97168-GO; 97530-GO; 97530-GP; 97535-GO; A9540; C1713; C1751; C8924; G0378; J0696; J1120; J1170; J1250; J1644; J1650; J1940; J2250; J2550; J2704; J2997; J3010; J7608; P9041; Q9957; Q9967

== ENCOUNTER → 2017-02-19 | Outpatient (CLI) | payer OTHER ==
[~2017-02-19] MED LIST: IOPAMIDOL (ISOVUE 370) 100 ML BTL IV ONE; LIDOCAINE 1% 300 MG/30 ML SDV ONE
== END ==
LOC: FIMAGING 09:24
PROVIDERS: ATTEND Orthopaedic Surgery Sports Medicine
PROC: 0S993ZZ Drainage of Right Hip Joint, Percutaneous Approach (ICD-10-PCS; principal; 2017-02-19)
DX: L02.415 Cutaneous abscess of right lower limb (principal)
CPT/HCPCS: Q9967

== ENCOUNTER 2017-02-24 11:40 | Inpatient (IN) | payer OTHER ==
[2017-02-24] MEDS ORDERED: ROPIVACAINE 0.2% 80 MG, EPINEPHrine 0.2 MG, KETOROLAC TROMETHAMINE 30 MG, morphINE 10 M... IU ONE (12:02)
[2017-02-24] MEDS ORDERED: TRANEXAMIC ACID 1,000 MG in NS 100 ML IV ONE (12:02)
[2017-02-24] MEDS ORDERED: ceFAZolin 3 GM in D5W 100 ML IV ONE (12:02)
--- NOTE | 2017-02-24 12:32 | ASMTCMCOM ---
CM Note CM Note Notes: 02/24/2017 Case Management Note Met w/pt. Pt had recent admission to [facility] and was sent to [facility] to gain strength for planned hip surgery. Per pt, he is admitted for planned hip procedure. Pt requested that he return to [facility] at [facility]. Phone call into Joan at [facility] [phone]. Case Management d/c poc: to be determined. Case Management to follow. Date Signed: 02/24/2017 12:32 PM Electronically Signed By:Elodia Callaway RN
[2017-02-24] MEDS ORDERED: traMADol 50 MG TAB PO PRN (13:27)
[2017-02-24] MEDS ORDERED: POLYETHYLENE GLYCOL 3350 17 GM PKT PO PRN (13:27)
[2017-02-24] MEDS ORDERED: CYCLOBENZAPRINE 10 MG TAB PO PRN (13:27)
--- NOTE | 2017-02-24 14:36 | CPEKG ---
Heart Rate: 75 RR Interval: 800 P-R Interval: 156 QRSD Interval: 104 QT Interval: 436 QTC Interval: 487 P [place]: 42 QRS [place]: 61 T Wave [place]: 251 EKG Severity - BORDERLINE ECG - EKG Impression: SINUS RHYTHM EKG Impression: BORDERLINE PROLONGED QT INTERVAL EKG Impression: VENTRICULAR ECTOPIC BEAT Electronically Signed By: Belen Kc 25-Feb-2017 06:48:51
[2017-02-24] MEDS: HYDROCODONE/APAP 5/325 TAB PO PRN ×3 (14:49→23:41)
--- NOTE | 2017-02-24 17:35 | PDCARPN ---
Cardiology Progress Note Chief Complaint: patient reports he is very anxious and nervous about upcoming surgery. Assessment/Plan: Assessment: Please see Dr Serrano' office note dated 02/17/2017, to be used as our consultation note. All his recent cardiac procedures have been outlined in this note. Mr Ellis is a 61-year-old male with significant history of CAD with PCI of the LAD in 2005, PCI of the 1st OM and PDA performed approximately 14 months ago. He also has significant history of he chronic right-sided heart failure secondary to chronic cor pulmonale , chronic obstructive sleep apnea, hypertension , hypercholesteremia, and type 2 diabetes.. Late December, early January, he was hospitalized for hip pain, and found to be in acute on chronic right-sided heart failure . He was also found during this hospitalization that he had right hip septic arthritis. His initial surgery was held due to his CHF , requiring him to be placed on IV dobutamine and Lasix, during his hospital, he lost approximately 50 lb in fluid weight. Since that discharge, he has been residing at a rehab facility. He informs me he has had no significant weight gain. He denies of any chest pressure or pain. He has had no worsening in shortness of breath. He has been compliant with his medications. He has recently (February 17) been taken off anti-platelet therapy of clopidogrel, due to last PCI was greater than 14 months. Electrocardiogram today showing sinus rhythm , nonspecific T-wave abnormalities in inferior lateral leads. Early R- wave progression. Premature ventricular contraction. No significant change from his EKG done in our office on February 17, or from prior discharge EKG. Recent laboratory [facility] showed sodium of 143, potassium 3.9 chloride 99, CO2 29, glucose 109, BUN 14, creatinine 0.8, calcium 9.3, total bilirubin 0.6, total protein 6.7, albumin 3.7, AST 17, ALT 30 , alkaline phosphate 80, WBC 8.10, hemoglobin 11.5, hematocrit 34.5, platelet count 234 (Drawn on 02/22/2017) Plan: After discussing the patient with Dr. Serrano, patient is felt to be increased but acceptable risk for his upcoming procedure. This was explained to the patient, he verbalizes understanding and he is wanting to proceed. Recommendations, as mentioned in Dr. Serrano is previous note, his cor pulmonale makes him preload dependent, meaning that dehydration should be avoided. Conversely , excess fluid administration puts him at risk for worsening of right-sided CHF. His fluid status should be monitored very closely intraoperatively and postoperatively. He should stay on his Bystolic up to the day of surgery and resume it postoperatively. As for anti-platelet therapy, his clopidogrel has been discontinued February 17, patient states that his aspirin has been held. Postoperatively, when deemed safe by surgery, his aspirin should be resumed, along with the rest of his cardiac medications. Thank you for this consultation, we will gladly follow this patient with you for his hospitalization. 02/24/17 17:35 Subjective: Patient reports no chest pressure or pain. No worsening in shortness of breath. Reports continues to have orthopnea, sleeping in chair with CPAP. Denies of any palpitations, lightheadedness, near-syncope, or syncopal events. Reports he has been increasing exertion , with no symptoms. Reviewed/Discussed With: other (Dr Serrano) Objective: Vital Signs (8 Hrs) Temp Pulse Resp BP Pulse Ox 02/24/17 16:04 36.6 C 68 18 126/71 H 89 L 02/24/17 12:26 36.4 C 76 21 H 124/79 H 88 L Intake/Output (24 Hrs) 02/23/17 02/24/17 02/25/17 05:59 05:59 05:59 Other: Weight 142.3 kg - Physical Exam Constitutional: no apparent distress, obese Ears, Nose, Mouth, Throat: moist mucous membranes Cardiovascular: regular rate and rhythm, no rubs, systolic murmur ( 1/6 Right sternal border), pulses symmetric bilat, No jugular vein distention Peripheral Pulses: 2+: carotid (R), carotid (L) Respiratory: other ( lungs are clear to auscultation, no rhonchi, rales, or wheezing noted.) Gastrointestinal: normoactive bowel sounds, other ( Obese, firm. No masses palpitation.) Skin: warm, other ( Dressings to both lower extremities clean dry and intact. PICC line right A.c.), No no edema ( +3 peripheral edema bilateral lower extremities to knees.) Neurologic: AAOx3 Psychiatric: cooperative, interactive, following commands, anxious ICD10 Worksheet Patient Problems: Problems Problem Status Onset Diabetes Acute Methicillin resistant Staphylococcus aureus infection Acute 08/19/15 Hypoxia Acute Heart failure Acute
[2017-02-24] MEDS ORDERED: FUROSEMIDE 20 MG TAB PO SCH (21:00)
[2017-02-24] MEDS ORDERED: ZOLPIDEM TARTRATE 5 MG TAB PO SCH (21:00)
[2017-02-24] MEDS ORDERED: NON-FORMULARY NEW DRUG (Zolpidem Tartrate [Zolpidem Tartrate Er] 12.5 MG) PO SCH (21:00)
[2017-02-24] MEDS: ALLOPURINOL 300 MG TAB PO SCH (21:33)
[2017-02-24] MEDS: TAMSULOSIN HCL 0.4 MG CAP PO SCH (21:33)
[2017-02-24] MEDS: SENNOSIDES/DOCUSATE SODIUM TAB PO SCH (21:33)
[2017-02-24] MEDS: LORazepam 0.5 MG TAB PO PRN (21:34)
[2017-02-24] MEDS: ALUMINUM SULFATE TP SCH (23:40)
[2017-02-24] MEDS: CALCIUM ACETATE TP SCH (23:40)
[2017-02-24] MEDS: [UNRECOGNIZED DRUG - REMARK] PO SCH (23:43)
--- NOTE | 2017-02-25 05:19 | GCON ---
[f rep st] CONSULTATION INTERNAL MEDICINE CONSULTATION. DATE OF CONSULTATION: 02/24/2017 REFERRING PHYSICIAN: Rajiv Garrison MD REASON FOR CONSULTATION: Medical management. HISTORY OF PRESENT ILLNESS: This is a 61-year-old male with a complicated medical history. He has e xtensive cardiac history, including coronary artery disease and severe right heart failure/cor pulmon russ. He also has type 2 diabetes and hypertension. About a month and a half ago, he was hospitalize d for hip pain and was found to have septic arthritis at that time. He was also in severe acute on c hronic right-sided heart failure. He required IV dobutamine and Lasix to diurese. He also then had surgery which his right femoral head was removed and a replacement was placed. He is now due for total hip replacement, scheduled tomorrow. The microorganism that grew out was streptococcus mitis and he completed 4 weeks of IV ceftriaxone. Patient is currently feeling well overall. He do es not have any excessive edema. He is not having any chest pain, shortness of breath. He is somewh at hypoxic and states that he has not been using his CPAP lately. He is not having any fevers or chi lls, or cough. REVIEW OF SYSTEMS: A 10-point review of systems was obtained and was negative. PAST MEDICAL HISTORY: 1. Coronary artery disease, status post stenting. 2. Chronic right-sided heart failure. 3. Type 2 diabetes. 4. Hypertension. 5. Anxiety. 6. Insomnia. 7. Obstructive sleep apnea. 8. BPH. 9. Recent septic hip. MEDICATIONS: Reviewed. SOCIAL HISTORY: No smoking or alcohol. FAMILY HISTORY: Reviewed, noncontributory. PHYSICAL EXAM: VITAL SIGNS: Afebrile, blood pressure is 126/71, heart rate is 68. Oxygen saturatio n 89% on room air, 96% on 2 L. GENERAL: The patient is well developed, no apparent distress. HEENT : Nonicteric sclerae. Extraocular movements intact. Moist mucous membranes. NECK: Supple. No th yromegaly. LUNGS: Good effort. Clear to auscultation bilaterally. CARDIOVASCULAR: Regular rate a nd rhythm. No murmurs, gallops. ABDOMEN: Positive bowel sounds. Soft, nontender, nondistended. N o hepatosplenomegaly. EXTREMITIES: Trace edema. NEUROLOGIC: Alert and oriented x3. Moving all 4 extremities equally. PSYCH: Normal affect. LABS: Really no labs have been ordered. ASSESSMENT: This is a 61-year-old male who will be undergoing total hip replacement tomorrow. 1. Septic arthritis requiring total hip replacement. Patient received his course of IV antibiotics. He is here for his replacement. He is definitely a higher than average risk but he is medically op timized at this time. 2. Chronic right-sided heart failure. Will continue his Lasix postoperatively. As per Cardiology n ote, will try to avoid dehydration since he is preload dependent. 3. Obstructive sleep apnea. Patient is bringing in his CPAP machine; otherwise he can use ours, but will continue. 4. History of coronary artery disease. This is stable. Will resume aspirin when able. 5. Type 2 diabetes. Will hold metformin immediately postoperative and resume fairly quickly. 6. Deep vein thrombosis prophylaxis. Start postoperatively. Thank you for this consultation. Will follow along with you. /[id number]/MODL
[2017-02-25 07:52] LABS: % IMMATURE GRANULYOCYTES 0.3 % (0.0-1.1); ABSOLUTE IMMATURE GRANULOCYTES 0.02 10^3/uL (0.00-0.10); ADD DIFF? NO; ADD MORPH? NO; ADD SCAN? NO; ATYPICAL LYMPHOCYTE FLAG 0 (0-99); FRAGMENT RBC FLAG 0 (0-99); HEMOGLOBIN 11.1 g/dL (13.7-17.5); LEFT SHIFT FLG 0 (0-99); LIPEMIA HEMOLYSIS FLAG 80 (0-99); MEAN CELL HEMOGLOBIN 29.1 pg (27.9-34.1); MEAN CELL HEMOGLOBIN CONCENTR. 31.7 g/dL (32.4-36.7); MEAN CELL VOLUME 91.9 fL (81.5-99.8); MEAN PLATELET VOLUME 9.9 fL (8.7-11.7); PLATELET CLUMPS FLAG 0 (0-99); PLATELET COUNT 231 10^3/uL (150-400); RED BLOOD CELL COUNT 3.81 10^6/uL (4.40-6.38); RED CELL DISTRIBUTION WIDTH 15.2 % (11.5-15.2)
--- NOTE | 2017-02-25 08:15 | SOAPPROG ---
SOAP Progress Note Assessment/Plan: Assessment/Plan: pt to undergo removal of antibiotic spacer and conversion to R MAVIS - Surgery scheduled for noon today - Remain NPO - SCDs/TEDs for mechanical prophylaxis - Lovenox to be started post-operatively - Appreciate medicine and cardiology consults 02/25/17 08:13 Subjective: Pt states he is doing well, but feeling slightly anxious for the upcoming surgery today. Pt denies fever, chills, chest pain, SOB, abdominal pain, N/V/D , numbness, tingling and calf pain. Objective: Vital Signs Temp Pulse Resp BP Pulse Ox 36.5 C 78 19 155/90 H 91 L 02/25/17 00:00 02/25/17 00:00 02/25/17 00:00 02/25/17 00:00 02/25/17 00:00 Laboratory Results 02/25/17 07:43 02/24/17 02/25/17 02/26/17 05:59 05:59 05:59 Intake Total 1090 Output Total 1000 Balance 90 Physical Exam - Physical Exam General Appearance: alert, no apparent distress Cardiac/Chest: normal peripheral pulses Skin: normal color, warm/dry Extremities: normal inspection, normal capillary refill, No pedal edema, No calf tenderness, No swelling, No Yenny's sign Neuro/Psych: no motor/sensory deficits, alert, normal mood/affect, oriented x 3 ICD10 Worksheet Patient Problems: Problems Problem Status Onset Diabetes Acute Heart failure Acute Hypoxia Acute Methicillin resistant Staphylococcus aureus infection Acute 08/19/15
[2017-02-25 08:32] LABS: ANION GAP 9 mEq/L (8-16); CALCIUM 9.3 mg/dL (8.5-10.4); CARBON DIOXIDE 35 mEq/l (22-31); CHLORIDE 96 mEq/L (97-110); CREATININE 0.9 mg/dL (0.7-1.3); GLOMERULAR FILTRATION RATE > 60; GLUCOSE 113 mg/dL (70-100); POTASSIUM 3.9 mEq/L (3.5-5.2); SODIUM 140 mEq/L (134-144)
[2017-02-25] MEDS: LEVOTHYROXINE 150 MCG TAB PO SCH (08:51)
[2017-02-25] MEDS: CALCIUM ACETATE TP SCH ×2 (10:21→20:12)
[2017-02-25] MEDS: NEBIVOLOL HCL 5 MG TAB PO SCH (10:21)
[2017-02-25] MEDS: ALUMINUM SULFATE TP SCH ×2 (10:21→20:12)
[2017-02-25] MEDS: SENNOSIDES/DOCUSATE SODIUM TAB PO SCH ×2 (10:50→20:13)
[2017-02-25] MEDS ORDERED: LR 1,000 ML IV ONE (11:38)
[2017-02-25] MEDS ORDERED: DEXAMETHASONE 4 MG/ML VIAL IVP PRN (12:00)
[2017-02-25] MEDS ORDERED: NALOXONE HCL 0.4 MG/ML INJ IVP PRN (12:00)
[2017-02-25] MEDS ORDERED: fentaNYL 100 MCG/2 ML INJ IVP PRN (12:00)
[2017-02-25] MEDS ORDERED: HYDROmorphONE/DILAUDID 1 MG/ML INJ IVP PRN (12:00)
[2017-02-25] MEDS ORDERED: ALBUTEROL 3 ML DEYVIAL IH PRN (12:00)
[2017-02-25] MEDS ORDERED: LR 500 ML IV PRN (12:00)
--- NOTE | 2017-02-25 12:00 | PDANEPAE ---
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 - Liver History Hx Hepatic Disorders: No - Neurological & Psychiatric Hx Hx Neurological and Psychiatric Disorders: No - Cancer History Hx Cancer: No - Congenital Disorder History Hx Congenital Disorders: No - GI History Hx Gastrointestinal Disorders: No - Other Health History Other Health History: . IV Antibx for R hip infection. loss of few teeth - Chronic Pain History Chronic Pain: Yes - Surgical History Prior Surgeries: R femoral head excision,I and D 01-21-17. Right shoulder. Bilat knee surgery. Tonsilectomy ANE Review of Systems Review of systems is: negative Review of Systems: - Exercise capacity Exercise capacity: <4 METS METS (RN): 4 METS ANE Patient History - Allergies Allergies/Adverse Reactions: No Known Allergies Allergy (Verified 02/09/17 12:08) - Home Medications Home medications: home medication list seen and reviewed Home Medications: amLODIPine BESYLATE [Norvasc 10 mg (*)] 10 mg PO DAILY 12/23/15 [Last Taken ] metFORMIN HCL [Glucophage 500 mg (*)] 1,000 mg PO BID 12/23/15 [Last Taken 01/10 09:00] Tamsulosin HCl [Flomax 0.4 MG (*)] 0.4 mg PO HS 01/08/17 [Last Taken 01/09/17] Allopurinol [Allopurinol 300 MG (RX)] 600 mg PO HS 02/09/17 [Last Taken Unknown] Aspirin EC 81 mg (*) 81 mg PO HS 02/09/17 [Last Taken Unknown] Calcium Acetate/Aluminum Sulf [[place] Packet] 1 pkt TP BID 02/09/17 [Last Taken Unknown] Enoxaparin [Lovenox 40 MG (*)] 40 mg SQ DAILY 02/09/17 [Last Taken Unknown] Furosemide [Lasix 20 MG (*)] 60 mg PO BID 02/09/17 [Last Taken Unknown] Hydrocodone/Acetaminophen [[place] 5/325 (*)] 1 each PO Q4 PRN 02/09/17 [Last Taken Unknown] Hydrocodone/Acetaminophen [[place] 5/325 (*)] 2 each PO Q4 PRN 02/09/17 [Last Taken Unknown] LORazepam [Ativan (*)] 0.5 mg PO HS PRN 02/09/17 [Last Taken Unknown] Levothyroxine [Synthroid 150 mcg (*)] 150 mcg PO DAILY06 02/09/17 [Last Taken Unknown] Zolpidem Tartrate [Zolpidem Tartrate ER] 12.5 mg PO HS 02/09/17 [Last Taken Unknown] traMADol [Ultram 50 mg (*)] 50 mg PO Q6HRS PRN 02/09/17 [Last Taken Unknown] Sleep Study Medication 1 tab PO HS 02/24/17 [Last Taken Unknown] - NPO status NPO Status: no food or drink >8 hours NPO Since - Liquids (Date): 02/24/17 NPO Since - Liquids (Time): 23:59 NPO Since - Solids (Date): 02/24/17 NPO Since - Solids (Time): 23:59 - Smoking Hx Smoking Status: Never smoked - Family Anes Hx Family Hx Anesthesia Complications: None ANE Labs/Vital Signs - Labs Result Diagrams: 02/25/17 07:43 02/25/17 07:43 - Vital Signs Blood Pressure: 146/84 Heart Rate: 80 Respiratory Rate: 18 O2 Sat (%): 92 Height: 189.23 cm Weight: 142.3 kg ANE Physical Exam - Airway Neck exam: FROM Mallampati Score: Class 2 Mouth exam: normal dental/mouth exam - Pulmonary Pulmonary: no respiratory distress - Cardiovascular Cardiovascular: regular rate and rhythym - ASA Status ASA Status: III ANE Anesthesia Plan Anesthesia Plan: general endotracheal anesthesia
[2017-02-25] MEDS ORDERED: ceFAZolin 1 GM VIAL ONE (12:04)
[2017-02-25] MEDS ORDERED: ceFAZolin 1 GM/5 ML SYR ONE (12:04)
[2017-02-25] MEDS ORDERED: fentaNYL 100 MCG/2 ML INJ ONE ×4 (12:07→16:48)
[2017-02-25] MEDS ORDERED: PROPOFOL/EMULSION 500 MG/50 ML BOTTLE IV ONE (12:07)
[2017-02-25] MEDS ORDERED: MIDAZOLAM 2 MG/2 ML VIAL ONE (12:07)
[2017-02-25] MEDS ORDERED: KETAMINE 100 MG/10 ML SYR ONE (12:14)
[2017-02-25] MEDS ORDERED: MIDAZOLAM 2 MG/2 ML VIAL IVP ONE ×2 (12:44→13:00)
[2017-02-25] MEDS ORDERED: HYDROmorphONE/DILAUDID 2 MG/ML INJ ONE (12:52)
[2017-02-25] MEDS ORDERED: ceFAZolin 3 GM in D5W 100 ML IV ONE (13:09)
[2017-02-25] MEDS ORDERED: TRANEXAMIC ACID 1,000 MG in NS 100 ML IV ONE (13:09)
[2017-02-25] MEDS ORDERED: ROPIVACAINE 0.2% 80 MG, EPINEPHrine 0.2 MG, KETOROLAC TROMETHAMINE 30 MG, morphINE 10 M... IU ONE (13:09)
--- NOTE | 2017-02-25 14:21 | HOSPPROG ---
Hospitalist Progress Note Assessment/Plan: DIAGNOSES: -elective total hip replacement after previous septic arthritis with Streptococcus imitis, status post 4 weeks Rocephin -chronic hypoxemic and hypercarbic respiratory failure, stable at this time -chronic severe pulmonary hypertension and right-sided heart failure, stable at this time -obstructive sleep apnea using CPAP -coronary artery disease, stable at this time -diabetes mellitus -chronic hypertension PLANS: SUBJECTIVE: OBJECTIVE Vitals reviewed: Some mild systolic hypertension otherwise stable, using oxygen at 3 L Director Cardiac, my review: Exam: alert oriented skin warm dry color ok resps not labored lungs clear BSs heart regular abd soft nondistended nontender, bowel sounds present limbs warm, no edema iv site ok Laboratory data: Hemoglobin stable 11 CO2 elevated at 35, chronic level Glucose stable 113 this morning CBC and chemistry otherwise stable Objective: Vital Signs Temp Pulse Resp BP Pulse Ox 36.6 C 80 18 146/84 H 92 02/25/17 11:39 02/25/17 12:00 02/25/17 12:00 02/25/17 12:00 02/25/17 12:00 Laboratory Results 02/25/17 07:43 02/25/17 07:43 02/24/17 02/25/17 02/26/17 06:59 06:59 06:59 Intake Total 1090 Output Total 1000 Balance 90 ICD10 Worksheet Patient Problems: Problems Problem Status Onset Diabetes Acute Heart failure Acute Hypoxia Acute Methicillin resistant Staphylococcus aureus infection Acute 08/19/15
[2017-02-25] MEDS ORDERED: SUGAMMADEX SODIUM 200 MG/2 ML VIAL IVP ONE ×2 (14:56)
[2017-02-25] MEDS ORDERED: diphenhydrAMINE 25 MG CAP PO PRN (15:40)
[2017-02-25] MEDS ORDERED: LACTULOSE 20 GM/30 ML UDCUP PO PRN (15:40)
[2017-02-25] MEDS ORDERED: BISACODYL 10 MG SUPP PR PRN (15:40)
[2017-02-25] MEDS ORDERED: CYCLOBENZAPRINE 10 MG TAB PO PRN (15:40)
[2017-02-25] MEDS ORDERED: POLYETHYLENE GLYCOL 3350 17 GM PKT PO PRN (15:40)
[2017-02-25] MEDS ORDERED: PROMETHAZINE HCL 25 MG/ML INJ IVP PRN (15:40)
[2017-02-25] MEDS ORDERED: DIPHENOXYLATE/ATROPINE LOMOTIL 1 TAB PO PRN (15:40)
[2017-02-25] MEDS ORDERED: TEMAZEPAM 15 MG CAP PO PRN (15:40)
[2017-02-25] MEDS ORDERED: PROMETHAZINE HCL 25 MG SUPPR PR PRN (15:40)
[2017-02-25] MEDS ORDERED: ONDANSETRON DISINTEGRATING 4 MG TAB PO PRN (15:40)
[2017-02-25] MEDS ORDERED: oxyCODONE IR 5 MG TAB PO PRN (15:40)
[2017-02-25] MEDS ORDERED: MAGNESIUM HYDROXIDE 30 ML UDCUP PO PRN (15:40)
[2017-02-25] MEDS ORDERED: METOCLOPRAMIDE 10 MG/2 ML VIAL IVP PRN (15:40)
[2017-02-25] MEDS ORDERED: ONDANSETRON 4 MG/2 ML VIAL IVP PRN (15:40)
--- NOTE | 2017-02-25 15:41 | ASMTCMCOM ---
CM Note CM Note Notes: Pt is scheduled to have a total hip replacement today. Pt will most likely be transferred to afterwards. Pt wouldl like to go back to [facility]. Referral sent to [facility]. Wound care nurse recommended inpatient rehab. CM spoke w/ Dr. Berkowitz about it and he will assess if it is appropriate. Needs are TBD at this time. CM to follow. Plan: TBD Date Signed: 02/25/2017 03:41 PM Electronically Signed By:SACHIN Holt
[2017-02-25] MEDS ORDERED: LR 1,000 ML IV SCH (16:00)
--- NOTE | 2017-02-25 16:33 | PDCARPN ---
Cardiology Progress Note Assessment/Plan: 61 year old male with a history of CAD and prior PCI's. Also has a history of pulmonary hypertension and cor pulmonale. Seen in the office on February 17 for preoperative cardiac risk assessment. Please refer to my office note which has been placed on the physical chart for information purposes. Seen in PACU after completion of his total hip arthroplasty. No cardiac concerns intraoperatively. Stable hemodynamics. No complaint of chest pain. Will sign off. 02/25/17 16:26 Subjective: No CV complaints. Objective: Vital Signs (8 Hrs) Temp Pulse Resp BP Pulse Ox 02/25/17 16:15 18 91 L 02/25/17 16:10 16 02/25/17 16:06 17 94 02/25/17 16:05 16 125/76 H 89 L 02/25/17 16:00 10 L 118/70 91 L 02/25/17 15:55 18 131/73 H 92 02/25/17 15:50 13 122/70 H 93 02/25/17 15:46 16 143/79 H 94 02/25/17 15:40 20 162/92 H 93 02/25/17 15:36 10 L 161/93 H 89 L 02/25/17 15:35 36.3 C 02/25/17 12:00 80 18 146/84 H 92 02/25/17 11:39 36.6 C 80 18 146/84 H 92 02/25/17 10:52 36.6 C 80 18 146/84 H 92 02/25/17 10:39 36.6 C 80 18 146/84 H 93 02/25/17 08:49 36.8 C 75 27 H 144/78 H 95 Intake/Output (24 Hrs) 02/24/17 02/25/17 02/26/17 05:59 05:59 05:59 Intake Total 1090 Output Total 1000 Balance 90 Intake: Oral (ml) 1090 Output: Urine (ml) 1000 Urinal 1000 Other: Weight 142.3 kg 142.3 kg Intake Quantity Yes Sufficient Result Diagrams: 02/25/17 07:43 02/25/17 07:43 - Physical Exam Constitutional: no apparent distress Eyes: anicteric sclera Ears, Nose, Mouth, Throat: moist mucous membranes Cardiovascular: regular rate and rhythm, no murmurs Respiratory: clear to auscultate bilat (anteriorly) Gastrointestinal: normoactive bowel sounds, no tenderness, no masses Skin: other (2+ edema chronic) ICD10 Worksheet Patient Problems: Problems Problem Status Onset Diabetes Acute Heart failure Acute Hypoxia Acute Methicillin resistant Staphylococcus aureus infection Acute 08/19/15
[2017-02-25] MEDS ORDERED: ACETAMINOPHEN 325 MG TAB PO SCH (18:00)
--- NOTE | 2017-02-25 18:38 | HOSPPROG ---
Hospitalist Progress Note Assessment/Plan: DIAGNOSES: -elective total hip replacement after previous septic arthritis with Streptococcus imitis, status post 4 weeks Rocephin -chronic hypoxemic and hypercarbic respiratory failure, stable at this time -chronic severe pulmonary hypertension and right-sided heart failure, stable at this time -obstructive sleep apnea using CPAP -coronary artery disease, stable at this time -diabetes mellitus -chronic hypertension PLANS: -CPAP for all sleep times in the postoperative setting -cardiac monitoring -will follow his blood pressure and fluid balance and sugars closely -PT and OT -DVT prophylaxis SUBJECTIVE: I visited the patient in the PACU after surgery He was awake and very talkative in oriented. He had very little pain, no shortness of breath or chest discomfort, no nausea, no headache and no other concerning symptoms. Per his nurse he had a very stable stay in the recovery room and she was preparing to move him to his hospital room as I was there. OBJECTIVE Vitals reviewed: Some mild systolic hypertension otherwise stable, using oxygen at 3 L [place] Clerk, my review: Sinus rhythm Exam: alert oriented skin warm dry color ok resps not labored lungs clear BSs heart regular abd soft nondistended nontender, bowel sounds present limbs warm, no edema iv site ok Laboratory data: Hemoglobin stable 11 CO2 elevated at 35, chronic level Glucose stable 113 this morning CBC and chemistry otherwise stable Objective: Vital Signs Temp Pulse Resp BP Pulse Ox 36.4 C 69 16 127/73 H 92 02/25/17 16:26 02/25/17 18:26 02/25/17 18:26 02/25/17 18:26 02/25/17 18:26 Laboratory Results 02/25/17 07:43 02/25/17 07:43 02/24/17 02/25/17 02/26/17 06:59 06:59 06:59 Intake Total 1090 1460 Output Total 1000 750 Balance 90 710 ICD10 Worksheet Patient Problems: Problems Problem Status Onset Diabetes Acute Heart failure Acute Hypoxia Acute Methicillin resistant Staphylococcus aureus infection Acute 08/19/15
--- NOTE | 2017-02-25 18:39 | HOSPPROG ---
Hospitalist Progress Note Assessment/Plan: DIAGNOSES: -elective total hip replacement after previous septic arthritis with Streptococcus imitis, status post 4 weeks Rocephin -chronic hypoxemic and hypercarbic respiratory failure, stable at this time -chronic severe pulmonary hypertension and right-sided heart failure, stable at this time -obstructive sleep apnea using CPAP -coronary artery disease, stable at this time -diabetes mellitus -chronic hypertension PLANS: -CPAP for all deep times in the postoperative setting -cardiac monitoring -will follow his blood pressure and fluid balance and sugars closely - SUBJECTIVE: I visited the patient in the PACU after surgery He was awake and very talkative in oriented. He had very little pain, no shortness of breath or chest discomfort, no nausea, no headache and no other concerning symptoms. Per his nurse he had a very stable stay in the recovery room and she was preparing to move him to his hospital room as I was there. OBJECTIVE Vitals reviewed: Some mild systolic hypertension otherwise stable, using oxygen at 3 L [place], my review: Sinus rhythm Exam: alert oriented skin warm dry color ok resps not labored lungs clear BSs heart regular abd soft nondistended nontender, bowel sounds present limbs warm, no edema iv site ok Laboratory data: Hemoglobin stable 11 CO2 elevated at 35, chronic level Glucose stable 113 this morning CBC and chemistry otherwise stable Objective: Vital Signs Temp Pulse Resp BP Pulse Ox 36.4 C 69 16 127/73 H 92 02/25/17 16:26 02/25/17 18:26 02/25/17 18:26 02/25/17 18:26 02/25/17 18:26 Laboratory Results 02/25/17 07:43 02/25/17 07:43 02/24/17 02/25/17 02/26/17 06:59 06:59 06:59 Intake Total 1090 1460 Output Total 1000 750 Balance 90 710 ICD10 Worksheet Patient Problems: Problems Problem Status Onset Diabetes Acute Heart failure Acute Hypoxia Acute Methicillin resistant Staphylococcus aureus infection Acute 08/19/15
[2017-02-25] MEDS: ALLOPURINOL 300 MG TAB PO SCH (20:12)
[2017-02-25] MEDS: LORazepam 0.5 MG TAB PO PRN (20:12)
[2017-02-25] MEDS: FAMOTIDINE 20 MG TAB PO SCH (20:13)
[2017-02-25] MEDS: TAMSULOSIN HCL 0.4 MG CAP PO SCH (20:13)
[2017-02-25] MEDS ORDERED: FUROSEMIDE 20 MG TAB PO SCH (21:00)
[2017-02-25] MEDS: ceFAZolin 2 GM/DEXTROSE 100 ML IV SCH (23:00)
[2017-02-25] MEDS ORDERED: LORazepam 0.5 MG TAB PO ONE (23:03)
[2017-02-25] MEDS: [UNRECOGNIZED DRUG - REMARK] PO SCH (23:49)
[2017-02-25] MEDS: HYDROCODONE/APAP 5/325 TAB PO PRN (23:49)
--- NOTE | 2017-02-26 02:40 | GOP ---
[f rep st] OPERATIVE REPORT DATE OF OPERATION: SURGEON: Rajiv Garrison MD HAND REAMER: 1. Ginger Isaac PA-C. 2. Camila Nazario PA-C. ANESTHESIA: General. PREOPERATIVE DIAGNOSIS: 1. Right hip sepsis. 2. Right hip osteoarthritis (severe). POSTOPERATIVE DIAGNOSIS: 1. Right hip sepsis. 2. Right hip osteoarthritis (severe). PROCEDURE PERFORMED: 1. Revision right hip arthroplasty. 2. Removal of cement eluting hip implant. FINDINGS: DESCRIPTION OF PROCEDURE: Patient was taken to the operating room, administered general anesthesia, placed in the left lateral decubitus position. Had his right hip and lower extremity prepped and catherine ped in normal sterile fashion. The previous incision line was utilized. It was carried through derm al subcutaneous tissues. The remnants of sutures were removed. The IT band was split longitudinally and we extended the incision up into the greater trochanter. There were extensive scar tissue and e reece within the tissues. The posterior capsular incision was taken down through the capsule and the external rotators. The head segment was uncovered. The cement around the base of the head was chise led out. The head was then removed along with the stem component. The acetabulum was exposed. Ther e was abundant tissue within the acetabulum. This was cleared out using a curette and rongeur. Retr actors were put in position. Reaming of the acetabulum commenced with a size 48 and extended up to a size 63. The 63 cup trial fit nicely. A 64 trident titanium hemispherical shell was then impacted into position. The trial cup liner was put in position. The femur was then exposed. The neck cut w as freshened up. The box osteotome was used to remove bone from the greater trochanter. The canal s tarting reamer was put in place manually. Reaming then commenced with a size 7, extended up to a siz e 12. Broaching began with a size 8, and extended up to a size 12 in 1 mm increments. The 12 trial was put in place. We placed a +0 head liner. The reduction was performed, and intraoperative radiog raphs showed good alignment. The trial implants were brought out. The real cup liner was impacted i nto position. The real femoral stem was impacted into position. The real femoral head was impacted into position. Implants utilized were a size 54 trident titanium hemispherical shell, Alpha Code G, Trident X3 10-degree polyethylene insert, Alpha Code G 36 mm inner diameter, Biolox Delta outer diame ter, 36 mm head, neck length +0 C taper, Secur-Fit Max 132-degree neck angle hip stem size 12 C taper . After the real implants were put in, tissues were thoroughly lavaged. The deep tissues were close d with a #1 Vicryl suture in the IT band and gluteal fascia. The subcutaneous tissues were closed wi th 2-0 Vicryl suture followed by closure of the dermis with beatriz. A 3/16 inch drain that was plac ed deeply was hooked up. The patient had sterile compression dressing applied followed by ANAHI hose a nd Arthur wrap. He tolerated the procedure well, and was transferred back to the recovery room in stabl e condition. There were no operative complications. COMPLICATIONS: None. /[id number]/MODL
[2017-02-26] MEDS: HYDROCODONE/APAP 5/325 TAB PO PRN ×5 (05:48→23:43)
[2017-02-26] MEDS: ceFAZolin 2 GM/DEXTROSE 100 ML IV SCH ×2 (05:48→16:39)
[2017-02-26] MEDS: LEVOTHYROXINE 150 MCG TAB PO SCH (05:48)
[2017-02-26 06:35] LABS: HEMATOCRIT 25.1 % (40.0-51.0); HEMOGLOBIN 8.3 g/dL (13.7-17.5); MEAN CELL HEMOGLOBIN 29.7 pg (27.9-34.1); MEAN CELL HEMOGLOBIN CONCENTR. 33.1 g/dL (32.4-36.7); RED BLOOD CELL COUNT 2.79 10^6/uL (4.40-6.38); RED CELL DISTRIBUTION WIDTH 14.9 % (11.5-15.2)
--- NOTE | 2017-02-26 08:56 | SOAPPROG ---
SOAP Progress Note Assessment/Plan: Assessment/Plan:POD#1 Revision Right Hip Arthroplasty and Removal of Cement Eluting Hip Implant. Plan: WBAT RLE Continue pain management Continue Pt/OT Continue SCD's/ANAHI's or Arthur wraps for VTE prophylaxis Begin Lovenox today as ordered Will add order for Ativan for panic attacks, per pt. request. Subjective: Pt. feeling much better from a hip standpoint, pain is less than it was before surgery. Able to manage pn. with [place] only, as of now. Was able to get up and ambulate a bit with PT yesterday. Does report panic attacks, has a history of claustrophobia and visitors in his crowded room set them off last night. Ativan helped a lot, would like an order for Ativan if needed for today. Also reports ill-fitting CPAP machine which caused him to have difficulty sleeping last night. Respiratory has been notified to try to re-fit today. No CP, SOB, new N/T of extremities, no calf pain, fevers or HARDIN's. Objective: Pt. alert, somewhat anxious appearing, in NAD. Respirations easy and unlabored. He is DNVI in BLE, no calf pain upon palpation, dressing dry and intact. 02/26/17 08:53 02/26/17 08:58 Objective: Vital Signs Temp Pulse Resp BP Pulse Ox 36.5 C 77 15 128/68 H 94 02/26/17 07:43 02/26/17 07:43 02/26/17 07:43 02/26/17 07:43 02/26/17 07:43 Laboratory Results 02/26/17 06:25 02/25/17 07:43 02/25/17 02/26/17 02/27/17 05:59 05:59 05:59 Intake Total 1090 1710 Output Total 1000 1690 Balance 90 20 ICD10 Worksheet Patient Problems: Problems Problem Status Onset Diabetes Acute Heart failure Acute Hypoxia Acute Methicillin resistant Staphylococcus aureus infection Acute 08/19/15
[2017-02-26] MEDS: NEBIVOLOL HCL 5 MG TAB PO SCH (09:15)
[2017-02-26] MEDS: COLCHICINE 0.6 MG CAP/TAB PO SCH (09:15)
[2017-02-26] MEDS: FUROSEMIDE 20 MG TAB PO SCH ×2 (09:15→15:44)
[2017-02-26] MEDS: ENOXAPARIN 40 MG/0.4 ML SYR SC SCH (09:16)
[2017-02-26] MEDS: SENNOSIDES/DOCUSATE SODIUM TAB PO SCH ×2 (09:16→22:29)
[2017-02-26] MEDS: FAMOTIDINE 20 MG TAB PO SCH ×2 (09:16→22:30)
[2017-02-26] MEDS: ALUMINUM SULFATE TP SCH ×2 (09:56→22:31)
[2017-02-26] MEDS: CALCIUM ACETATE TP SCH ×2 (09:56→22:31)
[2017-02-26] MEDS ORDERED: ceFAZolin 2 GM in D5W 100 ML IV SCH (14:00)
[2017-02-26] MEDS: ceFAZolin 2 GM/SWFI 2 GM/20 ML SYR IVP SCH ×2 (16:31→22:28)
--- NOTE | 2017-02-26 16:41 | HOSPPROG ---
Hospitalist Progress Note Assessment/Plan: 61 yo M w pulm htn, septic arthritis now s/p MAVIS MAVIS: management per ortho pulm htn: continue diuretics DARRYL: CPAP anxiety: increase prnm ativan to q4 proph: LMWH Subjective: anxious Objective: Vital Signs Temp Pulse Resp BP Pulse Ox 36.7 C 70 17 110/68 97 02/26/17 11:20 02/26/17 11:20 02/26/17 11:20 02/26/17 11:20 02/26/17 11:20 Laboratory Results 02/26/17 06:25 02/25/17 07:43 02/25/17 02/26/17 02/27/17 05:59 05:59 05:59 Intake Total 1090 1710 Output Total 1000 1690 280 Balance 90 20 -280 - Physical Exam Constitutional: no apparent distress, appears nourished Eyes: PERRL, anicteric sclera Ears, Nose, Mouth, Throat: moist mucous membranes, hearing normal Cardiovascular: regular rate and rhythym, no murmur, rub, or gallop Respiratory: no respiratory distress, no rales or rhonchi Gastrointestinal: normoactive bowel sounds, soft, non-tender abdomen Genitourinary: no bladder fullness, No dunn in urethra Skin: warm Musculoskeletal: full muscle strength Neurologic: AAOx3 ICD10 Worksheet Patient Problems: Problems Problem Status Onset Diabetes Acute Heart failure Acute Hypoxia Acute Methicillin resistant Staphylococcus aureus infection Acute 08/19/15
[2017-02-26] MEDS: LORazepam 0.5 MG TAB PO PRN ×2 (17:40→22:29)
--- NOTE | 2017-02-26 20:35 | POSTOPPROG ---
Post Op Note Date of Operation: 02/25/17 Surgeon: Rajiv Garrison Circus Rider: Ginger Isaac PA-C Anesthesia: GET(General Endotracheal) Pre-op Diagnosis: Septic right hip Post-op Diagnosis: removal of right hip antibiotic spacer and implant of total hip replacement Indication: hip infection Procedure: removal of right hip antibiotic spacer and implant of total hip replacement Findings: see dictated op note Inf/Abcess present in the surg proc area at time of surgery?: No EBL: 100-500 Complications: none
[2017-02-26] MEDS: ALLOPURINOL 300 MG TAB PO SCH (22:29)
[2017-02-26] MEDS: TAMSULOSIN HCL 0.4 MG CAP PO SCH (22:30)
[2017-02-26] MEDS: [UNRECOGNIZED DRUG - REMARK] PO SCH (23:40)
[2017-02-27] MEDS: LEVOTHYROXINE 150 MCG TAB PO SCH (05:38)
[2017-02-27] MEDS: ceFAZolin 2 GM/SWFI 2 GM/20 ML SYR IVP SCH ×2 (05:38→14:30)
--- NOTE | 2017-02-27 07:35 | SOAPPROG ---
SOAP Progress Note Assessment/Plan: Assessment: POD#2 right hip explant of antibiotic spacer and implant of total hip arthroplasty Plan: WBAT RLE Abduction pillow: posterior hip precautions DVT prophylaxis: lovenox injection qd Pain medicine prn TEDs/SCDs Drain should stay in Ortho Stable Subjective: Patient is POD#2 from a right hip explant of antibiotic spacer and implant of total hip replacement. He is up & sitting in the chair. He states his hip feels pretty well. Pain is controlled. Objective: Vital Signs Temp Pulse Resp BP Pulse Ox 37.0 C 68 18 111/61 95 02/26/17 23:39 02/26/17 23:39 02/26/17 23:39 02/26/17 23:39 02/26/17 23:39 Laboratory Results 02/26/17 06:25 02/25/17 07:43 02/26/17 02/27/17 02/28/17 05:59 05:59 05:59 Intake Total 1710 700 Output Total 1690 2820 Balance 20 -2120 Physical exam of the right hip: dressings clean, dry & intact. Drain Is in place. Distal pulse present in the RLE. NVI. ICD10 Worksheet Patient Problems: Problems Problem Status Onset Diabetes Acute Heart failure Acute Hypoxia Acute Methicillin resistant Staphylococcus aureus infection Acute 08/19/15
[2017-02-27] MEDS: FUROSEMIDE 20 MG TAB PO SCH ×2 (09:31→14:29)
[2017-02-27] MEDS: FAMOTIDINE 20 MG TAB PO SCH ×2 (09:31→20:11)
[2017-02-27] MEDS: SENNOSIDES/DOCUSATE SODIUM TAB PO SCH ×2 (09:31→22:00)
[2017-02-27] MEDS: ENOXAPARIN 40 MG/0.4 ML SYR SC SCH (09:31)
[2017-02-27] MEDS: NEBIVOLOL HCL 5 MG TAB PO SCH (09:31)
[2017-02-27] MEDS: ALUMINUM SULFATE TP SCH (12:38)
[2017-02-27] MEDS: CALCIUM ACETATE TP SCH (12:38)
--- NOTE | 2017-02-27 15:05 | HOSPPROG ---
Hospitalist Progress Note Assessment/Plan: 61 yo M w pulm htn, septic arthritis now s/p MAVIS MAVIS: management per ortho pulm htn: continue diuretics DARRYL: CPAP anxiety: increase prnm ativan to q4 proph: LMWH Subjective: doing well. anxiety improved Objective: Vital Signs Temp Pulse Resp BP Pulse Ox 37.0 C 73 16 111/59 L 93 02/26/17 23:39 02/27/17 12:00 02/27/17 12:00 02/27/17 12:00 02/27/17 12:00 Laboratory Results 02/26/17 06:25 02/25/17 07:43 02/26/17 02/27/17 02/28/17 05:59 05:59 05:59 Intake Total 1710 700 Output Total 1690 2820 300 Balance 20 300 - Physical Exam Constitutional: no apparent distress, appears nourished Eyes: PERRL, anicteric sclera Ears, Nose, Mouth, Throat: moist mucous membranes, hearing normal Cardiovascular: regular rate and rhythym, no murmur, rub, or gallop Respiratory: no respiratory distress, no rales or rhonchi Gastrointestinal: normoactive bowel sounds Genitourinary: no bladder fullness, No dunn in urethra Skin: warm, normal color Musculoskeletal: full muscle strength ICD10 Worksheet Patient Problems: Problems Problem Status Onset Diabetes Acute Heart failure Acute Hypoxia Acute Methicillin resistant Staphylococcus aureus infection Acute 08/19/15
[2017-02-27] MEDS: metFORMIN HCL 500 MG TAB PO SCH (18:16)
[2017-02-27] MEDS: TAMSULOSIN HCL 0.4 MG CAP PO SCH (20:10)
[2017-02-27] MEDS: ALLOPURINOL 300 MG TAB PO SCH (20:11)
[2017-02-27] MEDS: HYDROCODONE/APAP 5/325 TAB PO PRN (22:11)
[2017-02-27] MEDS: LORazepam 0.5 MG TAB PO PRN (22:43)
[2017-02-27] MEDS: [UNRECOGNIZED DRUG - REMARK] PO SCH (23:40)
[2017-02-28] MEDS: HYDROCODONE/APAP 5/325 TAB PO PRN ×2 (04:22→20:51)
[2017-02-28] MEDS: LEVOTHYROXINE 150 MCG TAB PO SCH (06:20)
--- NOTE | 2017-02-28 07:19 | SOAPPROG ---
TONG Progress Note Assessment/Plan: Assessment: POD#3 right hip explant of antibiotic spacer and implant of total hip arthroplasty Plan: WBAT RLE Abduction pillow: posterior hip precautions DVT prophylaxis: lovenox injection qd Pain medicine prn TEDs/SCDs Drain removed today Please cover incision site for shower Ortho Stable: [facility] Subjective: Patient is POD#3 from a right hip explant of antibiotic spacer and implant of total hip replacement. He is up & sitting in the chair. He states his hip feels pretty well. Pain is controlled. He is doing well with physical therapy. Objective: Vital Signs Temp Pulse Resp BP Pulse Ox 37.3 C 75 19 105/68 94 // 00:00 02/28/ 00:00 02/28/17 00:00 02/28/17 00:00 02/28/17 00:00 Laboratory Results // 06:25 / 07:43 02/27/1702/28/03/01/17 05:59 05:59 05:59 Intake Total 700 1250 400 Output Total 2820 1600 20 Balance -2120 -350 380 Physical exam of the right hip: dressings clean, dry & intact. Incision is healing well. Drain Is in place: output last was 20cc. Distal pulse present in the RLE. NVI. ICD10 Worksheet Patient Problems: Problems Problem Status Onset Diabetes Acute Heart failure Acute Hypoxia Acute Methicillin resistant Staphylococcus aureus infection Acute 08/19/15
[2017-02-28] MEDS: ENOXAPARIN 40 MG/0.4 ML SYR SC SCH (09:15)
[2017-02-28] MEDS: NEBIVOLOL HCL 5 MG TAB PO SCH (09:15)
[2017-02-28] MEDS: FAMOTIDINE 20 MG TAB PO SCH ×2 (09:15→20:51)
[2017-02-28] MEDS: FUROSEMIDE 20 MG TAB PO SCH ×2 (09:15→15:20)
[2017-02-28] MEDS: metFORMIN HCL 500 MG TAB PO SCH ×2 (09:21→18:27)
[2017-02-28] MEDS: SENNOSIDES/DOCUSATE SODIUM TAB PO SCH ×2 (09:24→20:52)
--- NOTE | 2017-02-28 11:35 | PDIAF ---
- Diagnosis Diagnosis: status post right total hip replacement Code Status: Full Code - Medication Management Discharge Medications: Medications to Continue on Transfer amLODIPine BESYLATE [Norvasc 10 mg (*)] 10 mg PO DAILY 12/23/15 [Last Taken ] metFORMIN HCL [Glucophage 500 mg (*)] 1,000 mg PO BID 12/23/15 [Last Taken 01/10 09:00] Tamsulosin HCl [Flomax 0.4 MG (*)] 0.4 mg PO HS 01/08/17 [Last Taken 01/09/17] Colchicine [Colchicine (*)] 0.6 mg PO MWF ea 01/28/17 [Last Taken Unknown] Cyclobenzaprine [Flexeril 10 MG (*)] 10 mg PO Q8HRS PRN tab 01/28/17 [Last Taken Unknown] Lidocaine 5% [Lidoderm 5% Patch (*)] 1 ea TD DAILY patch 01/28/17 [Last Taken Unknown] Nebivolol HCl [Bystolic 5 mg (*)] 5 mg PO DAILY tab 01/28/17 [Last Taken Unknown] Ondansetron Odt [Zofran Odt 4 mg (*)] 4 mg PO Q4HRS PRN tab 01/28/17 [Last Taken Unknown] Polyethylene Glycol 3350 [Miralax 17 gm (*)] 17 gm PO DAILY PRN pkt 01/28/17 [ Last Taken Unknown] Sennosides/Docusate Sodium [Senokot-S] 1 - 2 tab PO BID tab 01/28/17 [Last Taken Unknown] Allopurinol [Allopurinol 300 MG (RX)] 600 mg PO HS 02/09/17 [Last Taken Unknown] Calcium Acetate/Aluminum Sulf [[place] Packet] 1 pkt TP BID 02/09/17 [Last Taken Unknown] Enoxaparin [Lovenox 40 MG (*)] 40 mg SQ DAILY 02/09/17 [Last Taken Unknown] Furosemide [Lasix 20 MG (*)] 60 mg PO BID 02/09/17 [Last Taken Unknown] LORazepam [Ativan (*)] 0.5 mg PO HS PRN 02/09/17 [Last Taken Unknown] Levothyroxine [Synthroid 150 mcg (*)] 150 mcg PO DAILY06 02/09/17 [Last Taken Unknown] Zolpidem Tartrate [Zolpidem Tartrate ER] 12.5 mg PO HS 02/09/17 [Last Taken Unknown] traMADol [Ultram 50 mg (*)] 50 mg PO Q6HRS PRN 02/09/17 [Last Taken Unknown] Sleep Study Medication 1 tab PO HS 02/24/17 [Last Taken Unknown] Enoxaparin [Lovenox 40 MG (*)] 40 mg SC DAILY #28 syr 02/28/17 [Last Taken Unknown] metFORMIN HCL [Glucophage 500 mg (*)] 1,000 mg PO BIDMEAL tab 02/28/17 [Last Taken Unknown] oxyCODONE IR [Oxycodone Ir (*)] 5 - 10 mg PO Q3HRS PRN #50 tab 02/28/17 [Last Taken Unknown] Discharge Medications: Refer to the Discharge Home Medication list for PRN reason. - Orders Services needed: Registered Nurse, Physical Therapy, Occupational Therapy Isolation Type: None Diet Recommendation: no restrictions on diet Diet Texture: Regular Texture Diet Harshal Stockings Discontinue Date: 14 days post op - Follow Up Care Current Providers and Referrals: Kojo Romero MD [Primary Care Provider] - Rajiv Garrison MD [Medical Doctor] - follow up in 2 weeks (Follow up with Dr. Garrison in 10-14 days post op)
--- NOTE | 2017-02-28 14:31 | HOSPPROG ---
Hospitalist Progress Note Assessment/Plan: 61 yo M w pulm htn, septic arthritis now s/p MAVIS MAVIS: management per ortho pulm htn: continue diuretics DARRYL: CPAP anxiety: increase prnm ativan to q4 proph: LMWH Subjective: doing well. dc'd to rehab Objective: Vital Signs Temp Pulse Resp BP Pulse Ox 37 C 68 16 94/53 L 92 02/28/17 12:00 02/28/17 12:00 02/28/17 12:00 02/28/17 12:00 02/28/17 12:00 Laboratory Results 02/26/17 06:25 02/25/17 07:43 02/27/17 02/28/17 03/01/17 05:59 05:59 05:59 Intake Total 700 1250 400 Output Total 2820 1600 320 Balance -2120 -350 80 - Physical Exam Constitutional: no apparent distress, appears nourished Eyes: PERRL, anicteric sclera Ears, Nose, Mouth, Throat: moist mucous membranes, hearing normal Cardiovascular: regular rate and rhythym, no murmur, rub, or gallop Respiratory: no respiratory distress, no rales or rhonchi Gastrointestinal: normoactive bowel sounds, soft, non-tender abdomen Genitourinary: no bladder fullness, No dunn in urethra Skin: warm, normal color Musculoskeletal: full muscle strength Neurologic: AAOx3 ICD10 Worksheet Patient Problems: Problems Problem Status Onset Diabetes Acute Heart failure Acute Hypoxia Acute Methicillin resistant Staphylococcus aureus infection Acute 08/19/15
--- NOTE | 2017-02-28 16:13 | ASMTCMCOM ---
CM Note CM Note Notes: Pt is medically ready to discharge but unable to discharge because [facility] is unable to obtain auth on the weekend. CM notified pt of this. CM to follow. Plan: Ramon Date Signed: 02/28/2017 04:13 PM Electronically Signed By:SACHIN Holt
[2017-02-28] MEDS: LORazepam 0.5 MG TAB PO PRN (16:35)
[2017-02-28] MEDS: ALLOPURINOL 300 MG TAB PO SCH (20:52)
[2017-02-28] MEDS: TAMSULOSIN HCL 0.4 MG CAP PO SCH (20:52)
[2017-02-28] MEDS: [UNRECOGNIZED DRUG - REMARK] PO SCH (23:44)
[2017-03-01] MEDS: HYDROCODONE/APAP 5/325 TAB PO PRN ×4 (02:44→23:52)
[2017-03-01] MEDS: LEVOTHYROXINE 150 MCG TAB PO SCH (05:56)
--- NOTE | 2017-03-01 08:56 | SOAPPROG ---
SOAP Progress Note Assessment/Plan: Assessment/Plan: s/p R MAVIS POD#4 - WBAT BLE - Continue PT/OT - Continue pain management - Continue Lovenox daily for VTE chemoprophylaxis - Abduction pillow with hip precautions - TEDs/SCDs - Discharge today to [facility] rehab pending insurance authorization 02/25/17 08:13 03/01/17 08:54 Subjective: Pt states he is doing well and mobilizing well with PT. Pt denies fever, chills , chest pain, SOB, abdominal pain, N/V/D, numbness, tingling and calf pain. Objective: Vital Signs Temp Pulse Resp BP Pulse Ox 36.7 C 67 17 121/73 H 92 03/01/17 07:18 03/01/17 07:18 03/01/17 07:18 03/01/17 07:18 03/01/17 07:18 Laboratory Results 02/26/17 06:25 02/25/17 07:43 02/28/17 03/01/17 03/02/17 05:59 05:59 05:59 Intake Total 1250 1600 Output Total 1600 1570 Balance -350 30 Physical Exam - Physical Exam General Appearance: alert, no apparent distress Cardiac/Chest: normal peripheral pulses Skin: normal color, warm/dry, other (dressing c/d/i) Extremities: normal inspection, normal capillary refill, No pedal edema, No calf tenderness, No Yenny's sign Neuro/Psych: no motor/sensory deficits, alert, normal mood/affect, oriented x 3 ICD10 Worksheet Patient Problems: Problems Problem Status Onset Diabetes Acute Heart failure Acute Hypoxia Acute Methicillin resistant Staphylococcus aureus infection Acute 08/19/15
[2017-03-01] MEDS: FUROSEMIDE 20 MG TAB PO SCH ×2 (09:21→14:49)
[2017-03-01] MEDS: metFORMIN HCL 500 MG TAB PO SCH ×2 (09:21→17:52)
[2017-03-01] MEDS: SENNOSIDES/DOCUSATE SODIUM TAB PO SCH ×2 (09:21→21:25)
[2017-03-01] MEDS: FAMOTIDINE 20 MG TAB PO SCH ×2 (09:22→21:26)
[2017-03-01] MEDS: NEBIVOLOL HCL 5 MG TAB PO SCH (09:22)
[2017-03-01] MEDS: ENOXAPARIN 40 MG/0.4 ML SYR SC SCH (09:23)
[2017-03-01] MEDS: COLCHICINE 0.6 MG CAP/TAB PO SCH (09:23)
[2017-03-01] MEDS: LORazepam 0.5 MG TAB PO PRN ×2 (14:50→23:55)
--- NOTE | 2017-03-01 17:27 | ASMTCMCOM ---
CM Note CM Note Notes: Met with patient to discuss potential transfer back to [facility]. Needs reauth. Therapy notes via allscripts. Awaiting reply from [facility]. CM to follow. He is also requesting his cpap be replaced. His sleep study is old and he cant remember the company he purchased it through. He then told me his brother bought it. He also told me that initially he could not comply with the 3 hours on the machine as directed. He is not currently under a physician care locally for his DARRYL. He is very anxious about being without the CPAP and I offered RT services to him again. (he has beeen declining). He tends to exhibit pressured speech and perseverates on single thought. [facility] and [facility] would require a sleep study with graphing and settings for CPAP. The patient keeps stating he just wants to leave the hospital with a new machine. I will ask the Director of CM and PT rep to visit with him tomorrow. Date Signed: 03/01/2017 10:59 AM Electronically Signed By:Haylie Oakley RN
[2017-03-01 19:09] VITALS: RESP 16
[2017-03-01] MEDS: TAMSULOSIN HCL 0.4 MG CAP PO SCH (21:26)
[2017-03-01] MEDS: ALLOPURINOL 300 MG TAB PO SCH (21:26)
[2017-03-01] MEDS: [UNRECOGNIZED DRUG - REMARK] PO SCH (23:52)
[2017-03-01 23:53] VITALS: TEMP 98.3
[2017-03-02] MEDS: LEVOTHYROXINE 150 MCG TAB PO SCH (05:35)
[2017-03-02 07:44] VITALS: BP 124/63; PULSE 75; O2SAT 98
--- NOTE | 2017-03-02 08:49 | SOAPPROG ---
SOAP Progress Note Assessment/Plan: Assessment/Plan: s/p R MAVIS POD#5 - WBAT BLE - Continue PT/OT - Continue pain management - Continue Lovenox daily for VTE chemoprophylaxis - Abduction pillow with hip precautions - TEDs/SCDs - Discharge today to [facility] rehab pending insurance authorization 02/25/17 08:13 03/01/17 08:54 03/02/17 08:47 Subjective: Pt states he is doing well and pain is minimal. Pt denies fever, chills, chest pain, SOB, abdominal pain, N/V/D, numbness, tingling and calf pain. Objective: Vital Signs Temp Pulse Resp BP Pulse Ox 36.8 C 75 16 124/63 H 98 03/01/17 23:53 03/02/17 07:42 03/01/17 23:53 03/02/17 07:42 03/02/17 07:42 Laboratory Results 02/26/17 06:25 02/25/17 07:43 03/01/17 03/02/17 03/03/17 05:59 05:59 05:59 Intake Total 1600 500 Output Total 1570 150 Balance 30 350 Physical Exam - Physical Exam General Appearance: alert, no apparent distress Cardiac/Chest: normal peripheral pulses Skin: normal color, warm/dry, other (incision site c/d/i without surrounding erythema, calor, or ecchymosis) Extremities: normal inspection, normal capillary refill, No pedal edema, No calf tenderness, No swelling, No Yenny's sign Neuro/Psych: no motor/sensory deficits, alert, normal mood/affect, oriented x 3 ICD10 Worksheet Patient Problems: Problems Problem Status Onset Diabetes Acute Heart failure Acute Hypoxia Acute Methicillin resistant Staphylococcus aureus infection Acute 08/19/15
[2017-03-02] MEDS: NEBIVOLOL HCL 5 MG TAB PO SCH (09:49)
[2017-03-02] MEDS: FAMOTIDINE 20 MG TAB PO SCH (09:49)
[2017-03-02] MEDS: metFORMIN HCL 500 MG TAB PO SCH (09:50)
[2017-03-02] MEDS: FUROSEMIDE 20 MG TAB PO SCH (09:50)
[2017-03-02] MEDS: ENOXAPARIN 40 MG/0.4 ML SYR SC SCH (09:51)
[2017-03-02] MEDS: SENNOSIDES/DOCUSATE SODIUM TAB PO SCH (10:10)
--- NOTE | 2017-03-02 10:18 | PDIAF ---
- Diagnosis Diagnosis: status post right total hip replacement Code Status: Full Code - Medication Management Discharge Medications: Medications to Continue on Transfer amLODIPine BESYLATE [Norvasc 10 mg (*)] 10 mg PO DAILY 12/23/15 [Last Taken ] metFORMIN HCL [Glucophage 500 mg (*)] 1,000 mg PO BID 12/23/15 [Last Taken 01/10 09:00] Tamsulosin HCl [Flomax 0.4 MG (*)] 0.4 mg PO HS 01/08/17 [Last Taken 01/09/17] Colchicine [Colchicine (*)] 0.6 mg PO MWF ea 01/28/17 [Last Taken Unknown] Cyclobenzaprine [Flexeril 10 MG (*)] 10 mg PO Q8HRS PRN tab 01/28/17 [Last Taken Unknown] Lidocaine 5% [Lidoderm 5% Patch (*)] 1 ea TD DAILY patch 01/28/17 [Last Taken Unknown] Nebivolol HCl [Bystolic 5 mg (*)] 5 mg PO DAILY tab 01/28/17 [Last Taken Unknown] Ondansetron Odt [Zofran Odt 4 mg (*)] 4 mg PO Q4HRS PRN tab 01/28/17 [Last Taken Unknown] Polyethylene Glycol 3350 [Miralax 17 gm (*)] 17 gm PO DAILY PRN pkt 01/28/17 [ Last Taken Unknown] Sennosides/Docusate Sodium [Senokot-S] 1 - 2 tab PO BID tab 01/28/17 [Last Taken Unknown] Allopurinol [Allopurinol 300 MG (RX)] 600 mg PO HS 02/09/17 [Last Taken Unknown] Calcium Acetate/Aluminum Sulf [[place] Packet] 1 pkt TP BID 02/09/17 [Last Taken Unknown] Enoxaparin [Lovenox 40 MG (*)] 40 mg SQ DAILY 02/09/17 [Last Taken Unknown] Furosemide [Lasix 20 MG (*)] 60 mg PO BID 02/09/17 [Last Taken Unknown] LORazepam [Ativan (*)] 0.5 mg PO HS PRN 02/09/17 [Last Taken Unknown] Levothyroxine [Synthroid 150 mcg (*)] 150 mcg PO DAILY06 02/09/17 [Last Taken Unknown] Zolpidem Tartrate [Zolpidem Tartrate ER] 12.5 mg PO HS 02/09/17 [Last Taken Unknown] traMADol [Ultram 50 mg (*)] 50 mg PO Q6HRS PRN 02/09/17 [Last Taken Unknown] Sleep Study Medication 1 tab PO HS 02/24/17 [Last Taken Unknown] Enoxaparin [Lovenox 40 MG (*)] 40 mg SC DAILY #28 syr 02/28/17 [Last Taken Unknown] metFORMIN HCL [Glucophage 500 mg (*)] 1,000 mg PO BIDMEAL tab 02/28/17 [Last Taken Unknown] oxyCODONE IR [Oxycodone Ir (*)] 5 - 10 mg PO Q3HRS PRN #50 tab 02/28/17 [Last Taken Unknown] Discharge Medications: Refer to the Discharge Home Medication list for PRN reason. - Orders Services needed: Registered Nurse, Physical Therapy, Occupational Therapy Isolation Type: None Diet Recommendation: no restrictions on diet Diet Texture: Regular Texture Diet Harshal Stockings Discontinue Date: 14 days post op Wound Care Instructions: Keep incision site clean, dry and covered for bathing; no soaking Activity/Weight Bearing Restrictions: WBAT BLE with walker - Follow Up Care Current Providers and Referrals: Kooj Romero MD [Primary Care Provider] - Rajiv Garrison MD [Medical Doctor] - follow up in 2 weeks (Follow up with Dr. Garrison in 10-14 days post op)
[2017-03-02] MEDS: HYDROCODONE/APAP 5/325 TAB PO PRN (14:19)
--- NOTE | 2017-03-02 14:35 | ASMTCMCOM ---
CM Note CM Note Notes: Pt medically stable for d/c to [facility] who have insurance authorization. van transport scheduled for 14:30. Orders sent in [employer]. Date Signed: 03/02/2017 02:35 PM Electronically Signed By:PHOEBE Haines
--- NOTE | 2017-03-02 14:36 | ASDISCHSUM ---
Discharge Information Plan Status:SNF Medically Cleared to Leave: Discharge Date:03/02/2017 02:27 PM CM D/C Disposition:Prison Facility ADT D/C Disposition:Prison Facility Projected Discharge Date:03/01/2017 11:00 AM Transportation at D/C:Wheelchair Van Discharge Delay Reason: Follow-Up Date:03/01/2017 11:00 AM Discharge Slot: Final Diagnosis: Placement Information Referral Type:*Usp/SNF Referral ID:[id number] Provider Name:[facility] Address 1:[address] Address 2: City:[place] Selection Factors: State:[place] Patient Contact Information Contact Name:ESVIN Relationship: Address: City:[place] Alternate Phone: State/Zip Code:[place] [address] Email: Financial Information Financial Class:[facility] Primary Plan Desc:[facility] Primary Plan Number:[id number] Secondary Plan Desc: Secondary Plan Number: Assessment Information [facility] CM Progress Note CM Note CM Note Notes: 02/24/2017 Case Management Note Met w/pt. Pt had recent admission to [facility] and was sent to [facility] to gain strength for planned hip surgery. Per pt, he is admitted for planned hip procedure. [facility] Phone call into Joan at [facility] [phone]. Case Management d/c poc: to be determined. Case Management to follow. Date Signed: 02/24/2017 12:32 PM Electronically Signed By:Elodia Callaway RN [facility] CM Progress Note CM Note CM Note Notes: Pt is scheduled to have a total hip replacement today. Pt will most likely be transferred to afterwards. Pt wouldl like to go back to [facility]. Referral sent to [facility]. Wound care nurse recommended inpatient rehab. CM spoke w/ Dr. Berkowitz about it and he will assess if it is appropriate. Needs are TBD at this time. CM to follow. Plan: TBD Date Signed: 02/25/2017 03:41 PM Electronically Signed By:SACHIN Holt [facility] EL Progress Note CM Note EL Note Notes: Pt is medically ready to discharge but unable to discharge because [facility] is unable to obtain auth on the weekend. CM notified pt of this. CM to follow. Plan: [facility] Date Signed: 02/28/2017 04:13 PM Electronically Signed By:SACHIN Holt [facility] EL Progress Note CM Note CM Note Notes: Met with patient to discuss potential transfer back to [facility]. Needs reauth. Therapy notes via allscripts. Awaiting reply from [facility]. CM to follow. He is also requesting his cpap be replaced. His sleep study is old and he cant remember the company he purchased it through. He then told me his brother bought it. He also told me that initially he could not comply with the 3 hours on the machine as directed. He is not currently under a physician care locally for his DARRYL. He is very anxious about being without the CPAP and I offered RT services to him again. (he has beeen declining). He tends to exhibit pressured speech and perseverates on single thought. [facility] and [facility] would require a sleep study with graphing and settings for CPAP. The patient keeps stating he just wants to leave the hospital with a new machine. I will ask the Director of CM and PT rep to visit with him tomorrow. Date Signed: 03/01/2017 10:59 AM Electronically Signed By:Haylie Oakley RN [facility] CM Progress Note CM Note Note Notes: Pt medically stable for d/c to [facility] who have insurance authorization. van transport scheduled for 14:30. Orders sent in [employer]. Date Signed: 03/02/2017 02:35 PM Electronically Signed By:PHOEBE Haines Intervention Information
--- NOTE | 2017-03-05 10:55 | PDDCSUM ---
Discharge Summary Discharge Summary: 61y/o M admitted on 02/24/2017 to undergo removal of R antibiotic spacer and conversion to a R MAVIS. Pt underwent I&D of the R hip and antibiotic spacer placement by Dr. Garrison for a R hip infection and continued IV antibiotics per ID 01/2017. Infection resolved and pt was scheduled to undergo a R MAVIS and removal of the antibiotic spacer 02/25/2017. Pt has an extensive medical history including: diabetes type II, right sided heart failure, hypertension, hypercholesterolemia, and anxiety. Pt was admitted one day prior to the scheduled surgery for monitoring. The medicine team and cardiology were both consulted. Pt underwent his R MAVIS as scheduled 02/25/2017, by Dr. Garrison, without complication. Pt received one dose of antibiotics prior to surgery and an additional 24 hours of post-operative antibiotic prophylaxis. Pt was evaluated by PT and OT. SCDs/TEDs for mechanical VTE prophylaxis and Lovenox for 28 days post-op for VTE chemoprophylaxis. Pain was well managed. Pt was discharged to [facility]. Pt has follow-up with Dr. Garrison for staple removal and post-operative evaluation 10-14 days after surgery. Hospital course was otherwise uneventful.
== END 2017-03-02 14:27 | DRG 467 ==
LOC: F2W 11:40 → F3N 02-25 17:16
PROVIDERS: ADMIT Orthopaedic Surgery Sports Medicine; ATTEND Orthopaedic Surgery Sports Medicine
PROC: 0SP908Z Removal of Spacer from Right Hip Joint, Open Approach (ICD-10-PCS; principal; 2017-02-24)
PROC: 0SR904Z Replacement of Right Hip Joint with Ceramic on Polyethylene Synthetic Substitute, Open Approach (ICD-10-PCS; principal; 2017-02-24)
DX: Z47.32 Aftercare following explantation of hip joint prosthesis (principal); I27.29 Other secondary pulmonary hypertension; I50.812 Chronic right heart failure; J96.11 Chronic respiratory failure with hypoxia; I25.10 Atherosclerotic heart disease of native coronary artery without angina pectoris; E11.9 Type 2 diabetes mellitus without complications; G47.33 Obstructive sleep apnea (adult) (pediatric); E03.9 Hypothyroidism, unspecified; E78.00 Pure hypercholesterolemia, unspecified; Z95.5 Presence of coronary angioplasty implant and graft; Z79.82 Long term (current) use of aspirin; Z79.2 Long term (current) use of antibiotics; Z86.14 Personal history of Methicillin resistant Staphylococcus aureus infection
CPT/HCPCS: 97110-GP; 97116-GP; 97161-GP; 97166-GO; 97530-GO; 97530-GP; 97535-GO; G8987-GO-CK; G8988-GO-CI; J0171; J0690; J1170; J1650; J1885; J2250; J2704; J2795; J3010

== ENCOUNTER → 2018-01-24 | Outpatient (CLI) | payer OTHER | LOC: BMCIMAGING 14:20 | PROVIDERS: ATTEND Orthopaedic Surgery | DX: M16.12 Unilateral primary osteoarthritis, left hip (principal); Z96.641 Presence of right artificial hip joint ==

== ENCOUNTER 2018-02-21 13:48 | Outpatient (CLI) | payer OTHER ==
[2018-02-21] MEDS ORDERED: NALOXONE HCL 0.4 MG/ML INJ IVP PRN (15:04)
[2018-02-21] MEDS ORDERED: ALBUTEROL 3 ML DEYVIAL IH PRN (15:04)
[2018-02-21] MEDS ORDERED: ONDANSETRON 4 MG/2 ML VIAL IVP PRN (15:04)
--- NOTE | 2018-02-21 15:04 | PDANEPAE ---
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 IV Antibx for R hip infection. loss of few teeth. blood clot but doesn't know where it was, - Chronic Pain History Chronic Pain: Yes - Surgical History Prior Surgeries: R femoral head excision,I and D 01-21-17. Right shoulder. Bilat knee surgery. Tonsilectomy, R MAVIS 02/2017, ANE Review of Systems Review of Systems: - Exercise capacity METS (RN): 3 METS ANE Patient History - Allergies Allergies/Adverse Reactions: oxycodone Allergy (Verified 02/08/18 17:10) hallucinations - Home Medications Home Medications: amLODIPine BESYLATE [Norvasc 10 mg (*)] 10 mg PO DAILY 12/23/15 [Last Taken 12/30] Tamsulosin HCl [Flomax 0.4 MG (*)] 0.4 mg PO HS 01/08/17 [Last Taken 02/20/18] Allopurinol [Allopurinol 300 MG (RX)] 600 mg PO HS 02/09/17 [Last Taken 02/20/18 ] Furosemide [Lasix 20 MG (*)] 40 mg PO BID 02/09/17 [Last Taken 02/20/18] Levothyroxine [Synthroid 150 mcg (*)] 150 mcg PO DAILY06 02/09/17 [Last Taken ] Zolpidem Tartrate [Zolpidem Tartrate ER] 10 mg PO HS 02/09/17 [Last Taken ] Aspirin 81mg (*) 81 mg PO DAILY 02/08/18 [Last Taken 02/21/18] Colchicine [Colchicine (*)] 0.6 mg PO DAILY 02/08/18 [Last Taken 02/20/18] Lisinopril 40 mg PO DAILY 02/08/18 [Last Taken 02/21/18] Potassium Cl 40 Meq/100 ml Natasha 40 meq PO DAILY 02/21/18 [Last Taken 02/20/18] - Smoking Hx Smoking Status: Never smoked - Family Anes Hx Family Hx Anesthesia Complications: None ANE Labs/Vital Signs - Vital Signs Blood Pressure: 160/98 Heart Rate: 78 Respiratory Rate: 16 O2 Sat (%): 90 Height: 187.96 cm Weight: 136.078 kg ANE Physical Exam - Airway Neck exam: decreased ROM Mallampati Score: Class 3 Mouth exam: normal dental/mouth exam - Pulmonary Pulmonary: reduced air movement - Cardiovascular Cardiovascular: regular rate and rhythym - ASA Status ASA Status: III ANE Anesthesia Plan Anesthesia Plan: GA w LMA
[2018-02-21] MEDS ORDERED: PROPOFOL 200 MG/20 ML VIAL ONE (15:23)
[2018-02-21] MEDS ORDERED: PROPOFOL/EMULSION 500 MG/50 ML BOTTLE IV ONE (15:23)
[2018-02-21] MEDS ORDERED: fentaNYL 100 MCG/2 ML INJ ONE (15:35)
[2018-02-21 19:45] VITALS: BP 165/101
[2018-02-21] MEDS ORDERED: LIDOCAINE 2% 2 ML INJ ONE (20:02)
[2018-02-21] MEDS ORDERED: METOCLOPRAMIDE 10 MG/2 ML VIAL ONE (20:02)
== END 2018-02-21 19:18 | disposition home or self-care (01) ==
LOC: FIMAGING 13:48
PROVIDERS: ATTEND Nurse Practitioner
DX: M51.37 Other intervertebral disc degeneration, lumbosacral region (principal)
CPT/HCPCS: J2704; J2765; J3010

== ENCOUNTER 2018-03-06 21:51 | Inpatient (IN) | payer OTHER ==
--- NOTE | 2018-03-06 21:59 | EDPHY ---
H & P Time Seen by Provider: 03/06/18 21:58 HPI/ROS: HPI CHIEF COMPLAINT: "Sent here for surgery tomorrow, Dr. Ag" HISTORY OF PRESENT ILLNESS: 62-year-old male presents emergency room by private vehicle he is a patient of Dr. Ag, and is due to have a cervical surgery tomorrow for cervical radiculopathy and wasting. Sent here to the emergency room to be admitted to Medicine Service. Plan for surgery tomorrow. NPO over midnight. Patient has been having cervical radiculopathy pain in going hand wasting specifically left hand. Decreased range of motion left hand after cervical radiculopathy. Past Medical History: Significant medical history for coronary disease, hypertension, pulmonary hypertension, GERD, anxiety, right hip infection meant diabetes Past Surgical History: Right hip surgery. Social History: Denies drugs alcohol tobacco. Family History: Noncontributory ROS REVIEW OF SYSTEMS: 10 Systems were reviewed and negative with the exception of the elements mentioned in the history of present illness. Exam Constitutional triage nursing summary reviewed, vital signs reviewed, awake/ alert. Eyes normal conjunctivae and sclera, EOMI, PERRLA. HENT normal inspection, atraumatic, moist mucus membranes, no epistaxis, neck supple/ no meningismus, no raccoon eyes. Respiratory clear to auscultation bilaterally, normal breath sounds, no respiratory distress, no wheezing. Cardiovascular rate normal, regular rhythm, no murmur, no edema, distal pulses normal. Gastrointestinal soft, non-tender, no rebound, no guarding, normal bowel sounds, no distension, no pulsatile mass. Genitourinary no CVA tenderness. Musculoskeletal no midline vertebral tenderness, full range of motion, no calf swelling, no tenderness of extremities, no meningismus, good pulses, neurovascularly intact. Skin pink, warm, & dry, no rash, skin atraumatic. Neurologic awake, alert and oriented x 3, AAOx3, moves all 4 extremities equally, motor intact, sensory intact, CN II-XII intact, normal cerebellar, normal vision, normal speech. Psychiatric normal mood/affect. Heme/Lymph/Immune no lymphadenopathy. Differential Diagnosis: Includes but is not limited to in a particular order: Need for admission for surgery tomorrow. Medical Decision Making: Plan for this patient IV establishment basic blood draw and admit to Medicine service Dr. Ag Consulted. Plan for NPO tonight. Admit. Surgery tomorrow. Re-evaluation: Spoke with Dr. Ag, [id number]. Would like patient admitted to medicine. NPO overnight. Plan for OR tomorrow. Source: Patient - Medical/Surgical History Hx Asthma: No Hx Chronic Respiratory Disease: Yes Hx Diabetes: Yes Hx Cardiac Disease: No Hx Renal Disease: No Hx Cirrhosis: No Hx Alcoholism: No Hx HIV/AIDS: No Hx Splenectomy or Spleen Trauma: No Other PMH: DMII,HTN,Knee,MRSA,Gout, home o2,CAD, DARRYL, Pumonary HTN, anxiety, cellulitis, BPH, CHF - Social History Smoking Status: Never smoked Constitutional: Initial Vital Signs Temperature (C) 36.5 C 03/06/18 21:59 Heart Rate 82 03/06/18 21:59 Respiratory Rate 18 03/06/18 21:59 Blood Pressure 168/87 H 03/06/18 21:59 O2 Sat (%) 94 03/06/18 21:59 O2 Delivery Mode Room Air Allergies/Adverse Reactions: oxycodone Allergy (Verified 02/08/18 17:10) hallucinations Home Medications: Medication Instructions Recorded amLODIPine BESYLATE [Norvasc 10 mg 10 mg PO DAILY 12/23/15 (*)] Tamsulosin HCl [Flomax 0.4 MG (*)] 0.4 mg PO HS 01/08/17 Allopurinol [Allopurinol 300 MG 600 mg PO HS 02/09/17 (RX)] Furosemide [Lasix 20 MG (*)] 40 mg PO BID 02/09/17 Levothyroxine [Synthroid 150 mcg 150 mcg PO DAILY06 02/09/17 (*)] metFORMIN HCL [Glucophage 500 mg 1,000 mg PO BIDMEAL tab 02/28/17 (*)] Aspirin [Aspirin 81mg (*)] 81 mg PO DAILY 02/08/18 Colchicine [Colchicine (*)] 0.6 mg PO DAILY 02/08/18 Lisinopril [Zestril 40 mg (*)] 40 mg PO DAILY 02/08/18 Potassium Cl [Klor-Con 20 meq (*)] 40 meq PO DAILY 02/21/18 Zolpidem Tartrate [Ambien] 10 mg PO HS 02/24/18 ALPRAZolam [Xanax 0.25 MG (*)] 0.25 mg PO TID PRN 03/06/18 Medical Decision Making - Data Points Laboratory Results: Laboratory Results 03/06/18 22:30 03/06/18 22:30 Medications Given: Acetaminophen (Tylenol) 650 mg PO Q4HRS PRN PRN Reason: Pain, Mild/Fever, Can Take PO Stop: 09/02/18 22:43 Last Admin: 03/08/18 08:06 Dose: 650 mg Hydrocodone Bitart/Acetaminophen (Mena 5/325) 1 - 2 tab PO Q4 PRN PRN Reason: Pain, Mild Able to Take PO Stop: 03/17/18 17:58 Last Admin: 03/08/18 16:15 Dose: 1 tab Allopurinol (Allopurinol) 600 mg PO HS MALDONADO Stop: 09/03/18 20:59 Last Admin: 03/08/18 19:52 Dose: 600 mg Alprazolam (Xanax) 0.25 mg PO TID PRN PRN Reason: Anxiety Stop: 09/03/18 18:00 Last Admin: 03/08/18 21:02 Dose: 0.25 mg Amlodipine Besylate (Norvasc) 10 mg PO DAILY MALDONADO Stop: 09/03/18 08:59 Last Admin: 03/08/18 08:06 Dose: 10 mg Colchicine (Colchicine) 0.6 mg PO HS MALDONADO Stop: 09/03/18 20:59 Last Admin: 03/08/18 19:52 Dose: 0.6 mg Levothyroxine Sodium (Synthroid) 150 mcg PO DAILY06 MALDONADO Stop: 09/03/18 05:59 Last Admin: 03/08/18 06:49 Dose: 150 mcg Methocarbamol (Robaxin) 750 mg PO QID PRN PRN Reason: Spasms Stop: 09/03/18 17:58 Last Admin: 03/08/18 16:15 Dose: 750 mg Tamsulosin HCl (Flomax) 0.4 mg PO HS MALDONADO Stop: 09/03/18 20:59 Last Admin: 03/08/18 19:52 Dose: 0.4 mg Zolpidem Tartrate (Ambien) 10 mg PO HS PRN PRN Reason: Sleep/Insomnia Stop: 09/03/18 02:48 Last Admin: 03/07/18 23:36 Dose: 10 mg Discontinued Medications Allopurinol (Allopurinol) 300 mg PO ONCE ONE Stop: 03/06/18 23:56 Last Admin: 03/07/18 00:18 Dose: 300 mg Bacitracin (Bacitracin Syringe) Confirm Administered Dose 100,000 units IRR .STK -MED ONE Stop: 03/07/18 11:57 Last Admin: 03/07/18 14:26 Dose: 50,000 units Bupivacaine HCl/Epinephrine Bitart (Bupivacaine/Epi) Confirm Administered Dose 30 ml .ROUTE .STK-MED ONE Stop: 03/07/18 11:57 Last Admin: 03/07/18 14:25 Dose: 30 ml Celecoxib (Celebrex) 400 mg PO ONCALL ONE Stop: 03/07/18 12:23 Last Admin: 03/08/18 19:37 Dose: Not Given Colchicine (Colchicine) 0.6 mg PO ONCE ONE Stop: 03/06/18 23:57 Last Admin: 03/07/18 00:09 Dose: 0.6 mg Diazepam (Valium) 2.5 - 5 mg IVP Q5M PRN PRN Reason: PACU, Muscle Spasms Stop: 03/07/18 16:48 Last Admin: 03/07/18 16:17 Dose: 2.5 mg Fentanyl (Sublimaze) 25 - 100 mcg IVP Q5M PRN PRN Reason: PACU, IMMEDIATE Pain control Stop: 03/07/18 16:32 Last Admin: 03/07/18 16:05 Dose: 50 mcg Fibrinogen/Thrombin (Surgiflo Matrix Kit With Thrombin) Confirm Administered Dose 8 ml TP .STK-MED ONE Stop: 03/07/18 11:57 Last Admin: 03/07/18 15:48 Dose: Not Given Furosemide (Lasix) 40 mg PO BID MALDONADO Stop: 09/03/18 20:59 Last Admin: 03/08/18 17:13 Dose: 40 mg Gabapentin (Neurontin) 900 mg PO ONCALL ONE Stop: 03/07/18 12:23 Last Admin: 03/08/18 19:37 Dose: Not Given Hydromorphone HCl (Dilaudid) 0.1 - 0.4 mg IVP Q10M PRN PRN Reason: PACU, PAIN Stop: 03/07/18 16:32 Last Admin: 03/07/18 16:11 Dose: 0.2 mg Tranexamic Acid 1,000 mg/ (Sodium Chloride) 110 mls @ 660 mls/hr IV ONCALL ONE Stop: 03/07/18 12:31 Last Admin: 03/07/18 12:24 Dose: 110 mls Cefazolin Sodium 3 gm/ (Dextrose) 100 mls @ 200 mls/hr IV ONCALL ONE Stop: 03/07/18 12:59 Last Admin: 03/07/18 13:36 Dose: 100 mls Cefazolin Sodium/Dextrose (Ancef) 100 mls @ 200 mls/hr IV Q8HRS MALDONADO PRN Reason: Protocol Stop: 03/08/18 06:29 Last Admin: 03/08/18 06:49 Dose: 100 mls Midazolam HCl (Versed) 2 mg IVP ONCALL ONE Stop: 03/07/18 12:34 Last Admin: 03/07/18 12:53 Dose: 2 mg Ondansetron HCl (Zofran) 2 - 4 mg IVP Q10M PRN PRN Reason: PACU, Nausea/Vomiting Stop: 03/07/18 16:32 Last Admin: 03/07/18 16:08 Dose: 4 mg Tamsulosin HCl (Flomax) 0.4 mg PO ONCE ONE Stop: 03/06/18 23:57 Last Admin: 03/07/18 00:09 Dose: 0.4 mg Zolpidem Tartrate (Ambien) 10 mg PO ONCE ONE Stop: 03/06/18 23:56 Last Admin: 03/07/18 00:09 Dose: 10 mg Departure - Departure Disposition: [facility] Acute Clinical Impression: Cervical radicular pain Condition: Fair
[2018-03-06 22:34] LABS: PLATELET COUNT 158 10^3/uL (150-400)
[2018-03-06] MEDS ORDERED: ONDANSETRON DISINTEGRATING 4 MG TAB PO PRN (22:44)
[2018-03-06] MEDS ORDERED: ONDANSETRON 4 MG/2 ML VIAL IVP PRN (22:44)
[2018-03-06] MEDS ORDERED: ACETAMINOPHEN 325 MG TAB PO PRN (22:44)
[2018-03-06 22:59] LABS: INR 1.01 (0.83-1.16); PROTIME(PATIENT) 13.5 SEC (12.0-15.0)
[2018-03-06] MEDS ORDERED: D50W 25 GM/50 ML VIAL IVP PRN (23:51)
[2018-03-06] MEDS ORDERED: ZOLPIDEM TARTRATE 5 MG TAB PO ONE (23:55)
[2018-03-06] MEDS ORDERED: ALLOPURINOL 300 MG TAB PO ONE (23:55)
[2018-03-06] MEDS ORDERED: COLCHICINE 0.6 MG CAP/TAB PO ONE (23:56)
[2018-03-06] MEDS ORDERED: TAMSULOSIN HCL 0.4 MG CAP PO ONE (23:56)
--- NOTE | 2018-03-07 02:38 | PDGENHP ---
History and Physical - Chief Complaint Planned surgery - History of Present Illness 62 yo M w/ hx of spinal DJD, HTN, DM, CAD, BPH, DARRYL, and hypothyroid presents for planned spinal surgery. The patient was directed to presents to [facility] ED for admission to the hospital medicine service prior to surgical procedure tomorrow. Per review of the chart, the planned procedure is C3/4/5 ACDF due to progressive symptoms of arm and leg weakness. At the time of my evaluation the patient denies any acute symptoms. He has had pre-op clearance by cardiology prior to today. He does have bilateral lower extremity edema but he tells me this is chronic and the best its been in a long time. Case discussed with ED physician Dr. Monaco; records reviewed and summarized above. History Information - Allergies/Home Medication List Allergies/Adverse Reactions: oxycodone Allergy (Verified 02/08/18 17:10) hallucinations Home Medications: amLODIPine BESYLATE [Norvasc 10 mg (*)] 10 mg PO DAILY 12/23/15 [Last Taken 12/30] Tamsulosin HCl [Flomax 0.4 MG (*)] 0.4 mg PO HS 01/08/17 [Last Taken 02/20/18] Allopurinol [Allopurinol 300 MG (RX)] 600 mg PO HS 02/09/17 [Last Taken 02/20/18 ] Furosemide [Lasix 20 MG (*)] 40 mg PO BID 02/09/17 [Last Taken 02/20/18] Levothyroxine [Synthroid 150 mcg (*)] 150 mcg PO DAILY06 02/09/17 [Last Taken ] Aspirin [Aspirin 81mg (*)] 81 mg PO DAILY 02/08/18 [Last Taken 02/21/18] Colchicine [Colchicine (*)] 0.6 mg PO DAILY 02/08/18 [Last Taken 02/20/18] Lisinopril [Zestril 40 mg (*)] 40 mg PO DAILY 02/08/18 [Last Taken 02/21/18] Potassium Cl [Klor-Con 20 meq (*)] 40 meq PO DAILY 02/21/18 [Last Taken 02/20/18 ] Zolpidem Tartrate [Ambien] 10 mg PO HS 02/24/18 [Last Taken Unknown] Xanax 0.25 MG (*) 03/06/18 [Last Taken Unknown] I have personally reviewed and updated: family history, medical history - Past Medical History coronary artery disease (sp 2 stents to cx/pda in 2016), diabetes type 2, hypertension, psychiatric history (anxiety) Additional medical history: DARRYL--on cpap, previously not compliant but states more compliant recently. insomnia. claustrophobia. MRSA cellulitis. BPH - Surgical History Reports: coronary stent Additional surgical history: rotator cuff surgery. knee surgery. R MAVIS - Family History Positive for: diabetes type II - Social History Smoking Status: Never smoked Additional social history: lives alone, single, very sedentary Review of Systems Review of Systems: ROS: 10pt was reviewed & negative except for what was stated in HPI & below Physical Exam Physical Exam: Temp Pulse Resp BP Pulse Ox 36.8 C 68 20 150/80 H 93 03/07/18 01:20 03/07/18 01:20 03/07/18 01:20 03/07/18 01:20 03/07/18 01:20 Constitutional: no apparent distress, obese Eyes: PERRL, EOMI Ears, Nose, Mouth, Throat: moist mucous membranes, no oral mucosal ulcers Cardiovascular: regular rate and rhythym, no murmur, rub, or gallop, edema (1+ b /l ALLEN) Respiratory: no respiratory distress, clear to auscultation Gastrointestinal: normoactive bowel sounds, soft, non-tender abdomen Skin: warm, other (Venous stasis dermatitis) Musculoskeletal: no muscle tenderness, no joint effusions Neurologic: AAOx3 Psychiatric: interacting appropriately, not anxious Lab Data & Imaging Review 03/06/18 22:30 03/06/18 22:30 WBC 7.98 10^3/uL (3.80-9.50) 03/06/18 22:30 RBC 5.52 10^6/uL (4.40-6.38) 03/06/18 22:30 Hgb 15.6 g/dL (13.7-17.5) 03/06/18 22:30 Hct 46.4 % (40.0-51.0) 03/06/18 22:30 MCV 84.1 fL (81.5-99.8) 03/06/18 22:30 MCH 28.3 pg (27.9-34.1) 03/06/18 22:30 MCHC 33.6 g/dL (32.4-36.7) 03/06/18 22:30 RDW 17.2 % (11.5-15.2) H 03/06/18 22:30 Plt Count 158 10^3/uL (150-400) 03/06/18 22:30 MPV 11.0 fL (8.7-11.7) 03/06/18 22:30 Neut % (Auto) 75.5 % (39.3-74.2) H 03/06/18 22:30 Lymph % (Auto) 14.9 % (15.0-45.0) L 03/06/18 22: Howard % (Auto) 7.3 % (4.5-13.0) 03/06/18 22:30 Eos % (Auto) 1.6 % (0.6-7.6) 03/06/18 22:30 Baso % (Auto) 0.6 % (0.3-1.7) 03/06/18 22:30 Nucleat RBC Rel Count 0.0 % (0.0-0.2) 03/06/18 22:30 Absolute Neuts (auto) 6.02 10^3/uL (1.70-6.50) 03/06/18 22:30 Absolute Lymphs (auto) 1.19 10^3/uL (1.00-3.00) 03/06/18 22:30 Absolute Monos (auto) 0.58 10^3/uL (0.30-0.80) 03/06/18 22:30 Absolute Eos (auto) 0.13 10^3/uL (0.03-0.40) 03/06/18 22:30 Absolute Basos (auto) 0.05 10^3/uL (0.02-0.10) 03/06/18:30 Absolute Nucleated RBC 0.00 10^3/uL (0-0.01) 03/06/18 22:30 Immature Gran % 0.1 % (0.0-1.1) 03/06/18 22:30 Immature Gran # 0.01 10^3/uL (0.00-0.10) 03/06/18 22:30 PT 13.5 SEC (12.0-15.0) 03/06/18 22:30 INR 1.01 (0.83-1.16) 03/06/18 22:30 APTT 26.6 SEC (23.0-38.0) 03/06/18 22:30 Sodium 140 mEq/L (135-145) 03/06/18 22:30 Potassium 4.9 mEq/L (3.5-5.2) 03/06/18 22:30 Chloride 106 mEq/L (97-110) 03/06/18 22:30 Carbon Dioxide 25 mEq/l (22-31) 03/06/18 22:30 Anion Gap 9 mEq/L (6-14) 03/06/18 22:30 BUN 22 mg/dL (7-23) 03/06/18:30 Creatinine 1.1 mg/dL (0.7-1.3) 03/06/18 22:30 Estimated GFR > 60 03/06/18: Glucose 127 mg/dL (70-100) H 03/06/18: Calcium 9.7 mg/dL (8.5-10.4) 03/06/18 22:30 Specimen Hemolysis 118 03/06/18 22:30 Assessment & Plan Assessment: 62 yo M w/ hx of spinal DJD, HTN, DM, CAD, BPH, DARRYL, and hypothyroid presents for planned spinal surgery. Plan: 1. Cervical spondylosis with myelopathy - Also with spinal stenosis, which have led to progressive upper and lower extremity weakness. - To OR tomorrow for planned C3/4/5 ACDF - Maintain NPO 2. dCHF, pHTN - Likely due to obesity and DARRYL with history of poor CPAP compliance. On furosemide 40 mg PO BID as an outpatient. - Will hold tomorrow morning's furosemide due to NPO status, will resume evening home dose 3. CAD - S/p prior stenting; no active symptoms related to this. - Resume aspirin when ok with surgical team 4. DM - Only on oral metformin with usual BG's in 90-100 range. - Hold metformin initially due to NPO and upcoming surgery - Monitor BG ACHS - Start insulin or metformin if indicated 5. HTN - On amlodipine and lisinopril as outpatient. - Hold lisinopril tomorrow morning prior to surgery, restart as indicated - Continue amlodipine 6. BPH - Continue tamsulosin. 7. Gout - Continue allopurinol, colchicine. 8. Hypothyroid - Continue LTX. Diet - NPO Code - DNR Ppx - SCDs Dispo - Admit under inpatient status noting major surgery planned.
[2018-03-07 05:12] LABS: PLATELET COUNT 141 10^3/uL (150-400)
[2018-03-07] MEDS: LEVOTHYROXINE 150 MCG TAB PO SCH (05:43)
--- NOTE | 2018-03-07 09:01 | PDANEPAE ---
ANE History of Present Illness Severe spinal DJD with progressive myelopathy, here for ACDF C3/4/5. 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 CAD cx/pda with stents x2 2016. Hx CHF, no recent symptoms. Has had cardiac clearance 2016, printed and on chart. Echo 01/29 with EF 50-55%, PA pressures 62, later down to 44. R Heart Cath pre diuresis 01/29 PA pressure 80 and post with 50# wt loss PA pressure measured 44 - Pulmonary History Hx COPD: No Hx Asthma/Reactive Airway Disease: No Hx Recent Upper Respiratory Infection: No Hx Oxygen in Use at Home: Yes O2 in Use at Home (L/minute): 3 Hx Sleep Apnea: Yes Sleep Apnea Screening Result - Last Documented: Positive Pulmonary History Comment: o2 for cpap- 2-3 liters. Largely non-compliant, says has been better recently - Neurologic History Hx Cerebrovascular Accident: No Hx Seizures: No Hx Dementia: No Neurologic History Comment: numbness in both hands and legs. 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 Hx renal failure in past - Liver History Hx Hepatic Disorders: No - Neurological & Psychiatric Hx Hx Neurological and Psychiatric Disorders: No - Cancer History Hx Cancer: No - Congenital Disorder History Hx Congenital Disorders: No - GI History Hx Gastrointestinal Disorders: No - Other Health History Other Health History: gout,. IV Antibx for R hip infection. loss of few teeth. blood clot but doesn't know where it was, - Chronic Pain History Chronic Pain: Yes - Surgical History Prior Surgeries: R femoral head excision,I and D 01-21-17. Right shoulder. Bilat knee surgery. Tonsilectomy, R MAVSI 02/2017, ANE Review of Systems Review of Systems: ANE Patient History - Allergies Allergies/Adverse Reactions: oxycodone Allergy (Verified 02/08/18 17:10) hallucinations - Home Medications Home Medications: amLODIPine BESYLATE [Norvasc 10 mg (*)] 10 mg PO DAILY 12/23/15 [Last Taken 12/30] Tamsulosin HCl [Flomax 0.4 MG (*)] 0.4 mg PO HS 01/08/17 [Last Taken 02/20/18] Allopurinol [Allopurinol 300 MG (RX)] 600 mg PO HS 02/09/17 [Last Taken 02/20/18 ] Furosemide [Lasix 20 MG (*)] 40 mg PO BID 02/09/17 [Last Taken 02/20/18] Levothyroxine [Synthroid 150 mcg (*)] 150 mcg PO DAILY06 02/09/17 [Last Taken ] Aspirin [Aspirin 81mg (*)] 81 mg PO DAILY 02/08/18 [Last Taken 02/21/18] Colchicine [Colchicine (*)] 0.6 mg PO DAILY 02/08/18 [Last Taken 02/20/18] Lisinopril [Zestril 40 mg (*)] 40 mg PO DAILY 02/08/18 [Last Taken 02/21/18] Potassium Cl [Klor-Con 20 meq (*)] 40 meq PO DAILY 02/21/18 [Last Taken 02/20/18 ] Zolpidem Tartrate [Ambien] 10 mg PO HS 02/24/18 [Last Taken Unknown] ALPRAZolam [Xanax 0.25 MG (*)] 0.25 mg PO TID PRN 03/06/18 [Last Taken Unknown] - NPO status NPO Since - Liquids (Date): 03/07/18 NPO Since - Liquids (Time): 00:00 NPO Since - Solids (Date): 03/07/18 NPO Since - Solids (Time): 00:00 - Smoking Hx Smoking Status: Never smoked - Family Anes Hx Family Hx Anesthesia Complications: None ANE Labs/Vital Signs - Labs Result Diagrams: 03/08/18 04:00 03/09/18 04:31 - Vital Signs Blood Pressure: 142/79 Heart Rate: 62 Respiratory Rate: 16 O2 Sat (%): 94 Height: 190.5 cm Weight: 125.191 kg
--- NOTE | 2018-03-07 09:56 | PDMN ---
Medical Necessity Medical necessity: [facility] Neurology GR yo w/ severe cervical spondylosis with myelopathy, spinal stenosis, w/ progressive upper and lower extremity weakness presents to ED per neurosurgery for planned ACDF. To OR next day for C3 /4/5 ACDF. Meets IP criteria for progressive weakness, pending surgery w/ comorbidities as below. Hx CAD s/p stents x2 2016, CHF, DM, HTN, DARRYL on CPAP, MRSA cellulitis, past renal failure
--- NOTE | 2018-03-07 10:05 | HOSPPROG ---
Hospitalist Progress Note Assessment/Plan: 62 yp M w MMP here w cervical myelopathy preop cardiac eval: no active cardiac conditions >4 mets att baseline to OR w no further workup cad: restart asa post surgery stents in 2016 pulm htn: maintain euvolemia ok to continue lasix for nw but follow anxiety: continue meds rodrick: cpap dispo: inpt Subjective: case d/w Dr Ag. patient feels well, edema has decreased Objective: Vital Signs Temp Pulse Resp BP Pulse Ox 36.8 C 62 16 142/79 H 94 03/07/18 07:43 03/07/18 09:30 03/07/18 09:30 03/07/18 09:30 03/07/18 09:30 Laboratory Results 03/07/18 04:43 03/07/18 04:43 03/06/18 03/07/18 03/08/18 05:59 05:59 05:59 Intake Total 360 Balance 360 PT 13.5 SEC (12.0-15.0) 03/06/18 22:30 INR 1.01 (0.83-1.16) 03/06/18 22:30 - Physical Exam Constitutional: no apparent distress, appears nourished Eyes: PERRL, anicteric sclera Ears, Nose, Mouth, Throat: moist mucous membranes, hearing normal Cardiovascular: regular rate and rhythym, no murmur, rub, or gallop Respiratory: no respiratory distress, no rales or rhonchi Gastrointestinal: normoactive bowel sounds, soft, non-tender abdomen Genitourinary: No dunn in urethra Skin: warm, normal color Musculoskeletal: other (chronic venous stasis changes) Neurologic: AAOx3 Psychiatric: interacting appropriately ICD10 Worksheet Patient Problems: Problems Problem Status Onset Cervical radicular pain Acute Diabetes Acute Heart failure Acute Hypoxia Acute Methicillin resistant Staphylococcus aureus infection Acute 08/19/15
--- NOTE | 2018-03-07 10:29 | WOCRNPDOC ---
GISSEL Advanced Assessment Note - Skin Integrity Problem, Advanced Assess Left Foot Dressing Type: Open to Air Skin Integrity Problem Comment: Patient has several healing hard sangenous blisters. Approximately 3 of them on his toes. He reports them being from trying to break in shoes. No sign of infection. No wound care intervention necessary as none are open. Discussed importance of proper footwear as patient is diabetic. Patient reports that his brother is his rivet bucker. Wound care will sign off. Right Lower Leg Scab Dressing Type: Open to Air Skin Integrity Problem Comment: 3 scabs on anterior lower leg from traumatic injuries. Patient reports he bangs them on things". He has LEVD and has compression at home. Does not want compression in the hospital. All scabs are smaller than 1x1 and healing. Will leave open to air. Wound care will sign off.
[2018-03-07] MEDS ORDERED: SURGIFLO MATRIX KIT WITH THROMBIN 8 ML TP ONE (11:56)
[2018-03-07] MEDS ORDERED: BACITRACIN 50,000 UNITS/10 ML SYR IRR ONE (11:56)
[2018-03-07] MEDS ORDERED: BUPIVACAINE/EPI 0.5% 30 ML SDV ONE (11:56)
--- NOTE | 2018-03-07 12:01 | PDANEPAE ---
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 CAD cx/pda with stents x2 2015, and 2006. Hx CHF, chronic B Leg edema. Has had cardiac clearance 02/2017. Echo 01/29 with EF 50-55%, PA pressures 62, later down to 44. R Heart Cath pre diuresis 01/29 PA pressure 80 and post with 50# wt loss PA pressure measured 44 - Pulmonary History Hx COPD: No Hx Asthma/Reactive Airway Disease: No Hx Recent Upper Respiratory Infection: No Hx Oxygen in Use at Home: Yes O2 in Use at Home (L/minute): 3 Hx Sleep Apnea: Yes Sleep Apnea Screening Result - Last Documented: Positive Pulmonary History Comment: Baseline O2Ssat 90-92. o2 for cpap- 2-3 liters. Largely non-compliant, says has been better recently - Neurologic History Hx Cerebrovascular Accident: No Hx Seizures: No Hx Dementia: No Neurologic History Comment: numbness in both hands and legs, some B finger contractures. Progressive myelopathy. 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 Hx renal failure in past - Liver History Hx Hepatic Disorders: No - Neurological & Psychiatric Hx Hx Neurological and Psychiatric Disorders: No - Cancer History Hx Cancer: No - Congenital Disorder History Hx Congenital Disorders: No - GI History GERD: no Hx Gastrointestinal Disorders: No - Other Health History Other Health History: gout,. IV Antibx for R hip infection. loss of few teeth. blood clot but doesn't know where it was, - Chronic Pain History Chronic Pain: Yes - Surgical History Prior Surgeries: R femoral head excision,I and D 01-21-17. Right shoulder in 2010, with brachial plexus damage. Bilat knee surgery. Tonsilectomy, R MAVIS 2016, ANE Review of Systems Review of Systems: - Exercise capacity METS (RN): 4 METS ANE Patient History - Allergies Allergies/Adverse Reactions: oxycodone Allergy (Verified 02/08/18 17:10) hallucinations - Home Medications Home Medications: amLODIPine BESYLATE [Norvasc 10 mg (*)] 10 mg PO DAILY 12/23/15 [Last Taken 12/30] Tamsulosin HCl [Flomax 0.4 MG (*)] 0.4 mg PO HS 01/08/17 [Last Taken 02/20/18] Allopurinol [Allopurinol 300 MG (RX)] 600 mg PO HS 02/09/17 [Last Taken 02/20/18 ] Furosemide [Lasix 20 MG (*)] 40 mg PO BID 02/09/17 [Last Taken 02/20/18] Levothyroxine [Synthroid 150 mcg (*)] 150 mcg PO DAILY06 02/09/17 [Last Taken ] Aspirin [Aspirin 81mg (*)] 81 mg PO DAILY 02/08/18 [Last Taken 02/21/18] Colchicine [Colchicine (*)] 0.6 mg PO DAILY 02/08/18 [Last Taken 02/20/18] Lisinopril [Zestril 40 mg (*)] 40 mg PO DAILY 02/08/18 [Last Taken 02/21/18] Potassium Cl [Klor-Con 20 meq (*)] 40 meq PO DAILY 02/21/18 [Last Taken 02/20/18 ] Zolpidem Tartrate [Ambien] 10 mg PO HS 02/24/18 [Last Taken Unknown] ALPRAZolam [Xanax 0.25 MG (*)] 0.25 mg PO TID PRN 03/06/18 [Last Taken Unknown] - NPO status NPO Since - Liquids (Date): 03/07/18 NPO Since - Liquids (Time): 00:00 NPO Since - Solids (Date): 03/07/18 NPO Since - Solids (Time): 00:00 - Anes Hx Anes Hx: no prior problems - Smoking Hx Smoking Status: Never smoked Marijuana use: No - Alcohol Use Alcohol Use: None - Family Anes Hx Family Anes Hx: none Family Hx Anesthesia Complications: None ANE Labs/Vital Signs - Labs Result Diagrams: 03/07/18 04:43 03/07/18 04:43 - Vital Signs Blood Pressure: 155/91 Heart Rate: 69 Respiratory Rate: 16 O2 Sat (%): 92 Height: 190.5 cm Weight: 125.191 kg ANE Physical Exam - Airway Neck exam: decreased ROM (minimal cervical extension) Mallampati Score: Class 3 - Pulmonary Pulmonary: clear to auscultation - Cardiovascular Cardiovascular: regular rate and rhythym - ASA Status ASA Status: III ANE Anesthesia Plan Anesthesia Plan: general endotracheal anesthesia (DNR status issues discussed. Pt. agrees to suspend it during periop. period.)
[2018-03-07] MEDS ORDERED: TRANEXAMIC ACID 1,000 MG in NS 100 ML IV ONE (12:22)
[2018-03-07] MEDS ORDERED: GABAPENTIN 300 MG CAP PO ONE (12:22)
[2018-03-07] MEDS ORDERED: ceFAZolin 2 GM/DEXTROSE 100 ML IV ONE (12:22)
[2018-03-07] MEDS ORDERED: ceFAZolin 3 GM in D5W 100 ML IV ONE (12:30)
[2018-03-07] MEDS ORDERED: MIDAZOLAM 2 MG/2 ML VIAL IVP ONE (12:33)
[2018-03-07] MEDS ORDERED: CEFAZOLIN 1 GM/DEXTROSE/50 ML BAG IV ONE (12:37)
[2018-03-07] MEDS ORDERED: CEFAZOLIN 2 GM/DEXTROSE/100 ML BAG IV ONE (12:38)
[2018-03-07] MEDS ORDERED: KETAMINE 200 MG/20 ML VIAL ONE (12:40)
[2018-03-07] MEDS ORDERED: ROCURONIUM 50 MG/5 ML VIAL ONE (12:41)
[2018-03-07] MEDS ORDERED: PROPOFOL/EMULSION 500 MG/50 ML BOTTLE IV ONE ×2 (12:41→13:51)
[2018-03-07] MEDS ORDERED: DEXAMETHASONE 4 MG/ML VIAL ONE (12:41)
[2018-03-07] MEDS ORDERED: fentaNYL 250 MCG/5 ML INJ ONE (12:42)
--- NOTE | 2018-03-07 13:01 | GCON ---
Sarmad is well known to me and was admitted to the hospital with severe cervical stenosis. Physical exam is grossly unchanged from the office. He has numbness in all 4 extremities and severe wasting bilaterally. He does have a lot of medical history and notes pretty substantial lower extremity kevin a which is more or less unrelated. I reviewed the images that demonstrate severe stenosis at C3-C4. I have gone back and forth with whether or not this patient needs an anterior and posterior procedur e. At this point, based on the patient's risk factors, I think it is more than reasonable to try C3- C4 ACDF. I do think it has a very good chance of solving the patient's myelopathy and symptoms at th is point. If he absolutely needs it, we will stage posterior cervical decompression fusion as well. All questions were answered with the patient. He does understand that we will resend his DNR; [facility], I do think there certainly is a risk of paralysis and , spinal cord injury, etc., with this operation given the degree of stenosis as well as the patient's habitus and comorbidities. We will m ove forward with surgery shortly. /[id number]/MODL
[2018-03-07] MEDS ORDERED: SUGAMMADEX SODIUM 200 MG/2 ML VIAL IVP ONE (13:18)
--- NOTE | 2018-03-07 13:50 | ASMTCMCOM ---
CM Note CM Note Notes: Pt had planned surgery for cervical stenosis with Ancelmo today, came in early. No therapies ordered at this time. Pt has been to [facility] in 2017. CM to follow. D/c plan of care: TBD Date Signed: 03/07/2018 01:49 PM Electronically Signed By:PHOEBE Haines
[2018-03-07] MEDS ORDERED: ePHEDrine SULFATE 25 MG/5 ML SYR ONE (13:57)
[2018-03-07] MEDS ORDERED: ONDANSETRON 4 MG/2 ML VIAL ONE ×2 (15:01→16:07)
[2018-03-07] MEDS ORDERED: PROPOFOL 200 MG/20 ML VIAL ONE (15:09)
[2018-03-07] MEDS ORDERED: ONDANSETRON 4 MG/2 ML VIAL IVP PRN (15:32)
[2018-03-07] MEDS ORDERED: NALOXONE HCL 0.4 MG/ML INJ IVP PRN (15:32)
[2018-03-07] MEDS ORDERED: fentaNYL 100 MCG/2 ML INJ ONE (15:46)
[2018-03-07] MEDS ORDERED: DIAZEPAM 5 MG/ML 1 ML SYR IVP PRN (15:46)
[2018-03-07] MEDS: fentaNYL 100 MCG/2 ML INJ IVP PRN ×2 (15:49→16:05)
--- NOTE | 2018-03-07 15:52 | POSTANESTH ---
Post Anesthetic Evaluation Cardiovascular Status: Similar to Pre-Op Cond Respiratory Status: Similar to Pre-op Cond. Level of Consciousness/Mental Status: Can Participate in Eval, Moderately Sleepy Pain Control: Adequate, Prn Tx Ordered Nausea/Vomiting Control: Adequate, Prn Tx Ordered Complications Possibly Related to Anesthesia: None Noted
[2018-03-07] MEDS ORDERED: DIAZEPAM 5 MG/ML 1 ML SYR ONE (15:53)
[2018-03-07] MEDS ORDERED: HYDROmorphONE/DILAUDID 2 MG/ML INJ ONE (15:53)
[2018-03-07] MEDS: HYDROmorphONE/DILAUDID 2 MG/ML INJ IVP PRN ×2 (16:01→16:11)
[2018-03-07] MEDS: ALPRAZolam 0.25 MG TAB PO PRN ×2 (19:53→23:38)
[2018-03-07] MEDS: FUROSEMIDE 20 MG TAB PO SCH (20:43)
[2018-03-07] MEDS: ALLOPURINOL 300 MG TAB PO SCH (20:55)
[2018-03-07] MEDS: COLCHICINE 0.6 MG CAP/TAB PO SCH (20:56)
--- NOTE | 2018-03-07 20:56 | SUROPNOTE ---
[facility] Operative Report - Surgery Date: 03/07/18 Pre-operative Diagnosis: Cervical Degenerative Disc Disease Cervical Stenosis Advanced Cervical Spondylotic Myelopathy Morbid obesity, BMI = 35 Post-operative Diagnosis: Same Procedure: C3/4 Anterior Cervical Discectomy and Fusion with Instrumentation Structural use of morselized local autograft bone Structural use of allograft Use of intra-operative fluoroscopy Use of intra-operative neuromonitoring, including RLN monitoring, EMG, MEP, and SSEP modalities Use of a surgical microscope Surgeon: Fantasma Ag MD Wetlands Conservation Laborer: None Anesthesia: General endotracheal anesthesia Findings: As expected degenerative disc disease and stenosis Estimated Blood Loss: 5mL Drains: Hemovac Specimens: None Complications: None Condition: Transferred to PACU in stable condition. Implants: DePuy Plate: 14mm Screws: 16mm x 4 Interbody cage: Size 5 Carbon Bengal cage, used structurally in the disc space Allograft: 1mL, used structurally in the disc space Autograft: local bone from end plate preparation used structurally in the interbody cage. Indications: The patient was admitted to the hospital with an inability to walk, and weakness /paresthesias in all four extremities, consistent with cervical spondylotic myelopathy. I have explained all options of treatment for the patient, and the patient has elected to proceed with operative management. I have explained all risks, benefits, and alternatives of the proposed procedure. The risks that we have discussed include , blindness, bleeding, nerve damage, infection, dural tear, failure of surgery to alleviate pre-operative symptoms, nonunion, and possible need for further operation. I also discussed in detail the possibility of dysphagia, superior laryngeal and/or hypoglossal nerve injury, carotid or vertebral artery damage, Horners syndrome, C5 palsy specifically, and paralysis. I have described the surgical procedure using an acrylic model. I explained separately the risks of allograft, including infection and disease transfer. In addition to the aforementioned procedure, I discussed with the patient that other procedures may be indicated during the course of surgery. The patient expressed understanding of this and agreed to move forward with operative management. Pre-surgical: The proposed incision site was marked in the pre-operative holding area by me. The patient was then taken to the operating room in stable condition. Following smooth induction of general anesthesia, the patient was positioned supine on a Breezy table with all down surfaces well-padded. A small towel was placed between the scapulae and the neck was placed in slight extension with the head resting on a donut pillow. The patient was then prepped and draped in the usual sterile fashion. Pre-operative antibiotics and tranexamic acid were administered within one hour of the incision. A surgical timeout was performed, and all parties involved in the procedure were in agreement on the correct patient, location, and procedure to be performed. Approach: The proposed C3/4 levels were identified using C-arm fluoroscopy and the skin was marked for the proposed incision. Based on anatomy and pathology, a right- sided approach was taken. A natural skin fold was selected near the proposed incision site to allow for optimal cosmesis, reaching from the medial border of the sternocleidomastoid to near midline. The skin was then incised sharply through the dermis. Bipolar cautery was used to dissect the subdermal fat layer down to the platysma and to coagulate bleeding vessels. A small rent was created in the platysma and the muscle was spread in line with the fibers. A Metzenbaum scissors was used to spread soft tissues in a plane just deep to the platysma. Using a forceps, the layer just deep to the platysma was defined further using a Metzenbaum scissors as a dissector. A self-retractor was then placed to allow for further visualization. The medial border of the sternocleidomastoid muscle was identified and retracted laterally. The carotid sheath was identified and retracted laterally. The strap muscles and midline structures were retracted medially, and any crossing vessels were coagulated or tied off with 3-0 silk suture, depending on their caliber and location in relation to the anticipated fusion levels. The pretracheal fascia and longus colli muscles were then identified. Of note, due to the patients habitus and morbid obesity, there was a substantial amount of soft tissue to dissect through to access the operative disc space. An additional 40 minutes was spent during this dissection in order to perform the operation safely. Secondary pause and retraction: An 18-gauge spinal needle was then bent twice to allow the terminal 1cm of the needle to be inserted safely into a vertebra. The needle was inserted into the C3/4 disc space. A lateral radiograph was taken for identification purposes. A secondary spinal pause was then performed, and the level was confirmed with all parties participating in the operation. Once confirmed, the needle was removed and the vertebra was marked using electrocautery. A cervical self- retracting system was selected with appropriate depth and placed into the surgical field. Care was taken to retract and protect all areas of the esophagus without placing undue pressure for an extended period of time. The endotracheal cuff was then deflated and re-inflated to a lower pressure until tracheal retraction was removed. Disc preparation: The longus colli muscles were then gently elevated using a periosteal elevator on either side to allow for disc preparation. Small vessels were coagulated using bipolar cautery. A [place] pin was then placed in each vertebral body above and below the disc space to be fused. Anterior osteophytes were removed using a Leksell rongeur. A [place] pin distractor was then applied to both and gently distracted. A disc knife was then used to incise the anterior annulus, using the uncinated process as both a lateral border to dissection and protection for the vertebral artery. The annulus and underlying nucleus was removed using curettes a disc punch. The posterior longitudinal ligament was then identified and removed from the posterior vertebral bodies using Kerrison rongeurs. A curved curette was used to remove any posterior osteophytes that could be palpated. Pedicles of the caudal level were identified and a cervical Peña ball was used to palpate the foraminae. Using the uncinates as landmarks , a high-speed zoey was used to remove any remaining cartilage from the endplates create an adequate box in the disc space for interbody cage placement. Once adequate decompression and interspace preparation was achieved, attention was turned toward implant placement. Implant placement: Trial implants used for sizing were introduced into the prepared disc space in a sequential fashion. Once the appropriate size trial implant was selected ( size 5mm), the trial was removed. Autograft bone was collected from the burring process and used for fusion. Based on the trial implant, the same size final implant was packed with local autograft bone and gently tamped into place. The [place] pin distractor and [place] pins were then removed. Anterior cervical plates were trialed and the appropriate size plate was applied across the disc space to be fused. Based on pre-surgical templating, rig superintendent holes were drilled through the plate and into the vertebral bodies in an appropriate trajectory for the anticipated screws. Based on pre-surgical templating of the anterior-to- posterior length of the vertebral body, the appropriate screw sizes were selected. Screws were then placed in star-pattern, and the secondary locking mechanism was tightened using a torque-limited screwdriver. Retractor removal: The superior laryngeal nerve and hypoglossal nerve were intentionally not visualized during the operation. The esophagus was inspected carefully while all retractors were removed, and there was no sign of injury or damage to the esophagus. Closure: The surgical field was then copiously irrigated with sterile saline. One gram of vancomycin powder was then applied to the surgical field. A small drain was placed deep to the platysma and brought out of the skin laterally, in line with the incision. The drain was then sewn to skin. 2-0 interrupted sutures were used to repair the platysma. A separate 2-0 monofilament suture was then used to approximate the subdermal tissues, and the subcutaneous layer was repaired with a 3-0 monofilament in a running fashion. All sutures used were absorbable. Topical adhesive was then applied to the skin and allowed to dry. A sterile island dressing was applied over the surgical incision. A surgical count was performed before initiation of closure and following the procedure, and all were correct. I was present for the entire procedure. Surgical microscope use: A surgical microscope was utilized throughout the decompressive portion of this case. This was deemed necessary for safe and accurate surgical decompression of affected nerve roots. Neuromonitoring: SSEP, MEP and EMG were used throughout the case from incision until the beginning of closure. The RLN was also monitored throughout the case. There were no significant changes throughout the case, and SSEP signals were at their pre-surgical baseline levels before surgical closure was initiated. Recovery: The patient was extubated uneventfully in the operating room. The patient was taken to the recovery room in stable condition. Sequential compression devices for VTE prophylaxis were applied to the patients lower extremities, and were ordered to be used while the patient was non-ambulatory. Chemical VTE prophylaxis was considered to be contraindicated for this patient because of the risk of bleeding near the epidural space. 22 modifier: Because of the patients morbid obesity, an additional 40 minutes were spent dissecting through the soft tissue safely. This was deemed necessary for a safe operation. A 22 modifier will be added to the case. Shane Ag MD
[2018-03-07] MEDS: ceFAZolin 2 GM/DEXTROSE 100 ML IV SCH (20:57)
[2018-03-07] MEDS: TAMSULOSIN HCL 0.4 MG CAP PO SCH (20:57)
[2018-03-07] MEDS: METHOCARBAMOL 750 MG TAB PO PRN (21:39)
[2018-03-07] MEDS: ZOLPIDEM TARTRATE 5 MG TAB PO PRN (23:36)
[2018-03-07] MEDS: HYDROCODONE/APAP 5/325 TAB PO PRN (23:37)
[2018-03-08] MEDS: HYDROCODONE/APAP 5/325 TAB PO PRN ×3 (03:38→23:27)
[2018-03-08 04:14] LABS: PLATELET COUNT 161 10^3/uL (150-400)
[2018-03-08] MEDS: ceFAZolin 2 GM/DEXTROSE 100 ML IV SCH (06:49)
[2018-03-08] MEDS: LEVOTHYROXINE 150 MCG TAB PO SCH (06:49)
[2018-03-08] MEDS: METHOCARBAMOL 750 MG TAB PO PRN ×3 (08:06→23:27)
[2018-03-08] MEDS: FUROSEMIDE 20 MG TAB PO SCH ×2 (08:06→17:13)
--- NOTE | 2018-03-08 08:15 | HOSPPROG ---
Hospitalist Progress Note Assessment/Plan: 62 yp M w MMP here w cervical myelopathy preop cardiac eval: no active cardiac conditions >4 mets at baseline to OR w no further workup cad: restart asa post surgery stents in 2016 dm: metformin on hold sugars at goal on no meds continue to follow pulm htn: maintain euvolemia ok to continue lasix for nw but follow anxiety: continue meds rodrick: cpap dispo: inpt Subjective: slept well. pain reasonably well controlled. case d/w dr urrutia Objective: Vital Signs Temp Pulse Resp BP Pulse Ox 36.6 C 52 L 12 128/78 H 98 03/08/18 04:00 03/08/18 06:00 03/08/18 06:00 03/08/18 08:06 03/08/18 06:00 Laboratory Results 03/08/18 04:00 03/07/18 04:43 03/07/18 03/08/18 03/09/18 05:59 05:59 05:59 Intake Total 360 1920 Output Total 1160 Balance 360 760 PT 13.5 SEC (12.0-15.0) 03/06/18 22:30 INR 1.01 (0.83-1.16) 03/06/18 22:30 - Physical Exam Constitutional: no apparent distress, appears nourished Eyes: PERRL, anicteric sclera Ears, Nose, Mouth, Throat: moist mucous membranes, hearing normal Cardiovascular: regular rate and rhythym, no murmur, rub, or gallop Respiratory: no respiratory distress, no rales or rhonchi Gastrointestinal: normoactive bowel sounds, soft, non-tender abdomen Genitourinary: No dunn in urethra Skin: warm, normal color Musculoskeletal: full muscle strength, no muscle tenderness Neurologic: AAOx3 Psychiatric: interacting appropriately ICD10 Worksheet Patient Problems: Problems Problem Status Onset Cervical radicular pain Acute Diabetes Acute Heart failure Acute Hypoxia Acute Methicillin resistant Staphylococcus aureus infection Acute 08/19/15
--- NOTE | 2018-03-08 09:41 | PDCONSULT ---
Hotel Custodian Note: ASSESSMENT 62-year-old obese male with multiple medical problems including cervical stenosis and advanced myelopathy status post C-spine diskectomy with fusion # C-spine spondylosis and associated myelopathy, status post cervical laminectomy with decompression # pulmonary hypertension, secondary to obesity and diastolic dysfunction # right heart failure, compensated # DARRYL, severe. Poor compliance with CPAP # diabetes, controlled with metformin # systemic hypertension # BPH # gout # hypothyroidism # difficult airway PLAN # encouraged home CPAP use swelling patient # continue outpatient diuretics # as an outpatient, consider switching from oral potassium to spironolactone for K sparing effect and RV remodeling a sign of pulmonary hypertension # restart systemic antihypertensives as blood pressure tolerates # postoperative care per surgery # continue tamsulosin for BPH # consider OP follow up in pulmonary clinic if he has not already established # Feeding -diabetic diet # Analgesia APAP, oxycodone # Sedation none # Thromboprophylaxis - SCDs, SQ hep when able # Head of bed elevated # Ulcer prophylaxis - not indicated # Glucose SSI # Skin no skin breakdown # Delirium - delirium precautions CONSULT I was asked by Dr. Ag of orthopedic surgery to evaluate this patient for postoperative care in the setting of pulmonary hypertension obstructive sleep apnea CHIEF COMPLAINT Lower extremity weakness HPI 62-year-old male with multiple medical problems including severe obstructive sleep apnea and pulmonary hypertension who is admitted for worsening upper and lower extremity paresthesias and myalgias in the setting of severe cervical stenosis and C-spine disc pathology. He states his spring progressive over months. He has been followed by a orthopedics as an outpatient was recommended surgery. At time of interview he denies fevers chills nausea vomiting shortness of breath worsening neck pain worsening weakness, no rashes no syncope , no chest pain, no shortness of Breath. He is on chronic oral diuretics for pulmonary hypertension right heart failure. He is noncompliant with CPAP due to mask intolerance. He states compliance with all of his medications Medications Amlodipine, tamsulosin, allopurinol, furosemide, Synthroid, aspirin, colchicine , lisinopril, potassium, sloping, Xanax Allergies Oxycodone Past medical history Coronary disease status post prior PCI in 2016, type 2 diabetes, systemic hypertension, obstructive sleep apnea poor compliance with CPAP, pulmonary hypertension, insomnia, claustrophobia, anxiety Family history Type 2 diabetes Social history Lives in [facility], live single, nonsmoker nondrinker. Review of systems Insert review of systems Physical exam Afebrile, pulse 58, blood pressure 126/68 map 87, respiratory rate 14 96% 2 L nasal cannula GEN: NAD, up in chair, interactive NEURO: A&Ox3, CN 2-12 GI. Mild paresthesias in upper and lower extremities 5/5 strength HEENT: Neck in collar, PERRL, EOMI, MMM, OP clear NECK: supple, trachea midline CHEST normal shape, no pes excavatum CVS: rrr no m/r/g PULM: CTA B, no wheezes/rales/rhonchi ABD: Protuberant, soft, NT, ND, NABS EXT: Trace to 1+ swelling, no cyanosis, full ROM SKIN: warm, dry, intact, no rash PSYCH CAM negative, appropriate affect Data I personally reviewed patient's medical chart and available imaging as well as formal radiology reads WBC preoperatively 8, hemoglobin 15.6, platelets 158 2017-CTA chest suboptimal opacification of arteries due to timing. No obvious central or lobar PE, imaging suggestive RV failure with RA enlargement, interventricular flattening and contrast refluxed into the hepatic veins.
[2018-03-08] MEDS: ALLOPURINOL 300 MG TAB PO SCH (19:52)
[2018-03-08] MEDS: TAMSULOSIN HCL 0.4 MG CAP PO SCH (19:52)
[2018-03-08] MEDS: COLCHICINE 0.6 MG CAP/TAB PO SCH (19:52)
[2018-03-08] MEDS: ALPRAZolam 0.25 MG TAB PO PRN ×2 (21:02→23:27)
--- NOTE | 2018-03-08 23:25 | GPROG ---
On physical examination, the patient is doing quite well. His dressing is clean, dry, and intact and left in place. The drain has minimal output. He is able to swallow, and his voice is normal. He d oes note that he has substantially less pain than he did before the operation. He also notes that hi s hands do not go numb in certain positions. He walked several times today and did quite well. Glenna hinkle the middle of the day we made an order to transfer him to the regular medical/surgical floor. IMPRESSION: Postoperative day 1 status post C3-4 anterior cervical discectomy and fusion. ASSESSMENT AND PLAN: At this point I have documented it to be safe for the patient to be transferred to the regular floor. The care by his instrument checker is certainly much appreciated. From my perspecti ve, the patient can likely be discharged tomorrow either to his brother's house or wherever is deemed appropriate and safe by the medical service. /[id number]/MODL
[2018-03-08] MEDS: ZOLPIDEM TARTRATE 5 MG TAB PO PRN (23:27)
[2018-03-09] MEDS: LEVOTHYROXINE 150 MCG TAB PO SCH (04:23)
[2018-03-09] MEDS: HYDROCODONE/APAP 5/325 TAB PO PRN ×2 (04:23→08:14)
[2018-03-09] MEDS: METHOCARBAMOL 750 MG TAB PO PRN ×2 (04:24→08:14)
[2018-03-09 07:45] VITALS: BP 128/68
--- NOTE | 2018-03-09 08:16 | GPROG ---
I saw and evaluated the patient this morning on my morning rounds. Overall, he has no unusual compla ints. He does report a little bit of numbness and tingling in his fingertips in a glove-type distrib ution. Otherwise, he has been able to progress well with physical therapy. The drain has minimal ou tput. The dressing is clean, dry, and intact and left in place. Grossly, the patient has gross impr ovement overall in his motor strength, and is at least 4- throughout both upper and lower extremities , which is an improvement from pre-surgery. IMPRESSION: Postoperative day 2, status post C3-4 anterior cervical discectomy and fusion. ASSESSMENT AND PLAN: We will remove the drain this morning. The patient is being cared for by the edical service. From my perspective, he can be discharged whenever he meets medical criteria. /[id number]/MODL
[2018-03-09] MEDS: ALPRAZolam 0.25 MG TAB PO PRN (08:30)
[2018-03-09] MEDS ORDERED: FUROSEMIDE 20 MG TAB PO SCH (09:00)
--- NOTE | 2018-03-09 09:22 | HOSPPROG ---
Hospitalist Progress Note Assessment/Plan: 62 yp M w MMP here w cervical myelopathy POD #2 from anterior cervical discectomy and fusion, doing great preop cardiac eval: cleared for surgery based on >4 METS, no prior cardiac issues cad: h/o stent 2016 -restart asa post surgery when cleared by ortho dm: metformin on hold, sugars at goal on no meds pulm htn: maintain euvolemia home lasix anxiety: continue meds rodrick: cpap dispo: cont inpt, now med/surg, d/c home today Subjective: Pt doing well. a little paresthesias in his UE's, which he says his surgeon thought was expected post-op Objective: Vital Signs Temp Pulse Resp BP Pulse Ox 36.6 C 60 18 128/68 H 96 03/09/18 07:43 03/09/18 07:43 03/09/18 07:43 03/09/18 08:16 03/09/18 07:43 Laboratory Results 03/08/18 04:00 03/09/18 04:31 03/08/18 03/09/18 03/10/18 05:59 05:59 05:59 Intake Total 1920 1750 Output Total 1160 Balance 760 1750 PT 13.5 SEC (12.0-15.0) 03/06/18 22:30 INR 1.01 (0.83-1.16) 03/06/18 22:30 ICD10 Worksheet Patient Problems: Problems Problem Status Onset Cervical radicular pain Acute Diabetes Acute Heart failure Acute Hypoxia Acute Methicillin resistant Staphylococcus aureus infection Acute 08/19/15
--- NOTE | 2018-03-09 09:47 | PDIAF ---
- Diagnosis Diagnosis: c-spine surgery Code Status: Do Not Resuscitate - Medication Management Discharge Medications: electronically signed and located in the Home Medication List. - Orders Services needed: Home Care, Physical Therapy, Occupational Therapy Home Care Face to Face: I certify that this patient was under my care and that I had the required [id number] encounter meeting the encounter requirements on the discharge day. My findings support the fact that the patient is homebound as defined in Home Care Face to Face Continued: CMS Chapter 7 Medicare Benefits Manual 30.1.1 , The condition of the patient is such that there exists a normal inability to leave home and consequently, leaving home would require a considerable and taxing effort. Isolation Type: None Diet Recommendation: cardiac -low fat low salt Additional Instructions: Follow up with Dr. Ag in 2 weeks. - Follow Up Care Current Providers and Referrals: NONE *PRIMARY CARE P,. [Unknown] - Fantasma Ag MD [Medical Doctor] -
--- NOTE | 2018-03-09 13:52 | ASMTCMCOM ---
CM Note CM Note Notes: Received a call from Noris at [facility], they are able to accept patient and see for one week in [place]. Confirmed all orders received. Spoke with patient via phone (d/c'd earlier) and explained above. Plan: [facility] PT/OT Date Signed: 03/09/2018 01:52 PM Electronically Signed By:Laura Ramon RN
--- NOTE | 2018-03-09 13:57 | ASDISCHSUM ---
Discharge Information Plan Status:Home with Home Health Medically Cleared to Leave: Discharge Date:03/09/2018 12:22 PM D/C Disposition:Home Health Service ADT D/C Disposition:Home, Routine, Self-Care Projected Discharge Date:03/09/2018 11:00 AM Transportation at D/C:Family Discharge Delay Reason: Follow-Up Date:03/09/2018 11:00 AM Discharge Slot: Final Diagnosis: Placement Information Referral Type:*Home Health Care Services Referral ID:[id number] Provider Name:[facility] Address 1:[address] Address 2: City:[place] Selection Factors: State:[place] Patient Contact Information Contact Name:ESVIN Relationship: Address: City:[facility] Phone: State/Zip Code:[place] [address] Email: Financial Information Financial Class:BCOP Primary Plan Desc:[facility] PATHWAY PLAN Primary Plan Number:[id number] Secondary Plan Desc: Secondary Plan Number: Assessment Information [facility] CM Progress Note CM Note CM Note Notes: Pt had planned surgery for cervical stenosis with Ancelmo today, came in early. No therapies ordered at this time. Pt has been to [facility] in 2017. CM to follow. D/c plan of care: TBD Date Signed: 03/07/2018 01:49 PM Electronically Signed By:PHOEBE Haines [facility] CM Progress Note CM Note CM Note Notes: Received a call from Noris at [facility], they are able to accept patient and see for one week in [place]. Confirmed all orders received. Spoke with patient via phone (d/c'd earlier) and explained above. Plan: [facility] PT/OT Date Signed: 03/09/2018 01:52 PM Electronically Signed By:Laura Ramon RN LACE LACE Length of stay for Answers: 3 days current admission Acuity / Level of Answers: Yes Care: Did the patient have an inpatient admission? Comorbidities - select Answers: Coronary Artery Disease all that apply Diabetes (uncontrolled or controlled) Other Notes: HTN # of Emergency department Answers: 0 visits in the last 6 months Social determinants Answers: Mental health diagnosis (anxiety, depression, pers onality disorders, etc.) Score: 13 Date Signed: 03/09/2018 01:55 PM Electronically Signed By:Laura Ramon RN Intervention Information Intervention Type:*Incorrect Registration Date of Service:03/07/2018 09:11 AM Patient Type:Inpatient Staff Member:Maru Anguiano Hours: Discipline: Severity: Comment:
--- NOTE | 2018-03-09 19:42 | GDS ---
DISCHARGE DIAGNOSES: 1. Cervical myelopathy, status post anterior cervical diskectomy and fusion. 2. History of coronary artery disease with prior stent in 2016, stable. He may resume his aspirin 1 week postoperatively. 3. Diabetes mellitus. 4. Pulmonary hypertension. 5. Anxiety. 6. Obstructive sleep apnea. CONSULTANTS: 1. Fantasma Ag MD, orthopedic surgery. 2. Brody Puente MD, vp genetic. HISTORY: For details, please see the history and physical dated March 07, 2018. In brief, the jacqueline lyon is a 62-year-old male with a history of cervical spinal disease, hypertension, diabetes, larkin ry artery disease, and obstructive sleep apnea who presented to the hospital for planned spinal surge ry. He has had progressive symptoms of arm and leg weakness, though he is asymptomatic on admission. HOSPITAL COURSE: Patient was admitted to the med/surg unit. He underwent C-spine surgery as describ ed above by Dr. Fantasma Ag. His metformin was held, although he can resume this at discharge. His postop course was unremarkable. He was continued on his home CPAP for his sleep apnea. His anti hypertensives were resumed. His aspirin is held and per his orthopedic surgeon that should continue to be held for 1 week, at which time he can resume. On the day of discharge he is hemodynamically stable. Blood pressure 128/68, heart rate 70, respirat ory rate 18, he is saturating 93% on room air. DISPOSITION: Patient is discharged home in stable condition with plans for home health. DISCHARGE MEDICATIONS: Please see [facility] completed outpatient medication list. New medications on discharge include: 1. [place] 5/325 at 1-2 tabs p.o. q.4 hours p.r.n., #20, no refills. 2. Robaxin 750 mg p.o. q.i.d. daily p.r.n., #20, no refills. 3. He will continue all other outpatient medications as prescribed. 4. Note, he did request I refill his Xanax and Ambien, which I declined and recommended he follow up with his primary care physician for refills of these controlled substances which he takes regularly. Followup. 1. Dr. Fantasma Ag, orthopedic surgery in 2 weeks. 2. Primary care. /[id number]/MODL
== END 2018-03-09 12:22 | disposition home or self-care (01) | DRG 472 ==
LOC: OBSVTOIN 22:46 → F3N 03-07 00:37 → F2N 03-07 13:53 → F3N 03-09 08:36
PROVIDERS: ADMIT Student in an Organized Health Care Education/Training Program; ATTEND Student in an Organized Health Care Education/Training Program
DX: M50.01 Cervical disc disorder with myelopathy, high cervical region (principal); M47.12 Other spondylosis with myelopathy, cervical region; I25.10 Atherosclerotic heart disease of native coronary artery without angina pectoris; I11.0 Hypertensive heart disease with heart failure; I50.30 Unspecified diastolic (congestive) heart failure; E11.9 Type 2 diabetes mellitus without complications; I27.20 Pulmonary hypertension, unspecified; F41.9 Anxiety disorder, unspecified; K21.9 Gastro-esophageal reflux disease without esophagitis; G47.33 Obstructive sleep apnea (adult) (pediatric); E03.9 Hypothyroidism, unspecified; M10.9 Gout, unspecified; E66.01 Morbid (severe) obesity due to excess calories; Z68.35 Body mass index [BMI] 35.0-35.9, adult; Z86.14 Personal history of Methicillin resistant Staphylococcus aureus infection; Z79.2 Long term (current) use of antibiotics; Z95.5 Presence of coronary angioplasty implant and graft; Z99.81 Dependence on supplemental oxygen; Z66 Do not resuscitate
CPT/HCPCS: 97116-GP; 97161-GP; 97166-GO; 97535-GO; C1713; J0690; J1100; J1170; J2250; J2405; J2704; J3010; J3360

== ENCOUNTER 2018-05-16 12:50 | Inpatient (IN) | payer OTHER ==
--- NOTE | 2018-05-16 13:09 | EDPHY ---
H & P Stated Complaint: n/v/d cp Time Seen by Provider: 05/16/18 13:07 - Personal History Current Tetanus/Diphtheria Vaccine: Unsure Current Tetanus Diphtheria and Acellular Pertussis (TDAP): Unsure - Medical/Surgical History Hx Asthma: No Hx Chronic Respiratory Disease: Yes Hx Diabetes: Yes Hx Cardiac Disease: No Hx Renal Disease: No Hx Cirrhosis: No Hx Alcoholism: No Hx HIV/AIDS: No Hx Splenectomy or Spleen Trauma: No Other PMH: DMII,HTN,Knee,MRSA,Gout, home o2,CAD, DARRYL, Pumonary HTN, anxiety, cellulitis, BPH, CHF - Social History Smoking Status: Never smoked Constitutional: Initial Vital Signs Temperature (C) 37.2 C 05/16/18 12:57 Heart Rate 100 05/16/18 12:57 Respiratory Rate 16 05/16/18 12:57 Blood Pressure 143/83 H 05/16/18 12:57 O2 Sat (%) 93 05/16/18 12:57 O2 Delivery Mode Nasal Cannula O2 (L/minute) 2 Allergies/Adverse Reactions: oxycodone Allergy (Verified 05/16/18 12:56) hallucinations Home Medications: Medication Instructions Recorded amLODIPine BESYLATE [Norvasc 10 mg 10 mg PO DAILY 12/23/15 (*)] Tamsulosin HCl [Flomax 0.4 MG (*)] 0.4 mg PO HS 01/08/17 Allopurinol [Allopurinol 300 MG 600 mg PO HS 02/09/17 (RX)] Furosemide [Lasix 20 MG (*)] 40 mg PO BID 02/09/17 Levothyroxine [Synthroid 150 mcg 150 mcg PO DAILY06 02/09/17 (*)] metFORMIN HCL [Glucophage 500 mg 1,000 mg PO BIDMEAL tab 02/28/17 (*)] Aspirin [Aspirin 81mg (*)] 81 mg PO DAILY 02/08/18 Colchicine [Colchicine (*)] 0.6 mg PO BID 02/08/18 Lisinopril [Zestril 40 mg (*)] 40 mg PO DAILY 02/08/18 Potassium Cl [Klor-Con 20 meq (*)] 20 meq PO DAILY 02/21/18 Zolpidem Tartrate [Ambien] 10 mg PO HS 02/24/18 Medical Decision Making - Diagnostics Imaging: Discussed imaging studies w/ manager call Radiologist, I viewed and interpreted images myself ED Course/Re-evaluation: CHIEF COMPLAINT: Chest pain, nausea, vomiting HISTORY OF PRESENT ILLNESS: The patient is a 62 y/o with a history of 3 cardiac stents, CAD, CHF, and diabetes complaining of chest pain, nausea, and vomiting. This morning the patient felt bloated and nauseous and subjectively started vomiting and having diarrhea. He then developed a sharp left-sided chest pain that somewhat feels like chest pressure. At that time the patient also felt shaky and sweaty. He denies taking any medications for his symptoms. The patient does see [facility] and last saw Dr. Lorenz. No fever, headache, body aches, lightheadedness, heart palpitations, shortness of breath, cough, abdominal pain, urinary complaints, numbness, paresthesias. REVIEW OF SYSTEMS: A 10 point review of systems was performed and is negative with the exception of the elements mentioned in the history of present illness. PHYSICAL EXAM: HR, BP, O2 Sat, RR. Temp noted General Appearance: Diaphoretic, alert, well hydrated, appropriate, and non- toxic appearing. Head: Atraumatic without scalp tenderness or obvious injury Eyes: Pupils equal, round, reactive to light and accommodation, EOMI, no trauma , no injection. Ears: Clear bilaterally, no perforation, normal landmarks Nose: Atraumatic, no rhinorrhea, clear. Throat: There is no erythema or exudates, no lesions, normal tonsils, mucus membranes moist. Neck: Supple, 2+ carotid upstroke, nontender, no lymphadenopathy. Respiratory: Tachypneic. No retractions, no distress, no wheezes, and no accessory muscle use. Lungs are clear to auscultation bilaterally. Cardiovascular: No murmurs, rubs, or gallops. Bilateral carotid, radial, dorsalis pedis, and posterior tibial pulses intact. Good capillary refill all extremities. Gastrointestinal: Epigastric tenderness to palpation. Abdomen is soft, non- distended, no masses, no rebound, no guarding, no peritoneal signs. Musculoskeletal: Normal active ROM of all extremities, atraumatic. Neurological: Alert, appropriate, and interactive. The patient has normal DTRs and non-focal cranial nerves, motor, sensory, and cerebellar exam. Skin: No rashes, good turgor, no nodules on palpation. 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 See hard copy and/or "tracemaster" electronic copy for interpretation. This EKG is different than prior EKG on 02/24/17. Abdominopelvic CT: No acute findings Chest CTA: No acute findings Critical care time spent by me, Dr. Kumar, exclusively with this patient was 120 minutes, exclusive of PA time and exclusive of procedures. The organ system at risk was cardiovascular and I gave aspirin, Fentanyl and emergently transferred the patient to a cardiothoracic surgeon to prevent worsening of the patients condition. DIFFERENTIAL DIAGNOSIS: The differential diagnosis for the patient's chest pain included but was not limited to myocardial ischemia, acute coronary syndrome, pulmonary embolus, chest wall pain, pleural inflammation, and pulmonary infectious causes. The differential diagnosis for the patient's abdominal pain included but was not limited to appendicitis, cholecystitis, hernias, testicular torsion, gastritis, and urinary tract infection. [facility] DECISION MAKING: The patient is a 62 y/o with a history of 3 cardiac stents, CAD, CHF, and diabetes complaining of chest pain, nausea, and vomiting onset this morning. The patient is mildly diaphoretic and tachypneic. He also has epigastric tenderness to palpation. EKG and labs ordered. 1305: I interpreted patient's EKG as sinus rhythm with a rate of 99, severe global ischemia, and diffuse ST changes. This patient is most likely having an acute coronary syndrome. 324mg PO Aspirin administered. 1310: I am not able to call a cardiac alert as this is right-sided and by definition this not a STEMI 1311: I consulted with Dr. West, cardiac interventionalist, regarding patient. He is with the cath team now and will come down to the emergency department to evaluate the patient. This patient will then be transferred to the quality control lab technician. 1315: Patient has been transferred to trauma room 2 prior to being transferred to the quality control lab technician. 1321: Patient has a positive troponin of 0.01; the cath team is not in the ED yet. 1322: Reassessed patient and discussed EKG and laboratory findings. I have discussed plan for catheterization, which he is comfortable with. 50mcg IV Fentanyl administered. 1325: Dr. West and Shane the radiological technologist are in the emergency department to evaluate the patient. 1400: I consulted with Dr. West who believes this patient is not having an acute myocardial infarction per his echo and EKG. This patient does not need to be sent to the quality control lab technician currently. He is still having significant abdominal tenderness; abdominopelvic CT ordered and 50mcg IV Fentanyl administered. He is also feeling short of breath and has an elevated d-dimer; chest CTA ordered. 1437: Patient's LFT's are unremarkable; imaging studies still pending. 1443: Patient is anxious at CT; 1mg IV Ativan administered. 1545: I spoke with the radiologist who reports that the patient's imaging studies are unremarkable. There are several mesenteric lymph nodes which could be due to gastroenteritis. 1546: I spoke with the hospitalist service, Dr. Oropeza accepts admission of this patient. 1557: I consulted with Dr. West, trim attacher, regarding recent imaging and laboratory findings. He will consult on this patient during her admission. 1558: Reassessed patient and discussed imaging and laboratory findings. He is comfortable with plan for admission. 1633: Patient's 3 hour troponin is 3.91; I will consult with Dr. West regarding these findings. 1634: I consulted with Dr. West regarding patient. We will send him to the quality control lab technician. - Data Points Laboratory Results: Laboratory Results 05/16/18 13:07 05/16/18 13:07 05/16/18 05/16/18 05/16/18 13:10 13:07 13:07 WBC RBC Hgb Hct MCV MCH MCHC RDW Plt Count MPV Neut % (Auto) Lymph % (Auto) [place] % (Auto) Eos % (Auto) Baso % (Auto) Nucleat RBC Rel Count Absolute Neuts (auto) Absolute Lymphs (auto) Absolute Monos (auto) Absolute Eos (auto) Absolute Basos (auto) Absolute Nucleated RBC Immature Gran % Immature Gran # RBC/WBC/PLT Morphology Platelet Estimate D-Dimer Sodium 142 mEq/L mEq/L (135-145) Potassium 4.0 mEq/L mEq/L (3.5-5.2) Chloride 106 mEq/L mEq/L (97-110) Carbon Dioxide 21 mEq/l L mEq/l (22-31) Anion Gap 15 mEq/L H mEq/L (6-14) BUN 28 mg/dL H mg/dL (7-23) Creatinine 1.0 mg/dL mg/dL (0.7-1.3) Estimated GFR > 60 Glucose 133 mg/dL H mg/dL (70-100) Calcium 9.6 mg/dL mg/dL (8.5-10.4) Total Bilirubin 1.2 mg/dL mg/dL (0.1-1.4) Conjugated Bilirubin 0.4 mg/dL mg/dL (0.0-0.5) Unconjugated Bilirubin 0.8 mg/dL mg/dL (0.0-1.1) AST 35 IU/L IU/L (17-59) ALT 32 IU/L IU/L (21-72) Alkaline Phosphatase 70 IU/L IU/L (38-126) POC Troponin I 0.10 ng/mL H ng/mL (0.00-0.08) Total Protein 7.4 g/dL g/dL (6.3-8.2) Albumin 4.6 g/dL g/dL (3.5-5.0) Lipase 32 IU/L IU/L (23-300) 05/16/18 05/16/18 13:07 12:07 WBC 10.28 10^3/uL H 10^3/uL (3.80-9.50) RBC 5.90 10^6/uL 10^6/uL (4.40-6.38) Hgb 16.9 g/dL g/dL (13.7-17.5) Hct 50.6 % % (40.0-51.0) MCV 85.8 fL fL (81.5-99.8) MCH 28.6 pg pg (27.9-34.1) MCHC 33.4 g/dL g/dL (32.4-36.7) RDW 16.9 % H % (11.5-15.2) Plt Count 167 10^3/uL 10^3/uL (150-400) MPV 11.2 fL fL (8.7-11.7) Neut % (Auto) 84.7 % H % (39.3-74.2) Lymph % (Auto) 3.3 % L % (15.0-45.0) [place] % (Auto) 11.0 % % (4.5-13.0) Eos % (Auto) 0.4 % L % (0.6-7.6) Baso % (Auto) 0.3 % % (0.3-1.7) Nucleat RBC Rel Count 0.0 % % (0.0-0.2) Absolute Neuts (auto) 8.71 10^3/uL H 10^3/uL (1.70-6.50) Absolute Lymphs (auto) 0.34 10^3/uL L 10^3/uL (1.00-3.00) Absolute Monos (auto) 1.13 10^3/uL H 10^3/uL (0.30-0.80) Absolute Eos (auto) 0.04 10^3/uL 10^3/uL (0.03-0.40) Absolute Basos (auto) 0.03 10^3/uL 10^3/uL (0.02-0.10) Absolute Nucleated RBC 0.00 10^3/uL 10^3/uL (0-0.01) Immature Gran % 0.3 % % (0.0-1.1) Immature Gran # 0.03 10^3/uL 10^3/uL (0.00-0.10) RBC/WBC/PLT Morphology TNP Platelet Estimate TNP D-Dimer 1.21 ug/mLFEU H ug/mLFEU (0.00-0.50) Sodium Potassium Chloride Carbon Dioxide Anion Gap BUN Creatinine Estimated GFR Glucose Calcium Total Bilirubin Conjugated Bilirubin Unconjugated Bilirubin AST ALT Alkaline Phosphatase POC Troponin I Total Protein Albumin Lipase Medications Given: Discontinued Medications Aspirin (Aspirin) 324 mg PO EDNOW ONE Stop: 05/16/18 13:12 Last Admin: 05/16/18 13:13 Dose: 324 mg Fentanyl (Sublimaze) 50 mcg IVP EDNOW ONE Stop: 05/16/18 13:25 Last Admin: 05/16/18 13:29 Dose: 50 mcg Fentanyl (Sublimaze) 50 mcg IVP ONCE ONE Stop: 05/16/18 13:52 Last Admin: 05/16/18 14:29 Dose: 50 mcg Lorazepam (Ativan Injection) 1 mg IVP EDNOW ONE Stop: 05/16/18 14:44 Last Admin: 05/16/18 15:22 Dose: 1 mg Ondansetron HCl (Zofran) 4 mg IVP EDNOW ONE Stop: 05/16/18 13:32 Last Admin: 05/16/18 13:33 Dose: 4 mg Point of Care Test Results: Chemistry 05/16/18 13:10 POC Troponin I 0.10 ng/mL H ng/mL (0.00-0.08) Departure - Departure Disposition: To OP Cath/Surgery Clinical Impression: Acute coronary syndrome, Mesenteric lymphadenopathy Abdominal pain Qualifiers: Abdominal location: upper abdomen, unspecified Qualified Code(s): R10.10 - Upper abdominal pain, unspecified Condition: Serious Report Scribed for: Hunter Kumar Report Scribed by: Ebony Gonzalez Date of Report: 05/16/18 Time of Report: 13:10
[2018-05-16] MEDS ORDERED: ASPIRIN 81 MG CHEWABLE TAB PO ONE (13:11)
[2018-05-16] MEDS ORDERED: ASPIRIN 81 MG CHEWABLE TAB ONE (13:11)
[2018-05-16] MEDS ORDERED: fentaNYL 100 MCG/2 ML INJ IVP ONE ×2 (13:24→13:51)
[2018-05-16 13:26] LABS: PLATELET COUNT 167 10^3/uL (150-400)
[2018-05-16] MEDS ORDERED: ONDANSETRON 4 MG/2 ML VIAL IVP ONE (13:31)
[2018-05-16] MEDS ORDERED: fentaNYL 100 MCG/2 ML INJ ONE ×3 (13:52→17:49)
[2018-05-16] MEDS ORDERED: IOPAMIDOL (ISOVUE 370) 100 ML BTL IV ONE (14:30)
[2018-05-16] MEDS ORDERED: LORazepam 2 MG/ML INJ IVP ONE (14:43)
--- NOTE | 2018-05-16 15:42 | ECHO ---
[email or web address] [address] [address] Main: [phone] Fax: Transthoracic Echocardiogram Name: TONYA LEAVITT MR#: [id number] Study Date: 05/16/2018 Study Time: 01:29 PM Date of : 1955 Age: 62 year(s) Height: ( ) Weight: ( ) BSA: Gender: Male Examination: ECH Indication: Chest Pain, Nausea Trauma room 2 Image Quality: Contrast: Requested by: Cheikh Pino BP: / Heart Rate: Rhythm: Indication: Chest Pain, Nausea Trauma room 2 Procedure Staff Research Consultant: Shane Dukes RDCS Reading Physician: Cheikh Pino MD Requesting Provider: Conclusions: Normal size left ventricle. Normal global systolic LV function. There is mild mid posterior/inferior hypokinesis.. Patient was noted to have mid posterior/inferior hypokiensis on angiogram in 12/28. Measurements: Chambers Valvular Assessment AV/MV Valvular Assessment TV/PV Normal Normal Normal Name Value Range Name Value Range Name Value Range Ao Hermelinda (MM): 3.3 cm (2.2 cm-3.7 AV Vmax: 1.78 m/s (1 m/s-1.7 TR Vmax: 2.40 mm/s ( - ) cm) m/s) TR PGmax: 23 mmHg ( - ) IVSd (2D): 1.1 cm (0.6 cm-1.1 AV maxP mmHg ( - ) syst. PAP: 28 mmHg ( - ) cm) LVOT Vmax: 0.76 m/s (0.7 m/s-1.1 PV Vmax: 1.24 m/s (0.6 m/s-0.9 LVDd (2D): 4.7 cm (4.2 cm-5.9 m/s) m/s) cm) MV E Vmax: 0.80 m/s ( - ) PV PGmax: 6 mmHg ( - ) LVDs (2D): 3.0 cm (2.1 cm-4 MV A Vmax: 0.82 m/s ( - ) cm) MV E/A: 0.98 ( - ) LVPWd (2D): 1.6 cm (0.6 cm-1 cm) LVEF (2D): 66 (>=54 %) Continued Measurements: Chambers Valvular Assessment TV/PV Name Value Name Value LADs Lon.4 cm CVP (est.): 5 mmHg LA Area: 20.0 cm2 Patient: TONYA LEAVITT Study Date: 05/16/2018 Page 1 of 2 01:29 PM Findings: Left Ventricle: Normal size left ventricle. No LV hypertrophy. Normal global systolic LV function. EF is 66 %. Diastolic dysfunction is present. . There is mild mid posterior/inferior hypokinesis.. Right Ventricle: Normal size right ventricle. Normal RV function. Left Atrium: The left atrium is normal in size. Right Atrium: The right atrium is normal in size. Mitral Valve: The mitral valve is normal in appearance and function. Aortic Valve: The aortic valve is normal in appearance. There is no significant aortic valve regurgitation. Tricuspid Valve: The tricuspid valve is normal in appearance and function. Pulmonic Valve: The pulmonic valve is normal in appearance and function. Aorta: The aorta is normal. Pericardium: No pericardial effusion. (No Signature Object) Patient: TONYA LEAVITT Study Date: 05/16/2018 Page 2 of 2 01:29 PM D:_[id number]
[2018-05-16] MEDS ORDERED: oxyCODONE IR 5 MG TAB PO PRN (16:22)
[2018-05-16] MEDS ORDERED: HYDROmorphONE/DILAUDID 1 MG/ML INJ IVP PRN (16:22)
[2018-05-16] MEDS ORDERED: PROMETHAZINE HCL 25 MG/ML INJ IVP PRN (16:22)
[2018-05-16] MEDS ORDERED: ACETAMINOPHEN 325 MG TAB PO PRN (16:22)
[2018-05-16] MEDS ORDERED: ONDANSETRON 4 MG/2 ML VIAL IVP PRN (16:22)
[2018-05-16] MEDS ORDERED: ONDANSETRON DISINTEGRATING 4 MG TAB PO PRN (16:22)
[2018-05-16] MEDS ORDERED: ALBUTEROL 60 PUFFS/8 GM MDI IH PRN (16:22)
[2018-05-16] MEDS ORDERED: LORazepam 2 MG/ML INJ IVP PRN (16:22)
[2018-05-16] MEDS ORDERED: LORazepam 0.5 MG TAB PO PRN (16:22)
[2018-05-16] MEDS ORDERED: D50W 25 GM/50 ML SYR IVP PRN (16:25)
--- NOTE | 2018-05-16 16:31 | PDGENHP ---
History and Physical - Chief Complaint abdominal pain - History of Present Illness 62 yo M with PMH of CAD s/p multiple stents as well as hx of severe pulmonary hypertension/cor pulmonale that improved s/p treatment of DARRYL and weight loss presenting with complaints of nausea, vomiting and diarrhea since this morning. He notes that he awoke this morning feeling bloated with mid epigastric abdominal pain. This was followed by 2 episodes of diarrhea and then 2 episodes of vomiting. He notes the second vomiting episode revealed what looked like completely undigested dinner from the night before. The abdominal pain seemed to move lower in his abdomen, and then was followed by left sided chest pain that was reminiscent of pain he had in the past when he was in need of stents. He notes he currently feels much better since receiving fentanyl. He has not had recurrent chest pain, and the abdominal pain improved post pain meds. He is hungry and is very much hoping he can go home first thing in the morning. He was seen in ER by Dr. West after his ECG showed diffuse ST depressions consistent with severe global ischemia and a trop of 0.1. Echo performed showed no signs of acute ischemia and no significant change from prior. History Information - Allergies/Home Medication List Allergies/Adverse Reactions: oxycodone Allergy (Verified 05/16/18 12:56) hallucinations Home Medications: amLODIPine BESYLATE [Norvasc 10 mg (*)] 10 mg PO DAILY 12/23/15 [Last Taken 07/01] Tamsulosin HCl [Flomax 0.4 MG (*)] 0.4 mg PO HS 01/08/17 [Last Taken 05/15/18] Allopurinol [Allopurinol 300 MG (RX)] 600 mg PO HS 02/09/17 [Last Taken 05/15/18 ] Furosemide [Lasix 20 MG (*)] 40 mg PO BID 02/09/17 [Last Taken 05/16/18] Levothyroxine [Synthroid 150 mcg (*)] 150 mcg PO DAILY06 02/09/17 [Last Taken ] Aspirin [Aspirin 81mg (*)] 81 mg PO DAILY 02/08/18 [Last Taken 05/16/18] Colchicine [Colchicine (*)] 0.6 mg PO BID 02/08/18 [Last Taken 05/16/18] Lisinopril [Zestril 40 mg (*)] 40 mg PO DAILY 02/08/18 [Last Taken 05/16/18] Potassium Cl [Klor-Con 20 meq (*)] 20 meq PO DAILY 02/21/18 [Last Taken 05/16/18 ] Zolpidem Tartrate [Ambien] 10 mg PO HS 02/24/18 [Last Taken 05/15/18] I have personally reviewed and updated: family history, medical history, social history, surgical history - Past Medical History coronary artery disease (sp 2 stents to cx/pda in 2016), diabetes type 2, hypertension, hyperlipidemia, psychiatric history (anxiety) Additional medical history: DARRYL--on cpap, previously not compliant but states more compliant recently. insomnia. obesity. claustrophobia. MRSA cellulitis. BPH. cervical stenosis. cor pulmonale/severe pulm htn previously now improved. septic hip - Surgical History Reports: coronary stent Additional surgical history: rotator cuff surgery. knee surgery. R [facility]. ACDF. hip debridement resection and f/u [facility] for septic hip - Family History Positive for: diabetes type II - Social History Smoking Status: Never smoked Alcohol Use: Rarely Drug Use: None Additional social history: lives alone, single, very sedentary Review of Systems Review of Systems: ROS: 10pt was reviewed & negative except for what was stated in HPI & below Physical Exam Physical Exam: Temp Pulse Resp BP Pulse Ox 37.2 C 104 H 16 122/70 H 92 05/16/18 12:57 05/16/18 15:20 05/16/18 15:20 05/16/18 15:20 05/16/18 15:20 O2 (L/minute) 4 Constitutional: chronically ill appearing, obese, uncomfortable Eyes: PERRL, anicteric sclera Ears, Nose, Mouth, Throat: moist mucous membranes, hearing normal Cardiovascular: systolic murmur, edema Respiratory: reduced air movement, inspiratory crackles Gastrointestinal: normoactive bowel sounds, tenderness, No guarding, No rebound Genitourinary: no bladder tenderness Skin: warm, erythema (ble c/w venous stasis) Musculoskeletal: full muscle strength Neurologic: AAOx3 Psychiatric: interacting appropriately, not anxious, not encephalopathic Lab Data & Imaging Review 05/16/18 13:07 05/16/18 13:07 WBC 10.28 10^3/uL (3.80-9.50) H 05/16/18 13:07 RBC 5.90 10^6/uL (4.40-6.38) 05/16/18 13:07 Hgb 16.9 g/dL (13.7-17.5) 05/16/18 13:07 Hct 50.6 % (40.0-51.0) 05/16/18 13:07 MCV 85.8 fL (81.5-99.8) 05/16/18 13:07 MCH 28.6 pg (27.9-34.1) 05/16/18 13:07 MCHC 33.4 g/dL (32.4-36.7) 05/16/18 13:07 RDW 16.9 % (11.5-15.2) H 05/16/18 13:07 Plt Count 167 10^3/uL (150-400) 05/16/18 13:07 MPV 11.2 fL (8.7-11.7) 05/16/18 13:07 Neut % (Auto) 84.7 % (39.3-74.2) H 05/16/18 13:07 Lymph % (Auto) 3.3 % (15.0-45.0) L 05/16/18 13:07 [place] % (Auto) 11.0 % (4.5-13.0) 05/16/18 13:07 Eos % (Auto) 0.4 % (0.6-7.6) L 05/16/18 13:07 Baso % (Auto) 0.3 % (0.3-1.7) 05/16/18 13:07 Nucleat RBC Rel Count 0.0 % (0.0-0.2) 05/16/18 13:07 Absolute Neuts (auto) 8.71 10^3/uL (1.70-6.50) H 05/16/18 13:07 Absolute Lymphs (auto) 0.34 10^3/uL (1.00-3.00) L 05/16/18 13:07 Absolute Monos (auto) 1.13 10^3/uL (0.30-0.80) H 05/16/18 13:07 Absolute Eos (auto) 0.04 10^3/uL (0.03-0.40) 05/16/18 13:07 Absolute Basos (auto) 0.03 10^3/uL (0.02-0.10) 05/16/18 13:07 Absolute Nucleated RBC 0.00 10^3/uL (0-0.01) 05/16/18 13:07 Immature Gran % 0.3 % (0.0-1.1) 05/16/18 13:07 Immature Gran # 0.03 10^3/uL (0.00-0.10) 05/16/18 13:07 RBC/WBC/PLT Morphology TNP 05/16/18 13:07 Platelet Estimate TNP 05/16/18 13:07 D-Dimer 1.21 ug/mLFEU (0.00-0.50) H 05/16/18 12:07 Sodium 142 mEq/L (135-145) 05/16/18 13:07 Potassium 4.0 mEq/L (3.5-5.2) 05/16/18 13:07 Chloride 106 mEq/L (97-110) 05/16/18 13:07 Carbon Dioxide 21 mEq/l (22-31) L 05/16/18 13:07 Anion Gap 15 mEq/L (6-14) H 05/16/18 13:07 BUN 28 mg/dL (7-23) H 05/16/18 13:07 Creatinine 1.0 mg/dL (0.7-1.3) 05/16/18 13:07 Estimated GFR > 60 05/16/18 13:07 Glucose 133 mg/dL (70-100) H 05/16/18 13:07 Calcium 9.6 mg/dL (8.5-10.4) 05/16/18 13:07 Total Bilirubin 1.2 mg/dL (0.1-1.4) 05/16/18 13:07 Conjugated Bilirubin 0.4 mg/dL (0.0-0.5) 05/16/18 13:07 Unconjugated Bilirubin 0.8 mg/dL (0.0-1.1) 05/16/18 13:07 AST 35 IU/L (17-59) 05/16/18 13:07 ALT 32 IU/L (21-72) 05/16/18 13:07 Alkaline Phosphatase 70 IU/L (38-126) 05/16/18 13:07 POC Troponin I 3.91 ng/mL (0.00-0.08) H 05/16/18 16:10 Total Protein 7.4 g/dL (6.3-8.2) 05/16/18 13:07 Albumin 4.6 g/dL (3.5-5.0) 05/16/18 13:07 Lipase 32 IU/L (23-300) 05/16/18 13:07 Visualized and Interpreted imaging results: Yes Interpretation: Chest CT: c/w pulm htn, no PE or PNA. abd CT: reactive abd/ pelvic LN, fatty liver Visualized and Interpreted EKG results: Yes EKG Interpretation: Positive for: ST depression Assessment & Plan Assessment: Abdominal pain (Acute) Acute coronary syndrome (Acute) Mesenteric lymphadenopathy (Acute) 62 yo M presenting with n/v/d as well as ischemic ECG and trop elevation concerning for NSTEMI # NSTEMI: patient evaluated by cardiology, repeat trop increased from 0.1 to 3.9 , ecg ischemic but unusual in that does not reflect particular distribution, patient to laboratory assistant urgently now that second trop increased. Will monitor overnight on telemetry pending further recommendations from cardiology. # n/v/d: resolved, given benign abdominal exam and relatively normal imaging findings suspect this was all related to above # CAD: as above, suspect GI complaints were anginal equivalent for this patient # pulmonary htn: was previously severe and on today's echo seems to have largely resolved, due to OHS/DARRYL presumably and patient has had significant weight loss, intermittently compliant with cpap # DM2: will hold metformin and start SSI # anxiety: prn ativan # abdominal/pelvic lymphadenopathy: presumably reactive per radiology read, radiology recommending f/u CT in 3-6 months to ensure resolution, will need to be discussed with patient prior to dc # htn: will resume amlodipine and lisinopril in am # IP status, high risk presenting issues requiring urgent CV intervention # DNR Patient new to my care. Care plan reviewed with ER doctor, old records reviewed and summarized as above.
[2018-05-16] MEDS ORDERED: LIDOCAINE 1% 300 MG/30 ML SDV ONE (16:54)
[2018-05-16] MEDS ORDERED: IOPAMIDOL (ISOVUE-370) 150 ML BTL IV ONE ×2 (16:54→18:12)
--- NOTE | 2018-05-16 16:56 | PDPROPOC ---
Sedation Plan of Care Sedation Plan of Care: vital signs stable, mental status noted, patient educated of risks, benefits, alternatives, patient can tolerate sedation ASA Classification: ASA 2 Planned drugs: fentanyl, midazolam Mallampati Score: Class 3 Mallampati Reference Image: Patient passed 3-3-2 rule?: Yes
[2018-05-16] MEDS ORDERED: MIDAZOLAM 2 MG/2 ML VIAL ONE ×2 (16:59→17:49)
--- NOTE | 2018-05-16 17:03 | GCON ---
[f rep st] CONSULTATION DATE OF CONSULTATION: 05/16/2018 REFERRING PHYSICIAN: Hunter Kumar MD REASON FOR CONSULTATION: We have been asked by Dr. Kumar to evaluate Mr. Ellis with an abnormal E KG and symptoms of chest pain. HISTORY OF PRESENT ILLNESS: Mr. Ellis is a 62-year-old gentleman with known coronary artery disease who presented to the emergency department on 05/16/2018, with symptoms of nausea, vomiting, diarrhea , and chest pain. The patient was in his usual state of health until earlier in the day when he woke up noticing symptoms of abdominal cramping. This was followed by 2 normal bowel movements, followed by several episodes of diarrhea. Shortly after having the diarrhea, patient did have profound emesi s and states he brought up his last evening's meal. Shortly after the emesis, patient did note sympt oms of chest pain which is described as an ache over the left lower rib margin. He presented to the emergency department for further evaluation. In the emergency department, he had an EKG performed de monstrating sinus rhythm with diffuse ST-segment depression. We were consulted to help in the furthe r management of this patient. The patient does have a previous history of coronary artery disease. In August of 2005, he presented with symptoms of significant dyspnea on exertion. Coronary angiography demonstrated single-vessel coronary artery disease involving his left anterior descending coronary a rtery. He was treated with percutaneous coronary intervention of his left anterior descending larkin ry artery at that time. The patient did well until the fall, when he developed recurrent sym ptoms of profound dyspnea on exertion. He had a stress test performed demonstrating an inferolateral infarct with waldemar-infarct ischemia. He was taken to the cardiac catheterization laboratory in 2015, where he was found to have high-grade disease involving his right coronary artery, as well a s high-grade disease involving his OM 1 coronary artery. At that time, patient's circumflex coronary artery was also noted to be occluded and was felt to be chronically occluded. The patient was treat ed with percutaneous coronary intervention of his right coronary artery and OM 1 coronary artery at t hat time. Left ventriculography was notable for preserved left ventricular systolic function with a mid inferolateral hypokinesis. The patient does have a previous history of a mild troponin elevation . The patient was admitted to the hospital in December 2016 with right greater than left heart failur e. At that time, he was noted to have a borderline flat troponin elevation. He underwent right hear t catheterization demonstrating severe pulmonary hypertension. No coronary evaluation was performed at that time. PAST MEDICAL HISTORY: 1. Coronary artery disease. 2. Hypertension. 3. Hyperlipidemia. 4. Diabetes. 5. Obstructive sleep apnea. 6. Pulmonary hypertension. MEDICATIONS: Please see medicine reconciliation form. ALLERGIES: Oxycodone. Patient reports an adverse drug reaction to this medicine; he is not truly al lergic. SOCIAL HISTORY: The patient is single. He is fairly sedentary. He does not smoke. He denies probl ems with alcohol. FAMILY HISTORY: Notable for diabetes. REVIEW OF SYSTEMS: A 10-point review of systems is unremarkable except as noted in HPI. The patient does note fevers and chills this a.m. in addition. PHYSICAL EXAMINATION: GENERAL: The patient is resting in bed. He does not appear to be in acute di stress. VITALS: Temperature is afebrile. Pulse 100, blood pressure 143/83. HEENT: Normocephalic, atraumatic. Extraocular muscles intact. NECK: Could not appreciate JVD. No bruits auscultated. LUNGS: Clear to auscultation bilaterally. CARDIOVASCULAR: Tachycardia, regular rhythm S1, S2, grad e 2/6 holosystolic murmur was noted. The patient was tender to palpation along the left lower costal margin. This reproduced his symptoms of chest pain. ABDOMEN: Obese. Diminished bowel sounds. Te nder to palpation in the epigastrium. There was no rebound or guarding noted. No hepatosplenomegaly could be appreciated. Patient's aorta could not be adequately palpated. EXTREMITIES: There is no evidence of clubbing. Patient does have mild lower extremity edema with chronic stasis changes. SKI N: There is evidence of chronic stasis, as well as dry skin on the pretibial surfaces. NEURO: Keyonna ent is awake, alert, and oriented x3. LABORATORY: White blood cell count is 10.28, hemoglobin 16.9, hematocrit 50.6, platelet count 167. D-dimer is elevated at 1.21. Chemistry: Sodium 142, potassium 4.0, chloride 106, CO2 21, BUN 28, cr eatinine 1.0. Point of care troponin is 0.10. EKG demonstrates sinus tachycardia, diffuse inferior and lateral ST-segment depression. Limited echocardiogram performed on arrival demonstrated preserved left ventricular systolic function . There was a focal wall motion abnormality involving the mid inferolateral segment. ASSESSMENT AND PLAN: Mr. Ellis is a 62-year-old gentleman with known coronary artery disease, who p resents with abdominal pain, cramping followed by diarrhea, nausea, vomiting, and chest pain. The ch est pain is reproducible to palpation of the left costal margin. Echocardiogram is notable for prese rved left ventricular systolic function with a focal wall motion abnormality involving the mid set rider ior segment. 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 Suspect this is contributing to the focal wall motion abnormality, however, could not compl etely exclude a component of ischemia. Given patient's symptoms are predominantly abdominal in natur e, I think it would be prudent to further evaluate this prior to considering angiography and being co mmitted to anticoagulation. /[id number]/MODL
--- NOTE | 2018-05-16 17:08 | GHP ---
[f rep st] HISTORY AND PHYSICAL DATE OF ADMISSION: 05/16/2018 This is Cheikh West dictating a consultation on Sarmad Ellis, . /[id number]/MODL
[2018-05-16] MEDS ORDERED: BIVALIRUDIN 250 MG/5 ML VIAL IV ONE ×2 (17:49→18:08)
[2018-05-16] MEDS ORDERED: EPTIFIBATIDE 200 MG/100 ML BOTTLE IV ONE (18:23)
[2018-05-16] MEDS ORDERED: EPTIFIBATIDE 100 ML IV ONE (18:30)
[2018-05-16] MEDS ORDERED: NITROGLYCERIN 0.4 MG BTL SL PRN (18:43)
[2018-05-16] MEDS ORDERED: ATROPINE SULFATE 1 MG/10 ML SYR IVP PRN (18:43)
[2018-05-16] MEDS ORDERED: TICAGRELOR 90 MG TAB ONE (18:46)
--- NOTE | 2018-05-16 19:54 | CPEKG ---
Test Reason : OPEN Blood Pressure : / mmHG Vent. Rate : 099 BPM Atrial Rate : 099 BPM P-R Int : 164 ms QRS Dur : 103 ms QT Int : 364 ms P-R-T Axes : 039 023 026 degrees QTc Int : 468 ms Sinus rhythm Repol abnrm, severe global ischemia (LM/MVD) Confirmed by Hunter Kumar ([id number]) on 05/16/2018 7:54:27 PM Referred By: PHYSICIAN ED Confirmed By:Hunter Kumar
[2018-05-16] MEDS ORDERED: TICAGRELOR 90 MG TAB PO ONE (20:00)
[2018-05-16] MEDS: ALLOPURINOL 300 MG TAB PO SCH (20:06)
[2018-05-16] MEDS: HYDROCODONE/APAP 5/325 TAB PO PRN (20:06)
[2018-05-16] MEDS: COLCHICINE 0.6 MG CAP/TAB PO SCH (20:08)
[2018-05-16] MEDS: TAMSULOSIN HCL 0.4 MG CAP PO SCH (20:09)
[2018-05-16] MEDS ORDERED: ALPRAZolam 0.5 MG TAB PO PRN (20:28)
[2018-05-16] MEDS ORDERED: FUROSEMIDE 20 MG TAB PO SCH (21:00)
[2018-05-16] MEDS ORDERED: ALPRAZolam 0.5 MG TAB PO SCH (21:00)
[2018-05-16] MEDS: INSULIN LISPRO 100 UNIT/ML SC SCH (23:31)
[2018-05-16] MEDS: ZOLPIDEM TARTRATE 5 MG TAB PO SCH (23:35)
[2018-05-17] MEDS ORDERED: GABAPENTIN 300 MG CAP PO ONE (00:08)
[2018-05-17] MEDS: HYDROCODONE/APAP 5/325 TAB PO PRN ×3 (00:27→23:31)
--- NOTE | 2018-05-17 04:24 | CPIP ---
[f rep st] INVASIVE CARDIAC PROCEDURE DATE OF PROCEDURE: 05/16/2018 PROCEDURE: 1. Coronary angiography. 2. Thrombectomy of circumflex coronary artery. 3. Stenting of circumflex coronary artery with Synergy drug-eluting stent. INDICATIONS: 1. Known coronary artery disease. 2. Atypical chest pain syndrome with positive troponin. ACCESS: Patient prepped and draped in sterile fashion. 1% lidocaine used to anesthetize the right i nguinal region. A 6-Puerto Rican introducer sheath was placed selectively into the right common femoral ar katalina via modified Seldinger technique. CORONARY ANGIOGRAPHY: A 6-Puerto [place]ican JL4 was advanced to left main coronary artery and images obtained. The left main coronary artery bifurcated into an LAD and circumflex coronary artery. The left main coronary artery is relatively short. The left main coronary artery appeared normal. The left anteri or descending coronary artery had mild diffuse disease throughout. There was no stenosis greater kingsley n 20% to 30%. In the mid to distal vessel, a previously placed stent can be seen. The previously pl aced stent is widely patent with mild in-stent restenosis. The circumflex coronary artery was 100% o ccluded in the mid vessel just after the takeoff of the first OM artery. The first OM artery was a l arge vessel and was previously stented in the proximal and mid segment. At the ostium of the OM1 cor onary artery, thrombotic plaque can be seen with evidence of distal embolization. A 6-Puerto [place]ican JR4 was advanced to the right coronary artery and was obtained. The right coronary artery was dominant. Th e right coronary artery had mild diffuse disease throughout. There was no stenosis greater than 20%. In the distal vessel, a previously placed stent can be seen. The previously placed stent was widel y patent with no evidence of in-stent restenosis. PERCUTANEOUS CORONARY INTERVENTION OF THE CIRCUMFLEX CORONARY ARTERY: An EBU 4.0 catheter was advanc ed to left main coronary artery and images obtained. Angiography confirmed the presence of high-grad e disease involving the ostial OM 1 coronary artery. A Luge wire was placed in the distal vessel and position verified by angiography. Several attempts were made trying to perform thrombectomy. The t hrombectomy catheter would not successfully cross the lesion. The lesion was dilated with a 2.5 x 15 Emerge balloon. Followup angiography demonstrated EDGAR-3 flow with evidence of residual stenosis. A 3.0 x 16 Synergy drug-eluting stent was then placed across the lesion and deployed. Followup angio graphy demonstrated EDGAR-3 flow. No residual stenosis. At the end of the procedure, there can be TI IN-3 flow into the distal OM, which appeared to have been thrombotic clear occluded. The patient anastasia l be started on Integrilin. COMPLICATIONS: None. CONCLUSIONS: 1. Single-vessel coronary artery disease. 2. Status post successful thrombectomy and stenting of the obtuse marginal 1 coronary artery. /[id number]/MODL
[2018-05-17] MEDS: LEVOTHYROXINE 150 MCG TAB PO SCH (04:48)
[2018-05-17 05:50] LABS: PLATELET COUNT 119 10^3/uL (150-400)
--- NOTE | 2018-05-17 06:44 | PDMN ---
Medical Necessity Medical necessity: Pt meets inpt criteria per MD order and MCG M-230, Myocardial Infarction, 2 days. 62 y/o w/hx of CAD and stents presenting w/N/V/D and abd pain and chest pain, EKG showing diffuse ST depression c/w severe global ischemia, elev troponins, +NSTEMI, underwent emergent LHC and was found to have 100% occlusion of circumflex coronary artery, thrombectomy and stenting of circumflex artery.
[2018-05-17] MEDS: INSULIN LISPRO 100 UNIT/ML SC SCH ×3 (07:20→18:05)
[2018-05-17] MEDS: COLCHICINE 0.6 MG CAP/TAB PO SCH ×2 (08:41→21:43)
[2018-05-17] MEDS: POTASSIUM CL 20 MEQ TAB PO SCH (08:41)
[2018-05-17] MEDS: ASPIRIN 81 MG CHEWABLE TAB PO SCH (08:42)
[2018-05-17] MEDS ORDERED: CLOPIDOGREL BISULFATE 75 MG TAB PO ONE (08:44)
[2018-05-17] MEDS ORDERED: LISINOPRIL 40 MG TAB PO SCH (09:00)
[2018-05-17] MEDS ORDERED: TICAGRELOR 90 MG TAB PO SCH (09:00)
--- NOTE | 2018-05-17 09:15 | SOAPPROG ---
SOAP Progress Note Assessment/Plan: 1. Gastroenteritis - Pt was admitted with nausea, vomiting, and diarrhea. CT of abdomen with reactive lymph nodes but no acute pathology. Symptoms improving. 2. ACS - Pt presented with chest pain in the setting of gastroenteritis. EKG with diffuse ST depression. Troponin increased from .10 to 3.91. Pt taken to cardiac catheterization laboratory were he was found to have a thrombotic lesion at the proximal edge of the OM stent. Pt was treated with PCI of his LCX with synergy APRIL. On further questioning patient reports running out of asa prior to event. Suspect dehydration and lack of asa led to his event. Discussed crystallography teacher use of both asa and plavix. EF = 66% with mid inferior/ posterior HK. --> Transition from brilinta to plavix today --> Continue asa and lisinopril --> Start coreg 3.125 mg bid 3. HTN - BP well controlled. --> Continue lisinopril and amlodipine 4. Hyperlipidemia - Pts last LDL was 47 in 12/29. --> FLP and LFTs now. Subjective: No further episodes of chest pain Pt continues to have gastrointestinal distress, though improved No orthopnea or PND Not using CPAP at home ambulation limited. Objective: Vital Signs Temp Pulse Resp BP Pulse Ox 36.5 C 94 16 99/63 L 94 05/17/18 06:00 05/17/18 06:00 05/17/18 08:00 05/17/18 08:00 05/17/18 08:00 Laboratory Results 05/17/18 04:55 05/17/18 04:55 05/16/18 05/17/18 05/18/18 05:59 05:59 05:59 Intake Total 2350 Output Total 400 400 Balance 1950 -400 Physical Exam - Physical Exam General Appearance: alert, no apparent distress Respiratory: lungs clear Cardiac/Chest: regular rate, rhythm Abdomen: non-tender, soft Extremities: pedal edema Neuro/Psych: alert, oriented x 3 ICD10 Worksheet Patient Problems: Problems Problem Status Onset Abdominal pain Acute Acute coronary syndrome Acute Mesenteric lymphadenopathy Acute Cervical radicular pain Acute Diabetes Acute Heart failure Acute Hypoxia Acute Methicillin resistant Staphylococcus aureus infection Acute 08/19/15
[2018-05-17] MEDS ORDERED: CLOPIDOGREL BISULFATE 75 MG TAB ONE (09:23)
[2018-05-17] MEDS: FUROSEMIDE 40 MG TAB PO SCH ×2 (09:24→14:18)
--- NOTE | 2018-05-17 09:54 | ASMTCMCOM ---
CM Note CM Note Notes: Pt is a 62 yo M, presents with chest pains and n/v/d. Pt has a history of CAD, pulmonary hypertension, and anxiety. PT/OT evals pending. Pt's needs TBD, CM to follow. Plan: TBD Date Signed: 05/17/2018 09:53 AM Electronically Signed By:SACIHN Bynum
[2018-05-17] MEDS: FUROSEMIDE 40 MG/4 ML VIAL IVP SCH (14:54)
--- NOTE | 2018-05-17 14:59 | HOSPPROG ---
Hospitalist Progress Note Assessment/Plan: * Non-STEMI -thrombosis of OM stent - restented -due to ASA non-compliance (ran out) * Acute respiratory failure - suspect due to pulmonary edema -up 15L overnight, now down to 6L -baseline is 2L night only -check resp PCR * Acute on chronic diastolic CHF -IV lasix * Morbid obesity BMI 44 with OHS/DARRYL -CPAP * DM II -holding metformin * Abd/pelvic LAD -f/u CT 3-6 months Subjective: SOB Objective: Vital Signs Temp Pulse Resp BP Pulse Ox 36.7 C 87 16 115/64 92 05/17/18 11:58 05/17/18 11:58 05/17/18 11:58 05/17/18 11:58 05/17/18 11:58 Laboratory Results 05/17/18 04:55 05/17/18 04:55 05/16/18 05/17/18 05/18/18 05:59 05:59 05:59 Intake Total 2350 Output Total 400 725 Balance 1950 -725 CXR viewed, my personal interpretation is - CHF CTA chest - no PE, + pulm HTN - Physical Exam Constitutional: appears nourished, not in pain Cardiovascular: regular rate and rhythym, no murmur, rub, or gallop, edema Respiratory: inspiratory crackles Gastrointestinal: normoactive bowel sounds, soft, non-tender abdomen, no palpable masses Skin: no rashes or abrasions, no fluctuance, no induration Neurologic: AAOx3, sensation intact bilaterally Psychiatric: interacting appropriately, not anxious, not encephalopathic, thought process linear ICD10 Worksheet Patient Problems: Problems Problem Status Onset Diabetes Acute Methicillin resistant Staphylococcus aureus infection Acute 08/19/15 Hypoxia Acute Heart failure Acute Cervical radicular pain Acute Acute coronary syndrome Acute Abdominal pain Acute Mesenteric lymphadenopathy Acute
[2018-05-17] MEDS ORDERED: ALPRAZolam 0.25 MG TAB PO SCH (21:00)
[2018-05-17] MEDS: TAMSULOSIN HCL 0.4 MG CAP PO SCH (21:43)
[2018-05-17] MEDS: ALLOPURINOL 300 MG TAB PO SCH (21:43)
[2018-05-17] MEDS: GABAPENTIN 300 MG CAP PO SCH (21:43)
[2018-05-17] MEDS: METOPROLOL TARTRATE 25 MG TAB PO SCH (21:47)
[2018-05-17] MEDS: ALPRAZolam 1 MG TAB PO PRN (23:31)
[2018-05-17] MEDS: ZOLPIDEM TARTRATE 5 MG TAB PO SCH (23:32)
[2018-05-18] MEDS: LEVOTHYROXINE 150 MCG TAB PO SCH (06:13)
[2018-05-18] MEDS: INSULIN LISPRO 100 UNIT/ML SC SCH ×3 (07:55→16:26)
--- NOTE | 2018-05-18 09:08 | SOAPPROG ---
SOAP Progress Note Assessment/Plan: 1. Gastroenteritis - Pt was admitted with nausea, vomiting, and diarrhea. CT of abdomen with reactive lymph nodes but no acute pathology. Symptoms improving. 2. ACS - Pt presented with chest pain in the setting of gastroenteritis. EKG with diffuse ST depression. Troponin increased from .10 to 3.91. Pt taken to cardiac catheterization laboratory were he was found to have a thrombotic lesion at the proximal edge of the OM stent. Pt was treated with PCI of his LCX with synergy APRIL. On further questioning patient reports running out of asa prior to event. Suspect dehydration and lack of asa led to his event. Discussed rn long term care use of both asa and plavix. EF = 66% with mid inferior/ posterior HK. Peak troponin 49. --> Continue asa, plavix, coreg, and lisinopril 3. HTN - BP well controlled. --> Continue lisinopril and amlodipine 4. Hyperlipidemia - LDL = 70 with out therapy. --> start lipitor 5 mg daily. 5. Hypoxemia - Pt with increased O2 requirements. LVEF = 66%. Suspect a component of DARRYL and obesity hypoventilation syndrome. Pt with decreased breath sounds at left base. --> BNP and CXR today. Subjective: No chest pain Slept better in chair last PM (sleeps in chair at home) limited ambulation Objective: Vital Signs Temp Pulse Resp BP Pulse Ox 36.9 C 94 20 117/70 89 L 05/18/18 08:00 05/18/18 08:00 05/18/18 08:00 05/18/18 08:00 05/18/18 08:00 Microbiology 05/17/18 15:15 Respiratory Panel (PCR) - Final Nasal, Sinus - Anaerobic Tube/Swab No Organism Detected By Pcr Laboratory Results 05/17/18 04:55 05/18/18 05:30 05/17/18 05/18/18 05/19/18 05:59 05:59 05:59 Intake Total 2350 2400 Output Total 400 3125 Balance 1950 -725 Physical Exam - Physical Exam General Appearance: alert, no apparent distress Respiratory: other (decreased breath sounds L base), No crackles Cardiac/Chest: regular rate, rhythm Abdomen: non-tender, soft Extremities: pedal edema ICD10 Worksheet Patient Problems: Problems Problem Status Onset Abdominal pain Acute Acute coronary syndrome Acute Mesenteric lymphadenopathy Acute Cervical radicular pain Acute Diabetes Acute Heart failure Acute Hypoxia Acute Methicillin resistant Staphylococcus aureus infection Acute 08/19/15
[2018-05-18] MEDS: FUROSEMIDE 40 MG/4 ML VIAL IVP SCH ×2 (09:41→16:25)
[2018-05-18] MEDS: CLOPIDOGREL BISULFATE 75 MG TAB PO SCH (09:44)
[2018-05-18] MEDS: POTASSIUM CL 20 MEQ TAB PO SCH (09:45)
[2018-05-18] MEDS: ASPIRIN 81 MG CHEWABLE TAB PO SCH (09:45)
[2018-05-18] MEDS: COLCHICINE 0.6 MG CAP/TAB PO SCH ×2 (09:47→20:53)
[2018-05-18] MEDS: HYDROCODONE/APAP 5/325 TAB PO PRN ×3 (09:54→23:05)
[2018-05-18] MEDS ORDERED: METOPROLOL TARTRATE 25 MG TAB PO ONE (10:30)
[2018-05-18] MEDS ORDERED: FUROSEMIDE 40 MG/4 ML VIAL IVP ONE (12:01)
[2018-05-18] MEDS ORDERED: ENOXAPARIN 40 MG/0.4 ML SYR SC SCH (12:15)
--- NOTE | 2018-05-18 13:32 | CPEKG ---
Test Reason : OPEN Blood Pressure : / mmHG Vent. Rate : 078 BPM Atrial Rate : 078 BPM P-R Int : 160 ms QRS Dur : 097 ms QT Int : 469 ms P-R-T Axes : 050 070 089 degrees QTc Int : 535 ms Sinus rhythm Nonspecific T abnormalities, lateral leads Prolonged QT interval Confirmed by Cheikh West ([id number]) on 05/18/2018 1:31:47 PM Referred By: Cheikh West Confirmed By:Cheikh West
[2018-05-18] MEDS: ENOXAPARIN 40 MG/0.4 ML SYR SC SCH (14:07)
--- NOTE | 2018-05-18 14:42 | HOSPPROG ---
Hospitalist Progress Note Assessment/Plan: * Non-STEMI -thrombosis of OM stent - restented -due to ASA non-compliance (ran out) -cont Plavix -cont Coreg * Acute respiratory failure - suspect due to pulmonary edema -up 15L overnight, improving -baseline is 2L night only -Resp PCR is negative * Acute on chronic diastolic CHF -IV lasix, will provide additional dose today * HTN: soft this morning: -Hold Amlodipine -Held Lisinopril given additional diuretics. Needs detention, if BP cont to be soft, may need to decrease dose -cont Coreg * Morbid obesity BMI 44 with OHS/DARRYL -CPAP * DM II -holding metformin * Abd/pelvic LAD -f/u CT 3-6 months DVT Proph: Lovenox CXR: interstitial edema BNP elevated Subjective: no cp. Still with some SOB. + leg swelling Objective: Vital Signs Temp Pulse Resp BP Pulse Ox 36.9 C 86 82 H 114/70 86 L 05/18/18 11:50 05/18/18 11:50 05/18/18 12:52 05/18/18 11:50 05/18/18 12:45 Microbiology 05/17/18 15:15 Respiratory Panel (PCR) - Final Nasal, Sinus - Anaerobic Tube/Swab No Organism Detected By Pcr Laboratory Results 05/17/18 04:55 05/18/18 05:30 05/17/18 05/18/18 05/19/18 05:59 05:59 05:59 Intake Total 2350 2400 900 Output Total 400 3125 1250 Balance 1950 -725 -350 - Physical Exam Constitutional: no apparent distress Eyes: PERRL, EOMI Ears, Nose, Mouth, Throat: moist mucous membranes, hearing normal Cardiovascular: regular rate and rhythym, edema Respiratory: no respiratory distress, reduced air movement Gastrointestinal: normoactive bowel sounds, soft, non-tender abdomen Skin: warm Neurologic: AAOx3 Psychiatric: interacting appropriately, not anxious, not encephalopathic Lymph, Heme, Immunologic: No petechiae ICD10 Worksheet Patient Problems: Problems Problem Status Onset Abdominal pain Acute Acute coronary syndrome Acute Mesenteric lymphadenopathy Acute Cervical radicular pain Acute Diabetes Acute Heart failure Acute Hypoxia Acute Methicillin resistant Staphylococcus aureus infection Acute 08/19/15
--- NOTE | 2018-05-18 16:12 | ASMTCMCOM ---
CM Note CM Note Notes: Today PT/OT rec inpatient rehab; rehab consult order is in and voicemail left alerting [facility] Unknown if pt will qualify for [facility] inpatient rehab and if pt insurance will approve so pt SNF choice is [facility] where he has been before. Referral sent to [facility] for their review to make sure they still take pt insurance. CM to follow. D/c plan of care: [facility] SNF vs [facility] inpatient rehab Date Signed: 05/18/2018 04:12 PM Electronically Signed By:PHOEBE Haines
[2018-05-18] MEDS: TAMSULOSIN HCL 0.4 MG CAP PO SCH (20:53)
[2018-05-18] MEDS: ALLOPURINOL 300 MG TAB PO SCH (20:53)
[2018-05-18] MEDS: GABAPENTIN 300 MG CAP PO SCH (20:54)
[2018-05-18] MEDS: METOPROLOL TARTRATE 25 MG TAB PO SCH (20:54)
[2018-05-18] MEDS: ALPRAZolam 1 MG TAB PO PRN (23:05)
[2018-05-18] MEDS: ZOLPIDEM TARTRATE 5 MG TAB PO SCH (23:05)
[2018-05-19] MEDS: LEVOTHYROXINE 150 MCG TAB PO SCH (05:26)
[2018-05-19] MEDS: INSULIN LISPRO 100 UNIT/ML SC SCH ×3 (08:05→17:03)
[2018-05-19] MEDS: CLOPIDOGREL BISULFATE 75 MG TAB PO SCH (08:15)
[2018-05-19] MEDS: ASPIRIN 81 MG CHEWABLE TAB PO SCH (08:15)
[2018-05-19] MEDS: FUROSEMIDE 40 MG/4 ML VIAL IVP SCH ×2 (08:15→16:00)
[2018-05-19] MEDS: METOPROLOL TARTRATE 25 MG TAB PO SCH ×2 (08:15→20:50)
[2018-05-19] MEDS: COLCHICINE 0.6 MG CAP/TAB PO SCH ×2 (08:15→20:50)
[2018-05-19] MEDS: POTASSIUM CL 20 MEQ TAB PO SCH (08:15)
[2018-05-19] MEDS: ENOXAPARIN 40 MG/0.4 ML SYR SC SCH (08:16)
--- NOTE | 2018-05-19 12:06 | ASMTCMCOM ---
CM Note CM Note Notes: [facility] inpatient rehab still reviewing pt. Joan at [facility] reports they are not in pt insurance network, he would have to pay private to go to [facility]. Referral sent to [facility] to see if they are in network. CM will follow up with pt. D/c plan: Inpatient rehab vs. SNF Date Signed: 05/19/2018 12:05 PM Electronically Signed By:PHOEBE Haines
[2018-05-19] MEDS ORDERED: FUROSEMIDE 40 MG/4 ML VIAL IVP ONE (12:15)
[2018-05-19] MEDS ORDERED: PROTOCOL POTASSIUM 1 DOSE MISC PRN (12:25)
[2018-05-19] MEDS ORDERED: POTASSIUM CL 10 MEQ TAB PO ONE ×2 (12:28→22:08)
[2018-05-19] MEDS ORDERED: LISINOPRIL 20 MG TAB PO SCH (12:40)
--- NOTE | 2018-05-19 12:40 | SOAPPROG ---
SOKATIE Progress Note Assessment/Plan: 1. Gastroenteritis - Pt was admitted with nausea, vomiting, and diarrhea. CT of abdomen with reactive lymph nodes but no acute pathology. Symptoms resolved. 2. ACS - Pt presented with chest pain in the setting of gastroenteritis. EKG with diffuse ST depression. Troponin increased from .10 to 3.91. Pt taken to cardiac catheterization laboratory were he was found to have a thrombotic lesion at the proximal edge of the OM stent. Pt was treated with PCI of his LCX with synergy APRIL. On further questioning patient reports running out of asa prior to event. Suspect dehydration and lack of asa led to his event. Discussed computer terminal operator use of both asa and plavix. EF = 66% with mid inferior/ posterior HK. Peak troponin 49. --> Continue asa, plavix, coreg, and lisinopril 3. HTN - BP on the low side. Amlodipine and lisinopril placed on hold to allow for diuresis. --> Will resume lisinopril at half dose 20 mg. 4. Hyperlipidemia - LDL = 70 with out therapy. --> start lipitor 5 mg daily. 5. Hypoxemia - Likely related to RODRICK, obesity hypoventilation and diastolic CHF with elevated BNP. --> Agree with continued diuresis. Subjective: No chest pain Ambulating around pod and up 8 stairs. Continues to sleep upright (?rodrick vs PND) edema improved. Objective: Vital Signs Temp Pulse Resp BP Pulse Ox 37.3 C 85 19 125/74 H 91 L 05/19/18 11:53 05/19/18 11:53 05/19/18 11:53 05/19/18 11:53 05/19/18 11:53 Laboratory Results 05/19/18 05:12 05/19/18 05:12 05/18/18 05/19/18 05/20/18 05:59 05:59 05:59 Intake Total 2400 2550 Output Total 3125 2770 1250 Balance -725 -220 -1250 Physical Exam - Physical Exam General Appearance: alert, no apparent distress Respiratory: lungs clear Cardiac/Chest: regular rate, rhythm Extremities: pedal edema Neuro/Psych: alert, oriented x 3 ICD10 Worksheet Patient Problems: Problems Problem Status Onset Abdominal pain Acute Acute coronary syndrome Acute Mesenteric lymphadenopathy Acute Cervical radicular pain Acute Diabetes Acute Heart failure Acute Hypoxia Acute Methicillin resistant Staphylococcus aureus infection Acute 08/19/15
[2018-05-19] MEDS ORDERED: CANN-EASE 2 GM TUBE TP ONE (13:00)
[2018-05-19] MEDS ORDERED: CANN-EASE 2 GM TUBE TP PRN (13:04)
--- NOTE | 2018-05-19 15:40 | HOSPPROG ---
Hospitalist Progress Note Assessment/Plan: * Non-STEMI -thrombosis of OM stent - restented -due to ASA non-compliance (ran out) -cont Plavix -cont Coreg * Acute respiratory failure - suspect due to pulmonary edema -improving -baseline is 2L night only -Resp PCR is negative * Acute on chronic diastolic CHF -IV lasix, will provide additional dose today, increase schedule * HTN: soft this morning: -Hold Amlodipine -Held Lisinopril given additional diuretics. Needs terminal operations manager, will restart at decreased dose once able to -cont Coreg * Morbid obesity BMI 44 with OHS/DARRYL -CPAP * DM II -holding metformin -iss * Abd/pelvic LAD -f/u CT 3-6 months * HLD: start Lipitor 5 DVT Proph: Lovenox CXR: interstitial edema BNP elevated Subjective: still on 8 liters of O2. diuresing well Objective: Vital Signs Temp Pulse Resp BP Pulse Ox 37.3 C 85 19 125/74 H 91 L 05/19/18 11:53 05/19/18 11:53 05/19/18 11:53 05/19/18 11:53 05/19/18 11:53 Laboratory Results 05/19/18 05:12 05/19/18 05:12 05/18/18 05/19/18 05/20/18 05:59 05:59 05:59 Intake Total 2400 2550 740 Output Total 3125 2770 1250 Balance -887 -220 -447 - Physical Exam Constitutional: no apparent distress Eyes: PERRL Ears, Nose, Mouth, Throat: moist mucous membranes Cardiovascular: regular rate and rhythym, edema Respiratory: no respiratory distress, reduced air movement Gastrointestinal: normoactive bowel sounds Skin: warm Neurologic: AAOx3 Psychiatric: interacting appropriately, not anxious, not encephalopathic Lymph, Heme, Immunologic: No petechiae ICD10 Worksheet Patient Problems: Problems Problem Status Onset Abdominal pain Acute Acute coronary syndrome Acute Mesenteric lymphadenopathy Acute Cervical radicular pain Acute Diabetes Acute Heart failure Acute Hypoxia Acute Methicillin resistant Staphylococcus aureus infection Acute 08/19/15
[2018-05-19] MEDS: HYDROCODONE/APAP 5/325 TAB PO PRN ×2 (15:59→23:19)
[2018-05-19] MEDS: GABAPENTIN 300 MG CAP PO SCH (20:49)
[2018-05-19] MEDS: ALLOPURINOL 300 MG TAB PO SCH (20:50)
[2018-05-19] MEDS: TAMSULOSIN HCL 0.4 MG CAP PO SCH (20:50)
[2018-05-19] MEDS ORDERED: PSYLLIUM METAMUCIL 1 PKT PO PRN (22:32)
[2018-05-19] MEDS: ALPRAZolam 1 MG TAB PO PRN (23:19)
[2018-05-19] MEDS: ZOLPIDEM TARTRATE 5 MG TAB PO SCH (23:20)
[2018-05-20] MEDS: LEVOTHYROXINE 150 MCG TAB PO SCH (05:19)
[2018-05-20 05:53] LABS: PLATELET COUNT 122 10^3/uL (150-400)
[2018-05-20] MEDS: CLOPIDOGREL BISULFATE 75 MG TAB PO SCH (07:53)
[2018-05-20] MEDS: ATORVASTATIN CALCIUM 10 MG TAB PO SCH (07:53)
[2018-05-20] MEDS: METOPROLOL TARTRATE 25 MG TAB PO SCH ×2 (07:55→20:17)
[2018-05-20] MEDS: ASPIRIN 81 MG CHEWABLE TAB PO SCH (07:55)
[2018-05-20] MEDS: COLCHICINE 0.6 MG CAP/TAB PO SCH ×2 (07:55→20:17)
[2018-05-20] MEDS: FUROSEMIDE 40 MG/4 ML VIAL IVP SCH (07:56)
[2018-05-20] MEDS: POTASSIUM CL 20 MEQ TAB PO SCH (07:56)
[2018-05-20] MEDS: ENOXAPARIN 40 MG/0.4 ML SYR SC SCH (07:57)
[2018-05-20] MEDS: INSULIN LISPRO 100 UNIT/ML SC SCH ×3 (07:57→18:05)
[2018-05-20] MEDS ORDERED: POTASSIUM CL 10 MEQ TAB PO ONE ×2 (09:23→21:08)
[2018-05-20] MEDS ORDERED: LISINOPRIL 20 MG TAB PO SCH (10:00)
--- NOTE | 2018-05-20 12:53 | SOAPPROG ---
SOAP Progress Note Assessment/Plan: 1. Gastroenteritis - Pt was admitted with nausea, vomiting, and diarrhea. CT of abdomen with reactive lymph nodes but no acute pathology. Symptoms resolved. 2. ACS - Pt presented with chest pain in the setting of gastroenteritis. EKG with diffuse ST depression. Troponin increased from .10 to 3.91. Pt taken to cardiac catheterization laboratory were he was found to have a thrombotic lesion at the proximal edge of the OM stent. Pt was treated with PCI of his LCX with synergy APRIL. On further questioning patient reports running out of asa prior to event. Suspect dehydration and lack of asa led to his event. 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 EF = 66% with mid inferior/ posterior HK. Peak troponin 49. --> Continue asa, plavix, coreg, and lisinopril 3. HTN - Well controlled on lisinopril 20 mg daily --> Continue current therapy. 4. Hyperlipidemia - LDL = 70 with out therapy. --> start lipitor 5 mg daily. --> FLP and LFTs in 08/31. 5. Hypoxemia - Likely related to DARRYL, obesity hypoventilation and diastolic CHF with elevated BNP. Weight down and BNP improved with diuresis. Will transition to PO diuretics today. Discussed with Dr. Morse. --> Transition to PO lasix 6. Disposition - Anticipate DC home tomorrow. Subjective: No chest pain Ambulating with out difficulty. O2 requirements improved Objective: Vital Signs Temp Pulse Resp BP Pulse Ox 36.6 C 67 18 113/73 95 05/20/18 11:48 05/20/18 11:48 05/20/18 11:48 05/20/18 11:48 05/20/18 11:48 Laboratory Results 05/20/18 05:06 05/20/18 05:06 05/19/18 05/20/18 05/21/18 05:59 05:59 05:59 Intake Total 2550 2960 Output Total 2770 3160 Balance -220 -200 Physical Exam - Physical Exam General Appearance: no apparent distress Respiratory: lungs clear Cardiac/Chest: regular rate, rhythm Abdomen: non-tender, soft Extremities: pedal edema Neuro/Psych: oriented x 3 ICD10 Worksheet Patient Problems: Problems Problem Status Onset Abdominal pain Acute Acute coronary syndrome Acute Mesenteric lymphadenopathy Acute Cervical radicular pain Acute Diabetes Acute Heart failure Acute Hypoxia Acute Methicillin resistant Staphylococcus aureus infection Acute 06/06/16
--- NOTE | 2018-05-20 13:16 | CPEKG ---
Test Reason : OPEN Blood Pressure : / mmHG Vent. Rate : 091 BPM Atrial Rate : 091 BPM P-R Int : 162 ms QRS Dur : 097 ms QT Int : 375 ms P-R-T Axes : 054 040 062 degrees QTc Int : 462 ms Sinus rhythm Consider right ventricular hypertrophy Confirmed by Hunter Kumar ([id number]) on 05/20/2018 1:16:23 PM Referred By: Cheikh West Confirmed By:Hunter Kumar
[2018-05-20] MEDS ORDERED: LACTULOSE 20 GM/30 ML UDCUP PO PRN (15:14)
[2018-05-20] MEDS ORDERED: BISACODYL 10 MG SUPP PR PRN (15:14)
[2018-05-20] MEDS: MAGNESIUM HYDROXIDE 30 ML UDCUP PO PRN (15:33)
[2018-05-20] MEDS ORDERED: FUROSEMIDE 40 MG/4 ML VIAL IVP ONE (16:34)
--- NOTE | 2018-05-20 16:38 | HOSPPROG ---
Hospitalist Progress Note Assessment/Plan: * Non-STEMI -thrombosis of OM stent - restented -due to ASA non-compliance (ran out) -cont Plavix -cont Coreg * Acute respiratory failure - suspect due to pulmonary edema -improving -baseline is 2L night only -Resp PCR is negative * Acute on chronic diastolic CHF -Has been getting 120mg IV daily. This morning he received 60mg of IV Lasix and the plan was to stop IV Lasix and change to PO Lasix in the a.m.. However he is still volume overloaded and he will get additional 60mg IV this afternoon. His O2 needs are down to 3-4 liters. If he continues to improve, would discharge tomorrow on Lasix 40mg (which is ordered tomorrow). Will check labs as well. * HTN -Hold Amlodipine, dont start on discharge -Held Lisinopril given additional diuretics. 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 -cont Coreg * Morbid obesity BMI 44 with OHS/DARRYL -CPAP * DM II -holding metformin -iss * Abd/pelvic LAD -f/u CT 3-6 months * HLD: started Lipitor 5mg DVT Proph: Lovenox CXR: interstitial edema BNP elevated Dispo: likely d/c tomorrow. Needs close f/u with cardiology Subjective: no cp. no nausea or vomiting. still with leg swelling. still with SOB and hypoxemia Objective: Vital Signs Temp Pulse Resp BP Pulse Ox 36.8 C 68 18 126/84 H 95 05/20/18 16:19 05/20/18 16:19 05/20/18 16:19 05/20/18 16:19 05/20/18 16:19 Laboratory Results 05/20/18 05:06 05/20/18 05:06 05/19/18 05/20/18 05/21/18 05:59 05:59 05:59 Intake Total 2550 2960 Output Total 2770 3160 1100 Balance -220 -200 -1100 - Physical Exam Constitutional: no apparent distress Eyes: PERRL, EOMI Ears, Nose, Mouth, Throat: moist mucous membranes Cardiovascular: regular rate and rhythym, edema Respiratory: no respiratory distress, No rhonchi Gastrointestinal: normoactive bowel sounds, soft, non-tender abdomen, no palpable masses Skin: warm Neurologic: AAOx3 Psychiatric: interacting appropriately, not anxious, not encephalopathic Lymph, Heme, Immunologic: No petechiae ICD10 Worksheet Patient Problems: Problems Problem Status Onset Abdominal pain Acute Acute coronary syndrome Acute Mesenteric lymphadenopathy Acute Cervical radicular pain Acute Diabetes Acute Heart failure Acute Hypoxia Acute Methicillin resistant Staphylococcus aureus infection Acute 08/19/15
--- NOTE | 2018-05-20 17:17 | ASMTCMCOM ---
CM Note CM Note Notes: 05/20/2018 Case Management Note Met w/pt this morning to discuss d/c needs. Pt insurance does not cover [facility]. Pt declined exploring further home health agencies. Pt requested evaluation by cardiac rehab. Pt requested portable concentrator. Encouraged discussion with respiratory therapy and that insurance would dictate home O2 equipment. Pt has home O2 concentrator in his bedroom. [facility] has accepted pt but did not run auth as pt indicated he would be going home. Case Management d/c poc: home independent with follow up as directed. Possibly with home O2 to be arranged by respiratory therapy. Case Management available if needs change. Date Signed: 05/20/2018 05:16 PM Electronically Signed By:Elodia Callaway RN
[2018-05-20] MEDS: TAMSULOSIN HCL 0.4 MG CAP PO SCH (20:17)
[2018-05-20] MEDS: SENNOSIDES/DOCUSATE SODIUM TAB PO SCH (20:17)
[2018-05-20] MEDS: ALLOPURINOL 300 MG TAB PO SCH (20:17)
[2018-05-20] MEDS: GABAPENTIN 300 MG CAP PO SCH (20:17)
[2018-05-20] MEDS: POLYETHYLENE GLYCOL 3350 17 GM PKT PO PRN (21:51)
[2018-05-20] MEDS: ZOLPIDEM TARTRATE 5 MG TAB PO SCH (23:25)
[2018-05-20] MEDS: ALPRAZolam 1 MG TAB PO PRN (23:25)
[2018-05-20] MEDS: HYDROCODONE/APAP 5/325 TAB PO PRN (23:26)
[2018-05-21] MEDS: HYDROCODONE/APAP 5/325 TAB PO PRN (05:38)
[2018-05-21] MEDS: LEVOTHYROXINE 150 MCG TAB PO SCH (05:39)
[2018-05-21] MEDS: INSULIN LISPRO 100 UNIT/ML SC SCH ×2 (07:50→12:33)
[2018-05-21] MEDS: ASPIRIN 81 MG CHEWABLE TAB PO SCH (07:58)
[2018-05-21] MEDS: CLOPIDOGREL BISULFATE 75 MG TAB PO SCH (07:58)
[2018-05-21] MEDS: COLCHICINE 0.6 MG CAP/TAB PO SCH (07:58)
[2018-05-21] MEDS: ATORVASTATIN CALCIUM 10 MG TAB PO SCH (07:58)
[2018-05-21] MEDS: METOPROLOL TARTRATE 25 MG TAB PO SCH (07:59)
[2018-05-21] MEDS: SENNOSIDES/DOCUSATE SODIUM TAB PO SCH (07:59)
[2018-05-21] MEDS: POTASSIUM CL 20 MEQ TAB PO SCH (07:59)
[2018-05-21] MEDS: ENOXAPARIN 40 MG/0.4 ML SYR SC SCH (08:01)
[2018-05-21] MEDS: MAGNESIUM HYDROXIDE 30 ML UDCUP PO PRN (08:01)
[2018-05-21] MEDS: POLYETHYLENE GLYCOL 3350 17 GM PKT PO PRN (08:01)
[2018-05-21] MEDS ORDERED: FUROSEMIDE 40 MG TAB PO SCH (09:00)
--- NOTE | 2018-05-21 09:57 | PDHOMEO2F ---
Home Oxygen Face to Face Home Orders: I certify that a physician or a nurse practitioner or physician's sourcing assistant has had a [id number] encounter with this patient on the date of this order due to the diagnosis listed, which relates to the primary reason the patient requires home oxygen. Alternative treatments have been tried, or considered, and deemed ineffective. It is anticipated that supplemental oxygen will result in improvement with treatment. Home oxygen qualifying diagnosis: Diastolic CHF SpO2 on room air (%): 84 Frequency of home oxygen needed: continuous Home oxygen liters per minute: 2 Home oxygen delivery device: nasal cannula Concentrator: Yes E-tanks for mobility and back up: Yes If ordering portable O2, is the patient mobile in the home?: Yes I certify that, based on these findings, the home oxygen is medically necessary for this patient for the following length of time. Length of time home oxygen needed: 99 years
--- NOTE | 2018-05-21 10:15 | ASMTLACE ---
ANGEL Length of stay for Answers: 4-6 days current admission Acuity / Level of Answers: Yes Care: Did the patient have an inpatient admission? Comorbidities - select Answers: Congestive heart failure all that apply Coronary Artery Disease Diabetes (uncontrolled or controlled) Opioid dependence / Chronic pain Other Notes: HTN # of Emergency department Answers: 1-2 visits in the last 6 months Social determinants Answers: Mental health diagnosis (anxiety, depression, pers onality disorders, etc.) Score: 21 Date Signed: 05/21/2018 10:14 AM Electronically Signed By:Aline Martines
[2018-05-21 11:05] VITALS: BP 115/75
--- NOTE | 2018-05-21 14:09 | PDDCSUM ---
Discharge Summary Discharge Summary: Date of Admission: 05/16/2018 Date of Discharge: 05/21/2018 Consults: Cardiology Procedures: [facility] Followup: PCP, Cardiology Hospital Course Problem List: * Non-STEMI -thrombosis of OM stent - restented -due to ASA non-compliance (ran out) -cont Plavix -cont Coreg * Acute respiratory failure - suspect due to pulmonary edema -improving -baseline is 2L night only, dischar -Resp PCR is negative * Acute on chronic diastolic CHF -Was previously receiving IV diuretics which has been transitioned to PO Lasix 40 mg qd upon discharge - Patient to followup closely with cardiology * HTN -Holding Amlodipine, discontinued upon discharge -Held Lisinopril given additional diuretics. Restarted upon discharge . -cont Coreg * Morbid obesity BMI 44 with OHS/DARRYL -CPAP * DM II -holding metformin -iss * Abd/pelvic LAD -f/u CT 3-6 months * HLD: started Lipitor 5mg, continue upon discharge Time spent on discharge was >35 minutes with >50% of time spent on patient education and counseling.
--- NOTE | 2018-05-21 15:33 | GDS ---
[f rep st] DISCHARGE SUMMARY DISCHARGE DIAGNOSES: 1. Acute coronary syndrome, status post thrombotic lesion to the proximal edge of a prior placed OM stent, which is 100% occluded. He is status post thrombectomy and stenting with a Synergy 3.0 x 16 m m drug-eluting stent. 2. Gastroenteritis. 3. Hypertension. 4. Hyperlipidemia. 5. Hypoxemia. HOSPITAL COURSE: For detailed H and P, please see prior dictation. Briefly, the patient is a 62-year-old male with history of coronary artery disease, who presented to the hospital with nausea, vomiting, and diarrhea. He was also having chest pain in the setting of ga stroenteritis and EKG showed diffuse ST depression. He had a positive troponin early on of 3.91, and therefore, he was taken to the cardiac catheterization laboratory by Dr. Cheikh West on May 16 9. He was found to have a thrombotic lesion to the proximal edge of a prior placed OM stent. He was treated with thrombectomy and stenting with a 3.0 x 16 mm Synergy drug-eluting stent. Upon further questioning, the patient admits to running out of aspirin a few days ago. His troponin peaked at 49 and then trended downward. His EF was measured at 66% with mild inferior posterior hypokinesis. He also had mild diastolic heart failure with an elevated BNP. He was diuresed with IV Lasix and then t ransition to p.o. Lasix. His medical regimen was adjusted secondary to his acute coronary syndrome. Norvasc was discontinued and he was started on Coreg. Lisinopril was continued, but decreased in do se. His blood pressure has been well controlled throughout his hospitalization. His LDL off medical therapy is 70. He was started on low-dose Lipitor 5 mg daily. He has been hypoxic since admission. His O2 requirements have been reduced throughout his hospitaliz ation. He is satting well at room air in the 90s. With exertion, his oxygen saturation is dropping down to 84. He will be discharged home with oxygen. PHYSICAL EXAMINATION: GENERAL: Patient appears in no acute distress. VITALS: Blood pressure 119/7 7, heart rate 59, oxygen saturation of 93% on room air, afebrile. LUNGS: Mild wheezing throughout. CARDIAC: Regular rate and rhythm, without any significant murmurs, rubs, or gallops appreciated. E XTREMITIES: Palpable pulses bilaterally. Right groin where access was obtained for the angiogram is clean, intact, without any evidence of infection or hematoma. LABORATORY: Troponin 21.4 at the time of discharge. His troponin peaked at 49.7. BNP 1230. Fastin g lipid profile showed triglycerides of 148, total cholesterol 128, LDL 70, and HDL 28. DIAGNOSTIC STUDIES: Angiogram showed a thrombotic 100% occlusion of the OM, which was treated with t hrombectomy and stenting with a 3.0 x 16 mm Synergy drug-eluting stent. The remaining arteries had m ild plaque of 20% to 30%. Chest CTA was negative for pulmonary embolic disease. His main pulmonary artery was large at 4.6 cm compatible with pulmonary hypertension. He had moderate cardiomegaly. An echocardiogram revealed preserved LV function with ejection fraction of 66% with mild posterior an d inferior hypokinesis. There were no significant valvular abnormalities. DISCHARGE MEDICATIONS: Aspirin 81 mg daily, Plavix 75 mg daily, Lipitor 5 mg daily, Lasix 40 mg justyn y, lisinopril 10 mg daily, Lopressor 25 mg half tab twice daily, Flomax 0.4 mg at bedtime, Synthroid 150 mcg daily, allopurinol 600 mg at bedtime, metformin 1000 mg twice daily, colchicine 0.6 mg twice daily, Klor-Con 20 mEq daily, Ambien 10 mg at bedtime. PLAN: The patient is currently stable and ready for discharge home. He is aware that he is to remai n on aspirin and Plavix for a minimum of 1 year. He will receive a call from [facility] on Wednesday to schedule a followup appointment in 1 to 2 weeks. He was hypoxic with exertion and, therefore, wi ll be discharged home with oxygen. Greater than 30 minutes was spent coordinating the patient's care today. /[id number]/MODL
== END 2018-05-21 13:55 | disposition home or self-care (01) | DRG 246 ==
LOC: F2N 19:08 → F2W 05-17 09:58 → UNDODISIN 05-21 13:09
PROVIDERS: ADMIT Internal Medicine; ATTEND Internal Medicine Cardiovascular Disease
DX: I21.4 Non-ST elevation (NSTEMI) myocardial infarction (principal); T82.855A Stenosis of coronary artery stent, initial encounter; J96.00 Acute respiratory failure, unspecified whether with hypoxia or hypercapnia; I11.0 Hypertensive heart disease with heart failure; I50.33 Acute on chronic diastolic (congestive) heart failure; E66.2 Morbid (severe) obesity with alveolar hypoventilation; Z68.41 Body mass index [BMI] 40.0-44.9, adult; E11.9 Type 2 diabetes mellitus without complications; Z79.84 Long term (current) use of oral hypoglycemic drugs; E78.5 Hyperlipidemia, unspecified; K52.9 Noninfective gastroenteritis and colitis, unspecified; I27.20 Pulmonary hypertension, unspecified; Z66 Do not resuscitate
CPT/HCPCS: 84484-ER; 96374; 97116-GP; 97161-GP; 97166-GO; 97530-GO; 97530-GP; 97535-GO; C1725; C1757; C1760; C1769; C1874; C1887; C9600; J0583; J1200; J1327; J1644; J1650; J1940; J2060; J2250; J2405; J3010; Q9967

== ENCOUNTER 2018-06-29 11:36 | Outpatient (CLI) | payer OTHER ==
[2018-06-29] MEDS ORDERED: PROPOFOL/EMULSION 500 MG/50 ML BOTTLE IV ONE (11:58)
[2018-06-29] MEDS ORDERED: PROPOFOL 200 MG/20 ML VIAL ONE (11:59)
--- NOTE | 2018-06-29 12:24 | PDANEPAE ---
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 CAD cx/pda with stents x2 2016. Hx CHF, no recent symptoms. Has had cardiac clearance 2016, printed and on chart. Echo 01/29 with EF 50-55%, PA pressures 62, later down to 44. R Heart Cath pre diuresis 01/29 PA pressure 80 and post with 50# wt loss PA pressure measured 44 - Pulmonary History Hx COPD: No Hx Asthma/Reactive Airway Disease: No Hx Recent Upper Respiratory Infection: No Hx Oxygen in Use at Home: Yes Hx Sleep Apnea: Yes Pulmonary History Comment: o2 for cpap- 2-3 liters. Largely non-compliant, says has been better recently - Neurologic History Hx Cerebrovascular Accident: No Hx Seizures: No Hx Dementia: No Neurologic History Comment: numbness in both hands and legs. 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 Hx renal failure in past - Liver History Hx Hepatic Disorders: No - Neurological & Psychiatric Hx Hx Neurological and Psychiatric Disorders: No - Cancer History Hx Cancer: No - Congenital Disorder History Hx Congenital Disorders: No - GI History Hx Gastrointestinal Disorders: No - Other Health History Other Health History: gout,. IV Antibx for R hip infection. loss of few teeth. blood clot but doesn't know where it was, - Chronic Pain History Chronic Pain: Yes - Surgical History Prior Surgeries: R femoral head excision,I and D 01-21-17. Right shoulder. Bilat knee surgery. Tonsilectomy, R MAVIS 02/2017, ANE Review of Systems Review of Systems: - Exercise capacity METS (RN): 1 METS ANE Patient History - Allergies Allergies/Adverse Reactions: oxycodone Allergy (Verified 05/16/18 12:56) hallucinations - Home Medications Home Medications: Tamsulosin HCl [Flomax 0.4 MG (*)] 0.4 mg PO HS 01/08/17 [Last Taken 06/28/18 23 :00] Allopurinol [Allopurinol 300 MG (RX)] 600 mg PO HS 02/09/17 [Last Taken 0900] Levothyroxine [Synthroid 150 mcg (*)] 150 mcg PO DAILY06 02/09/17 [Last Taken 09:00] Aspirin [Aspirin 81mg (*)] 81 mg PO DAILY 02/08/18 [Last Taken 06/28/18 23:00] Colchicine [Colchicine (*)] 0.6 mg PO BID 02/08/18 [Last Taken 06/28/18 23:00] Potassium Cl [Klor-Con 20 meq (*)] 20 meq PO DAILY 02/21/18 [Last Taken 09:00] Zolpidem Tartrate [Ambien] 10 mg PO HS 02/24/18 [Last Taken 06/28/18 23:00] Furosemide [Lasix 40 MG (*)] 40 mg PO BID 06/24/18 [Last Taken 06/29/18 09:00] Gabapentin 300 mg BID 06/24/18 [Last Taken 06/28/18 23:00] traZODone [traZODONE 100MG (*)] 100 mg HS 06/24/18 [Last Taken 06/28/18 23:00] - Smoking Hx Smoking Status: Never smoked - Family Anes Hx Family Hx Anesthesia Complications: None ANE Labs/Vital Signs - Vital Signs Height: 187.96 cm Weight: 142.882 kg ANE Anesthesia Plan Anesthesia Plan: general endotracheal anesthesia
--- NOTE | 2018-06-29 13:47 | PDANEPAE ---
ANE History of Present Illness MRI of cervical spine. ANE Past Medical History - Cardiovascular History Hx Hypertension: Yes Hx Arrhythmias: No Hx Chest Pain: No Hx Coronary Artery / Peripheral Vascular Disease: Yes Hx CHF / Valvular Disease: No Hx Palpitations: No Cardiovascular History Comment: Recent angina and secondary respiratory failure s/p stent x1 placed in May. 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 CAD cx/ pda with stents x2 2016. Hx CHF, no recent symptoms. Has had cardiac clearance 02/2017, printed and on chart. Echo 01/29 with EF 50-55%, PA pressures 62, later down to 44. R Heart Cath pre diuresis 01/29 PA pressure 80 and post with 50# wt loss PA pressure measured 44 - Pulmonary History Hx COPD: No Hx Asthma/Reactive Airway Disease: No Hx Recent Upper Respiratory Infection: No Hx Oxygen in Use at Home: Yes Hx Sleep Apnea: Yes Sleep Apnea Screening Result - Last Documented: Positive Pulmonary History Comment: o2 for cpap- 2-3 liters. Largely non-compliant, says has been better recently - Neurologic History Hx Cerebrovascular Accident: No Hx Seizures: No Hx Dementia: No Neurologic History Comment: numbness in both hands and legs. 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 Hx renal failure in past. BPH - Liver History Hx Hepatic Disorders: No - Neurological & Psychiatric Hx Hx Neurological and Psychiatric Disorders: No - Cancer History Hx Cancer: No - Congenital Disorder History Hx Congenital Disorders: No - GI History GERD: no Hx Gastrointestinal Disorders: No - Other Health History Other Health History: gout,. IV Antibx for R hip infection. loss of few teeth. blood clot but doesn't know where it was, - Chronic Pain History Chronic Pain: Yes - Surgical History Prior Surgeries: R femoral head excision,I and D 01-21-17. Right shoulder. Bilat knee surgery. Tonsilectomy, R MAVIS 02/2017, ANE Review of Systems Review of Systems: - Exercise capacity METS (RN): 1 METS ANE Patient History - Allergies Allergies/Adverse Reactions: oxycodone Allergy (Verified 05/16/18 12:56) hallucinations - Home Medications Home Medications: Tamsulosin HCl [Flomax 0.4 MG (*)] 0.4 mg PO HS 01/08/17 [Last Taken 06/28/18 23 :00] Allopurinol [Allopurinol 300 MG (RX)] 600 mg PO HS 02/09/17 [Last Taken 0900] Levothyroxine [Synthroid 150 mcg (*)] 150 mcg PO DAILY06 02/09/17 [Last Taken 09:00] Aspirin [Aspirin 81mg (*)] 81 mg PO DAILY 02/08/18 [Last Taken 06/28/18 23:00] Colchicine [Colchicine (*)] 0.6 mg PO BID 02/08/18 [Last Taken 06/28/18 23:00] Potassium Cl [Klor-Con 20 meq (*)] 20 meq PO DAILY 02/21/18 [Last Taken 09:00] Zolpidem Tartrate [Ambien] 10 mg PO HS 02/24/18 [Last Taken 06/28/18 23:00] Furosemide [Lasix 40 MG (*)] 40 mg PO BID 06/24/18 [Last Taken 06/29/18 09:00] Gabapentin 300 mg BID 06/24/18 [Last Taken 06/28/18 23:00] traZODone [traZODONE 100MG (*)] 100 mg HS 06/24/18 [Last Taken 06/28/18 23:00] - Anes Hx Anes Hx: no prior problems - Smoking Hx Smoking Status: Never smoked Marijuana use: No - Alcohol Use Alcohol Use: None - Family Anes Hx Family Anes Hx: none Family Hx Anesthesia Complications: None ANE Labs/Vital Signs - Vital Signs Blood Pressure: 145/88 Heart Rate: 62 Respiratory Rate: 18 O2 Sat (%): 91 Height: 187.96 cm Weight: 142.882 kg ANE Physical Exam - Airway Neck exam: decreased ROM, spinal fusion Mallampati Score: Class 3 ANE Anesthesia Plan Anesthesia Plan: general endotracheal anesthesia
[2018-06-29] MEDS ORDERED: ROCURONIUM 100 MG/10 ML VIAL ONE (14:10)
[2018-06-29] MEDS ORDERED: PHENYLEPHRINE 10 MG/ML SDV ONE (15:00)
[2018-06-29] MEDS ORDERED: DEXAMETHASONE 10 MG/ML VIAL ONE (15:00)
[2018-06-29] MEDS ORDERED: ONDANSETRON DISINTEGRATING 4 MG TAB ONE (15:00)
[2018-06-29] MEDS ORDERED: SUGAMMADEX SODIUM 200 MG/2 ML VIAL IVP ONE (15:30)
[2018-06-29] MEDS ORDERED: NALOXONE HCL 0.4 MG/ML INJ IVP PRN (15:42)
[2018-06-29] MEDS ORDERED: fentaNYL 100 MCG/2 ML INJ IVP PRN (15:42)
--- NOTE | 2018-06-29 15:44 | POSTANESTH ---
Post Anesthetic Evaluation Cardiovascular Status: Similar to Pre-Op Cond Respiratory Status: Similar to Pre-op Cond. Level of Consciousness/Mental Status: Can Participate in Eval, Moderately Sleepy Pain Control: Adequate, Prn Tx Ordered Nausea/Vomiting Control: Adequate, Prn Tx Ordered Complications Possibly Related to Anesthesia: None Noted (Pt. advised to see his MD regarding R toe ulcer lauren.)
[2018-06-29 16:26] VITALS: BP 126/71
== END 2018-06-29 16:42 | disposition home or self-care (01) ==
LOC: FIMAGING 11:36
PROVIDERS: ATTEND Physical Medicine & Rehabilitation
DX: Z98.1 Arthrodesis status (principal)
CPT/HCPCS: J1100; J2370; J2704

== ENCOUNTER → 2018-07-27 | Outpatient (CLI) | payer OTHER | LOC: FIMAGING 16:06 | PROVIDERS: ATTEND Internal Medicine | DX: E03.9 Hypothyroidism, unspecified (principal); E11.9 Type 2 diabetes mellitus without complications; I11.0 Hypertensive heart disease with heart failure; I27.81 Cor pulmonale (chronic); R06.02 Shortness of breath; R53.83 Other fatigue; I50.9 Heart failure, unspecified ==